=== PATIENT | female | born 1940 ===

== ENCOUNTER 2019-02-07 14:37 | Inpatient (IN) | payer MEDICARE, OTHER ==
[~2019-02-07] VITALS: Ht 165 cm; Wt 101.1 kg
[2019-02-07] MEDS ORDERED: DOCUSATE SODIUM 100 MG (COLACE) CAP PO PRN (15:00)
[2019-02-07] MEDS ORDERED: diphenhydrAMINE 25 MG TAB (BENADRYL) PO PRN (15:00)
[2019-02-07] MEDS ORDERED: guaiFENesin/CODEINE (ROBITUSSIN AC) 10ML UDC PO PRN (15:00)
[2019-02-07] MEDS ORDERED: FLEET ENEMA ADULT 1 EA BTL PR PRN (15:00)
[2019-02-07] MEDS ORDERED: ACETAMINOPHEN 500 MG TAB (TYLENOL) PO PRN (15:00)
[2019-02-07] MEDS ORDERED: LOPERAMIDE 2 MG (IMODIUM) TABLET PO PRN (15:00)
[2019-02-07] MEDS ORDERED: ONDANSETRON 4 MG (ZOFRAN) ORAL DISSOLVE TAB PO PRN ×2 (15:00→17:45)
[2019-02-07] MEDS ORDERED: LACTULOSE SYRUP 10GM/15ML (ENULOSE) 30ML UDC PO PRN (15:00)
[2019-02-07] MEDS ORDERED: HYDR120O2 TP (15:46)
[2019-02-07] MEDS ORDERED: CHOL10007 PO (15:46)
[2019-02-07] MEDS ORDERED: RT-ALBUINH IH (15:46)
[2019-02-07] MEDS ORDERED: LEVO112T55 PO (15:46)
[2019-02-07] MEDS ORDERED: DOCU-143 PO (15:46)
[2019-02-07] MEDS ORDERED: AMLO10TA7 PO (15:46)
[2019-02-07] MEDS ORDERED: ONDA4TAB11 PO (15:46)
[2019-02-07] MEDS ORDERED: METO-333 PO (15:46)
[2019-02-07] MEDS ORDERED: ATOR10TA66 PO (15:46)
[2019-02-07] MEDS ORDERED: RIVA15TA PO (15:46)
[2019-02-07] MEDS ORDERED: GLIM4TAB PO (15:46)
[2019-02-07] MEDS ORDERED: ACET325T38 PO (15:46)
[2019-02-07] MEDS ORDERED: BENZ100C18 PO (15:46)
[2019-02-07] MEDS ORDERED: NITR0.4T39 SL (15:46)
[2019-02-07] MEDS ORDERED: OXYC15TA79 PO (15:46)
[2019-02-07] MEDS ORDERED: POLY17PO6 PO (15:46)
[2019-02-07] MEDS ORDERED: VITA1CAP16 PO (15:46)
[2019-02-07] MEDS ORDERED: DONE5TAB30 PO (15:46)
[2019-02-07] MEDS ORDERED: BISA10SU8 RC (15:46)
[2019-02-07] MEDS ORDERED: FURO40TA4 PO (15:46)
--- NOTE | 2019-02-07 15:48 | NUR ---
UPDATED MED REC WITH DISCHARGE ORDERS FROM [facility]. NOTE THE FOLLOWING CHANGES WERE MADE AT THAT DISCHARGE: START TAKING: ALBUTEROL INHALER 2 PUFFS Q6H PRN SOB BENZONATATE 100MG TID PRN COUGH BISACODYL 10MG SUPP DAILY PRN VITAMIN D3 1000 UNITS HS COLACE 100MG BID HYDROPHILIC WOUND DRESSING BID METOPROLOL TARTRATE 37.5MG BID ZOFRAN ODT 4MG Q8H PRN OXYCODONE 15MG Q6H PRN MIRALAX 17MG DAILY PRN VITAMIN B COMPLEX, VITAMIN C FOLIC ACID 1MG DAILY CHANGE HOW YOU TAKE: TYLENOL 325MG 2 Q6H PRN PAIN/TEMP AMLODIPINE 10MG DAILY ATORVASTATIN 10MG HS DONEPEZIL 5MG HS LASIX 40MG 1/2 TAB DAILY PRN 3LB WEIGHT GAIN/EDEMA GLIMEPIRIDE 4MG 1/2 TAB BID WITH MEALS NITROSTAT 0.4MG UD PRN XARELTO 15MG DAILY CONTINUE: LEVOTHYROXINE 112MCG DAILY STOP: AMITRIPTYLINE 100MG CARVEDILOL 25MG VITAMIN D3 1000 UNITS PROBIOTIC ZOLPIDEM 10MG I WILL UPDATE THE MED REC BACK TO THE LIST OF MEDICATIONS THE PATIENT WAS TAKING PRIOR TO THIS DISCHARGE AT A LATER DATE FOR PROPER DISCHARGE TO HOME ORDERS AND COMPARE WHAT WAS REPORTED AT THIS DISCHARGE AND FILLED RECENTLY ACCORDING TO THE EXT MED HX. Addendum: 02/12/19 at 1006 by ISMAEL COVARRUBIAS training officer I REMOVED 9 OF THE NEW MEDICATIONS ORDERED AT THIS TIME, THE VITAMIN D WAS NEW HOWEVER THE SAME DOSE WAS DISCONTINUED SO I LEFT IT ON THE MED REC. THE METOPROLOL TARTRATE 37.5MG BID WAS NEW HOWEVER ACCORDING TO THE EXT MED HX SHE HAD FILLED IT 25MG BID. I LEFT 25MG BID ON THE MED REC, ALSO DISCONTINUED WAS COREG HOWEVER THAT HAS NOT BEEN FILLED SINCE 10-10-18 #180 FOR 90 DAYS, THE METOPROLOL WAS FIRST FILLED 10-24-18 SO I ASSUME IT WAS CHANGED. ADDED BACK THE AMBIEN, PROBIOTIC, AND AMITRIPTYLINE THAT WAS DISCONTINUED ON DISCHARGE. THE LEVOTHYROXINE 112MCG WAS ORDERED TO CONTINUE HOWEVER ACCORDING TO THE EXT MED HX PATIENT WAS FILLED THE 100MCG DAILY. I UPDATED THE MED REC TO 100MCG. I UPDATED THE FUROSEMIDE TO 40MG DAILY, IT WAS CHANGED TO 20MG DAILY PRN AT DISCHARGE FROM [facility]. I UPDATED THE DONEPEZIL BACK TO 10MG HS THE EXT MED HX SHOWS, IT WAS CHANGED TO 5MG HS AT DISCHARGE FROM [facility]. I UPDATED THE AMLODIPINE BACK TO 5MG DAILY THE EXT MED HX SHOWS, IT WAS CHANGED TO 10MG DAILY AT DISCHARGE FROM [facility]. IN ADDITION TO WHAT IS SHOWN ON THE EXT MED HX [facility] FILLED: 12-22-18 XARELTO 15MG #90 11-20-18 AMITRIPTYLINE 100MG #90 11-14-18 ATORVASTATIN 10MG #90 11-14-18 GLIMEPIRIDE 2MG #180
[2019-02-07 17:30] VITALS: BP 144/70
[2019-02-07] MEDS ORDERED: RT-ALBUTEROL SULF 2.5 MG/3 ML PRE-MIX VIAL IH PRN (17:45)
[2019-02-07] MEDS ORDERED: BENZONATATE 100 MG (TESSALON) CAPSULE PO PRN (17:45)
[2019-02-07] MEDS ORDERED: FUROSEMIDE 40 MG (LASIX) TAB PO PRN (17:45)
[2019-02-07] MEDS ORDERED: BISACODYL 10 MG SUPP (DULCOLAX) RC PRN (17:45)
[2019-02-07] MEDS ORDERED: NON-FORMULARY MEDICATION 1 EA EA (Polyethylene Glycol 3350 (Miralax) 17 GM) PO PRN (17:45)
[2019-02-07] MEDS: inSUlin ASPART (NovoLOG) 1 UNIT/0.01 ML (CHARGE PER UNIT) SC SCH ×2 (18:30→21:40)
[2019-02-07] MEDS: RIVAROXABAN 15 MG TABLET (XARELTO) PO SCH (18:34)
[2019-02-07] MEDS ORDERED: SENNA W/DOCUSATE (SENOKOT S) TABLET PO SCH (21:00)
[2019-02-07] MEDS ORDERED: NON-FORMULARY MEDICATION 1 EA EA (Cholecalciferol (Vitamin D3) (Vitamin D3) 1,000 UNIT) PO SCH (21:00)
[2019-02-07] MEDS: VITAMIN D3 1,000 UNITS (CHOLECALCIFEROL) TABLET PO SCH (21:04)
[2019-02-07] MEDS: DONEPEZIL 5 MG (ARICEPT) TAB PO SCH (21:04)
[2019-02-07] MEDS: meTOprolol TARTRATE 25 MG (LOPRESSOR) TABLET PO SCH (21:05)
[2019-02-07] MEDS: POLYETHYLENE GLYCOL 17 GM (MIRALAX) PACK PO SCH (21:17)
[2019-02-07] MEDS: DOCUSATE SODIUM 100 MG (COLACE) CAP PO SCH (21:17)
--- NOTE | 2019-02-07 21:59 | Consultation-Cardiology ---
HPI-Cardiology Cardiology Consultation: Date of Consultation 02/07/19 Time Seen by a Provider: 21:20 Date of Admission Attending Physician Pia Mayen DO Admitting Physician Consulting Physician LEIGH SANTOS MD, MA, FACP, FACC, FSCAI, CCDS HPI: Chief Complaint: Reason for consultation: PAF HPI 78 yo woman transferred to Dr Mayen today from [facility] where she has undergone spinal surgery. Dr Mayen has informed us that pt has been diagnosed with PAF at [facility] Pt seems to suffer from poor memory / mild dementia. She answers no to all questions: denies cp or palp or syncope or back pain or leg swelling or shortness of breath or N/V. Gives only short answers, mostly in the negative Review of Systems-Cardiology Review of Systems Constitutional: other (A reliable ROS is not possible due to reasons noted above) KFN-Uiwunx-Swglxj Hx Patient Social History Alcohol Use: Denies Use Recent Foreign Travel: No Recent Infectious Disease Expo: No Past Medical History PMH As described under Assessment. Family Medical History Family Medical History: She does not report any family history Allergies and Home Medications Allergies Coded Allergies: Penicillins (Verified Allergy, Unknown, 02/07/19) adhesive (Verified Allergy, Unknown, 02/07/19) codeine (Verified Allergy, Unknown, 02/07/19) morphine (Verified Allergy, Unknown, 02/07/19) oxybutynin (Verified Allergy, Unknown, 02/07/19) pentazocine (Verified Allergy, Unknown, 02/07/19) Home Medications Acetaminophen 325 Mg Tablet, 650 MG PO Q6H PRN for PAIN-MILD (1-4) OR TEMPATURE, (Reported) TAKES 2 (325MG) TABLETS Albuterol Sulfate 1 Puff Puff, 2 PUFF IH Q6H PRN for SHORTNESS OF BREATH, (Reported) 1 PUFF = 90 MCG Amlodipine Besylate 10 Mg Tablet, 10 MG PO DAILY, (Reported) Atorvastatin Calcium 10 Mg Tablet, 10 MG PO HS, (Reported) Benzonatate 100 Mg Capsule, 100 MG PO TID PRN for COUGH, (Reported) Bisacodyl 10 Mg Supp.rect, 10 MG RC DAILY PRN for CONSTIPATION-4TH LINE, (Reported) Cholecalciferol (Vitamin D3) 1,000 Unit Capsule, 1,000 UNIT PO HS, (Reported) Docusate Sodium 100 Mg Capsule, 100 MG PO BID, (Reported) Donepezil HCl 5 Mg Tablet, 5 MG PO HS, (Reported) Furosemide 40 Mg Tablet, 20 MG PO DAILY PRN for EDEMA W/ >3LB WEIGHT GAIN/DAY, (Reported) TAKES 1/2 (40MG) TABLET Glimepiride 4 Mg Tablet, 2 MG PO BID WITH MEALS, (Reported) TAKES 1/2 (4MG) TABLET Hydrophilic Ointment 113 Gm Oint...g., TP BID, (Reported) Levothyroxine Sodium 112 Mcg Tablet, 112 MCG PO DAILY, (Reported) Metoprolol Tartrate 25 Mg Tablet, 37.5 MG PO BID, (Reported) Nitroglycerin 0.4 Mg Tab.subl, 0.4 MG SL UD PRN for CHEST PAIN, (Reported) TAKE 1 TABLET EVERY 5 MINUTES NEEDED FOR CHEST PAIN Ondansetron 4 Mg Tab.rapdis, 4 MG PO Q8H PRN for NAUSEA/VOMITING-1ST LINE, (Reported) Oxycodone HCl 15 Mg Tablet, 15 MG PO Q6H PRN for PAIN-SEVERE (8-10), (Reported) Polyethylene Glycol 3350 17 Gm Powd.pack, 17 GM PO DAILY PRN for CONSTIPATION- 2ND LINE, (Reported) Rivaroxaban 15 Mg Tablet, 15 MG PO DAILY, (Reported) Vitamin B Complex & Vit C No.3 1 Each Capsule, 1 CAP PO DAILY, (Reported) NEPHROCAP (VITAMIN B COMPLEX-VITAMIN C- FOLIC ACID) Patient Home Medication List Home Medication List Reviewed: Yes Physical Exam-Cardiology Physical Exam Vital Signs/I&O 02/07/19 02/07/19 02/07/19 17:30 17:30 17:56 Temp 36.4 Pulse 90 Resp 18 B/P (MAP) 144/70 Pulse Ox 99 98 O2 Delivery Nasal Cannula Nasal Cannula Nasal Cannula O2 Flow Rate 2.00 2.00 2.00 Capillary Refill : Constitutional: well-developed, well-nourished, other (appears disoriented, verba response is minimal) HEENT: PERRL, EOMI Neck: carotid pulses are 2 + bilaterally, with good upstrokes Respiratory: No accessory muscle use; other (fair to good bilat air entry) Cardiovascular: regular rate-rhythm, S1 and S2, systolic murmur (1-2/6 KRISTAN at card base) Gastrointestinal: No tender; soft; No guarding, No rebound; audible bowel sounds Extremities: No clubbing, No cyanosis, No significant edema Neurologic/Psychiatric: other (seems to move all limbs; disoriented) Skin: No rash on exposed areas, No ulcerations on exposed areas Data Review Labs Laboratory Tests 02/07/19 18:29: Glucometer 86 02/07/19 21:33: Glucometer 85 A/P-Cardiology Assessment/Admission Diagnosis PAF Recent ROSE (while at [facility] prior to this transfer) DM II Htn HL Dementia Discussion and Recomendations * Continue metoprolol * Continue rivaroxaban * Monitor labs Clinical Quality Measures DVT/VTE Risk/Contraindication: Risk Factor Score Per Nursin RFS Level Per Nursing on Admit: 4+=Very High LEIGH SANTOS MD FACP FAC CCDS Feb 07, 2019 21:59 POS
[2019-02-07] MEDS: HYDROcodone/APAP 5 MG/325 MG (LORTAB) TAB PO PRN (23:03)
[2019-02-07] MEDS: MELATONIN 3 MG TABLET PO PRN (23:03)
[2019-02-08] MEDS: LEVOTHYROXINE 112 MCG (LEVOTHROID) TAB PO SCH (05:40)
[2019-02-08] MEDS: MULTIVIT W/MINERALS TAB (THERAGRAN M) PO SCH (05:41)
[2019-02-08] MEDS: inSUlin ASPART (NovoLOG) 1 UNIT/0.01 ML (CHARGE PER UNIT) SC SCH ×4 (05:43→20:25)
[2019-02-08 05:52] LABS: BASOPHILS % (AUTO) 0 % (0-10); EOSINOPHILS # (AUTO) 0.2 10^3/uL (0.0-0.3); EOSINOPHILS % (AUTO) 2 % (0-10); HEMATOCRIT 31 % (35-52); LYMPHOCYTES # (AUTO) 0.7 X 10^3 (1.0-4.0); LYMPHOCYTES % (AUTO) 6 % (12-44); MEAN CORPUSCULAR HEMOGLOBIN 29 PG (25-34); MEAN CORPUSCULAR HGB CONC 32 G/DL (32-36); MEAN CORPUSCULAR VOLUME 91 FL (80-99); MONOCYTES # (AUTO) 1.1 X 10^3 (0.0-1.0); MONOCYTES % (AUTO) 9 % (0-12); NEUTROPHILS # (AUTO) 10.2 X 10^3 (1.8-7.8); NEUTROPHILS % (AUTO) 84 % (42-75); PLATELET COUNT 334 10^3/uL (130-400); RED CELL DISTRIBUTION WIDTH 15.8 % (10.0-14.5); WHITE BLOOD COUNT 12.2 10^3/uL (4.3-11.0)
[2019-02-08 05:58] VITALS: BP 169/89
[2019-02-08 06:20] LABS: ALBUMIN 3.1 GM/DL (3.2-4.5); BILIRUBIN,TOTAL 0.4 MG/DL (0.1-1.0); CALCIUM 12.2 MG/DL (8.5-10.1); CREATININE SERUM 1.73 MG/DL (0.60-1.30); MAGNESIUM 2.4 MG/DL (1.6-2.4); PHOSPHORUS 2.7 MG/DL (2.3-4.7); TOTAL PROTEIN 5.7 GM/DL (6.4-8.2)
[2019-02-08] MEDS: GLIMEPIRIDE 2 MG (AMARYL) TAB PO SCH ×2 (06:41→17:39)
[2019-02-08] MEDS ORDERED: GLIMEPIRIDE 2 MG PO SCH (07:00)
[2019-02-08 07:34] VITALS: BP 179/93
[2019-02-08] MEDS: amLODIPine 10 MG (NORVASC) TAB PO SCH (07:36)
[2019-02-08] MEDS: HYDROcodone/APAP 5 MG/325 MG (LORTAB) TAB PO PRN ×3 (07:36→20:24)
[2019-02-08] MEDS: meTOprolol TARTRATE 25 MG (LOPRESSOR) TABLET PO SCH ×2 (07:36→20:24)
--- NOTE | 2019-02-08 07:47 | Diagnostic Imaging Report ---
EXAM: CHEST 1 VIEW, AP/PA ONLY INDICATION: Shortness of breath. COMPARISON: None. FINDINGS: Consolidation throughout most of the right mid and lower lung. Probable right pleural effusion. Left lung is clear. Heart size is obscured. Postoperative changes in the cervical spine and lower thoracic spine. IMPRESSION: Right pleural effusion and consolidation throughout most of the right mid and lower lung. Dictated by: Dictated on workstation # [id number]
[2019-02-08] MEDS: DOCUSATE SODIUM 100 MG (COLACE) CAP PO SCH ×2 (09:00→20:25)
[2019-02-08] MEDS ORDERED: NON-FORMULARY MEDICATION 1 EA EA (Vitamin B Complex & Vit C No.3 (B Complex with Vitamin C PO SCH (09:00)
[2019-02-08] MEDS: POLYETHYLENE GLYCOL 17 GM (MIRALAX) PACK PO SCH ×2 (09:00→20:25)
[2019-02-08] MEDS ORDERED: NON-FORMULARY MEDICATION 1 EA EA (Amlodipine Besylate 10 MG) PO SCH (09:00)
--- NOTE | 2019-02-08 10:17 | Occupational Therapy Eval ---
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 Pt underwent thoracic laminectomy and decompression T8-11 Reviewed History: Yes Social History Home: Single Level Current Living Status: Spouse Steps Into Home: 1 Steps Inside Home: 1 (one step to living room) ADL-Prior Level of Function SCALE: Activities may be completed with or without assistive devices. 8-Ebyqqqdttp-oqxtvds completes the activity by him/herself with no assistance from a helper. 5-Set-up or Clean-up Assistance-helper sets up or cleans up; patient completes activity. [place] assists only prior to or following the activity. 4-Supervision or Touching Assistance-helper provides verbal cues and/or touching/steadying and/or contact guard assistance as patient completes activity. Assistance may be provided throughout the activity or intermittently. 3-Partial/Moderate Assistance-helper does LESS THAN HALF the effort. [place] lifts, holds or supports trunk or limbs, but provides less than half the effort. 2-Substantial/Maximal Assistance-helper does MORE THAN HALF the effort. [place] lifts or holds trunk or limbs and provides more than half the effort. 0-Hlvuihxoa-zyuuox does ALL the effort. Patient does none of the effort to complete the activity. Or, the assistance of 2 or more helpers is required for the patient to complete the activity. If activity was not attempted, code reason: 7-Patient Refused. 9-Not Applicable-not attempted and the patient did not perform the activity before the current illness, exacerbation or injury. 10-Not Attempted due to Environmental Limitations-(lack of equipment, weather restraints, etc.). 88-Not Attempted due to Medical Conditions or Safety Concerns. ADL PLOF Comments Pt reports minimal activity prior to fall. Pt used walker for mobility inside, but used w/c when outside home. Pt states she was able to dress herself, but had a bath aide 1x/wk. Self Care: Needed Some Help DME/Equipment: Bath Chair, Grab Bars, Tub/Shower Drive Self: No OT Current Status Subjective Pt in bed, agrees to therapy with encouragement. Pt reports back pain 11/21 Mental Status/Objective Patient Orientation: Person Attachments: Oxygen, Other-See Comments (wound vac) Current Glasses/Contacts: Yes Hearing Aids: No Dentures/Partials: Yes Hand Dominance: Right Upper Extremity ROM Grossly WFL Upper Extremity Coordination Fair Upper Extremity Strength decreased bilaterally ADL-Treatment Eating (QC): 5 (per nursing report pt is able to feed self after set up) Oral Hygiene (QC): 3 (Pt completed oral care while seated in chair. Pt brushed teeh and upper dentures with set up. Pt removed dentures and rinsed then with min assist. Placed dentures back in mouth without assist.) Shower/Bathe Self (QC): 1 (Pt washed upper body with SBA. Total assist to wash lower body. Assist x2 when when standing to wash buttocks and back of legs. One assisted to stand while another assisted with hygiene. ) Upper Body Dressing (QC): 2 (Pt donned pullover gown with min assist to pull down in back. Pt required total assist to don TLSO and manage straps.) Lower Body Dressing (QC): 1 (Pt will require instruction in use of adaptive equipment for LE dressing secondary to back precautions.) On/Off Footwear (QC): 1 (Pt will require instruction in use of AE for socks secondary to back precautions.) Toileting Hygiene (QC): 1 (Pt required total assist for toileting hygiene and management of brief) Toilet Transfer (QC): 1 (Assist x2 for safe transfer on/off commode.) Pt dependent for bed mobility and transfers. Pt completed ADL tasks while seated in chair. Pt combed hair with set up. After initial evaluation, Co-treat with PT secondary to need for two skilled clinicians to complete functional tasks. OT focusing on ADL tasks (bathing, dressing, grooming, toileting) and safety while PT focused on sitting/standing balance, transfers, sequencing for mobility, and safety. Education was provided to pt regarding back precautions and safety during functional tasks. Pt positioned in bed with needs met after session. Education OT Patient Education: Rehab process Teaching Recipient: Patient Teaching Methods: Discussion Response to Teaching: Verbalize Understanding, Reinforcement Needed OT Short Term Goals Short Term Goals Time Frame: Feb 22, 2019 Toileting hygiene: 3 Shower/bathe self: 3 Upper body dressin Lower body dressin OT Software Developer Manager Goals Software Developer Manager Goals Time Frame: Mar 08, 2019 Eating (QC): 6 Oral Hygiene (QC): 6 Toileting Hygiene (QC): 6 Shower/Bathe Self (QC): 5 Upper Body Dressing (QC): 5 Lower Body Dressing (QC): 5 On/Off Footwear (QC): 5 Additional Goals: 1-Demonstrate ADL Tasks, 2-Verbalize Understanding, 3- ImproveStrength/Fidel 1=Demonstrate adherence to instructed precautions during ADL tasks. 2=Patient will verbalize/demonstrate understanding of assistive devices/modifications for ADL. 3=Patient will improve strength/tolerance for activity to enable patient to perform ADL's. Goals established to promote increased functional independence and allow safe discharge home. OT Education/Plan Problem List/Assessment Assessment: Decreased Activ Tolerance, Decreased UE Strength, Dependent Transfers, Impaired Funct Balance, Impaired I ADL's, Impaired Self-Care Skills Pt demonstrates impaired ADL functioning, mobility, strength, and activity tolerance. Pt to benefit from skilled OT intervention for ADL training, transfers, strengthening, and home safety education to increase level of independence and allow safe discharge plan. Discharge Recommendations Plan/Recommendations: Continue POC Treatment Plan/Plan of Care Treatment,Training & Education: Yes Patient would benefit from OT for education, treatment and training to promote independence in ADL's, mobility, safety and/or upper extremity function for ADL's. Plan of Care: ADL Retraining, Functional Mobility, Group Exercise/Act as Ind, UE Funct Exercise/Act Treatment Duration: Mar 08, 2019 Frequency: At least 5 of 7 days/Wk (IRF) Estimated Hrs Per Day: 1.5 hours per day Rehab Potential: Fair Time/GCodes Start Time: 08:20 Stop Time: 10:00 Total Time Billed (hr/min): 90 Billed Treatment Time 1 visit, EVM(10minutes), ADLx5(80minutes) Co-treat with PT 80 minutes ORACIO MUHAMMAD OT Feb 08, 2019 10:17 POS
--- NOTE | 2019-02-08 10:18 | Physical Therapy Evaluation ---
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 Pt to wear TLSO when out of bed. Reviewed History: Yes Social History Home: Single Level Current Living Status: Spouse (he has respiratory issues) Entry Into Home: Stairs Without Railing PT Steps Into Home: 1 PT Steps Inside Home: 0 Prior Prior Level of Function SCALE: Activities may be completed with or without assistive devices. 2-Uqteioaach-qzdauaq completes the activity by him/herself with no assistance from a helper. 5-Set-up or Clean-up Assistance-helper sets up or cleans up; patient completes activity. [place] assists only prior to or following the activity. 4-Supervision or Touching Assistance-helper provides verbal cues and/or touching/steadying and/or contact guard assistance as patient completes activity. Assistance may be provided throughout the activity or intermittently. 3-Partial/Moderate Assistance-helper does LESS THAN HALF the effort. [place] lifts, holds or supports trunk or limbs, but provides less than half the effort. 2-Substantial/Maximal Assistance-helper does MORE THAN HALF the effort. [place] lifts or holds trunk or limbs and provides more than half the effort. 4-Rheyrhpgf-tupurf does ALL the effort. Patient does none of the effort to complete the activity. Or, the assistance of 2 or more helpers is required for the patient to complete the activity. If activity was not attempted, code reason: 7-Patient Refused. 9-Not Applicable-not attempted and the patient did not perform the activity before the current illness, exacerbation or injury. 10-Not Attempted due to Environmental Limitations-(lack of equipment, weather restraints, etc.). 88-Not Attempted due to Medical Conditions or Safety Concerns. Bed Mobility: 6 Transfers (B,C,W/C): 6 Gait: 6 Stairs: 5 Wheelchair Mobility: 1 (pt used wc for community mobility, family pushes her) Indoor Mobility (Ambulation): Independent Stairs: Needed Some Help Prior Devices Use: Manual wheelchair, Walker pt reports she uses a FWW in her home and is mod indep with all mobiltiy; reports she is able to to light cooking; reports she uses a wc for community mobilty and her family pushes her. PT Evaluation-Current Subjective Initially, pt very groggy and needs encouragement to participate. As treatment progressed, pt brightened, smiled and actively participated with treatment. Voiced understanding of ARU expectations. Pain Numeric Pain Scale: 9 Location: Posterior Location Body Site: Back Pain Description: Ache Comment: Pt has taken pain meds; verbal report of pain rating. Pt/Family Goals When asked her goal, she replied, "To go home yesterday" and then smiled. Objective Patient Orientation: Person, Confused (slightly intermittent), Place, Time, Situation Attachments: Oxygen (in situ throughout treatment and post) ROM/Strength ROM Lower Extremities AAROM WFL Strength Lower Extremities Right LE weaker than the left with muscle testing: DF right 3/5; quads 2-/5; hip flex 2/5; hamstrings 2/5; Left side DF 3/5, quads 2+/5; hip flexion 3-/5; hamstrings 3-/5. Integumentary/Posture Integumentary wound vac in place Bowel Incontinence: No Bladder Incontinence: Yes Posture symmetrical; slight rounded shoulders and forward head Neuromuscular (Tone, Coordination, Reflexes) intact and functional Sensory Vision: Wears Glasses Hearing: Functional Hand Dominance: Right Sensation Right Lower Extremit: Intact Sensation Left Lower Extremity: Intact Transfers Roll Left to Right (QC): 1 Sit to Lying (QC): 1 Lying to Sitting/Side of Bed(Q: 1 Sit to Stand (QC): 1 Chair/Nsd-lb-Asvco Xfer(QC): 1 Car Transfer (QC): 88 Pt is able to attempt to participate with transfers but is ultimately dependent for all mobility. Dep to transfer sit to stand, pt able to bear weight but with heavy assist; pt able to take small steps to perform SPT but with difficulty and this clinician shifting the weight and assisting with the transfer; in addition, required an extra person to guide her hips to turn. SPT performed x 4 reps; sit to stand performed x multiple reps throughout the treatment. Gait Does the Patient Walk?: No and Walking Goal IS indicated Mode of Locomotion: Walk Anticipated Mode of Locomotion: Walk Walk 10 feet (QC): 88 Walk 50 ft with 2 Turns(QC): 88 Walk 150 ft (QC): 88 Walking 10ft/uneven surface-QC: 88 Gait Assistive Device: FWW Comments/Gait Description Pt unable to effectively take steps or attempt to ambulate at this time. Wheelchair Training Does the Pt Use a Wheelchair?: Yes Wheel 50 ft with 2 turns (QC): 1 Wheel 150 ft (QC): 1 Type of Wheelchair: Manual Stairs 1 Step (curb) (QC): 88 4 Steps (QC): 88 12 Steps (QC): 88 pt unable to walk Balance Sitting Static: Fair Sitting Dynamic: Fair Standing Static: Poor Standing Dynamic: Poor Picking up an Object (QC): 88 Treatment after evaluation, co treatment with OT due to the need of 2 skilled clinicians to effectively complete tasks; pt is dependent for mobility and requires heavy verbal and tactile cues to complete tasks. As OT addressed dressing, bathing, pericare, toileting; PT addressed seated trunk balance with static and dynamic activities; PT performed functional transfers with cues for sequencing, task segmentation and assist to complete. Multiple opportunities to perform dynamic sitting balance with bathing as multiple transfers to clean periarea and apply undergarments. Pt follows cues, participates and cooperative. TLSO in place throughout treatment when upright. Pt in bed post treatment with needs met. Pt able to stand approx 30 seconds at a time with dep assist before her knees start to give. Assessment/Needs Pt presents with a lengthy history of back surgeries and complications. She has admitted to this facility from [facility] to focus on functional strength and mobility. She presents with functional weakness, balance deficits, impaired functional activity toelrance and inability to return home at this time. She will benefit from skilled PT services to address these deficits to allow her to become mod indep with bed mobility, transfers and gait at a household level to return home with her spouse. Rehab Potential: Good PT Short Term Goals Short Term Goals Time Frame: Feb 22, 2019 Roll Left & Right: 3 Sit to lyin Lying to sitting on side of be: 3 Sit to stand: 3 Chair/smm-ol-fsooh transfer: 3 Toilet transfer: 3 Car transfer: 3 Walk 10 feet: 3 Walk 50 feet with two turns: 3 PT Doughnut Batter Mixer Goals Doughnut Batter Mixer Goals PT Care Home Goals Time Frame: Mar 08, 2019 Roll Left & Right (QC): 6 Sit to Lying (QC): 6 Lying-Sitting on Side/Bed(QC): 6 Sit to Stand (QC): 6 Chair/Idl-bs-Nmmie Xfer(QC): 6 Toilet Transfer (QC): 6 Car Transfer (QC): 5 Does the Patient Walk: No and Walking Goal IS indicated Walk 10 feet (QC): 6 Walk 50ft with 2 Turns (QC): 6 Walk 150 ft (QC): 6 Walking 10ft on Uneven Surface: 4 1 Step (curb) (QC): 4 4 Steps (QC): 4 12 Steps (QC): 9 Picking up an Object (QC): 9 Does the Pt use WC or Scooter?: Yes Wheel 50 feet with 2 turns (QC: 5 Type: Manual Wheel 150 feet: 5 Type: Manual PT Plan Problem List Problem List: Activity Tolerance, Functional Strength, Safety, Balance, Gait, Transfer, Bed Mobility Treatment/Plan Treatment Plan: Continue Plan of Care Treatment Plan: Bed Mobility, Education, Functional Activity Fidel, Functional Strength, Group Therapy, Gait, Safety, Therapeutic Exercise, Transfers Treatment Duration: Mar 08, 2019 Frequency: At least 5 of 7 days/Wk (IRF) Estimated Hrs Per Day: 1.5 hours per day Patient and/or Family Agrees t: Yes Safety Risks/Education Patient Education: Transfer Techniques, Safety Issues Teaching Recipient: Patient Teaching Methods: Demonstration, Discussion Response to Teaching: Reinforcement Needed Discharge Recommendations Therapy Discharge Recommendati: Post Acute PT Time/GCodes Time In: 830 Time Out: 1000 Total Billed Treatment Time: 90 Total Billed Treatment visit EVM 10 FA 80 (co treat with OT) NIKKY SCOTT PT Feb 08, 2019 10:18 POS
--- NOTE | 2019-02-08 10:46 | PM&R Post Admission Assessment ---
PM&R HP Date of Visit: Feb 08, 2019 Time of Visit: 09:30 History of Present Illness Chief complaint: Debility following thoracic vertebral fracture status post surgical repair History of present illness: This is a 78-year-old white female clinic patient of Dr Wallis with a multitude of medical problems including oxygen dependent COPD, diabetes mellitus, chronic renal failure Baseline creatinine 1.8 and atrial fibrillation who presents to inpatient rehabilitation following a 2 week stay at [facility] that started after a fall at home on her back in [place], [place] requiring transfer to [facility] where she was found to have a compression fracture of T11-12 and ultimately required neurosurgical repair due to spinal cord compression after oral anticoagulation of Xarelto was held. She underwent that repair on 01/27/19 an uncomplicated manner but she did ultimately suffer respiratory failure requiring ventilator support and had completed antibiotics of Levaquin during her hospital course. She did require an enema yesterday and her bowels did move and currently she is requiring a great deal of pain medication. I did consult Dr. Ulloa for atrial fibrillation and Dr. Garcia for COPD and oxygen dependence and recent ventilator supported status. At this current time patient is reporting a lot of pain she did have a lot of pain severe this morning nebulizer treatments were started patient started using incentive spirometer which helped out a great deal. Her systolic blood pressure is 170s from the pain. I reviewed her labs and her white count is down from 14- 12 today her hemoglobin remained stable and her creatinine is at baseline. Her prior level of functioning was ambulating with assist device of walker and use of wheelchair out in the community but was independent with ADLs. She has been for 58 years. 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 She lives at home with her and son who she says is "crippled." She remains on a wound VAC until Tuesday. Past Lvueuvx-Hgwlsm-Ikxhbw Hx Past Med/Social Hx: Reviewed Nursing Past Med/Soc Hx, Reviewed and Corrections made Patient Social History Marrital Status: (58 yrs) Employed/Student: retired Alcohol Use: Denies Use Smoking Status: Never a Smoker Recent Foreign Travel: No Contact w/other who traveled: No Recent Hopitalizations: Yes Recent Infectious Disease Expo: No Seasonal Allergies Seasonal Allergies: No Past Medical History Surgeries: Abdominal, Gallbladder, Orthopedic, Tonsillectomy Respiratory: COPD Currently Using CPAP: No Currently Using BIPAP: No Cardiac: Atrial Fibrillation, Chronic Edema/Swelling, High Cholesterol, Hypertension Neurological: Neuropathy Genitourinary: Bladder Infection, Renal Failure Gastrointestinal: Gastroesophageal Reflux, Chronic Constipation Musculoskeletal: Degenerate Disk Disease, Arthritis, Chronic Back Pain, Fractures Endocrine: Hypothyroidsim, Diabetes, Non-Insulin dep Psychosocial: Sleep Difficulties, Depression History of Blood Disorders: No Adverse Reaction to Blood Belle: No Prior Level of Function Bed Mobility: 6 Transfers: 6 Gait: 6 Stairs: 5 Wheelchair Mobility: 1 (pt used wc for community mobility, family pushes her) Indoor Mobility (Ambulation): Independent Stairs: Needed Some Help Prior Devices Use: Manual wheelchair, Walker Self Care: Needed Some Help Drive Self: No Current Level of Fuctioning Roll Left to Right: 1 Sit to Lyin Lying to Sitting/Side of Bed: 1 Sit to Stand: 1 Chair/Fdz-pf-Wrixu Xfer: 1 Car Transfer: 88 Does the Patient Walk: No and Walking Goal IS indicated Mode of Locomotion: Walk Anticipated Mode of Locomotion: Walk Walk 10 feet: 88 Walk 50 ft with 2 Turns: 88 Walk 150 ft: 88 Walking 10ft on uneven surface: 88 Gait Assistive Device: FWW Does the Pt Use a Wheelchair: Yes Wheel 50 ft with 2 turns: 1 Wheel 150 ft: 1 Type of Wheelchair: Manual 1 Step (curb): 88 4 Steps: 88 12 Steps: 88 Picking up an Object: 88 Eatin (per nursing report) PM&R Allergy/Meds/Data Review Allergies Coded Allergies: Penicillins (Verified Allergy, Unknown, 02/07/19) adhesive (Verified Allergy, Unknown, 02/07/19) codeine (Verified Allergy, Unknown, 02/07/19) morphine (Verified Allergy, Unknown, 02/07/19) oxybutynin (Verified Allergy, Unknown, 02/07/19) pentazocine (Verified Allergy, Unknown, 02/07/19) Home Medications Scheduled Amlodipine Besylate (Amlodipine Besylate), 10 MG PO DAILY, (Reported) Atorvastatin Calcium (Atorvastatin Calcium), 10 MG PO HS, (Reported) Cholecalciferol (Vitamin D3) (Vitamin D3), 1,000 UNIT PO HS, (Reported) Docusate Sodium (Colace), 100 MG PO BID, (Reported) Donepezil HCl (Donepezil HCl), 5 MG PO HS, (Reported) Glimepiride (Glimepiride), 2 MG PO BID WITH MEALS, (Reported) Hydrophilic Ointment (Hydrophilic), TP BID, (Reported) Levothyroxine Sodium (Levothyroxine Sodium), 112 MCG PO DAILY, (Reported) Metoprolol Tartrate (Metoprolol Tartrate), 37.5 MG PO BID, (Reported) Rivaroxaban (Xarelto), 15 MG PO DAILY, (Reported) Vitamin B Complex & Vit C No.3 (B Complex with Vitamin C), 1 CAP PO DAILY, (Reported) Scheduled PRN Acetaminophen (Tylenol), 650 MG PO Q6H PRN for PAIN-MILD (1-4) OR TEMPATURE, (Reported) Albuterol Sulfate (Proair Hfa), 2 PUFF IH Q6H PRN for SHORTNESS OF BREATH, (Reported) Benzonatate (Tessalon Perles), 100 MG PO TID PRN for COUGH, (Reported) Bisacodyl (Bisacodyl), 10 MG RC DAILY PRN for CONSTIPATION-4TH LINE, (Reported) Furosemide (Furosemide), 20 MG PO DAILY PRN for EDEMA W/ >3LB WEIGHT GAIN/DAY, (Reported) Nitroglycerin (Nitroglycerin), 0.4 MG SL UD PRN for CHEST PAIN, (Reported) Ondansetron (Ondansetron Odt), 4 MG PO Q8H PRN for NAUSEA/VOMITING-1ST LINE, (Reported) Oxycodone HCl (Oxycodone HCl), 15 MG PO Q6H PRN for PAIN-SEVERE (8-10), (Reported) Polyethylene Glycol 3350 (Miralax), 17 GM PO DAILY PRN for CONSTIPATION-2ND LINE, (Reported) Current Medications Current Medications Reviewed Laboratory Data Laboratory Tests 02/07/19 18:29: Glucometer 86 02/07/19 21:33: Glucometer 85 02/08/19 05:43: Glucometer 101 02/08/19 05:45: White Blood Count 12.2H, Red Blood Count 3.43L, Hemoglobin 10.0L, Hematocrit 31L , Mean Corpuscular Volume 91, Mean Corpuscular Hemoglobin 29, Mean Corpuscular Hemoglobin Concent 32, Red Cell Distribution Width 15.8H, Platelet Count 334, Mean Platelet Volume 8.0, Neutrophils (%) (Auto) 84H, Lymphocytes (%) (Auto) 6L, Monocytes (%) (Auto) 9, Eosinophils (%) (Auto) 2, Basophils (%) (Auto) 0, Neutrophils # (Auto) 10.2H, Lymphocytes # (Auto) 0.7L, Monocytes # (Auto) 1.1H, Eosinophils # (Auto) 0.2, Basophils # (Auto) 0.0, Sodium Level 141, Potassium Level 4.0, Chloride Level 105, Carbon Dioxide Level 27, Anion Gap 9, Blood Urea Nitrogen 31H, Creatinine 1.73H, Estimat Glomerular Filtration Rate 28, BUN/Creatinine Ratio 18, Glucose Level 105, Calcium Level 12.2H, Corrected Calcium 12.9H, Phosphorus Level 2.7, Magnesium Level 2.4, Total Bilirubin 0.4, Aspartate Amino Transf (AST/SGOT) 23, Alanine Aminotransferase (ALT/SGPT) 26, Alkaline Phosphatase 101, B-Type Natriuretic Peptide 325.8H, Total Protein 5.7L, Albumin 3.1L Review of Systems Constitutional: see HPI, dizziness, malaise, weakness EENTM: no symptoms reported Respiratory: dyspnea on exertion, short of breath, wheezing Cardiovascular: no symptoms reported Gastrointestinal: constipation Genitourinary: no symptoms reported Musculoskeletal: back pain, joint pain Skin: no symptoms reported Psychiatric/Neurological: Depressed All Other Systems Reviewed Negative Unless Noted: Yes Physical Exam Physical Exam Vital Signs Vital Signs - First Documented 02/07/19 17:30 Temp 36.4 Pulse 90 Resp 18 B/P (MAP) 144/70 Pulse Ox 99 O2 Delivery Nasal Cannula O2 Flow Rate 2.00 Capillary Refill : Less Than 3 Seconds Height, Weight, BMI Height: '" Weight: lbs. oz. kg; 34.15 BMI Method: General Appearance: No Apparent Distress, WD/WN, Chronically ill, Obese Eyes: Bilateral Eye Normal Inspection, Bilateral Eye PERRL HEENT: PERRL/EOMI, Normal ENT Inspection, Pharynx Normal Neck: Full Range of Motion, Normal Inspection, Non Tender, Supple, Carotid Bruit Respiratory: Chest Non Tender, No Accessory Muscle Use, No Respiratory Distress, Decreased Breath Sounds, Wheezing Cardiovascular: No Edema, No Gallop, No JVD, No Murmur, Normal Peripheral Pulses, Irregularly Irregular Gastrointestinal: Normal Bowel Sounds, No Organomegaly, No Pulsatile Mass, Non Tender, Soft Back: Decreased Range of Motion, Muscle Spasm, Vertebral Tenderness, Other (wound VAC in place) Extremity: Normal Capillary Refill, Normal Inspection, Normal Range of Motion, Non Tender, No Calf Tenderness, No Pedal Edema Neurologic/Psychiatric: Alert, Oriented x3, No Motor/Sensory Deficits, corn grower II- XII Norm as Tested, Depressed Affect Skin: Normal Color, Warm/Dry Lymphatic: No Adenopathy PM&R Medical Assessment & Plan REHAB/MEDICAL ASSESSMENT AND PLAN: REHAB IMPAIRMENT GROUP: Thoracic vertebral fracture ETIOLOGIC DIAGNOSIS: Thoracic vertebral fracture The comorbidities that impact the patients function and/or functional outcome by: Chronic renal insufficiency, oxygen dependent COPD, wheezing, diabetes mellitus, hypothyroidism, angina, atrial fibrillation REHAB PLAN: The patient is being admitted to our comprehensive inpatient rehabilitation facility and can tolerate the intensity of service consisting of at least: 180 minutes of therapy a day, 5 out of 7 days a week Rehab treatment will consist of: PT will focus on ambulation to decrease back pain, OT we will facilitate regaining independence with ADLs The patient/family has a good understanding of our discharge process and will benefit from an interdisciplinary inpatient rehabilitation program. The patient has potential to make improvement and is in need of at least two of the following multidisciplinary therapies including but not limited to physical, occupational, speech, and prosthetics and orthotics. Additionally the patient will need services from respiratory, nutritional services, wound care, psychology, etc. (Customize this to each patient). Given the patients complex condition and risk of further medical complications, rehabilitation services cannot be safely or effectively provided at a lower level of care such as a detention facility. BARRIERS TO DISCHARGE: Ability to ambulate with severe back pain ESTIMATED LOS: 10 days DISPOSITION: Home with home care RELEVANT CHANGES SINCE PREADMISSION SCREENING: I have compared the patients medical and functional status at the time of the preadmission screening and there are: no changes PROGNOSIS: Good REHABILITATION GOALS: 1. Return home with and son with the use of a walker 2. regain ADL independence in order to take care of herself home All the above goals were reviewed with the patient and he/she is in agreement. By signing this document, I acknowledge that I have personally performed a full physical examination on this patient within 24 hours of admission to this inpatient rehabilitation facility and have determined the patient to be able to tolerate the above course of treatment at an intensive level for a reasonable period of time. I will be completing a detailed individualized Plan of Care for this patient by day #4 of the patients stay based upon the Preadmission Screen, the Post-Admission Evaluation, and the therapy evaluations. Admission Dx/Comorbidities: (1) Fracture of lamina of thoracic vertebra ICD Codes: S22.009A - Unspecified fracture of unspecified thoracic vertebra, initial encounter for closed fracture (2) Hypothyroidism ICD Codes: E03.9 - Hypothyroidism, unspecified (3) Diabetes mellitus ICD Codes: E11.9 - Type 2 diabetes mellitus without complications (4) Chronic renal insufficiency, stage III (moderate) ICD Codes: N18.3 - Chronic kidney disease, stage 3 (moderate) (5) Anemia of renal disease ICD Codes: N18.9 - Chronic kidney disease, unspecified; D63.1 - Anemia in chronic kidney disease (6) Chronic constipation ICD Codes: K59.09 - Other constipation (7) Back pain ICD Codes: M54.9 - Dorsalgia, unspecified (8) Dependence on supplemental oxygen ICD Codes: Z99.81 - Dependence on supplemental oxygen (9) COPD (chronic obstructive pulmonary disease) ICD Codes: J44.9 - Chronic obstructive pulmonary disease, unspecified (10) Hypertension ICD Codes: I10 - Essential (primary) hypertension (11) Hyperlipidemia ICD Codes: E78.5 - Hyperlipidemia, unspecified (12) Wheezing ICD Codes: R06.2 - Wheezing (13) Depression ICD Codes: F32.9 - Major depressive disorder, single episode, unspecified (14) Angina at rest ICD Codes: I20.8 - Other forms of angina pectoris (15) Atrial fibrillation ICD Codes: I48.91 - Unspecified atrial fibrillation (16) On continuous oral anticoagulation ICD Codes: Z79.01 - food safety specialist (current) use of anticoagulants (17) History of respiratory failure ICD Codes: Z87.09 - Personal history of other diseases of the respiratory system (18) Cough ICD Codes: R05 - Cough MAUDE HINOJOSA DO Feb 08, 2019 10:46 POS
[2019-02-08] MEDS ORDERED: VANCOMYCIN INJECTION 0.1 MG in NS (IVPB) 250 ML IV SCH (12:00)
[2019-02-08] MEDS ORDERED: PIPERACILLIN/TAZOBACTAM (BULK) 4.5 GM in NS (IVPB) 100 ML IV SCH (12:00)
--- NOTE | 2019-02-08 12:16 | NUR ---
CR 1.73; CR CL ~30; WT 93 KG; VANCO 1500 MG IV BOLUS THEN 1000 MG IV Q24H; TROUGH AFTER 2ND DOSE
[2019-02-08] MEDS ORDERED: VANCOMYCIN 1500 MG/NS 500 ML IVPB IV NR ×2 (12:30)
[2019-02-08] MEDS ORDERED: CATHETER FLUSH 10 ML SYR IV PRN (15:00)
--- NOTE | 2019-02-08 15:13 | Progress Note - Cardiology ---
Cardiology SOAP Progress Note Subjective: No cp or palp or syncope Has gen malaise and weakness Objective: I&O/Vital Signs 02/08/19 02/08/19 02/08/19 05:58 07:34 07:39 Temp 37.0 Pulse 88 86 Resp 18 B/P (MAP) 169/89 (115) 179/93 (121) Pulse Ox 96 94 O2 Delivery Nasal Cannula Nasal Cannula O2 Flow Rate 2.00 2.00 2.00 Constitutional: well-developed, well-nourished, other (appears oriented to person and place today) Respiratory: No accessory muscle use; other (fair to good bilat air entry; diminished at the bases) Cardiovascular: regular rate-rhythm, S1 and S2, systolic murmur (1-2/6 KRISTAN at card base) Gastrointestional: No tender; soft; No guarding, No rebound; audible bowel sounds Extremities: No clubbing, No cyanosis, No significant edema Neurologic/Psychiatric: other (seems to move all limbs equally) Skin: No rash on exposed areas, No ulcerations on exposed areas Results/Procedures: Labs Laboratory Tests 02/07/19 18:29: Glucometer 86 02/07/19 21:33: Glucometer 85 02/08/19 05:43: Glucometer 101 02/08/19 05:45: White Blood Count 12.2H, Red Blood Count 3.43L, Hemoglobin 10.0L, Hematocrit 31L , Mean Corpuscular Volume 91, Mean Corpuscular Hemoglobin 29, Mean Corpuscular Hemoglobin Concent 32, Red Cell Distribution Width 15.8H, Platelet Count 334, Mean Platelet Volume 8.0, Neutrophils (%) (Auto) 84H, Lymphocytes (%) (Auto) 6L, Monocytes (%) (Auto) 9, Eosinophils (%) (Auto) 2, Basophils (%) (Auto) 0, Neutrophils # (Auto) 10.2H, Lymphocytes # (Auto) 0.7L, Monocytes # (Auto) 1.1H, Eosinophils # (Auto) 0.2, Basophils # (Auto) 0.0, Sodium Level 141, Potassium Level 4.0, Chloride Level 105, Carbon Dioxide Level 27, Anion Gap 9, Blood Urea Nitrogen 31H, Creatinine 1.73H, Estimat Glomerular Filtration Rate 28, BUN/Creatinine Ratio 18, Glucose Level 105, Calcium Level 12.2H, Corrected Calcium 12.9H, Phosphorus Level 2.7, Magnesium Level 2.4, Total Bilirubin 0.4, Aspartate Amino Transf (AST/SGOT) 23, Alanine Aminotransferase (ALT/SGPT) 26, Alkaline Phosphatase 101, B-Type Natriuretic Peptide 325.8H, Total Protein 5.7L, Albumin 3.1L 02/08/19 11:31: Glucometer 119H Laboratory Tests 02/08/19 05:45 A/P: Assessment: PAF Recent ROSE (while at [facility] prior to this transfer) DM II Htn HL Dementia Plan: * BP has been running high * Increase BB * Continue rivaroxaban * Monitor labs LEIGH SANTOS MD FACP [facility] Feb 08, 2019 15:13 POS
[2019-02-08] MEDS: RT-ALBUTEROL SULF 2.5 MG/3 ML PRE-MIX VIAL IH SCH ×2 (15:14→19:31)
[2019-02-08 16:59] LABS: BILIRUBIN,URINE NEGATIVE (NEGATIVE); CLARITY,URINE CLEAR; COLOR,URINE YELLOW; GLUCOSE, URINE (UA) NEGATIVE (NEGATIVE); KETONES,URINE NEGATIVE (NEGATIVE); LEUKOCYTE ESTERASE ,URINE NEGATIVE (NEGATIVE); NITRITE,URINE NEGATIVE (NEGATIVE); PROTEIN,URINE 2+ (NEGATIVE)
[2019-02-08 17:12] LABS: BACTERIA,URINE TRACE /HPF; RBC,URINE 0-2 /HPF; WBC,URINE 0-2 /HPF
[2019-02-08] MEDS: RIVAROXABAN 15 MG TABLET (XARELTO) PO SCH (17:39)
[2019-02-08 17:40] VITALS: BP 152/78
[2019-02-08] MEDS: CEFEPIME INJECTION 1,000 MG in WATER (STERILE) FOR INJECTION 10 ML IV SCH (18:18)
[2019-02-08] MEDS: MELATONIN 3 MG TABLET PO PRN (20:24)
[2019-02-08] MEDS: DONEPEZIL 5 MG (ARICEPT) TAB PO SCH (20:24)
[2019-02-08] MEDS: VITAMIN D3 1,000 UNITS (CHOLECALCIFEROL) TABLET PO SCH (20:24)
[2019-02-08] MEDS: CATHETER FLUSH 10 ML SYR IV SCH (20:26)
--- NOTE | 2019-02-08 20:37 | Individualized Plan of Care ---
Individualized Plan of Care Rehab Nursing IPOC Order Admission Date Feb 07, 2019 at 17:30 Current Orders Orders Admission Order(Inpt,Obs,Sdc) (02/07/19 14:53) Vital Signs: Per Unit Policy ( 08,16,00 (02/07/19 14:53) Sage Boone 09, (02/07/19 14:53) Spa Consultant-Inpt Rehab Con (02/07/19 14:53) Rehab Nursing Orders-Ipoc (02/07/19 14:53) Physical Therapy Rehab Orders (02/07/19 14:53) Occupational Therapy Rehab Ord (02/07/19 14:53) Speech Therapy Rehab Orders (02/07/19 14:53) Cbc With Automated Diff (02/08/19 06:00) Comprehensive Metabolic Panel (02/08/19 06:00) Accucheck Achs ACHS (02/07/19 14:53) Precautions (Aru) (02/07/19 14:53) Rehab-Intensity Of Therapy (02/07/19 14:53) Cho 60g/M 3snack (16-2000 Justo) (02/07/19 Dinner) Initiate Admission Nursing Pro .admission (02/07/19 14:53) Acetaminophen Tablet (Tylenol Tablet) (02/07/19 15:00) Alprazolam Tablet (Xanax Tablet) (02/07/19 15:00) Calcium Carbonate Chew Tablet (Antacid C (02/07/19 15:00) Diphenhydramine Tablet (Benadryl Tablet) (02/07/19 15:00) Docusate Sodium Capsule (Colace Capsule) (02/07/19 15:00) Bisacodyl Suppository (Dulcolax Supposit (02/07/19 15:00) Lactulose Oral Solution (Enulose Oral So (02/07/19 15:00) Na Phos/Na Biphos Enema (Fleet Enema Karthik (02/07/19 15:00) Guaifenesin/Codeine Syrup (Robitussin Ac (02/07/19 15:00) Hydrocodone/Apap 5/325 Tablet (Lortab 5 (02/07/19 15:00) Loperamide Tablet (Imodium Tablet) (02/07/19 15:00) Melatonin Tablet (Melatonin Tablet) (02/07/19 15:00) Polyethylene Glycol Powder Pkt (Miralax (02/07/19 21:00) Ondansetron Injection (Zofran Injectio (02/07/19 15:00) Ondansetron Oral Dissolve Tab (Zofran (02/07/19 15:00) Senna S Tablet (Senokot S Tablet) (02/07/19 21:00) Tramadol Tablet (Ultram Tablet) (02/07/19 15:00) Initiate Admission Nursing Pro .admission (02/07/19 14:53) Insulin Aspart (Novolog) (Novolog (Charg (02/07/19 16:00) Consult Cardiology (02/07/19 14:53) Consult General Surgery (02/07/19 14:53) Consult Pulmonology (02/07/19 14:53) Oxycodone Immediate Rel Tablet (Oxyir Ta (02/07/19 15:00) Rivaroxaban Tablet (Xarelto Tablet) (02/07/19 17:00) Albuterol Pre-Mix Nebs (Rt) (Proventil (02/07/19 17:45) Atorvastatin Tablet (Lipitor Tablet) (02/07/19 21:00) Benzonatate Capsule (Tessalon Perles) (02/07/19 17:45) Bisacodyl Suppository (Dulcolax Supposit (02/07/19 17:45) Docusate Sodium Capsule (Colace Capsule) (02/07/19 21:00) Donepezil Tablet (Aricept Tablet) (02/07/19 21:00) Furosemide Tablet (Lasix Tablet) (02/07/19 17:45) Levothyroxine Tablet (Synthroid Tablet) (02/08/19 06:30) Metoprolol Tartrate (Ir) Tab (Lopressor (02/07/19 21:00) Ondansetron Oral Dissolve Tab (Zofran (02/07/19 17:45) (Nf) Amlodipine Besylate (02/08/19 09:00) (Nf) Cholecalciferol (Vitamin D3) (Vitam (02/07/19 21:00) (Nf) Glimepiride (02/08/19 07:00) (Nf) Polyethylene Glycol 3350 (Miralax) (02/07/19 17:45) (Nf) Vitamin B Complex & Vit C No.3 (B C (02/08/19 09:00) Amlodipine Tablet (Norvasc Tablet) (02/08/19 09:00) Cholecalciferol Capsule/Tablet (Vitamin (02/07/19 21:00) Glimepiride Tablet (Amaryl Tablet) (02/08/19 07:00) Therapeutic Multivitamin Tab (Vitamins, (02/08/19 07:00) Ensure Enlive (02/08/19 Breakfast) Request Ot Evaluate & Treat (02/07/19 20:04) Ambulate 08,12,20 (02/07/19 20:05) Sequential Compression Device Q4H (02/07/19 20:05) Dvt/Vte Risk - Notifiy Physici Q4H (02/07/19 20:05) Iron Test (Fe) (02/08/19 06:00) Chest 1 View, Ap/Pa Only (02/08/19 04:29) BNP (02/08/19 04:29) Magnesium (02/08/19 04:29) Phosphorus (02/08/19 04:29) Code/Resuscitation (02/08/19 06:28) Incentive Spirometry Initial (02/08/19 07:53) Incentive Spirometry (Nursing) Q2H (02/08/19 07:53) Patient Visit (02/08/19 ) Pt Eval Moderate Complexity (02/08/19 ) Functional Activities, Ea 15 (02/08/19 ) Albuterol Pre-Mix Nebs (Rt) (Proventil (02/08/19 14:00) Ua Culture If Indicated (02/08/19 12:15) Sputum Culture (02/08/19 11:54) Mrsa Screen Physician Request (02/08/19 11:54) Mrsa Nursing Screening/Treatme .admit (02/08/19 11:54) Blood Culture (02/08/19 11:54) Piperacillin/Tazobactam (Bulk) (Zosyn In (02/08/19 12:00) Vancomycin Injection (Vancomycin Injecti (02/08/19 12:00) Vancomycin Injection (Vancomycin Injecti (02/08/19 12:30) Vancomycin Injection (Vancomycin Injecti (02/09/19 12:30) Trough Order (Trough Order-Pharmacy Orde (02/10/19 11:30) Vancomycin,Trough (02/10/19 11:30) Sodium Chloride Flush (Catheter Flush Sy (02/08/19 15:00) Sodium Chloride Flush (Catheter Flush Sy (02/08/19 22:00) Metoprolol Tartrate (Ir) Tab (Lopressor (02/08/19 21:00) Cefepime Injection (Maxipime Injection) (02/08/19 18:00) Venous Access Request Order (02/09/19 07:00) Urine Culture (02/08/19 17:14) Rehab Nursing Orders: Ongoing Assess. of Cognitive Status, Ongoing Assess. of Function Status, Bladder Management, Bladder Scan, Bladder Training, Bowel Management, Bowel Training, Disease Management & Educaiton, DVT Prophylaxis, Fall Prevention, Fluid/Electrolyte/Nutrition Mgmt, Infection Prevention, Medication Management & Education, Management of Risks & Complications, Management of Skin Intergrity, Nutrition Management, Pain Management, Patient/Family Support, Safety Management Intensity of Therapy to be met Patient to be seen: Min.3h per day/5 of 7d PT IPOC Problem List: Activity Tolerance, Functional Strength, Safety, Balance, Gait, Transfer, Bed Mobility Treatment Plan: Continue Plan of Care Bed Mobility, Education, Functional Activity Fidel, Functional Strength, Group Therapy, Gait, Safety, Therapeutic Exercise, Transfers Treatment Duration: Mar 08, 2019 Frequency: At least 5 of 7 days/Wk (IRF) Estimated Hrs Per Day: 1.5 hours per day OT IPOC Problems: Decreased Activ Tolerance, Decreased UE Strength, Dependent Transfers, Impaired Funct Balance, Impaired I ADL's, Impaired Self-Care Skills OT Treatment, Training and Edu: Yes OT Problems Pt demonstrates impaired ADL functioning, mobility, strength, and activity tolerance. Pt to benefit from skilled OT intervention for ADL training, transfers, strengthening, and home safety education to increase level of independence and allow safe discharge plan. Plan of Care: ADL Retraining, Functional Mobility, Group Exercise/Act as Ind, UE Funct Exercise/Act Treatment Duration: Mar 08, 2019 Frequency: At least 5 of 7 days/Wk (IRF) Estimated Hrs Per Day: 1.[address] IPOC Speech Therapy Treatment Plan: Discontinue ST Treatment Duration: Feb 08, 2019 Frequency: Modified Program (IRF) Estimated Hrs Per Day: Other Spa Consultant/Case Mgmt Spa Consultant/Case Managemen: Discharge Planning Dietitian/Liquid Center Assembler Dietitian/Liquid Center Assembler to monitor nutritional status and make changes and/or recommendations as needed and work with speech pathology on dietary upgrades as the occur. Physician IPOC Medical Issues being managed closely and that require the 24 hour availability of a physician: Severe O2 dependent COPD with recent vent dependence for resp failure and now with wheezing and cough requires close monitoring for resp compromise Medical Issues: Bowel/Bladder Function, DVT Prophylaxis, Falls Precautions, Fluid/Electrolyte/Nutrition Balance, Infection Protection, Pain Management, Wound Care Brief Synthesis of Preadmission Screen, Post-Admission Evaluation, and Therapy Evaluations: PT will focus on ambulation with pain control and energy conservation OT will help regain lost independence for ADL's Medical Prognosis: Good Anticipated Length of Stay: 10 days MAUDE HINOJOSA DO Feb 08, 2019 20:37 POS
[2019-02-09] MEDS: inSUlin ASPART (NovoLOG) 1 UNIT/0.01 ML (CHARGE PER UNIT) SC SCH ×4 (05:39→20:52)
[2019-02-09 05:42] VITALS: BP 149/83
[2019-02-09] MEDS: MULTIVIT W/MINERALS TAB (THERAGRAN M) PO SCH (06:04)
[2019-02-09] MEDS: HYDROcodone/APAP 5 MG/325 MG (LORTAB) TAB PO PRN ×4 (06:05→20:56)
[2019-02-09] MEDS: LEVOTHYROXINE 112 MCG (LEVOTHROID) TAB PO SCH (06:05)
[2019-02-09] MEDS: CATHETER FLUSH 10 ML SYR IV SCH ×3 (06:06→20:58)
--- NOTE | 2019-02-09 06:51 | Pulmonary Consultation ---
History of Present Illness History of Present Illness Date of Admission Allergies and Home Medications Allergies Coded Allergies: Penicillins (Verified Allergy, Unknown, 02/07/19) adhesive (Verified Allergy, Unknown, 02/07/19) codeine (Verified Allergy, Unknown, 02/07/19) morphine (Verified Allergy, Unknown, 02/07/19) oxybutynin (Verified Allergy, Unknown, 02/07/19) pentazocine (Verified Allergy, Unknown, 02/07/19) Home Medications Acetaminophen 325 Mg Tablet, 650 MG PO Q6H PRN for PAIN-MILD (1-4) OR TEMPATURE, (Reported) TAKES 2 (325MG) TABLETS Albuterol Sulfate 1 Puff Puff, 2 PUFF IH Q6H PRN for SHORTNESS OF BREATH, (Reported) 1 PUFF = 90 MCG Amlodipine Besylate 10 Mg Tablet, 10 MG PO DAILY, (Reported) Atorvastatin Calcium 10 Mg Tablet, 10 MG PO HS, (Reported) Benzonatate 100 Mg Capsule, 100 MG PO TID PRN for COUGH, (Reported) Bisacodyl 10 Mg Supp.rect, 10 MG RC DAILY PRN for CONSTIPATION-4TH LINE, (Reported) Cholecalciferol (Vitamin D3) 1,000 Unit Capsule, 1,000 UNIT PO HS, (Reported) Docusate Sodium 100 Mg Capsule, 100 MG PO BID, (Reported) Donepezil HCl 5 Mg Tablet, 5 MG PO HS, (Reported) Furosemide 40 Mg Tablet, 20 MG PO DAILY PRN for EDEMA W/ >3LB WEIGHT GAIN/DAY, (Reported) TAKES 1/2 (40MG) TABLET Glimepiride 4 Mg Tablet, 2 MG PO BID WITH MEALS, (Reported) TAKES 1/2 (4MG) TABLET Hydrophilic Ointment 113 Gm Oint...g., TP BID, (Reported) Levothyroxine Sodium 112 Mcg Tablet, 112 MCG PO DAILY, (Reported) Metoprolol Tartrate 25 Mg Tablet, 37.5 MG PO BID, (Reported) Nitroglycerin 0.4 Mg Tab.subl, 0.4 MG SL UD PRN for CHEST PAIN, (Reported) TAKE 1 TABLET EVERY 5 MINUTES NEEDED FOR CHEST PAIN Ondansetron 4 Mg Tab.rapdis, 4 MG PO Q8H PRN for NAUSEA/VOMITING-1ST LINE, (Reported) Oxycodone HCl 15 Mg Tablet, 15 MG PO Q6H PRN for PAIN-SEVERE (8-10), (Reported) Polyethylene Glycol 3350 17 Gm Powd.pack, 17 GM PO DAILY PRN for CONSTIPATION- 2ND LINE, (Reported) Rivaroxaban 15 Mg Tablet, 15 MG PO DAILY, (Reported) Vitamin B Complex & Vit C No.3 1 Each Capsule, 1 CAP PO DAILY, (Reported) NEPHROCAP (VITAMIN B COMPLEX-VITAMIN C- FOLIC ACID) Past Yhnpdcx-Jxlyav-Mffthq Hx Past Med/Social Hx: Reviewed Nursing Past Med/Soc Hx, Reviewed and Corrections made Patient Social History Alcohol Use: Denies Use Smoking Status: Never a Smoker Recent Foreign Travel: No Contact w/Someone Who Travel: No Recent Infectious Disease Expo: No Recent Hopitalizations: Yes Seasonal Allergies Seasonal Allergies: No Past Medical History Surgeries: Yes (T8-T-11 LAMINECTOMY ON 02/03) Abdominal, Gallbladder, Orthopedic, Tonsillectomy Respiratory: Yes (LARGE LEFT PLEURAL EFFUSION DRAINED ON 01/30 AT [facility]) Currently Using CPAP: No Currently Using BIPAP: No Cardiac: Yes Atrial Fibrillation, Chronic Edema/Swelling, High Cholesterol, Hypertension Neurological: Yes Neuropathy Bladder Infection, Renal Failure Gastroesophageal Reflux, Chronic Constipation Musculoskeletal: Yes (FX TO t-11 SPINE WITH T8-T-11 LAMINECTOMY) Degenerate Disk Disease, Arthritis, Chronic Back Pain, Fractures Endocrine: Yes Hypothyroidsim, Diabetes, Non-Insulin dep HEENT: No Cancer: No Psychosocial: No Sleep Difficulties, Depression Integumentary: No Blood Disorders: No Adverse Reaction/Blood Tranf: No Sepsis Event Evaluation Height, Weight, BMI Height: '" Weight: lbs. oz. kg; 34.15 BMI Method: Exam Exam Vital Signs Date Time Temp Pulse Resp B/P (MAP) Pulse Ox O2 Delivery O2 Flow Rate FiO2 02/09/19 05:42 36.4 80 20 149/83 (105) 96 Nasal Cannula 2.00 02/08/19 21:00 Nasal Cannula 2.00 02/08/19 17:40 36.4 88 20 152/78 (102) 94 Nasal Cannula 2.00 02/08/19 15:14 98 Nasal Cannula 2.00 02/08/19 09:00 Nasal Cannula 2.00 02/08/19 07:39 94 Nasal Cannula 2.00 02/08/19 07:34 86 179/93 (121) I & O 02/09/19 07:00 Intake Total 1315 ml Balance 1315 ml Height & Weight Height: '" Weight: lbs. oz. kg; 34.15 BMI Method: General Appearance: No Apparent Distress, WD/WN, Chronically ill, Obese HEENT: PERRL/EOMI, Normal ENT Inspection, Pharynx Normal Neck: Full Range of Motion, Normal Inspection, Non Tender, Supple, Carotid Bruit Respiratory: Chest Non Tender, No Accessory Muscle Use, No Respiratory Distress, Decreased Breath Sounds, Wheezing Cardiovascular: No Edema, No Gallop, No JVD, No Murmur, Normal Peripheral Pulses, Irregularly Irregular Extremity: Normal Capillary Refill, Normal Inspection, Normal Range of Motion, Non Tender, No Calf Tenderness, No Pedal Edema Neurologic/Psychiatric: Alert, Oriented x3, No Motor/Sensory Deficits, mobile sales consultant II- XII Norm as Tested, Depressed Affect Skin: Normal Color, Warm/Dry Lymphatic: No Adenopathy Results Lab Laboratory Tests 02/08/19 05:45 Assessment/Plan Assessment/Plan Pneumonia -Curry culture - Started Vanco Cefepine 02/08 -Check Daily labs pleural effusion -Monitor Renal failure -Monitor COPD -02 -Duonebs Afib anemia HTN ELISEO KAISER DO Feb 09, 2019 06:51 POS
[2019-02-09 07:14] LABS: BASOPHILS % (AUTO) 0 % (0-10); EOSINOPHILS # (AUTO) 0.3 10^3/uL (0.0-0.3); EOSINOPHILS % (AUTO) 2 % (0-10); HEMATOCRIT 31 % (35-52); HEMOGLOBIN 9.7 G/DL (11.5-16.0); LYMPHOCYTES # (AUTO) 1.1 X 10^3 (1.0-4.0); LYMPHOCYTES % (AUTO) 10 % (12-44); MEAN CORPUSCULAR HEMOGLOBIN 29 PG (25-34); MEAN CORPUSCULAR HGB CONC 31 G/DL (32-36); MEAN CORPUSCULAR VOLUME 92 FL (80-99); MEAN PLATELET VOLUME 7.9 FL (7.4-10.4); MONOCYTES # (AUTO) 1.1 X 10^3 (0.0-1.0); MONOCYTES % (AUTO) 10 % (0-12); NEUTROPHILS # (AUTO) 9.1 X 10^3 (1.8-7.8); NEUTROPHILS % (AUTO) 78 % (42-75); PLATELET COUNT 356 10^3/uL (130-400); RED CELL DISTRIBUTION WIDTH 15.5 % (10.0-14.5); WHITE BLOOD COUNT 11.6 10^3/uL (4.3-11.0)
[2019-02-09 07:35] LABS: BILIRUBIN,TOTAL 0.3 MG/DL (0.1-1.0); CALCIUM 11.5 MG/DL (8.5-10.1); CREATININE SERUM 1.78 MG/DL (0.60-1.30); MAGNESIUM 2.2 MG/DL (1.6-2.4); PHOSPHORUS 2.6 MG/DL (2.3-4.7); POTASSIUM 3.8 MMOL/L (3.6-5.0); TOTAL PROTEIN 5.7 GM/DL (6.4-8.2)
[2019-02-09] MEDS: POLYETHYLENE GLYCOL 17 GM (MIRALAX) PACK PO SCH ×2 (07:54→21:57)
[2019-02-09] MEDS: DOCUSATE SODIUM 100 MG (COLACE) CAP PO SCH ×2 (07:54→20:58)
[2019-02-09] MEDS: meTOprolol TARTRATE 25 MG (LOPRESSOR) TABLET PO SCH ×2 (08:50→20:56)
[2019-02-09] MEDS: GLIMEPIRIDE 2 MG (AMARYL) TAB PO SCH (08:50)
[2019-02-09] MEDS: amLODIPine 10 MG (NORVASC) TAB PO SCH (08:50)
--- NOTE | 2019-02-09 09:29 | Physical Therapy Daily Note ---
PT Daily Note-Current Subjective pt in bed pre-tx agrees to therapy and reports 8/10 pain in her low back. This tx will be a co-tx with OT this session secondary to pts requiring the skill of 2 therapists to: coordinate UE & LE positioning for functional activities, maintain balance, and for functional mobility. Appearance pt in bed post-tx with OT present to complete OT therapy. All needs met at this time. Mental Status Patient Orientation: Person, Place, Time, Situation Attachments: Oxygen (2L), Drains TLSO Transfers SCALE: Activities may be completed with or without assistive devices. 4-Wdfkicnecn-qjbaxkv completes the activity by him/herself with no assistance from a helper. 5-Set-up or Clean-up Assistance-helper sets up or cleans up; patient completes activity. [place] assists only prior to or following the activity. 4-Supervision or Touching Assistance-helper provides verbal cues and/or touching/steadying and/or contact guard assistance as patient completes activity. Assistance may be provided throughout the activity or intermittently. 3-Partial/Moderate Assistance-helper does LESS THAN HALF the effort. [place] lifts, holds or supports trunk or limbs, but provides less than half the effort. 2-Substantial/Maximal Assistance-helper does MORE THAN HALF the effort. [place] lifts or holds trunk or limbs and provides more than half the effort. 1-Mivvouwgn-fvrqyb does ALL the effort. Patient does none of the effort to complete the activity. Or, the assistance of 2 or more helpers is required for the patient to complete the activity. If activity was not attempted, code reason: 7-Patient Refused. 9-Not Applicable-not attempted and the patient did not perform the activity before the current illness, exacerbation or injury. 10-Not Attempted due to Environmental Limitations-(lack of equipment, weather restraints, etc.). 88-Not Attempted due to Medical Conditions or Safety Concerns. Roll Left & Right (QC): 2 (MaxA) Sit to Lying (QC): 1 (max X2) Lying to Sitting/Side of Bed(Q: 1 (max X2) Sit to Stand (QC): 1 (Max X2) Chair/Sxz-xy-Vmdhi Xfer(QC): 1 (max X2) Toilet Transfer (QC): 1 (Max X2) pt was able to sit to stand maxAx2 and take a few short shuffle steps over to WC from bed, from WC to commode, from commode to bed. Pt required modA with max VC's to slideboard transfer WC to/from mat. Weight Bearing TLSO when out of bed. Gait Training Does the Patient Walk?: No and Walking Goal IS indicated Wheelchair Training Does the Pt Use a Wheelchair?: Yes Wheel 50 ft with 2 turns (QC): 3 (Igor) Type of Wheelchair: Manual Exercises Standing: Sit to Stand Standing Reps: 4 (standing for tolerance. about 30 seconds each) Treatments PT assisted with LE placement for transfers and sit to stands while OT assisted with UE placement. PT assisted with positioning and balance while OT performed upper and lower body dressing. Assessment Current Status: Poor Progress pt was able to take multiple shuffle steps for standing transfers. Pt requires assist for 2 for stands as she tries to keep hips flexed and is not able to stand up straight with 1 therapist assist. Pt is unable to use walker to stand up as she is lays her UE's down on the walker handles instead of grabbing colorman. pt lacks confidence to come to an upright position and will just start to sit when her LE's fatigue instead of stating she needs to sit. Pt has noted B/L LE fatigue L>R this session. PT Short Term Goals Short Term Goals Time Frame: Feb 22, 2019 Roll Left & Right: 3 Sit to lyin Lying to sitting on side of be: 3 Sit to stand: 3 Chair/dky-gf-rfqsk transfer: 3 Toilet transfer: 3 Car transfer: 3 Walk 10 feet: 3 Walk 50 feet with two turns: 3 PT Senior Care Goals Senior Care Goals PT Molder Hand Goals Time Frame: Mar 08, 2019 Roll Left & Right (QC): 6 Sit to Lying (QC): 6 Lying-Sitting on Side/Bed(QC): 6 Sit to Stand (QC): 6 Chair/Kli-yz-Tcnjb Xfer(QC): 6 Toilet Transfer (QC): 6 Car Transfer (QC): 5 Does the Patient Walk: No and Walking Goal IS indicated Walk 10 feet (QC): 6 Walk 50ft with 2 Turns (QC): 6 Walk 150 ft (QC): 6 Walking 10ft on Uneven Surface: 4 1 Step (curb) (QC): 4 4 Steps (QC): 4 12 Steps (QC): 9 Picking up an Object (QC): 9 Does the Pt use WC or Scooter?: Yes Wheel 50 feet with 2 turns (QC: 5 Type: Manual Wheel 150 feet: 5 Type: Manual PT Plan Problem List Problem List: Activity Tolerance, Functional Strength, Safety, Balance, Gait, Transfer, Bed Mobility, ROM Treatment/Plan Treatment Plan: Continue Plan of Care Treatment Plan: Bed Mobility, Education, Functional Activity Fidel, Functional Strength, Group Therapy, Gait, Safety, Therapeutic Exercise, Transfers Treatment Duration: Mar 08, 2019 Frequency: At least 5 of 7 days/Wk (IRF) Estimated Hrs Per Day: 1.5 hours per day Patient and/or Family Agrees t: Yes Safety Risks/Education Patient Education: Transfer Techniques, Reviewed Precautions, Correct Positioning, Reviewed Don/Doff Brace, Safety Issues Teaching Recipient: Patient Teaching Methods: Demonstration, Discussion Response to Teaching: Reinforcement Needed Time/GCodes Time In: 0800 Time Out: 0900 Total Billed Treatment Time: 60 Total Billed Treatment Co-TX 60' with OT 1 visit 15' [facility] 45' NOY LEWIS PT Feb 09, 2019 09:29 POS
--- NOTE | 2019-02-09 10:05 | Occupational Ther Daily Note ---
OT Current Status-Daily Note Subjective Pt resting in bed, agrees to therapy. Pt reports 8/10 back pain, RN aware. Mental Status/Objective Attachments: Oxygen, Other-See Comments (wound vac and TLSO) ADL-Treatment Therapy Code Descriptions/Definitions Functional [place] Measure: 0=Not Assessed/NA 4=Minimal Assistance 1=Total Assistance 5=Supervision or Setup 2=Maximal Assistance 6=Modified [place] 3=Moderate Assistance 7=Complete IndependenceSCALE: Activities may be completed with or without assistive devices. 0-Veeboldzoi-ajdrbic completes the activity by him/herself with no assistance from a helper. 5-Set-up or Clean-up Assistance-helper sets up or cleans up; patient completes activity. [place] assists only prior to or following the activity. 4-Supervision or Touching Assistance-helper provides verbal cues and/or heaven romi/steadying and/or contact guard assistance as patient completes activity. Assistance may be provided throughout the activity or intermittently. 3-Partial/Moderate Assistance-helper does LESS THAN HALF the effort. [place] lifts, holds or supports trunk or limbs, but provides less than half the effort. 2-Substantial/Maximal Assistance-helper does MORE THAN HALF the effort. [place] lifts or holds trunk or limbs and provides more than half the effort. 0-Zfcubqckq-uqmjve does ALL the effort. Patient does none of the effort to complete the activity. Or, the assistance of 2 or more helpers is required for the patient to complete the activity. If activity was not attempted, code reason: 7-Patient Refused. 9-Not Applicable-not attempted and the patient did not perform the activity before the current illness, exacerbation or injury. 10-Not Attempted due to Environmental Limitations-(lack of equipment, weather restraints, etc.). 88-Not Attempted due to Medical Conditions or Safety Concerns. Oral Hygiene (QC): 4 (Pt able to complete oral/denture care with SBA. Pt also washed face and combed hair with SBA and increased time for completion.) Upper Body Dressing (QC): 2 (Pt required mod assist to doff/don shirt. Total assist to doff/don TLSO) Lower Body Dressing (QC): 1 (Pt required assist to thread bilateral LE into De pends and pants. Assist x2 to complete standing and pant hike. Footwear QC:1 Total assist to don/doff socks and shoes.) Toileting Hygiene (QC): 1 (Assist x2 for toileting. Pt unable to complete hygiene or clothing management.) Toilet Transfer (QC): 1 (Max assist x2 for transfer to [facility] over toilet) Partial Co-treat with PT (60 minutes) secondary to pt's poor mobility, strength, and activity tolerance and need for two skilled clinicians. Pt supine to sit with max assist x2. Pt sit to stand with max assist x2. Pt has difficulty coming to full standing position as she keeps hips flexed. Requires assist x2 for positioning and skilled cues for posture. Pt performed w/c mobility with bilateral UE. Pt moves slowly and requires min assist for steering. Pt was instructed in slideboard transfer. Was able to transfer w/c <-> mat with mod assist and multiple verbal cues. Sit to stand from raised mat with assist x2 for safety and positioning. Pt fatigues quickly with activity and requires seated rest breaks. Pt returned to room and transferred to bed. Sit to supine with assist x2, instruction for log rolling technique. OT focusing on ADL task completion, UE management, and safety. PT focusing on mobility, transfers, and LE management. Education OT Patient Education: Safety issues Teaching Recipient: Patient Teaching Methods: Discussion Response to Teaching: Reinforcement Needed OT Short Term Goals Short Term Goals Time Frame: Feb 22, 2019 Toileting hygiene: 3 Shower/bathe self: 3 Upper body dressin Lower body dressin OT Usp Goals Outreach Representative Goals Time Frame: Mar 08, 2019 Eating (QC): 6 Oral Hygiene (QC): 6 Toileting Hygiene (QC): 6 Shower/Bathe Self (QC): 5 Upper Body Dressing (QC): 5 Lower Body Dressing (QC): 5 On/Off Footwear (QC): 5 Additional Goals: 1-Demonstrate ADL Tasks, 2-Verbalize Understanding, 3- ImproveStrength/Fidel 1=Demonstrate adherence to instructed precautions during ADL tasks. 2=Patient will verbalize/demonstrate understanding of assistive devices/modifications for ADL. 3=Patient will improve strength/tolerance for activity to enable patient to perform ADL's. OT Education/Plan Discharge Recommendations Plan/Recommendations: Continue POC Treatment Plan/Plan of Care Patient would benefit from OT for education, treatment and training to promote independence in ADL's, mobility, safety and/or upper extremity function for ADL's. Plan of Care: ADL Retraining, Functional Mobility, Group Exercise/Act as Ind, UE Funct Exercise/Act Treatment Duration: Mar 08, 2019 Frequency: At least 5 of 7 days/Wk (IRF) Estimated Hrs Per Day: 1.5 hours per day Rehab Potential: Fair Time/GCodes Start Time: 08:00 Stop Time: 09:30 Total Time Billed (hr/min): 90 Billed Treatment Time 1 visit, ADLx4(60minutes), FAx2(30minutes) 60minute co-treat with PT ORACIO MUHAMMAD OT Feb 09, 2019 10:05 POS
[2019-02-09] MEDS: RT-ALBUTEROL/IPRATROPIUM 3 ML (DUONEB) VIAL INH SCH ×4 (10:07→19:49)
[2019-02-09] MEDS: RT-ALBUTEROL SULF 2.5 MG/3 ML PRE-MIX VIAL IH SCH ×2 (10:07→10:08)
--- NOTE | 2019-02-09 11:13 | NUR ---
Patient was admitted to ARU 02/07/19 from [facility] post op for fracture of thoracic vertebra and laminectomy 02/03/19 T 8/9, T 9/10, T 10. Meet and greet with patient to initiate discharge planning activities, followup discussion with daughter Gosia Chin by phone. HHC: Currently established with [facility] in [facility]. PH: [phone] FX: [phone] DME: Patient is on continuous O2 at home, established with [email or web address] in [facility]. PH: [phone] Also has FWW, w/c for community outings, shower chair. A long range plan is to remove the tub/shower in the home bath and replace it with a shower stall. Currently has wound vac, following for post hospital indications. PCP: Indicated as Dr. Shane Wallis, [facility]. PH: [phone] SUMMARY: Patient and her spouse Dianl reside at home, their son Kristel Umanzor is living there with them at this time. He is having a neck surgery Tuesday02/12/19, his capacity will not be known as far as assisting with patient. Both patient and Dianl are on continuous O2 for pulmonary disease, but Gosia reports that outside of that Reynaldo does well. Patient appeared to have slowed mentation today for conversation, Gosia reports this has been the case since surgery. Gosia also reported that patient had extended hospital stay at [facility], admitted there 01/26 after a fall with injury and that surgery was scheduled/cancelled over several days leading up to 02/03 surgical procedure. Patient and Dianl have goats, children/grandchildren are assisting with feeding and care at this time. Will continue to partner with patient and her family for post hospital care.
--- NOTE | 2019-02-09 12:09 | PM&R Progress Note ---
Subjective HPI/CC On Admission Date Seen by Provider: Feb 09, 2019 Time Seen by Provider: 10:30 Subjective/Events-last exam Patient doing well overall Very debilitated from her acute and major illness and 2 week stay at [facility] especially given the fact she is in wheelchair a lot at home with walker periodically evidence of chronic debility CXR revealed multi-lobar infiltrates so Dr Garcia pancultured and started on Cefepime and Vancomycin and changed Nebs from Albuterol to Duoneb to dry up secretions BM none since 2 days ago before she was admitted here so will give some prn meds due to narcotic bowel Wound vac will DC tomorrow Conferred with RN Reviewed therapy notes Checked meds and labs Review of Systems General: Fatigue Pulmonary: Dyspnea, Cough Musculoskeletal: back pain Focused Exam Lactate Level 02/09/19 07:05: Lactic Acid Level 0.63 Objective Exam Vital Signs Vital Signs Date Time Temp Pulse Resp B/P (MAP) Pulse Ox O2 Delivery O2 Flow Rate FiO2 02/09/19 10:08 92 Nasal Cannula 2.00 02/09/19 05:42 36.4 80 20 149/83 (105) Capillary Refill : Less Than 3 Seconds General Appearance: No Apparent Distress, WD/WN, Chronically ill, Obese HEENT: PERRL/EOMI, Normal ENT Inspection, Pharynx Normal Neck: Full Range of Motion, Normal Inspection, Non Tender, Supple, Carotid Bruit Respiratory: Chest Non Tender, Lungs Clear, No Accessory Muscle Use, No Respiratory Distress, Decreased Breath Sounds, Wheezing Cardiovascular: No Edema, No Gallop, No JVD, No Murmur, Normal Peripheral Pulses, Irregularly Irregular Gastrointestinal: Normal Bowel Sounds, No Organomegaly, No Pulsatile Mass, Non Tender, Soft Back: Decreased Range of Motion, Muscle Spasm, Vertebral Tenderness, Other (wound VAC in place) Extremity: Normal Capillary Refill, Normal Inspection, Normal Range of Motion, Non Tender, No Calf Tenderness, No Pedal Edema Neurologic/Psychiatric: Alert, Oriented x3, No Motor/Sensory Deficits, clinical courier II- XII Norm as Tested, Depressed Affect Skin: Normal Color, Warm/Dry Lymphatic: No Adenopathy Results/Procedures Lab Laboratory Tests 02/09/19 07:05 Patient resulted labs reviewed. FIM Transfers Therapy Code Descriptions/Definitions Functional [place] Measure: 0=Not Assessed/NA 4=Minimal Assistance 1=Total Assistance 5=Supervision or Setup 2=Maximal Assistance 6=Modified [place] 3=Moderate Assistance 7=Complete IndependenceSCALE: Activities may be completed with or without assistive devices. 2-Nyuzjlivio-qsvdgyi completes the activity by him/herself with no assistance from a helper. 5-Set-up or Clean-up Assistance-helper sets up or cleans up; patient completes activity. [place] assists only prior to or following the activity. 4-Supervision or Touching Assistance-helper provides verbal cues and/or touching/steadying and/or contact guard assistance as patient completes activity. Assistance may be provided throughout the activity or intermittently. 3-Partial/Moderate Assistance-helper does LESS THAN HALF the effort. [place] lifts, holds or supports trunk or limbs, but provides less than half the effort. 2-Substantial/Maximal Assistance-helper does MORE THAN HALF the effort. [place] lifts or holds trunk or limbs and provides more than half the effort. 5-Pzltrcfmz-yismxs does ALL the effort. Patient does none of the effort to complete the activity. Or, the assistance of 2 or more helpers is required for the patient to complete the activity. If activity was not attempted, code reason: 7-Patient Refused. 9-Not Applicable-not attempted and the patient did not perform the activity before the current illness, exacerbation or injury. 10-Not Attempted due to Environmental Limitations-(lack of equipment, weather restraints, etc.). 88-Not Attempted due to Medical Conditions or Safety Concerns. Roll Left to Right (QC): 2 (MaxA) Sit to Lying (QC): 1 (max X2) Sit to Stand (QC): 1 (Max X2) Chair/Bkk-jw-Hmsbm Xfer(QC): 1 (max X2) Car Transfer (QC): 88 Gait Training Does the Patient Walk?: No and Walking Goal IS indicated Walk 10 feet (QC): 88 Walk 50 ft with 2 Turns(QC): 88 Walk 150 ft (QC): 88 Walking 10ft/uneven surface-QC: 88 Gait Assistive Device: FWW Wheelchair Training Does the Pt Use a Wheelchair?: Yes Wheel 50 ft with 2 turns (QC): 3 (Igor) Wheel 150 ft (QC): 1 Type of Wheelchair: Manual Stair Training 1 Step (curb) (QC): 88 4 Steps (QC): 88 12 Steps (QC): 88 Balance Picking up an Object (QC): 88 ADL-Treatment Eating (QC): 5 (per nursing report pt is able to feed self after set up) Oral Hygiene (QC): 4 (Pt able to complete oral/denture care with SBA. Pt also washed face and combed hair with SBA and increased time for completion.) Shower/Bathe Self (QC): 1 (Pt washed upper body with SBA. Total assist to wash lower body. Assist x2 when when standing to wash buttocks and back of legs. One assisted to stand while another assisted with hygiene. ) Upper Body Dressing (QC): 2 (Pt required mod assist to doff/don shirt. Total assist to doff/don TLSO) Lower Body Dressing (QC): 1 (Pt required assist to thread bilateral LE into Depends and pants. Assist x2 to complete standing and pant hike. Footwear QC:1 Total assist to don/doff socks and shoes.) On/Off Footwear (QC): 1 (Pt will require instruction in use of AE for socks secondary to back precautions.) Toileting Hygiene (QC): 1 (Assist x2 for toileting. Pt unable to complete hygiene or clothing management.) Toilet Transfer (QC): 1 (Max assist x2 for transfer to [facility] over toilet) Assessment/Plan Assessment and Plan Assess & Plan/Chief Complaint Assessment: Thoracic vertebral fracture s/p repair Multilobar pneumonia placed on Vanc and Cefepime per Dr Garcia Severe COPD O2 dependence Recent intubation after thoracic vertebral fracture surgery CRI Chronic on acute debility HTN Chronic AF OAC Plan: Abx Monitor closely due to resp status O2 Nebs IRF protocol (1) Fracture of lamina of thoracic vertebra (2) Multifocal pneumonia (3) Hypothyroidism (4) Diabetes mellitus (5) Chronic renal insufficiency, stage III (moderate) (6) Anemia of renal disease (7) Chronic constipation (8) Back pain (9) Dependence on supplemental oxygen (10) COPD (chronic obstructive pulmonary disease) (11) Hypertension (12) Hyperlipidemia (13) Wheezing (14) Depression (15) Angina at rest (16) Atrial fibrillation (17) On continuous oral anticoagulation (18) History of respiratory failure (19) Cough MAUDE HINOJOSA DO Feb 09, 2019 12:09 POS
--- NOTE | 2019-02-09 12:41 | Physical Therapy Daily Note ---
PT Daily Note-Current Subjective pt in bed pre-tx agrees to therapy reports 8/10 pain. RN in room at this time reports pt just got pain meds and has become very tired at this time. Appearance pt in bed post-tx with call light, room phone, tray table in reach and all needs met at this time. Mental Status Patient Orientation: Person, Place, Time, Situation Attachments: IV Transfers SCALE: Activities may be completed with or without assistive devices. 4-Risnhgmjqf-lndrlwb completes the activity by him/herself with no assistance from a helper. 5-Set-up or Clean-up Assistance-helper sets up or cleans up; patient completes activity. [place] assists only prior to or following the activity. 4-Supervision or Touching Assistance-helper provides verbal cues and/or touching/steadying and/or contact guard assistance as patient completes activity. Assistance may be provided throughout the activity or intermittently. 3-Partial/Moderate Assistance-helper does LESS THAN HALF the effort. [place] lif ts, holds or supports trunk or limbs, but provides less than half the effort. 2-Substantial/Maximal Assistance-helper does MORE THAN HALF the effort. [place] lifts or holds trunk or limbs and provides more than half the effort. 4-Rjgeqxlai-ploqht does ALL the effort. Patient does none of the effort to complete the activity. Or, the assistance of 2 or more helpers is required for the patient to complete the activity. If activity was not attempted, code reason: 7-Patient Refused. 9-Not Applicable-not attempted and the patient did not perform the activity before the current illness, exacerbation or injury. 10-Not Attempted due to Environmental Limitations-(lack of equipment, weather restraints, etc.). 88-Not Attempted due to Medical Conditions or Safety Concerns. Weight Bearing TLSO when out of bed. Exercises Supine Ex: Ankle pumps, Quad Set, Glut sets, Heel Slides, Short Arc Quads, Straight leg raise, Hip abd/add Supine Reps: 20 (10reps 2 sets) Treatments pt performed functional LE strengthening bed exercises and education. Assessment Current Status: Fair Progress pt maegan all exercises this session and reports no increase in pain with therapy today. PT Short Term Goals Short Term Goals Time Frame: Feb 22, 2019 Roll Left & Right: 3 Sit to lyin Lying to sitting on side of be: 3 Sit to stand: 3 Chair/qis-qh-hrymy transfer: 3 Toilet transfer: 3 Car transfer: 3 Walk 10 feet: 3 Walk 50 feet with two turns: 3 PT Correction Goals Fabric Cutter Goals PT Fabric Cutter Goals Time Frame: Mar 08, 2019 Roll Left & Right (QC): 6 Sit to Lying (QC): 6 Lying-Sitting on Side/Bed(QC): 6 Sit to Stand (QC): 6 Chair/Qpf-fo-Fcasc Xfer(QC): 6 Toilet Transfer (QC): 6 Car Transfer (QC): 5 Does the Patient Walk: No and Walking Goal IS indicated Walk 10 feet (QC): 6 Walk 50ft with 2 Turns (QC): 6 Walk 150 ft (QC): 6 Walking 10ft on Uneven Surface: 4 1 Step (curb) (QC): 4 4 Steps (QC): 4 12 Steps (QC): 9 Picking up an Object (QC): 9 Does the Pt use WC or Scooter?: Yes Wheel 50 feet with 2 turns (QC: 5 Type: Manual Wheel 150 feet: 5 Type: Manual PT Plan Problem List Problem List: Activity Tolerance, Functional Strength, Safety, Balance, Gait, Transfer, Bed Mobility, ROM Treatment/Plan Treatment Plan: Continue Plan of Care Treatment Plan: Bed Mobility, Education, Functional Activity Fidel, Functional Strength, Group Therapy, Gait, Safety, Therapeutic Exercise, Transfers Treatment Duration: Mar 08, 2019 Frequency: At least 5 of 7 days/Wk (IRF) Estimated Hrs Per Day: 1.5 hours per day Patient and/or Family Agrees t: Yes Safety Risks/Education Patient Education: Correct Positioning, Safety Issues Teaching Recipient: Patient Teaching Methods: Demonstration, Discussion Response to Teaching: Return Demonstration, Reinforcement Needed Time/GCodes Time In: 1130 Time Out: 1200 Total Billed Treatment Time: 30 Total Billed Treatment 1 visit EX 30' NOY ANTONIO PT Feb 09, 2019 12:41 POS
--- NOTE | 2019-02-09 12:59 | ST Cognitive Linguistic Eval ---
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 Mayen Medical History Pertinent Medical History: Atrial Fib, DM, HTN Reviewed History: Yes Social History Current Living Status: Spouse (he has respiratory issues) Speech PLF-Current Status Prior Level of Function Patient lived at home with her . She was independent for much of her daily needs. Subjective Patient was pleasant with cognitive assessment. Language Eval: Auditory Comprehends Simple Yes/No Ques: Functional Indent/Objects Multiple Cha: Functional Ident/Pics in Multiple Cha: Functional Follows 1-Step Commands: Functional Follows Complex Directions: Functional Follows General Conversations: Functional Language Eval: Verbal Language Completes Spontaneous Greeting: Functional Produces Auto, Serial Info: Functional Imitates Simple Words/Phrases: Functional Word Finding: Functional Requests Basic Needs: Functional States Basic Personal Info: Functional Expresses Complex Ideas: Functional Objective Cognitive Domain Attention: WNL Memory: Mild Problem Solving: Functional Executive Functions: WNL Visuospatial Skills: WNL Composite Severity Rating: WNL Clock Drawing Severity Rating: WNL Objective Formal/Standardized Tests [facility] Mental Status ([facility]) Results 27/30 Oral Motor/Speech Production Within Normal Limits Impression Patient is a 78 year old female who was admitted to the ARU s/p spine fusion. The patient was given the SLUMS at bedside with a score of 27/30 obtained. This score falls in the normal range of function. The patient does not require further skilled ST at this time. Speech Patient Assess Expression of Ideas/Wants: Expression (4) Understanding Verbal Content: Understands (4) Brief Interview-Mental Status: Yes Repetition of Three Words: Three (3) Temporal Orientation: Year: Correct (3) Temporal Orientation: Month: Accurate within 5 days(2) Temporal Orientation: Day: Correct (1) Recall : Wear to say "Sock": Yes, no cue required (2) Recall : Color: Yes, no cue required (2) Recall : Bed: Yes,after cueing (1) Memory/Recall Ability: Current season, Location of own room, That he or she is in a hsp/hsp unit Speech-Plan Patient/Family Goals Patient/Family Goals: The patient plans on returning home with her and son when she is discharged from rehab. Treatment Plan Speech Therapy Treatment Plan: Discontinue ST Patient does not warrant skilled ST at this time. Treatment Duration: Feb 08, 2019 Frequency: 1 time per week Estimated Hrs Per Day: .25 hour per day Rehab Potential: Fair Barriers to Learning: None identified Pt/Family Agrees to Plan: Yes Safety Risks/Education Teaching Recipient: Patient Teaching Methods: Discussion Response to Teaching: Verbalize Understanding Time Speech Therapy Time In: 10:30 Speech Therapy Time Out: 10:45 Total Billed Time: 15 Billed Treatment Time 1, BEKA Slater Feb 09, 2019 12:59 POS
--- NOTE | 2019-02-09 14:17 | Diagnostic Imaging Report ---
INDICATION: Post left PICC line placement. FINDINGS: Portable view of the chest demonstrates a left arm PICC line placement with its tip approximately 1 to 2 cm into the right atrium. Since yesterday, the right pleural effusion has increased. Left lung is clear with normal vascularity. IMPRESSION: 1. PICC line placement with its tip 1 to 2 cm into the right atrium. 2. Increasing right pleural effusion. Dictated by: Dictated on workstation # [id number]
[2019-02-09] MEDS: VANCOMYCIN 1 GM/NS 250 ML IVPB IV SCH ×2 (14:46)
[2019-02-09 17:33] VITALS: BP 162/75
[2019-02-09] MEDS: CEFEPIME INJECTION 1,000 MG in WATER (STERILE) FOR INJECTION 10 ML IV SCH (18:45)
[2019-02-09] MEDS: RIVAROXABAN 15 MG TABLET (XARELTO) PO SCH (18:45)
--- NOTE | 2019-02-09 20:06 | Progress Note - Cardiology ---
Cardiology SOAP Progress Note Subjective: She does not report cp or palp or syncope or shortness of breath at rest Objective: I&O/Vital Signs 02/09/19 02/09/19 02/09/19 02/09/19 08:15 10:08 17:33 19:49 Temp 36.6 Pulse 95 Resp 20 B/P (MAP) 162/75 (104) Pulse Ox 92 94 92 O2 Delivery Nasal Cannula Nasal Cannula Nasal Cannula Nasal Cannula O2 Flow Rate 2.00 2.00 2.00 2.00 02/09/19 00:00 Intake Total 1015 ml Balance 1015 ml Constitutional: well-developed, well-nourished, other (appears oriented to person and place today) Respiratory: No accessory muscle use; other (fair to good bilat air entry; diminished at the bases) Cardiovascular: regular rate-rhythm, S1 and S2, systolic murmur (1-2/6 KRISTAN at card base) Gastrointestional: No tender; soft; No guarding, No rebound; audible bowel sounds Extremities: No clubbing, No cyanosis, No significant edema Neurologic/Psychiatric: other (seems to move all limbs equally) Skin: No rash on exposed areas, No ulcerations on exposed areas Results/Procedures: Labs Laboratory Tests 02/08/19 20:10: Glucometer 206H 02/09/19 05:34: Glucometer 66L 02/09/19 06:04: Glucometer 90 02/09/19 07:05: White Blood Count 11.6H, Red Blood Count 3.36L, Hemoglobin 9.7L, Hematocrit 31L, Mean Corpuscular Volume 92, Mean Corpuscular Hemoglobin 29, Mean Corpuscular Hemoglobin Concent 31L, Red Cell Distribution Width 15.5H, Platelet Count 356, Mean Platelet Volume 7.9, Neutrophils (%) (Auto) 78H, Lymphocytes (%) (Auto) 10L , Monocytes (%) (Auto) 10, Eosinophils (%) (Auto) 2, Basophils (%) (Auto) 0, Neutrophils # (Auto) 9.1H, Lymphocytes # (Auto) 1.1, Monocytes # (Auto) 1.1H, Eosinophils # (Auto) 0.3, Basophils # (Auto) 0.0, Sodium Level 140, Potassium Level 3.8, Chloride Level 103, Carbon Dioxide Level 28, Anion Gap 9, Blood Urea Nitrogen 32H, Creatinine 1.78H, Estimat Glomerular Filtration Rate 28, BUN/Creatinine Ratio 18, Glucose Level 92, Lactic Acid Level 0.63, Calcium Level 11.5H, Corrected Calcium 12.3H, Phosphorus Level 2.6, Magnesium Level 2.2, Total Bilirubin 0.3, Aspartate Amino Transf (AST/SGOT) 22, Alanine Aminotransferase (ALT/SGPT) 23, Alkaline Phosphatase 103, Total Protein 5.7L, Albumin 3.0L 02/09/19 11:35: Glucometer 78 02/09/19 15:24: Glucometer 54*L 02/09/19 15:53: Glucometer 83 Microbiology 02/08/19 Blood Culture - Preliminary, Resulted No growth 02/08/19 Gram Stain - Final, Resulted 02/08/19 Sputum Culture, Resulted Pending Laboratory Tests 02/08/19 05:45 02/09/19 07:05 A/P: Assessment: PAF Recent ROSE (while at [facility] prior to this transfer) DM II Htn HL Dementia Plan: * BB increased yesterday. Continue to monitor bp * Continue rivaroxaban * Monitor labs from time to time LEIGH SANTOS MD FACP FAC CCDS Feb 09, 2019 20:06 POS
[2019-02-09] MEDS: VITAMIN D3 1,000 UNITS (CHOLECALCIFEROL) TABLET PO SCH (20:55)
[2019-02-09] MEDS: DONEPEZIL 5 MG (ARICEPT) TAB PO SCH (20:56)
[2019-02-10] MEDS: HYDROcodone/APAP 5 MG/325 MG (LORTAB) TAB PO PRN ×3 (02:05→20:31)
[2019-02-10] MEDS: MULTIVIT W/MINERALS TAB (THERAGRAN M) PO SCH (05:17)
[2019-02-10] MEDS: CATHETER FLUSH 10 ML SYR IV SCH ×3 (05:18→22:09)
[2019-02-10] MEDS: LEVOTHYROXINE 112 MCG (LEVOTHROID) TAB PO SCH (05:18)
[2019-02-10 05:24] LABS: BASOPHILS % (AUTO) 0 % (0-10); EOSINOPHILS # (AUTO) 0.2 10^3/uL (0.0-0.3); EOSINOPHILS % (AUTO) 1 % (0-10); HEMATOCRIT 27 % (35-52); HEMOGLOBIN 8.7 G/DL (11.5-16.0); LYMPHOCYTES # (AUTO) 0.9 X 10^3 (1.0-4.0); LYMPHOCYTES % (AUTO) 7 % (12-44); MEAN CORPUSCULAR HEMOGLOBIN 29 PG (25-34); MEAN CORPUSCULAR HGB CONC 32 G/DL (32-36); MEAN CORPUSCULAR VOLUME 91 FL (80-99); MEAN PLATELET VOLUME 7.9 FL (7.4-10.4); MONOCYTES # (AUTO) 1.3 X 10^3 (0.0-1.0); MONOCYTES % (AUTO) 10 % (0-12); NEUTROPHILS # (AUTO) 10.5 X 10^3 (1.8-7.8); NEUTROPHILS % (AUTO) 82 % (42-75); PLATELET COUNT 358 10^3/uL (130-400); RED CELL DISTRIBUTION WIDTH 15.5 % (10.0-14.5); WHITE BLOOD COUNT 12.8 10^3/uL (4.3-11.0)
[2019-02-10 05:27] VITALS: BP 160/78
[2019-02-10 05:47] LABS: CALCIUM 11.3 MG/DL (8.5-10.1); CREATININE SERUM 1.63 MG/DL (0.60-1.30); MAGNESIUM 2.1 MG/DL (1.6-2.4); PHOSPHORUS 2.5 MG/DL (2.3-4.7)
[2019-02-10] MEDS: inSUlin ASPART (NovoLOG) 1 UNIT/0.01 ML (CHARGE PER UNIT) SC SCH ×4 (06:28→20:47)
[2019-02-10] MEDS: RT-ALBUTEROL/IPRATROPIUM 3 ML (DUONEB) VIAL INH SCH ×3 (06:47→14:25)
--- NOTE | 2019-02-10 07:54 | Pulmonary Progress Note ---
Subjective Time Seen by a Provider: 07:17 Subjective/Events-last exam Pt appears to be doing better. Sepsis Event Evaluation Height, Weight, BMI Height: '" Weight: lbs. oz. kg; 34.15 BMI Method: Focused Exam Lactate Level 02/09/19 07:05: Lactic Acid Level 0.63 Exam Exam Vital Signs Date Time Temp Pulse Resp B/P (MAP) Pulse Ox O2 Delivery O2 Flow Rate FiO2 02/10/19 06:47 91 Nasal Cannula 2.00 02/10/19 05:27 36.6 88 18 160/78 (105) 93 Nasal Cannula 2.00 02/09/19 21:00 Nasal Cannula 2.00 02/09/19 19:49 92 Nasal Cannula 2.00 02/09/19 17:33 36.6 95 20 162/75 (104) 94 Nasal Cannula 2.00 02/09/19 10:08 92 Nasal Cannula 2.00 02/09/19 08:15 Nasal Cannula 2.00 I & O 02/10/19 07:00 Intake Total 1420 ml Balance 1420 ml Height & Weight Height: '" Weight: lbs. oz. kg; 34.15 BMI Method: General Appearance: No Apparent Distress, WD/WN, Chronically ill, Obese HEENT: PERRL/EOMI, Normal ENT Inspection, Pharynx Normal Neck: Full Range of Motion, Normal Inspection, Non Tender, Supple, Carotid Bruit Respiratory: Chest Non Tender, Lungs Clear, No Accessory Muscle Use, No Respiratory Distress, Decreased Breath Sounds, Wheezing Cardiovascular: No Edema, No Gallop, No JVD, No Murmur, Normal Peripheral Pulses, Irregularly Irregular Extremity: Normal Capillary Refill, Normal Inspection, Normal Range of Motion, Non Tender, No Calf Tenderness, No Pedal Edema Neurologic/Psychiatric: Alert, Oriented x3, No Motor/Sensory Deficits, geomagnetist II- XII Norm as Tested, Depressed Affect Skin: Normal Color, Warm/Dry Lymphatic: No Adenopathy Results Lab Laboratory Tests 02/09/19 07:05 02/10/19 05:10 Assessment/Plan Assessment/Plan Pneumonia -Curry culture - Started Vanco Cefepine 02/08 -Check Daily labs pleural effusion -Monitor Renal failure -Monitor COPD -02 -Duonebs Afib anemia HTN ELISEO KAISER DO Feb 10, 2019 07:54 POS
[2019-02-10] MEDS: POLYETHYLENE GLYCOL 17 GM (MIRALAX) PACK PO SCH ×2 (09:00→20:46)
[2019-02-10] MEDS: amLODIPine 10 MG (NORVASC) TAB PO SCH (10:00)
[2019-02-10] MEDS: DOCUSATE SODIUM 100 MG (COLACE) CAP PO SCH ×2 (10:00→20:30)
[2019-02-10] MEDS: meTOprolol TARTRATE 25 MG (LOPRESSOR) TABLET PO SCH ×2 (10:01→20:31)
[2019-02-10] MEDS: GLIMEPIRIDE 2 MG (AMARYL) TAB PO SCH (10:01)
--- NOTE | 2019-02-10 11:05 | Physical Therapy Daily Note ---
PT Daily Note-Current Subjective Pt agreeable to PT session but stating she is in so much pain. Pain Numeric Pain Scale: 9 Location: Posterior Location Body Site: Back Comment: across lower Appearance Pt supine in bed awake upon arrival. Requesting and assisted to scoot up in bed. At end of session, pt on bedpan with x2 person assist, call light, phone and bedside table within reach Mental Status Patient Orientation: Person, Place, Time, Eyes Open, Situation Attachments: Saline Lock, Oxygen (3 L O2/NC) Transfers SCALE: Activities may be completed with or without assistive devices. 3-[place]-sqdjpoq completes the activity by him/herself with no assistance from a helper. 5-Set-up or Clean-up Assistance-helper sets up or cleans up; patient completes activity. [place] assists only prior to or following the activity. 4-Supervision or Touching Assistance-helper provides verbal cues and/or touching/steadying and/or contact guard assistance as patient completes activity. Assistance may be provided throughout the activity or intermittently. 3-Partial/Moderate Assistance-helper does LESS THAN HALF the effort. [place] l ifts, holds or supports trunk or limbs, but provides less than half the effort. 2-Substantial/Maximal Assistance-helper does MORE THAN HALF the effort. [place] lifts or holds trunk or limbs and provides more than half the effort. 4-Cmacafgdn-efqvjr does ALL the effort. Patient does none of the effort to complete the activity. Or, the assistance of 2 or more helpers is required for t he patient to complete the activity. If activity was not attempted, code reason: 7-Patient Refused. 9-Not Applicable-not attempted and the patient did not perform the activity before the current illness, exacerbation or injury. 10-Not Attempted due to Environmental Limitations-(lack of equipment, weather restraints, etc.). 88-Not Attempted due to Medical Conditions or Safety Concerns. Roll Left & Right (QC): 4 great effort and c/o pain with bed mobility. Skilled verbal instruction and physical assist required teaching log roll, scooting up in bed, general bed mobility for back precautions, decrease effort required, decrease pain with movements Weight Bearing TLSO when out of bed. Exercises Supine Ex: Ankle pumps (50), Rolling (x4 each L and R log roll using bedrails), Heel Slides (20), Straight leg raise (20, requiring AAROM), Hip abd/add (20) Treatments education, safety, bed mobility, activity tolerance, strength, ROM, functional mobility Assessment Current Status: Fair Progress pt very slow at performing any task requested and requiring max verbal encouragement to continue with ex's and mobility PT Short Term Goals Short Term Goals Time Frame: Feb 22, 2019 Roll Left & Right: 3 Sit to lyin Lying to sitting on side of be: 3 Sit to stand: 3 Chair/xna-ym-lopyv transfer: 3 Toilet transfer: 3 Car transfer: 3 Walk 10 feet: 3 Walk 50 feet with two turns: 3 PT Cnc Machine Setter Goals Custodial Goals PT Cnc Machine Setter Goals Time Frame: Mar 08, 2019 Roll Left & Right (QC): 6 Sit to Lying (QC): 6 Lying-Sitting on Side/Bed(QC): 6 Sit to Stand (QC): 6 Chair/Oab-qo-Bljho Xfer(QC): 6 Toilet Transfer (QC): 6 Car Transfer (QC): 5 Does the Patient Walk: No and Walking Goal IS indicated Walk 10 feet (QC): 6 Walk 50ft with 2 Turns (QC): 6 Walk 150 ft (QC): 6 Walking 10ft on Uneven Surface: 4 1 Step (curb) (QC): 4 4 Steps (QC): 4 12 Steps (QC): 9 Picking up an Object (QC): 9 Does the Pt use WC or Scooter?: Yes Wheel 50 feet with 2 turns (QC: 5 Type: Manual Wheel 150 feet: 5 Type: Manual PT Plan Treatment/Plan Treatment Plan: Continue Plan of Care Treatment Plan: Bed Mobility, Education, Functional Activity Fidel, Functional Strength, Group Therapy, Gait, Safety, Therapeutic Exercise, Transfers Treatment Duration: Mar 08, 2019 Frequency: At least 5 of 7 days/Wk (IRF) Estimated Hrs Per Day: 1.5 hours per day Patient and/or Family Agrees t: Yes Safety Risks/Education Patient Education: Safety Issues Teaching Recipient: Patient Teaching Methods: Discussion Response to Teaching: Verbalize Understanding Time/GCodes Time In: 1055 Time Out: 1120 Total Billed Treatment Time: 25 Total Billed Treatment 1 visit, FA x1 unit, EX x1 unit LISBET BARCENAS PLATING INSPECTOR Feb 10, 2019 11:05 POS
[2019-02-10] MEDS ORDERED: TROUGH ORDER-PHARMACY XX NR (11:30)
--- NOTE | 2019-02-10 12:30 | NUR ---
Wound Vac removed from surgical incision on patients mid back per physician orders. Surgical incision is well approximated, kristen intact, pink, blanchable, with no noted drainage. Area cleansed with sterile water. Island dressing placed to prevent kristen from rubbing on clothing and to collect any possible drainage.
--- NOTE | 2019-02-10 12:30 | NUR ---
Vancomycin - Trough 19.0, no changes.
[2019-02-10] MEDS: VANCOMYCIN 1 GM/NS 250 ML IVPB IV SCH ×2 (12:33)
--- NOTE | 2019-02-10 12:33 | PM&R Progress Note ---
Subjective HPI/CC On Admission Date Seen by Provider: Feb 10, 2019 Time Seen by Provider: 11:15 Subjective/Events-last exam Patient doing well overall Very debilitated from her acute and major illness and 2 week stay at [facility] especially given the fact she is in wheelchair a lot at home with walker periodically evidence of chronic debility Day after admit CXR revealed multi-lobar infiltrates so Dr Garcia pancultured and started on Cefepime and Vancomycin and changed Nebs from Albuterol to Duoneb to dry up secretions BM + Wound vac will DC today PICC line in place Hgb 8.7, wbc 12.8 Right pleural effusion Conferred with RN Reviewed therapy notes Checked meds and labs Review of Systems General: Fatigue Pulmonary: Dyspnea, Cough Musculoskeletal: back pain Focused Exam Lactate Level 02/09/19 07:05: Lactic Acid Level 0.63 Objective Exam Vital Signs Vital Signs Date Time Temp Pulse Resp B/P (MAP) Pulse Ox O2 Delivery O2 Flow Rate FiO2 02/10/19 14:25 95 Nasal Cannula 2.00 02/10/19 05:27 36.6 88 18 160/78 (105) Capillary Refill : Less Than 3 Seconds General Appearance: No Apparent Distress, WD/WN, Chronically ill, Obese HEENT: PERRL/EOMI, Normal ENT Inspection, Pharynx Normal Neck: Full Range of Motion, Normal Inspection, Non Tender, Supple, Carotid Bruit Respiratory: Chest Non Tender, Lungs Clear, No Accessory Muscle Use, No Respiratory Distress, Decreased Breath Sounds, Wheezing Cardiovascular: No Edema, No Gallop, No JVD, No Murmur, Normal Peripheral Pulses, Irregularly Irregular Gastrointestinal: Normal Bowel Sounds, No Organomegaly, No Pulsatile Mass, Non Tender, Soft Back: Decreased Range of Motion, Muscle Spasm, Vertebral Tenderness, Other (wo und VAC in place) Extremity: Normal Capillary Refill, Normal Inspection, Normal Range of Motion, Non Tender, No Calf Tenderness, No Pedal Edema Neurologic/Psychiatric: Alert, Oriented x3, No Motor/Sensory Deficits, gold reclaimer II- XII Norm as Tested, Depressed Affect Skin: Normal Color, Warm/Dry Lymphatic: No Adenopathy Results/Procedures Lab Laboratory Tests 02/10/19 05:10 Patient resulted labs reviewed. FIM Transfers Therapy Code Descriptions/Definitions Functional [place] Measure: 0=Not Assessed/NA 4=Minimal Assistance 1=Total Assistance 5=Supervision or Setup 2=Maximal Assistance 6=Modified [place] 3=Moderate Assistance 7=Complete IndependenceSCALE: Activities may be completed with or without assistive devices. 0-Aghfedqakm-itizeii completes the activity by him/herself with no assistance from a helper. 5-Set-up or Clean-up Assistance-helper sets up or cleans up; patient completes activity. [place] assists only prior to or following the activity. 4-Supervision or Touching Assistance-helper provides verbal cues and/or touching/steadying and/or contact guard assistance as patient completes activity. Assistance may be provided throughout the activity or intermittently. 3-Partial/Moderate Assistance-helper does LESS THAN HALF the effort. [place] lifts, holds or supports trunk or limbs, but provides less than half the effort. 2-Substantial/Maximal Assistance-helper does MORE THAN HALF the effort. [place] lifts or holds trunk or limbs and provides more than half the effort. 7-Aoylozkfn-bymepi does ALL the effort. Patient does none of the effort to complete the activity. Or, the assistance of 2 or more helpers is required for the patient to complete the activity. If activity was not attempted, code reason: 7-Patient Refused. 9-Not Applicable-not attempted and the patient did not perform the activity before the current illness, exacerbation or injury. 10-Not Attempted due to Environmental Limitations-(lack of equipment, weather restraints, etc.). 88-Not Attempted due to Medical Conditions or Safety Concerns. Roll Left to Right (QC): 2 (MaxA) Sit to Lying (QC): 1 (max X2) Sit to Stand (QC): 1 (Max X2) Chair/Iyd-ry-Klatj Xfer(QC): 1 (max X2) Car Transfer (QC): 88 Gait Training Does the Patient Walk?: No and Walking Goal IS indicated Walk 10 feet (QC): 88 Walk 50 ft with 2 Turns(QC): 88 Walk 150 ft (QC): 88 Walking 10ft/uneven surface-QC: 88 Gait Assistive Device: FWW Wheelchair Training Does the Pt Use a Wheelchair?: Yes Wheel 50 ft with 2 turns (QC): 3 (Igor) Wheel 150 ft (QC): 1 Type of Wheelchair: Manual Stair Training 1 Step (curb) (QC): 88 4 Steps (QC): 88 12 Steps (QC): 88 Balance Picking up an Object (QC): 88 ADL-Treatment Eating (QC): 5 (per nursing report pt is able to feed self after set up) Oral Hygiene (QC): 4 (Pt able to complete oral/denture care with SBA. Pt also washed face and combed hair with SBA and increased time for completion.) Shower/Bathe Self (QC): 1 (Pt washed upper body with SBA. Total assist to wash lower body. Assist x2 when when standing to wash buttocks and back of legs. One assisted to stand while another assisted with hygiene. ) Upper Body Dressing (QC): 2 (Pt required mod assist to doff/don shirt. Total assist to doff/don TLSO) Lower Body Dressing (QC): 1 (Pt required assist to thread bilateral LE into Depends and pants. Assist x2 to complete standing and pant hike. Footwear QC:1 Total assist to don/doff socks and shoes.) On/Off Footwear (QC): 1 (Pt will require instruction in use of AE for socks secondary to back precautions.) Toileting Hygiene (QC): 1 (Assist x2 for toileting. Pt unable to complete hygiene or clothing management.) Toilet Transfer (QC): 1 (Max assist x2 for transfer to [facility] [place] toilet) Assessment/Plan Assessment and Plan Assess & Plan/Chief Complaint Assessment: Thoracic vertebral fracture s/p repair Multilobar pneumonia placed on Vanc and Cefepime per Dr Garcia Severe COPD O2 dependence Recent intubation after thoracic vertebral fracture surgery Right pleural effusion CRI Chronic on acute debility HTN Chronic AF OAC Plan: Abx Monitor closely due to resp status O2 Nebs IRF protocol DC wound vac (1) Fracture of lamina of thoracic vertebra (2) Multifocal pneumonia (3) Hypothyroidism (4) Diabetes mellitus (5) Chronic renal insufficiency, stage III (moderate) (6) Anemia of renal disease (7) Chronic constipation (8) Back pain (9) Dependence on supplemental oxygen (10) COPD (chronic obstructive pulmonary disease) (11) Hypertension (12) Hyperlipidemia (13) Wheezing (14) Depression (15) Angina at rest (16) Atrial fibrillation (17) On continuous oral anticoagulation (18) History of respiratory failure (19) Cough MAUDE HINOJOSA DO Feb 10, 2019 12:33 POS
--- NOTE | 2019-02-10 14:53 | Progress Note - Cardiology ---
Cardiology SOAP Progress Note Subjective: She says her main problem is bilateral leg weakness that remains unchanged after recent back surgery. Her daughter is by her bedside and she concurs She does not report cp or palp or syncope Has chronic, intermittent leg swelling Notes gen weakness and chronic backache Objective: I&O/Vital Signs 02/10/19 02/10/19 02/10/19 02/10/19 05:27 06:47 09:00 10:27 Temp 36.6 Pulse 88 Resp 18 B/P (MAP) 160/78 (105) Pulse Ox 93 91 93 O2 Delivery Nasal Cannula Nasal Cannula Nasal Cannula Nasal Cannula O2 Flow Rate 2.00 2.00 2.00 2.00 02/10/19 14:25 Pulse Ox 95 O2 Delivery Nasal Cannula O2 Flow Rate 2.00 02/10/19 00:00 Intake Total 920 ml Balance 920 ml Constitutional: AAO x 3, well-developed, well-nourished, other Respiratory: No accessory muscle use; other (fair to good bilat air entry; diminished at the bases) Cardiovascular: regular rate-rhythm, S1 and S2, systolic murmur (1-2/6 KRISTAN at card base) Gastrointestional: No tender; soft; No guarding, No rebound; audible bowel sounds Extremities: No clubbing, No cyanosis, No significant edema Neurologic/Psychiatric: oriented x 3, other (seems to move all limbs equally) Skin: No rash on exposed areas, No ulcerations on exposed areas Results/Procedures: Labs Laboratory Tests 02/09/19 15:24: Glucometer 54*L 02/09/19 15:53: Glucometer 83 02/09/19 20:46: Glucometer 163H 02/10/19 05:10: White Blood Count 12.8H, Red Blood Count 3.01L, Hemoglobin 8.7L, Hematocrit 27L, Mean Corpuscular Volume 91, Mean Corpuscular Hemoglobin 29, Mean Corpuscular Hemoglobin Concent 32, Red Cell Distribution Width 15.5H, Platelet Count 358, Mean Platelet Volume 7.9, Neutrophils (%) (Auto) 82H, Lymphocytes (%) (Auto) 7L, Monocytes (%) (Auto) 10, Eosinophils (%) (Auto) 1, Basophils (%) (Auto) 0, Neutrophils # (Auto) 10.5H, Lymphocytes # (Auto) 0.9L, Monocytes # (Auto) 1.3H, Eosinophils # (Auto) 0.2, Basophils # (Auto) 0.0, Sodium Level 140, Potassium Level 4.0, Chloride Level 105, Carbon Dioxide Level 27, Anion Gap 8, Blood Urea Nitrogen 30H, Creatinine 1.63H, Estimat Glomerular Filtration Rate 31, BUN/Creatinine Ratio 18, Glucose Level 74, Calcium Level 11.3H, Phosphorus Level 2.5, Magnesium Level 2.1 02/10/19 10:45: Glucometer 192H 02/10/19 11:45: Vancomycin Level Trough 19.0 Microbiology 02/08/19 Blood Culture - Preliminary, Resulted No growth 02/08/19 Gram Stain - Final, Resulted 02/08/19 Sputum Culture - Preliminary, Resulted Usual oral alvino Escherichia coli 02/08/19 Urine Culture - Final, Complete NO GROWTH Laboratory Tests 02/09/19 07:05 02/10/19 05:10 A/P: Assessment: PAF Echo of 02/10/19: LVEF 50-55%, mild to mod MAC, grade 2 diastolic dysfunction, mod to sev TR, RVSP 55 mmHg Recent ROSE (while at [facility] prior to this transfer) Severe anemia of undetermined etiology, managed by Dr Mayen DM II Htn HL Dementia Plan: * Further increase bb * Continue rivaroxaban * Continue to monitor H&H because of some fall noted today * I discussed her CV issues in detail with her and her daughter and answered their CV-related questions LEIGH SANTOS MD FACP [facility] CCDS Feb 10, 2019 14:53 POS
[2019-02-10] MEDS: RIVAROXABAN 15 MG TABLET (XARELTO) PO SCH (17:13)
[2019-02-10 17:27] VITALS: BP 166/83
[2019-02-10] MEDS: CEFEPIME INJECTION 1,000 MG in WATER (STERILE) FOR INJECTION 10 ML IV SCH (18:19)
[2019-02-10] MEDS: MELATONIN 3 MG TABLET PO PRN (20:30)
[2019-02-10] MEDS: DONEPEZIL 5 MG (ARICEPT) TAB PO SCH (20:30)
[2019-02-10] MEDS: VITAMIN D3 1,000 UNITS (CHOLECALCIFEROL) TABLET PO SCH (20:30)
--- NOTE | 2019-02-10 21:20 | NUR ---
Assumed care of patient due to staffing changes.
[2019-02-11] MEDS: RT-ALBUTEROL/IPRATROPIUM 3 ML (DUONEB) VIAL INH SCH ×4 (01:33→16:00)
[2019-02-11 05:37] LABS: BASOPHILS % (AUTO) 0 % (0-10); EOSINOPHILS # (AUTO) 0.2 10^3/uL (0.0-0.3); EOSINOPHILS % (AUTO) 2 % (0-10); HEMATOCRIT 27 % (35-52); HEMOGLOBIN 8.7 G/DL (11.5-16.0); LYMPHOCYTES # (AUTO) 1.1 X 10^3 (1.0-4.0); LYMPHOCYTES % (AUTO) 8 % (12-44); MEAN CORPUSCULAR HEMOGLOBIN 30 PG (25-34); MEAN CORPUSCULAR HGB CONC 32 G/DL (32-36); MEAN CORPUSCULAR VOLUME 92 FL (80-99); MEAN PLATELET VOLUME 8.1 FL (7.4-10.4); MONOCYTES # (AUTO) 1.3 X 10^3 (0.0-1.0); MONOCYTES % (AUTO) 9 % (0-12); NEUTROPHILS # (AUTO) 11.6 X 10^3 (1.8-7.8); NEUTROPHILS % (AUTO) 81 % (42-75); PLATELET COUNT 364 10^3/uL (130-400); RED CELL DISTRIBUTION WIDTH 15.3 % (10.0-14.5); WHITE BLOOD COUNT 14.3 10^3/uL (4.3-11.0)
[2019-02-11 05:54] LABS: CALCIUM 10.9 MG/DL (8.5-10.1); CREATININE SERUM 1.58 MG/DL (0.60-1.30); MAGNESIUM 2.2 MG/DL (1.6-2.4); POTASSIUM 4.3 MMOL/L (3.6-5.0)
[2019-02-11 06:00] VITALS: BP 158/89
[2019-02-11] MEDS: inSUlin ASPART (NovoLOG) 1 UNIT/0.01 ML (CHARGE PER UNIT) SC SCH ×4 (06:18→20:36)
[2019-02-11] MEDS: MULTIVIT W/MINERALS TAB (THERAGRAN M) PO SCH (06:20)
[2019-02-11] MEDS: LEVOTHYROXINE 112 MCG (LEVOTHROID) TAB PO SCH (06:20)
[2019-02-11] MEDS: CATHETER FLUSH 10 ML SYR IV SCH ×3 (06:20→20:14)
[2019-02-11] MEDS: GLIMEPIRIDE 2 MG (AMARYL) TAB PO SCH (08:38)
[2019-02-11] MEDS: amLODIPine 10 MG (NORVASC) TAB PO SCH (08:38)
[2019-02-11] MEDS: DOCUSATE SODIUM 100 MG (COLACE) CAP PO SCH ×2 (08:38→20:14)
[2019-02-11] MEDS: meTOprolol TARTRATE 25 MG (LOPRESSOR) TABLET PO SCH ×2 (08:39→20:15)
[2019-02-11] MEDS: POLYETHYLENE GLYCOL 17 GM (MIRALAX) PACK PO SCH ×2 (08:41→21:21)
--- NOTE | 2019-02-11 09:20 | NUR ---
Dr Garcia here to see pt/ No new orders given Addendum: 02/11/19 at 1011 by YUSRA FRANCO RN New orders were given
--- NOTE | 2019-02-11 09:34 | Pulmonary Progress Note ---
Subjective Time Seen by a Provider: 07:17 Subjective/Events-last exam No complications noted. Sepsis Event Evaluation Height, Weight, BMI Height: '" Weight: lbs. oz. kg; 34.15 BMI Method: Focused Exam Lactate Level 02/09/19 07:05: Lactic Acid Level 0.63 Exam Exam Vital Signs Date Time Temp Pulse Resp B/P (MAP) Pulse Ox O2 Delivery O2 Flow Rate FiO2 02/11/19 08:31 95 Nasal Cannula 3.00 02/11/19 06:00 36.9 81 18 158/89 (112) 94 Nasal Cannula 3.00 02/10/19 21:00 Nasal Cannula 2.00 02/10/19 17:27 36.6 82 18 166/83 (110) 96 Nasal Cannula 3.00 02/10/19 14:25 95 Nasal Cannula 2.00 02/10/19 10:27 93 Nasal Cannula 2.00 I & O 02/11/19 07:00 Intake Total 1080 ml Balance 1080 ml Height & Weight Height: '" Weight: lbs. oz. kg; 34.15 BMI Method: General Appearance: No Apparent Distress, WD/WN, Chronically ill, Obese HEENT: PERRL/EOMI, Normal ENT Inspection, Pharynx Normal Neck: Full Range of Motion, Normal Inspection, Non Tender, Supple, Carotid Bruit Respiratory: Chest Non Tender, Lungs Clear, No Accessory Muscle Use, No Respiratory Distress, Decreased Breath Sounds, Wheezing Cardiovascular: No Edema, No Gallop, No JVD, No Murmur, Normal Peripheral Pulses, Irregularly Irregular Extremity: Normal Capillary Refill, Normal Inspection, Normal Range of Motion, Non Tender, No Calf Tenderness, No Pedal Edema Neurologic/Psychiatric: Alert, Oriented x3, No Motor/Sensory Deficits, brush cutter II- XII Norm as Tested, Depressed Affect Skin: Normal Color, Warm/Dry Lymphatic: No Adenopathy Results Lab Laboratory Tests 02/10/19 05:10 02/11/19 05:25 Assessment/Plan Assessment/Plan Pneumonia -Curry culture - Started Vanco Cefepine 02/08 -Check Daily labs pleural effusion -Monitor Renal failure -Monitor COPD -02 -Duonebs Afib anemia HTN ELISEO KAISER DO Feb 11, 2019 09:34 POS
[2019-02-11] MEDS: HYDROcodone/APAP 5 MG/325 MG (LORTAB) TAB PO PRN (09:40)
[2019-02-11] MEDS ORDERED: guaiFENesin SYRUP 100 MG/5 ML 10 ML (ROBITUSSIN SF) PO PRN (10:45)
[2019-02-11] MEDS: BISACODYL 10 MG SUPP (DULCOLAX) PR PRN (11:50)
[2019-02-11] MEDS: predniSONE 20 MG TAB PO SCH (11:50)
--- NOTE | 2019-02-11 12:27 | PM&R Progress Note ---
Subjective HPI/CC On Admission Date Seen by Provider: Feb 11, 2019 Time Seen by Provider: 11:00 Subjective/Events-last exam Patient doing so so overall Very debilitated from her acute and major illness and 2 week stay at [facility] especially given the fact she is in wheelchair a lot at home with walker periodically evidence of chronic debility Day after admit CXR revealed multi-lobar infiltrates so Dr Garcia pancultured and started on Cefepime and Vancomycin and changed Nebs from Albuterol to Duoneb to dry up secretions BM none since admit after enema so will initiate suppository and enema if needed Wound vac DC and the incision looks good without suspicious drainage PICC line in place Hgb 8.7, wbc 12.8 Right pleural effusion Confused and tearful this morning Prednisone started per Dr Garcia Conferred with RN Reviewed therapy notes Checked meds and labs Review of Systems General: Fatigue Pulmonary: Dyspnea, Cough Neurological: Confusion Focused Exam Lactate Level 02/09/19 07:05: Lactic Acid Level 0.63 Objective Exam Vital Signs Vital Signs Date Time Temp Pulse Resp B/P (MAP) Pulse Ox O2 Delivery O2 Flow Rate FiO2 02/11/19 16:00 90 Nasal Cannula 3.00 02/11/19 06:00 36.9 81 18 158/89 (112) Capillary Refill : Less Than 3 Seconds General Appearance: No Apparent Distress, WD/WN, Chronically ill, Obese HEENT: PERRL/EOMI, Normal ENT Inspection, Pharynx Normal Neck: Full Range of Motion, Normal Inspection, Non Tender, Supple, Carotid Bruit Respiratory: Chest Non Tender, Lungs Clear, No Accessory Muscle Use, No Respiratory Distress, Decreased Breath Sounds, Wheezing Cardiovascular: No Edema, No Gallop, No JVD, No Murmur, Normal Peripheral Pulses, Irregularly Irregular Gastrointestinal: Normal Bowel Sounds, No Organomegaly, No Pulsatile Mass, Non Tender, Soft Back: Decreased Range of Motion, Muscle Spasm, Vertebral Tenderness, Other (wound VAC in place) Extremity: Normal Capillary Refill, Normal Inspection, Normal Range of Motion, Non Tender, No Calf Tenderness, No Pedal Edema Neurologic/Psychiatric: Alert, Oriented x3, No Motor/Sensory Deficits, non profit job titles II- XII Norm as Tested, Depressed Affect Skin: Normal Color, Warm/Dry Lymphatic: No Adenopathy Results/Procedures Lab Laboratory Tests 02/11/19 05:25 Patient resulted labs reviewed. FIM Transfers Therapy Code Descriptions/Definitions Functional Dent Measure: 0=Not Assessed/NA 4=Minimal Assistance 1=Total Assistance 5=Supervision or Setup 2=Maximal Assistance 6=Modified Dent 3=Moderate Assistance 7=Complete IndependenceSCALE: Activities may be completed with or without assistive devices. 7-Dixmqtmvdr-ggsmgsq completes the activity by him/herself with no assistance from a helper. 5-Set-up or Clean-up Assistance-helper sets up or cleans up; patient completes activity. Ayer assists only prior to or following the activity. 4-Supervision or Touching Assistance-helper provides verbal cues and/or touching/steadying and/or contact guard assistance as patient completes activity. Assistance may be provided throughout the activity or intermittently. 3-Partial/Moderate Assistance-helper does LESS THAN HALF the effort. Ayer lifts, holds or supports trunk or limbs, but provides less than half the effort. 2-Substantial/Maximal Assistance-helper does MORE THAN HALF the effort. Ayer lifts or holds trunk or limbs and provides more than half the effort. 3-Deelgjijc-cmcfny does ALL the effort. Patient does none of the effort to complete the activity. Or, the assistance of 2 or more helpers is required for the patient to complete the activity. If activity was not attempted, code reason: 7-Patient Refused. 9-Not Applicable-not attempted and the patient did not perform the activity before the current illness, exacerbation or injury. 10-Not Attempted due to Environmental Limitations-(lack of equipment, weather restraints, etc.). 88-Not Attempted due to Medical Conditions or Safety Concerns. Roll Left to Right (QC): 4 Sit to Lying (QC): 1 (max X2) Sit to Stand (QC): 1 (Max X2) Chair/Ewz-zp-Termu Xfer(QC): 1 (max X2) Car Transfer (QC): 88 Gait Training Does the Patient Walk?: No and Walking Goal IS indicated Walk 10 feet (QC): 88 Walk 50 ft with 2 Turns(QC): 88 Walk 150 ft (QC): 88 Walking 10ft/uneven surface-QC: 88 Gait Assistive Device: FWW Wheelchair Training Does the Pt Use a Wheelchair?: Yes Wheel 50 ft with 2 turns (QC): 3 (Igor) Wheel 150 ft (QC): 1 Type of Wheelchair: Manual Stair Training 1 Step (curb) (QC): 88 4 Steps (QC): 88 12 Steps (QC): 88 Balance Picking up an Object (QC): 88 ADL-Treatment Eating (QC): 5 (per nursing report pt is able to feed self after set up) Oral Hygiene (QC): 4 (Pt able to complete oral/denture care with SBA. Pt also washed face and combed hair with SBA and increased time for completion.) Shower/Bathe Self (QC): 1 (Pt washed upper body with SBA. Total assist to wash lower body. Assist x2 when when standing to wash buttocks and back of legs. One assisted to stand while another assisted with hygiene. ) Upper Body Dressing (QC): 2 (Pt required mod assist to doff/don shirt. Total assist to doff/don TLSO) Lower Body Dressing (QC): 1 (Pt required assist to thread bilateral LE into Depends and pants. Assist x2 to complete standing and pant hike. Footwear QC:1 Total assist to don/doff socks and shoes.) On/Off Footwear (QC): 1 (Pt will require instruction in use of AE for socks secondary to back precautions.) Toileting Hygiene (QC): 1 (Assist x2 for toileting. Pt unable to complete hygiene or clothing management.) Toilet Transfer (QC): 1 (Max assist x2 for transfer to [facility] [place]) Assessment/Plan Assessment and Plan Assess & Plan/Chief Complaint Assessment: Thoracic vertebral fracture s/p repair Multilobar pneumonia placed on Vanc and Cefepime per Dr Garcia Severe COPD O2 dependence Recent intubation after thoracic vertebral fracture surgery Right pleural effusion CRI Chronic on acute debility HTN Chronic AF OAC Plan: Abx Monitor closely due to resp status O2 Nebs IRF protocol DC wound vac and incision looks good Confusion? Needs NH at DC? (1) Fracture of lamina of thoracic vertebra (2) Multifocal pneumonia (3) Hypothyroidism (4) Diabetes mellitus (5) Chronic renal insufficiency, stage III (moderate) (6) Anemia of renal disease (7) Chronic constipation (8) Back pain (9) Dependence on supplemental oxygen (10) COPD (chronic obstructive pulmonary disease) (11) Hypertension (12) Hyperlipidemia (13) Wheezing (14) Depression (15) Angina at rest (16) Atrial fibrillation (17) On continuous oral anticoagulation (18) History of respiratory failure (19) Cough MAUDE HINOJOSA DO Feb 11, 2019 12:27 POS
[2019-02-11] MEDS: VANCOMYCIN 1 GM/NS 250 ML IVPB IV SCH ×2 (12:34)
--- NOTE | 2019-02-11 15:58 | Progress Note - Cardiology ---
Cardiology SOAP Progress Note Subjective: No cp or palp or syncope No shortness of breath at rest Gen weakness persistent, jesus of the legs No N/V Objective: I&O/Vital Signs 02/11/19 02/11/19 02/11/19 02/11/19 06:00 08:31 09:00 11:56 Temp 36.9 Pulse 81 Resp 18 B/P (MAP) 158/89 (112) Pulse Ox 94 95 92 O2 Delivery Nasal Cannula Nasal Cannula Nasal Cannula Nasal Cannula O2 Flow Rate 3.00 3.00 2.00 3.00 02/11/19 00:00 Intake Total 580 ml Balance 580 ml Constitutional: AAO x 3, well-developed, well-nourished, other Respiratory: No accessory muscle use; other (fair to good bilat air entry; diminished at the bases) Cardiovascular: regular rate-rhythm, S1 and S2, systolic murmur (1-2/6 KRISTAN at card base) Gastrointestional: No tender; soft; No guarding, No rebound; audible bowel sounds Extremities: No clubbing, No cyanosis, No significant edema Neurologic/Psychiatric: oriented x 3, other (seems to move all limbs equally) Skin: No rash on exposed areas, No ulcerations on exposed areas Results/Procedures: Labs Laboratory Tests 02/10/19 20:37: Glucometer 109 02/11/19 05:22: Glucometer 57*L 02/11/19 05:25: White Blood Count 14.3H, Red Blood Count 2.95L, Hemoglobin 8.7L, Hematocrit 27L, Mean Corpuscular Volume 92, Mean Corpuscular Hemoglobin 30, Mean Corpuscular Hemoglobin Concent 32, Red Cell Distribution Width 15.3H, Platelet Count 364, Mean Platelet Volume 8.1, Neutrophils (%) (Auto) 81H, Lymphocytes (%) (Auto) 8L, Monocytes (%) (Auto) 9, Eosinophils (%) (Auto) 2, Basophils (%) (Auto) 0, Neutrophils # (Auto) 11.6H, Lymphocytes # (Auto) 1.1, Monocytes # (Auto) 1.3H, Eosinophils # (Auto) 0.2, Basophils # (Auto) 0.0, Sodium Level 139, Potassium Level 4.3, Chloride Level 103, Carbon Dioxide Level 27, Anion Gap 9, Blood Urea Nitrogen 27H, Creatinine 1.58H, Estimat Glomerular Filtration Rate 32, BUN/Creatinine Ratio 17, Glucose Level 54*L, Calcium Level 10.9H, Phosphorus Level 3.0, Magnesium Level 2.2, Thyroid Stimulating Hormone (TSH) 6.59H 02/11/19 06:09: Glucometer 83 02/11/19 10:38: Glucometer 150H Microbiology 02/08/19 Blood Culture - Preliminary, Resulted No growth 02/08/19 Gram Stain - Final, Complete 02/08/19 Sputum Culture - Final, Complete Usual oral alvino Escherichia coli 02/08/19 Urine Culture - Final, Complete NO GROWTH Laboratory Tests 02/10/19 05:10 02/11/19 05:25 A/P: Assessment: PAF Echo of 02/10/19: LVEF 50-55%, mild to mod MAC, grade 2 diastolic dysfunction, mod to sev TR, RVSP 55 mmHg Recent ROSE (while at [facility] prior to this transfer) Severe anemia of undetermined etiology, managed by Dr Mayen DM II Htn HL Dementia Plan: * BP improved. Continue current cardiac regimen * Labs reviewed: H&H stable compared to yesterday. Monitor from time to time. Dr Mayen managing her anemia LEIGH SANTOS MD FACP [facility] CCDS Feb 11, 2019 15:58 POS
[2019-02-11] MEDS: RIVAROXABAN 15 MG TABLET (XARELTO) PO SCH (16:31)
[2019-02-11 18:17] VITALS: BP 160/84
[2019-02-11] MEDS: CEFEPIME INJECTION 1,000 MG in WATER (STERILE) FOR INJECTION 10 ML IV SCH (18:31)
[2019-02-11] MEDS: VITAMIN D3 1,000 UNITS (CHOLECALCIFEROL) TABLET PO SCH (20:14)
[2019-02-11] MEDS: DONEPEZIL 5 MG (ARICEPT) TAB PO SCH (20:14)
[2019-02-12] MEDS: RT-ALBUTEROL/IPRATROPIUM 3 ML (DUONEB) VIAL INH SCH ×5 (01:11→20:51)
[2019-02-12 04:50] LABS: BASOPHILS % (AUTO) 0 % (0-10); EOSINOPHILS % (AUTO) 0 % (0-10); HEMATOCRIT 27 % (35-52); HEMOGLOBIN 8.7 G/DL (11.5-16.0); LYMPHOCYTES # (AUTO) 0.6 X 10^3 (1.0-4.0); LYMPHOCYTES % (AUTO) 3 % (12-44); MEAN CORPUSCULAR HEMOGLOBIN 29 PG (25-34); MEAN CORPUSCULAR HGB CONC 32 G/DL (32-36); MEAN CORPUSCULAR VOLUME 90 FL (80-99); MEAN PLATELET VOLUME 7.9 FL (7.4-10.4); MONOCYTES % (AUTO) 5 % (0-12); NEUTROPHILS # (AUTO) 19.5 X 10^3 (1.8-7.8); NEUTROPHILS % (AUTO) 92 % (42-75); PLATELET COUNT 424 10^3/uL (130-400); RED CELL DISTRIBUTION WIDTH 15.4 % (10.0-14.5); WHITE BLOOD COUNT 21.2 10^3/uL (4.3-11.0)
[2019-02-12 05:13] LABS: CALCIUM 11.1 MG/DL (8.5-10.1); CREATININE SERUM 1.78 MG/DL (0.60-1.30); MAGNESIUM 2.3 MG/DL (1.6-2.4); PHOSPHORUS 2.7 MG/DL (2.3-4.7); POTASSIUM 4.8 MMOL/L (3.6-5.0)
[2019-02-12 05:17] VITALS: BP 169/81
[2019-02-12 05:18] LABS: BAND NEUTROPHILS 5 %; LYMPHOCYTES % (MANUAL) 3 %; MONOCYTES % (MANUAL) 3 %; NEUTROPHILS % (MANUAL) 89 %; RBC MORPH NORMAL
[2019-02-12] MEDS: LEVOTHYROXINE 112 MCG (LEVOTHROID) TAB PO SCH (06:09)
[2019-02-12] MEDS: CATHETER FLUSH 10 ML SYR IV SCH ×3 (06:09→20:39)
[2019-02-12] MEDS: MULTIVIT W/MINERALS TAB (THERAGRAN M) PO SCH (06:09)
[2019-02-12] MEDS: predniSONE 20 MG TAB PO SCH (06:09)
[2019-02-12] MEDS: inSUlin ASPART (NovoLOG) 1 UNIT/0.01 ML (CHARGE PER UNIT) SC SCH ×4 (06:09→20:46)
[2019-02-12] MEDS ORDERED: ZOLP10TA5 PO (08:24)
[2019-02-12] MEDS ORDERED: LACT1CAP62 PO (08:24)
[2019-02-12] MEDS ORDERED: DONE10TA41 PO (08:24)
[2019-02-12] MEDS ORDERED: LEVO100T7 PO (08:24)
[2019-02-12] MEDS ORDERED: FURO40TA4 PO (08:24)
[2019-02-12] MEDS ORDERED: AMLO5TAB9 PO (08:24)
[2019-02-12] MEDS ORDERED: METO-333 PO (08:24)
[2019-02-12] MEDS ORDERED: AMIT100T2 PO (08:34)
--- NOTE | 2019-02-12 09:19 | Physical Therapy Daily Note ---
PT Daily Note-Current Subjective Pt shares that she has a hospital bed at home and w/c and elidia lift. States her family has hoyered her and helped her many times. Pt. states that she is very weak this morning even in her arms and not sure she can even roll. Pt. requests bed sanches. Pain Numeric Pain Scale: 4 Location: Medial Location Body Site: Back Pain Description: Ache Mental Status Patient Orientation: Normal For Age Attachments: Oxygen (3L) Transfers SCALE: Activities may be completed with or without assistive devices. 1-Tiofawudrw-oizbzzq completes the activity by him/herself with no assistance from a helper. 5-Set-up or Clean-up Assistance-helper sets up or cleans up; patient completes activity. [place] assists only prior to or following the activity. 4-Supervision or Touching Assistance-helper provides verbal cues and/or touching/steadying and/or contact guard assistance as patient completes activity. Assistance may be provided throughout the activity or intermittently. 3-Partial/Moderate Assistance-helper does LESS THAN HALF the effort. [place] lifts, holds or supports trunk or limbs, but provides less than half the effort. 2-Substantial/Maximal Assistance-helper does MORE THAN HALF the effort. [place] lifts or holds trunk or limbs and provides more than half the effort. 4-Waksurvdg-xkbwds does ALL the effort. Patient does none of the effort to complete the activity. Or, the assistance of 2 or more helpers is required for the patient to complete the activity. If activity was not attempted, code reason: 7-Patient Refused. 9-Not Applicable-not attempted and the patient did not perform the activity before the current illness, exacerbation or injury. 10-Not Attempted due to Environmental Limitations-(lack of equipment, weather restraints, etc.). 88-Not Attempted due to Medical Conditions or Safety Concerns. Roll Left & Right (QC): 4 Sit to Lying (QC): 1 Sit to Stand (QC): 3 elidia to w/c from bed , sit to stand at parallel bars mod assist of 2 with pt. pulling up on bars Weight Bearing TLSO when out of bed. Wheelchair Training Does the Pt Use a Wheelchair?: Yes Wheel 50 ft with 2 turns (QC): 4 Type of Wheelchair: Manual maneged well but fatigues, assist of O2 Exercises Supine Ex: Rolling, Heel Slides, Scooting (assist), Hip abd/add Supine Reps: 12 Treatments rolling left to right many times for bed sanches . elidia to w/c secondary to pts c/o of weakness, back brace donned in sitting, w/c mob 75 ft x 3 slow , sit to stand at parallel bars with change of w/c to wider model. in stance pt. 1-3 mins x 3 with wt shift left to right and heel lift with shift . pt. fatigues easily and unable to keep head up Assessment Current Status: Good Progress PT Short Term Goals Short Term Goals Time Frame: Feb 22, 2019 Roll Left & Right: 3 Sit to lyin Lying to sitting on side of be: 3 Sit to stand: 3 Chair/xvp-nq-nlqkm transfer: 3 Toilet transfer: 3 Car transfer: 3 Walk 10 feet: 3 Walk 50 feet with two turns: 3 PT Retirement Goals Electrotype Molder Goals PT Retirement Goals Time Frame: Mar 08, 2019 Roll Left & Right (QC): 6 Sit to Lying (QC): 6 Lying-Sitting on Side/Bed(QC): 6 Sit to Stand (QC): 6 Chair/Lfm-je-Rxbpl Xfer(QC): 6 Toilet Transfer (QC): 6 Car Transfer (QC): 5 Does the Patient Walk: No and Walking Goal IS indicated Walk 10 feet (QC): 6 Walk 50ft with 2 Turns (QC): 6 Walk 150 ft (QC): 6 Walking 10ft on Uneven Surface: 4 1 Step (curb) (QC): 4 4 Steps (QC): 4 12 Steps (QC): 9 Picking up an Object (QC): 9 Does the Pt use WC or Scooter?: Yes Wheel 50 feet with 2 turns (QC: 5 Type: Manual Wheel 150 feet: 5 Type: Manual PT Plan Treatment/Plan Treatment Plan: Continue Plan of Care Treatment Plan: Bed Mobility, Education, Functional Activity Fidel, Functional Strength, Group Therapy, Gait, Safety, Therapeutic Exercise, Transfers Treatment Duration: Mar 08, 2019 Frequency: At least 5 of 7 days/Wk (IRF) Estimated Hrs Per Day: 1.5 hours per day Patient and/or Family Agrees t: Yes Safety Risks/Education Patient Education: Transfer Techniques, Correct Positioning, W/C Management, Disease Process, Safety Issues Teaching Recipient: Patient Teaching Methods: Demonstration, Discussion Response to Teaching: Verbalize Understanding, Return Demonstration, Reinforce ment Needed Time/GCodes Time In: 800 Time Out: 915 Total Billed Treatment Time: 75 Total Billed Treatment 1,FA75m JENNIFER BALDERAS ASSEMBLER [employer] Feb 12, 2019 09:19 POS
--- NOTE | 2019-02-12 09:51 | PM&R Progress Note ---
Subjective HPI/CC On Admission Date Seen by Provider: Feb 12, 2019 Time Seen by Provider: 08:30 Subjective/Events-last exam White count is 21,000 but she is on steroids Hgb 8.7 Creatinine 1.78 Chronically debilitated Bowels are really moving Pt up in a wheelchair today Prednisone started per Dr Garcia Very debilitated Monitoring pleural effusion Conferred with RN Reviewed therapy notes Checked meds and labs Review of Systems General: Fatigue Pulmonary: Dyspnea Musculoskeletal: back pain Objective Exam Vital Signs Vital Signs Date Time Temp Pulse Resp B/P (MAP) Pulse Ox O2 Delivery O2 Flow Rate FiO2 02/12/19 21:00 Nasal Cannula 2.00 02/12/19 20:52 93 02/12/19 16:11 36.9 79 14 153/71 (98) Capillary Refill : Less Than 3 Seconds General Appearance: No Apparent Distress, WD/WN, Chronically ill, Obese HEENT: PERRL/EOMI, Normal ENT Inspection, Pharynx Normal Neck: Full Range of Motion, Normal Inspection, Non Tender, Supple, Carotid Bruit Respiratory: Chest Non Tender, Lungs Clear, No Accessory Muscle Use, No Respiratory Distress, Decreased Breath Sounds, Wheezing Cardiovascular: No Edema, No Gallop, No JVD, No Murmur, Normal Peripheral Pulses, Irregularly Irregular Gastrointestinal: Normal Bowel Sounds, No Organomegaly, No Pulsatile Mass, Non Tender, Soft Back: Decreased Range of Motion, Muscle Spasm, Vertebral Tenderness, Other (wound VAC in place) Extremity: Normal Capillary Refill, Normal Inspection, Normal Range of Motion, Non Tender, No Calf Tenderness, No Pedal Edema Neurologic/Psychiatric: Alert, Oriented x3, No Motor/Sensory Deficits, auditor appraiser II- XII Norm as Tested, Depressed Affect Skin: Normal Color, Warm/Dry Lymphatic: No Adenopathy Results/Procedures Lab Patient resulted labs reviewed. FIM Transfers Therapy Code Descriptions/Definitions Functional [place] Measure: 0=Not Assessed/NA 4=Minimal Assistance 1=Total Assistance 5=Supervision or Setup 2=Maximal Assistance 6=Modified [place] 3=Moderate Assistance 7=Complete IndependenceSCALE: Activities may be completed with or without assistive devices. 0-Otnpybyhfw-bjkzlhq completes the activity by him/herself with no assistance from a helper. 5-Set-up or Clean-up Assistance-helper sets up or cleans up; patient completes activity. [place] assists only prior to or following the activity. 4-Supervision or Touching Assistance-helper provides verbal cues and/or touching/steadying and/or contact guard assistance as patient completes activity. Assistance may be provided throughout the activity or intermittently. 3-Partial/Moderate Assistance-helper does LESS THAN HALF the effort. [place] lifts, holds or supports trunk or limbs, but provides less than half the effort. 2-Substantial/Maximal Assistance-helper does MORE THAN HALF the effort. [place] lifts or holds trunk or limbs and provides more than half the effort. 7-Krxsutwmk-dsrrfi does ALL the effort. Patient does none of the effort to complete the activity. Or, the assistance of 2 or more helpers is required for the patient to complete the activity. If activity was not attempted, code reason: 7-Patient Refused. 9-Not Applicable-not attempted and the patient did not perform the activity before the current illness, exacerbation or injury. 10-Not Attempted due to Environmental Limitations-(lack of equipment, weather restraints, etc.). 88-Not Attempted due to Medical Conditions or Safety Concerns. Roll Left to Right (QC): 4 Sit to Lying (QC): 1 Sit to Stand (QC): 3 Chair/[place] Xfer(QC): 1 (max X2) Car Transfer (QC): 88 Gait Training Does the Patient Walk?: No and Walking Goal IS indicated Walk 10 feet (QC): 88 Walk 50 ft with 2 Turns(QC): 88 Walk 150 ft (QC): 88 Walking 10ft/uneven surface-QC: 88 Gait Assistive Device: FWW Wheelchair Training Does the Pt Use a Wheelchair?: Yes Wheel 50 ft with 2 turns (QC): 4 Wheel 150 ft (QC): 1 Type of Wheelchair: Manual Stair Training 1 Step (curb) (QC): 88 4 Steps (QC): 88 12 Steps (QC): 88 Balance Picking up an Object (QC): 88 ADL-Treatment Eating (QC): 5 (per nursing report pt is able to feed self after set up) Oral Hygiene (QC): 4 (Pt able to complete oral/denture care with SBA. Pt also washed face and combed hair with SBA and increased time for completion.) Shower/Bathe Self (QC): 1 (Pt washed upper body with SBA. Total assist to wash lower body. Assist x2 when when standing to wash buttocks and back of legs. One assisted to stand while another assisted with hygiene. ) Upper Body Dressing (QC): 2 (Pt required mod assist to doff/don shirt. Total assist to doff/don TLSO) Lower Body Dressing (QC): 1 (Pt required assist to thread bilateral LE into Depends and pants. Assist x2 to complete standing and pant hike. Footwear QC:1 Total assist to don/doff socks and shoes.) On/Off Footwear (QC): 1 (Pt will require instruction in use of AE for socks secondary to back precautions.) Toileting Hygiene (QC): 1 (Assist x2 for toileting. Pt unable to complete hygiene or clothing management.) Toilet Transfer (QC): 1 (Max assist x2 for transfer to [facility] over toilet) Assessment/Plan Assessment and Plan Assess & Plan/Chief Complaint Assessment: Thoracic vertebral fracture s/p repair Multilobar pneumonia placed on Vanc and Cefepime per Dr Garcia Severe COPD O2 dependence Recent intubation after thoracic vertebral fracture surgery Right pleural effusion CRI Chronic on acute debility HTN Chronic AF OAC Plan: Abx Monitor closely due to resp status O2 Nebs IRF protocol DC wound vac and incision looks good Confusion? Needs NH at DC? (1) Fracture of lamina of thoracic vertebra (2) Multifocal pneumonia (3) Hypothyroidism (4) Diabetes mellitus (5) Chronic renal insufficiency, stage III (moderate) (6) Anemia of renal disease (7) Chronic constipation (8) Back pain (9) Dependence on supplemental oxygen (10) COPD (chronic obstructive pulmonary disease) (11) Hypertension (12) Hyperlipidemia (13) Wheezing (14) Depression (15) Angina at rest (16) Atrial fibrillation (17) On continuous oral anticoagulation (18) History of respiratory failure (19) Cough MAUDE HINOJOSA DO Feb 12, 2019 09:50 POS
[2019-02-12] MEDS ORDERED: GLIM2TAB PO (09:57)
--- NOTE | 2019-02-12 10:30 | NUR ---
Pastoral care visit.
[2019-02-12] MEDS: amLODIPine 10 MG (NORVASC) TAB PO SCH (10:54)
[2019-02-12] MEDS: DOCUSATE SODIUM 100 MG (COLACE) CAP PO SCH ×2 (10:54→20:37)
[2019-02-12] MEDS: meTOprolol TARTRATE 25 MG (LOPRESSOR) TABLET PO SCH (10:54)
[2019-02-12] MEDS: GLIMEPIRIDE 2 MG (AMARYL) TAB PO SCH (10:55)
[2019-02-12] MEDS: POLYETHYLENE GLYCOL 17 GM (MIRALAX) PACK PO SCH ×2 (10:57→20:39)
--- NOTE | 2019-02-12 11:40 | Occupational Ther Daily Note ---
OT Current Status-Daily Note Subjective Pt seen in therapy gym with PT. PT/ OT co-treat for 15 minutes to complete high- demand standing exercise with the use of two skilled therapists, OT focused on ADLs and UE strength while PT focused on LB strength and balance. Pt agreeable to OT tx session in room. Pt states maximal pain in back during movements. Mental Status/Objective Patient Orientation: Normal For Age Attachments: Oxygen (3L) ADL-Treatment Therapy Code Descriptions/Definitions Functional [place] Measure: 0=Not Assessed/NA 4=Minimal Assistance 1=Total Assistance 5=Supervision or Setup 2=Maximal Assistance 6=Modified [place] 3=Moderate Assistance 7=Complete IndependenceSCALE: Activities may be completed with or without assistive devices. 8-Pszrzrvzja-vwjnfme completes the activity by him/herself with no assistance from a helper. 5-Set-up or Clean-up Assistance-helper sets up or cleans up; patient completes activity. [place] assists only prior to or following the activity. 4-Supervision or Touching Assistance-helper provides verbal cues and/or touching/steadying and/or contact guard assistance as patient completes activity. Assistance may be provided throughout the activity or intermittently. 3-Partial/Moderate Assistance-helper does LESS THAN HALF the effort. [place] lifts, holds or supports trunk or limbs, but provides less than half the effort. 2-Substantial/Maximal Assistance-helper does MORE THAN HALF the effort. [place] lifts or holds trunk or limbs and provides more than half the effort. 1-Omkofgekx-kgnduh does ALL the effort. Patient does none of the effort to complete the activity. Or, the assistance of 2 or more helpers is required for the patient to complete the activity. If activity was not attempted, code reason: 7-Patient Refused. 9-Not Applicable-not attempted and the patient did not perform the activity before the current illness, exacerbation or injury. 10-Not Attempted due to Environmental Limitations-(lack of equipment, weather restraints, etc.). 88-Not Attempted due to Medical Conditions or Safety Concerns. Eating (QC): 6 Oral Hygiene (QC): 5 (completes with s/u) Shower/Bathe Self (QC): 3 (Pt able to complete areas with s/u; requires assist with bottom/ marie hygiene and back. Pt reaches LB with LHS.) Upper Body Dressing (QC): 2 (Pt educated on doffing/ donning process of back brace. Pt completes doffing with mod A, donning with max A. Pt uncomfortable in sit with back brace riding up, requires adjustment with cues for positioning b reasts over brace which enabled brace to maintain centered position. Pt able to don overhead gown with s/u.) Lower Body Dressing (QC): 7 Toileting Hygiene (QC): 1 (TD with elidia lift x2.) on/off footwear: 3: mod A for cues and positioning for use of dressing stick, sock aide, and shoe horn. Other Treatment Pt able to sit to stand from w/c at parallel bars with Max A x2 for stance. Pt returns to room from gym, denies need to push w/c back to room to conserve energy. Pt completes ADLs in room (above). Pt use of elidia lift to return to bed, utilizes log roll to complete LB hygiene and changing after urination in bed. Pt completes doffing back brace in bed with Max A with log rolls. Pts HOB raised, completes oral hygiene in bed with s/u (requires hot water, cold water, denture adhesive), able to manipulate items with min A. Pt left in bed, call light in reach, all needs met. Education OT Patient Education: Correct positioning, Modified ADL techniques, Purpose of tx/functional activities, Transfer techniques, Use of adapted equipment Teaching Recipient: Patient Teaching Methods: Demonstration, Discussion Response to Teaching: Verbalize Understanding, Return Demonstration OT Short Term Goals Short Term Goals Time Frame: Feb 22, 2019 Toileting hygiene: 3 Shower/bathe self: 3 Upper body dressin Lower body dressin OT Group Home Goals Group Home Goals Time Frame: Mar 08, 2019 Eating (QC): 6 Oral Hygiene (QC): 6 Toileting Hygiene (QC): 6 Shower/Bathe Self (QC): 5 Upper Body Dressing (QC): 5 Lower Body Dressing (QC): 5 On/Off Footwear (QC): 5 Additional Goals: 1-Demonstrate ADL Tasks, 2-Verbalize Understanding, 3-ImproveStrength/Fidel 1=Demonstrate adherence to instructed precautions during ADL tasks. 2=Patient will verbalize/demonstrate understanding of assistive devices/modifications for ADL. 3=Patient will improve strength/tolerance for activity to enable patient to perform ADL's. OT Education/Plan Problem List/Assessment Assessment: Decreased Activ Tolerance, Decreased UE Strength, Dependent Transfers, Impaired Bed Mobility, Impaired Funct Balance, Impaired I ADL's, Impaired Self-Care Skills Discharge Recommendations Plan/Recommendations: Continue POC Equpiment Recommendations-D/C: Hip Kit Treatment Plan/Plan of Care Treatment,Training & Education: Yes Patient would benefit from OT for education, treatment and training to promote independence in ADL's, mobility, safety and/or upper extremity function for ADL's. Plan of Care: ADL Retraining, Functional Mobility, Group Exercise/Act as Ind, UE Funct Exercise/Act Treatment Duration: Mar 08, 2019 Frequency: At least 5 of 7 days/Wk (IRF) Estimated Hrs Per Day: 1.5 hours per day Rehab Potential: Fair Time/GCodes Start Time: 09:00 Stop Time: 10:30 Total Time Billed (hr/min): 90 Billed Treatment Time 1, FA (15), ADL 5 (75)= 90 OT/ PT co-treat: [id number]= PT/ OT co-treat for 15 minutes to complete high- demand standing exercise with the use of two skilled therapists, OT focused on ADLs and UE strength while PT focused on LB strength and balance OT individual tx: [id number] CELIA EPPS OTR Feb 12, 2019 11:40 POS
[2019-02-12] MEDS: cefTRIAXone FOR IV USE 1,000 MG in WATER (STERILE) FOR INJECTION 10 ML IV SCH (11:53)
--- NOTE | 2019-02-12 12:49 | Progress Note - Cardiology ---
Cardiology SOAP Progress Note Subjective: Lying in bed. Denies any c/o CP or SOB. Objective: I&O/Vital Signs 02/12/19 02/12/19 02/13/19 20:52 21:00 06:00 Temp 36.4 Pulse 83 Resp 24 B/P (MAP) 151/79 (103) Pulse Ox 93 94 O2 Delivery Nasal Cannula Nasal Cannula Room Air O2 Flow Rate 3.00 2.00 02/13/19 00:00 Intake Total 500 ml Balance 500 ml Constitutional: AAO x 3, well-developed, well-nourished, other Respiratory: No accessory muscle use; other (fair to good bilat air entry; diminished at the bases) Cardiovascular: regular rate-rhythm, S1 and S2, systolic murmur (1-2/6 KRISTAN at card base) Gastrointestional: No tender; soft; No guarding, No rebound; audible bowel sounds Extremities: No clubbing, No cyanosis, No significant edema Neurologic/Psychiatric: oriented x 3, other (seems to move all limbs equally) Skin: No rash on exposed areas, No ulcerations on exposed areas Results/Procedures: Labs Laboratory Tests 02/12/19 11:28: Glucometer 251H 02/12/19 15:47: Glucometer 334H 02/12/19 20:43: Glucometer 226H 02/13/19 05:27: Glucometer 85 02/13/19 06:00: White Blood Count 20.5H, Red Blood Count 3.04L, Hemoglobin 8.9L, Hematocrit 28L, Mean Corpuscular Volume 92, Mean Corpuscular Hemoglobin 29, Mean Corpuscular Hemoglobin Concent 32, Red Cell Distribution Width 15.5H, Platelet Count 452H, Mean Platelet Volume 8.2, Neutrophils (%) (Auto) 87H, Lymphocytes (%) (Auto) 5L, Monocytes (%) (Auto) 8, Eosinophils (%) (Auto) 0, Basophils (%) (Auto) 0, Neutrophils # (Auto) 17.9H, Lymphocytes # (Auto) 1.0, Monocytes # (Auto) 1.6H, Eosinophils # (Auto) 0.0, Basophils # (Auto) 0.0, Sodium Level 139, Potassium Level 4.3, Chloride Level 100, Carbon Dioxide Level 29, Anion Gap 10, Blood Urea Nitrogen 33H, Creatinine 1.65H, Estimat Glomerular Filtration Rate 30, B UN/Creatinine Ratio 20, Glucose Level 76, Calcium Level 11.6H, Phosphorus Level 2.8, Magnesium Level 2.4 Microbiology 02/08/19 Blood Culture - Preliminary, Resulted No growth 02/08/19 Gram Stain - Final, Complete 02/08/19 Sputum Culture - Final, Complete Usual oral alvino Escherichia coli 02/08/19 Urine Culture - Final, Complete NO GROWTH A/P: Assessment: PAF Echo of 02/10/19: LVEF 50-55%, mild to mod MAC, grade 2 diastolic dysfunction, mod to sev TR, RVSP 55 mmHg Recent ROSE (while at [facility] prior to this transfer) Severe anemia of undetermined etiology, managed by Dr Mayen DM II Htn HL Dementia Plan: * BP not well controlled * Increase BB * Monitor lab * Management of anemia is with medical services KIM CEDILLO Feb 12, 2019 12:49 POS
--- NOTE | 2019-02-12 13:48 | Physical Therapy Daily Note ---
PT Daily Note-Current Subjective Pt. reluctantly agrees to exercises in bed. Pt. expresses that she wants to be pulled up in bed but cannot tolerate head down position secondary to back pain Pain Numeric Pain Scale: 4 Location: Medial Location Body Site: Back Pain Description: Ache Mental Status Patient Orientation: Normal For Age Transfers SCALE: Activities may be completed with or without assistive devices. 8-Iejcftdzhl-uygrjos completes the activity by him/herself with no assistance from a helper. 5-Set-up or Clean-up Assistance-helper sets up or cleans up; patient completes activity. [place] assists only prior to or following the activity. 4-Supervision or Touching Assistance-helper provides verbal cues and/or touching/steadying and/or contact guard assistance as patient completes activity. Assistance may be provided throughout the activity or intermittently. 3-Partial/Moderate Assistance-helper does LESS THAN HALF the effort. [place] lifts, holds or supports trunk or limbs, but provides less than half the effort. 2-Substantial/Maximal Assistance-helper does MORE THAN HALF the effort. [place] lifts or holds trunk or limbs and provides more than half the effort. 7-Zoslcutmr-dgfuvd does ALL the effort. Patient does none of the effort to complete the activity. Or, the assistance of 2 or more helpers is required for the patient to complete the activity. If activity was not attempted, code reason: 7-Patient Refused. 9-Not Applicable-not attempted and the patient did not perform the activity before the current illness, exacerbation or injury. 10-Not Attempted due to Environmental Limitations-(lack of equipment, weather restraints, etc.). 88-Not Attempted due to Medical Conditions or Safety Concerns. Roll Left & Right (QC): 4 max assist to pull up in bed. pt. unable to grasp upper bedrails and hooklying for attempts at pushing self up in bed Weight Bearing TLSO when out of bed. Exercises Supine Ex: Ankle pumps, Quad Set, Glut sets, Heel Slides, Short Arc Quads, Scooting (max assist), Straight leg raise (assist), Hip abd/add Supine Reps: 20 Assessment Current Status: Good Progress dependent for all mobility PT Short Term Goals Short Term Goals Time Frame: Feb 22, 2019 Roll Left & Right: 3 Sit to lyin Lying to sitting on side of be: 3 Sit to stand: 3 Chair/bth-ln-adrti transfer: 3 Toilet transfer: 3 Car transfer: 3 Walk 10 feet: 3 Walk 50 feet with two turns: 3 PT [facility] Goals [facility] Goals PT [facility] Goals Time Frame: Mar 08, 2019 Roll Left & Right (QC): 6 Sit to Lying (QC): 6 Lying-Sitting on Side/Bed(QC): 6 Sit to Stand (QC): 6 Chair/Rru-vh-Dczai Xfer(QC): 6 Toilet Transfer (QC): 6 Car Transfer (QC): 5 Does the Patient Walk: No and Walking Goal IS indicated Walk 10 feet (QC): 6 Walk 50ft with 2 Turns (QC): 6 Walk 150 ft (QC): 6 Walking 10ft on Uneven Surface: 4 1 Step (curb) (QC): 4 4 Steps (QC): 4 12 Steps (QC): 9 Picking up an Object (QC): 9 Does the Pt use WC or Scooter?: Yes Wheel 50 feet with 2 turns (QC: 5 Type: Manual Wheel 150 feet: 5 Type: Manual PT Plan Treatment/Plan Treatment Plan: Continue Plan of Care Treatment Plan: Bed Mobility, Education, Functional Activity Fidel, Functional Strength, Group Therapy, Gait, Safety, Therapeutic Exercise, Transfers Treatment Duration: Mar 08, 2019 Frequency: At least 5 of 7 days/Wk (IRF) Estimated Hrs Per Day: 1.5 hours per day Patient and/or Family Agrees t: Yes Safety Risks/Education Patient Education: Correct Positioning, Disease Process, Safety Issues Teaching Recipient: Patient Teaching Methods: Demonstration, Discussion Response to Teaching: Verbalize Understanding, Return Demonstration, Reinforcement Needed Time/GCodes Time In: 1330 Time Out: 1345 Total Billed Treatment Time: 15 Total Billed Treatment 1,EX15m JENNIFER BALDERAS CAKE PUNCHER Feb 12, 2019 13:48 POS
--- NOTE | 2019-02-12 16:06 | NUR ---
"RD ASSESSMENT PMHx: T2DM; HTN; HLD; dementia PT INTERACTION: Pt was awake and pleasant during nutrition assessment. Pt states current appetite is poor and has been since admit. Note pt avg PO intake of 40% x4d, per chart review. Pt states tolerating her supplement pretty well. Pt states following regular diet at home. Pt states some recent issues with nausea, but not vomiting. Pt states some recent issues with constipation. Note last BM was 02/12, and pt currently on bowel regimen of miralax BID; colace BID; and bisacodyl PRN, per chart review. Pt states recent wt loss, but was unsure of amount and timeframe. Note unable to determine recent wt hx, per chart review. Pt states current DM management is pretty good. Note unable to determine most recent HbA1c, per chart review. Note recent glu level of 202, per chart review. ABNORMAL NUTRITION-RELATED LAB VALUES LOW: HIGH: BUN 29; cr 1.78; glu 202; Ca 11.1 Est. kcal needs: 2166-4076 kcal | 15-20 kcal/kg Est. Pro needs: 74-93 g Pro | 0.8-1.0 g Pro/kg PES STATEMENT: Inadequate oral intake (NI-2.1) related to loss of appetite | nausea | constipation as evidenced by pt interview | avg PO intake of 40% x4d INTERVENTION: Continue with current diet order of CHO 60g/m 3snack diet. Switch supplementation order from Ensure Enlive with meals TID, to Glucerna (vary) with meals TID, for better glucose control. Glucerna provides 220 kcal and 10 g Pro per serving. Will continue to follow and reassess as pt needs and status change. MONITOR/EVALUATE: PO Intake; Plan of Care; Hydration Status; Weight Status; Lab Values Ros Stephen, MS, RD, LD"
[2019-02-12 16:11] VITALS: BP 153/71
[2019-02-12] MEDS: RIVAROXABAN 15 MG TABLET (XARELTO) PO SCH (17:02)
--- NOTE | 2019-02-12 18:37 | Progress Note - Cardiology ---
Cardiology SOAP Progress Note Subjective: No cp or palp or syncope No shortness of breath at rest Chronic leg weakness persists Objective: I&O/Vital Signs 02/12/19 02/12/19 02/12/19 02/12/19 08:25 08:28 12: 16:11 Temp 36.9 Pulse 79 Resp 14 B/P (MAP) 153/71 (98) Pulse Ox 90 93 93 O2 Delivery Nasal Cannula Nasal Cannula Nasal Cannula Room Air O2 Flow Rate 2.00 3.00 3.00 02/12/19 16:34 Pulse Ox 92 O2 Delivery Nasal Cannula O2 Flow Rate 3.00 02/12/19 00:00 Intake Total 1285 ml Balance 1285 ml Constitutional: AAO x 3, well-developed, well-nourished, other Respiratory: No accessory muscle use; other (fair to good bilat air entry; diminished at the bases) Cardiovascular: regular rate-rhythm, S1 and S2, systolic murmur (1-2/6 KRISTAN at card base) Gastrointestional: No tender; soft; No guarding, No rebound; audible bowel sounds Extremities: No clubbing, No cyanosis, No significant edema Neurologic/Psychiatric: oriented x 3, other (seems to move all limbs equally) Skin: No rash on exposed areas, No ulcerations on exposed areas Results/Procedures: Labs Laboratory Tests 02/11/19 20:16: Glucometer 289H 02/12/19 04:40: White Blood Count 21.2H, Red Blood Count 3.01L, Hemoglobin 8.7L, Hematocrit 27L, Mean Corpuscular Volume 90, Mean Corpuscular Hemoglobin 29, Mean Corpuscular Hemoglobin Concent 32, Red Cell Distribution Width 15.4H, Platelet Count 424H, Mean Platelet Volume 7.9, Neutrophils (%) (Auto) 92H, Lymphocytes (%) (Auto) 3L, Monocytes (%) (Auto) 5, Eosinophils (%) (Auto) 0, Basophils (%) (Auto) 0, Neutrophils # (Auto) 19.5H, Lymphocytes # (Auto) 0.6L, Monocytes # (Auto) 1.0, Eosinophils # (Auto) 0.0, Basophils # (Auto) 0.0, Neutrophils % (Manual) 89, Lymphocytes % (Manual) 3, Monocytes % (Manual) 3, Band Neutrophils 5, Blood Morphology Comment NORMAL, Sodium Level 136, Potassium Level 4.8, Chloride Level 100, Carbon Dioxide Level 27, Anion Gap 9, Blood Urea Nitrogen 29H, Creatinine 1.78H, Estimat Glomerular Filtration Rate 28, BUN/Creatinine Ratio 16, Glucose Level 202H, Calcium Level 11.1H, Phosphorus Level 2.7, Magnesium Level 2.3 02/12/19 11:28: Glucometer 251H 02/12/19 15:47: Glucometer 334H Microbiology 02/08/19 Blood Culture - Preliminary, Resulted No growth 02/08/19 Gram Stain - Final, Complete 02/08/19 Sputum Culture - Final, Complete Usual oral alvino Escherichia coli 02/08/19 Urine Culture - Final, Complete NO GROWTH A/P: Assessment: PAF Echo of 02/10/19: LVEF 50-55%, mild to mod MAC, grade 2 diastolic dysfunction, mod to sev TR, RVSP 55 mmHg Recent ROSE (while at [facility] prior to this transfer) Chronic, bilateral leg weakness, managed by Dr Mayen Severe anemia of undetermined etiology, managed by Dr Mayen DM II Htn HL Dementia Plan: * BP still not well controlled * Increase BB further * Monitor lab LEIGH SANTOS MD FACP FAC CCDS Feb 12, 2019 18:37 POS
[2019-02-12] MEDS: VITAMIN D3 1,000 UNITS (CHOLECALCIFEROL) TABLET PO SCH (20:36)
[2019-02-12] MEDS: MELATONIN 3 MG TABLET PO PRN (20:37)
[2019-02-12] MEDS: DONEPEZIL 5 MG (ARICEPT) TAB PO SCH (20:37)
[2019-02-12] MEDS: HYDROcodone/APAP 5 MG/325 MG (LORTAB) TAB PO PRN (20:37)
[2019-02-12] MEDS: meTOprolol TARTRATE 50 MG (LOPRESSOR) TAB PO SCH (20:38)
[2019-02-13] MEDS: MULTIVIT W/MINERALS TAB (THERAGRAN M) PO SCH (05:57)
[2019-02-13] MEDS: LEVOTHYROXINE 112 MCG (LEVOTHROID) TAB PO SCH (05:57)
[2019-02-13] MEDS: CATHETER FLUSH 10 ML SYR IV SCH ×3 (05:57→21:21)
[2019-02-13 06:00] VITALS: BP 151/79
[2019-02-13] MEDS: inSUlin ASPART (NovoLOG) 1 UNIT/0.01 ML (CHARGE PER UNIT) SC SCH ×4 (06:04→21:01)
[2019-02-13 06:10] LABS: BASOPHILS % (AUTO) 0 % (0-10); EOSINOPHILS % (AUTO) 0 % (0-10); HEMATOCRIT 28 % (35-52); HEMOGLOBIN 8.9 G/DL (11.5-16.0); LYMPHOCYTES % (AUTO) 5 % (12-44); MEAN CORPUSCULAR HEMOGLOBIN 29 PG (25-34); MEAN CORPUSCULAR HGB CONC 32 G/DL (32-36); MEAN CORPUSCULAR VOLUME 92 FL (80-99); MEAN PLATELET VOLUME 8.2 FL (7.4-10.4); MONOCYTES # (AUTO) 1.6 X 10^3 (0.0-1.0); MONOCYTES % (AUTO) 8 % (0-12); NEUTROPHILS # (AUTO) 17.9 X 10^3 (1.8-7.8); NEUTROPHILS % (AUTO) 87 % (42-75); PLATELET COUNT 452 10^3/uL (130-400); RED CELL DISTRIBUTION WIDTH 15.5 % (10.0-14.5); WHITE BLOOD COUNT 20.5 10^3/uL (4.3-11.0)
[2019-02-13 06:34] LABS: CALCIUM 11.6 MG/DL (8.5-10.1); CREATININE SERUM 1.65 MG/DL (0.60-1.30); MAGNESIUM 2.4 MG/DL (1.6-2.4); PHOSPHORUS 2.8 MG/DL (2.3-4.7); POTASSIUM 4.3 MMOL/L (3.6-5.0)
[2019-02-13 07:45] VITALS: BP 176/108
--- NOTE | 2019-02-13 07:45 | NUR ---
This nurse called to patient room by CANDI. Patient is asking for a "muscle relaxer". Patient is experiencing accessory muscle breathing using abdominal muscles. Patient expresses that she is having difficulty breathing. BP is 176/108, HR 101, O2 Sat. 93%, Respirations are 26. Patient is guided through deep, slow breathing. Patient continues to be anxious. Patient offered Xanax, which was accepted. Fan was provided and breathing exercises continued. Patient began to calm down. Physical Therapy able to begin working with patient, which was a great diversional activity for patient and breathing returned to base line.
[2019-02-13] MEDS: ALPRAZolam 0.25 MG (XANAX) TAB PO PRN (07:46)
--- NOTE | 2019-02-13 08:12 | Physical Therapy Daily Note ---
PT Daily Note-Current Subjective Pt reluctantly agrees to PT session. States she is in a lot of pain, bracing self in bed and received pain/nerve pill a little bit ago. During session, pt report of top of feet feeling funny, numb, nsg present and is aware. Pain Numeric Pain Scale: 9 Comment: low back, kidney on R side hurts also Appearance upon arrival, pt in bed bracing self with hand on bedrail. At end of session, pt in gym with OT by her side. Mental Status Patient Orientation: Person, Time, Eyes Open, Situation Attachments: Saline Lock, Oxygen (3 L) Transfers SCALE: Activities may be completed with or without assistive devices. 5-Ejktxhaovt-jxebbuq completes the activity by him/herself with no assistance from a helper. 5-Set-up or Clean-up Assistance-helper sets up or cleans up; patient completes activity. [place] assists only prior to or following the activity. 4-Supervision or Touching Assistance-helper provides verbal cues and/or touching/steadying and/or contact guard assistance as patient completes activity. Assistance may be provided throughout the activity or intermittently. 3-Partial/Moderate Assistance-helper does LESS THAN HALF the effort. [place] lifts, holds or supports trunk or limbs, but provides less than half the effort. 2-Substantial/Maximal Assistance-helper does MORE THAN HALF the effort. [place] lifts or holds trunk or limbs and provides more than half the effort. 9-Dgzadymqn-symjay does ALL the effort. Patient does none of the effort to complete the activity. Or, the assistance of 2 or more helpers is required for the patient to complete the activity. If activity was not attempted, code reason: 7-Patient Refused. 9-Not Applicable-not attempted and the patient did not perform the activity before the current illness, exacerbation or injury. 10-Not Attempted due to Environmental Limitations-(lack of equipment, weather restraints, etc.). 88-Not Attempted due to Medical Conditions or Safety Concerns. Roll Left & Right (QC): 3 Sit to Lying (QC): 3 Lying to Sitting/Side of Bed(Q: 3 Sit to Stand (QC): 1 (2-person A required in // bars and pt unable to fully stand) Chair/Dah-aj-Zqfkl Xfer(QC): 3 Toilet Transfer (QC): 3 Weight Bearing TLSO when out of bed. Wheelchair Training Does the Pt Use a Wheelchair?: Yes Wheel 50 ft with 2 turns (QC): 4 Type of Wheelchair: Manual easily fatigues requiring several rest breaks to complete the distance Exercises Standing: Sit to Stand Standing Reps: 5 (with 10 sec holds and rest breaks required) Treatments Pt performed bed mobility and supine to sit transfers with min A, HOB elevated, use of bedrail. Pt dependent with donning and doffing back support brace. Pt sitting EOB x25 min performing sitting balance and LE ex's with hands on bed for support occasionally. Sliding/scooting transfer without sliding board performed slowly with max encouragement and CGA EOB to w/c. Pt propels w/c for a few feet at a time before recovery break. Propelled w/c to therapy room. Performed partial sit to stand transfers x5 reps with mod to max A of 2. PT/ OT co-treat for 30 minutes to complete high-demand standing exercise with the use of two skilled therapists, OT focused on ADLs and UE strength while PT focused on LB and LE strength and balance. Assessment Current Status: Good Progress Pt using BSC today with therapy and performing sliding transfers instead of use of elidia lift. PT Short Term Goals Short Term Goals Time Frame: Feb 22, 2019 Roll Left & Right: 3 Sit to lyin Lying to sitting on side of be: 3 Sit to stand: 3 Chair/qbt-vq-rveux transfer: 3 Toilet transfer: 3 Car transfer: 3 Walk 10 feet: 3 Walk 50 feet with two turns: 3 PT Prison Goals Prison Goals PT Food Technician Goals Time Frame: Mar 08, 2019 Roll Left & Right (QC): 6 Sit to Lying (QC): 6 Lying-Sitting on Side/Bed(QC): 6 Sit to Stand (QC): 6 Chair/Pdz-me-Pqjsm Xfer(QC): 6 Toilet Transfer (QC): 6 Car Transfer (QC): 5 Does the Patient Walk: No and Walking Goal IS indicated Walk 10 feet (QC): 6 Walk 50ft with 2 Turns (QC): 6 Walk 150 ft (QC): 6 Walking 10ft on Uneven Surface: 4 1 Step (curb) (QC): 4 4 Steps (QC): 4 12 Steps (QC): 9 Picking up an Object (QC): 9 Does the Pt use WC or Scooter?: Yes Wheel 50 feet with 2 turns (QC: 5 Type: Manual Wheel 150 feet: 5 Type: Manual PT Plan Treatment/Plan Treatment Plan: Continue Plan of Care Treatment Plan: Bed Mobility, Education, Functional Activity Fidel, Functional Strength, Group Therapy, Gait, Safety, Therapeutic Exercise, Transfers Treatment Duration: Mar 08, 2019 Frequency: At least 5 of 7 days/Wk (IRF) Estimated Hrs Per Day: 1.5 hours per day Patient and/or Family Agrees t: Yes Safety Risks/Education Patient Education: Transfer Techniques, Reviewed Precautions, W/C Management, Reviewed Don/Doff Brace, Safety Issues Teaching Recipient: Patient Teaching Methods: Demonstration, Discussion Response to Teaching: Verbalize Understanding, Unable to Return Demonstration (with donning and doffing back brace), Return Demonstration, Reinforcement Needed Time/GCodes Time In: 800 Time Out: 900 Total Billed Treatment Time: 60 Total Billed Treatment 1 visit, FA x30 min, W/C x15 min, EX x15 min LISBET BARCENAS PTA Feb 13, 2019 08:12 POS
[2019-02-13] MEDS: amLODIPine 10 MG (NORVASC) TAB PO SCH (08:26)
[2019-02-13] MEDS: RT-ALBUTEROL/IPRATROPIUM 3 ML (DUONEB) VIAL INH SCH ×4 (08:26→20:42)
[2019-02-13] MEDS: DOCUSATE SODIUM 100 MG (COLACE) CAP PO SCH ×2 (08:26→21:20)
[2019-02-13] MEDS: GLIMEPIRIDE 2 MG (AMARYL) TAB PO SCH (08:26)
[2019-02-13] MEDS: meTOprolol TARTRATE 50 MG (LOPRESSOR) TAB PO SCH ×2 (08:26→21:21)
--- NOTE | 2019-02-13 08:26 | NUR ---
0700 svn bt tna due to patient is working with Therapy (PT/OT)
--- NOTE | 2019-02-13 08:40 | PM&R Progress Note ---
Subjective HPI/CC On Admission Date Seen by Provider: Feb 13, 2019 Time Seen by Provider: 08:45 Subjective/Events-last exam Abdominal breathing first thing this morning, Xanax was given. BP at 176/108, HR was 101, and 93% O2 sat. Oxycodone given and she settled down. Travis lift is sometimes required. Pt thinks she is not doing well. Unsure how much progress we will make wit this Pt since she is so chronically debilitated and acute debility on top of that. Conferred with RN Reviewed therapy notes Checked meds and labs Review of Systems General: Fatigue Pulmonary: Dyspnea, Cough Musculoskeletal: back pain Objective Exam Vital Signs Vital Signs Date Time Temp Pulse Resp B/P (MAP) Pulse Ox O2 Delivery O2 Flow Rate FiO2 02/13/19 21:00 Nasal Cannula 2.00 02/13/19 20:42 92 02/13/19 17:50 36.2 66 18 151/70 (97) Capillary Refill : Less Than 3 Seconds General Appearance: No Apparent Distress, WD/WN, Chronically ill, Obese HEENT: PERRL/EOMI, Normal ENT Inspection, Pharynx Normal Neck: Full Range of Motion, Normal Inspection, Non Tender, Supple, Carotid Bruit Respiratory: Chest Non Tender, Lungs Clear, No Accessory Muscle Use, No Respiratory Distress, Decreased Breath Sounds, Wheezing Cardiovascular: No Edema, No Gallop, No JVD, No Murmur, Normal Peripheral Pulses, Irregularly Irregular Gastrointestinal: Normal Bowel Sounds, No Organomegaly, No Pulsatile Mass, Non Tender, Soft Back: Decreased Range of Motion, Muscle Spasm, Vertebral Tenderness, Other (wound VAC in place) Extremity: Normal Capillary Refill, Normal Inspection, Normal Range of Motion, Non Tender, No Calf Tenderness, No Pedal Edema Neurologic/Psychiatric: Alert, Oriented x3, No Motor/Sensory Deficits, sewage plant supervisor II- XII Norm as Tested, Depressed Affect Skin: Normal Color, Warm/Dry Lymphatic: No Adenopathy Results/Procedures Lab Laboratory Tests 02/13/19 06:00 Patient resulted labs reviewed. FIM Transfers Therapy Code Descriptions/Definitions Functional [place] Measure: 0=Not Assessed/NA 4=Minimal Assistance 1=Total Assistance 5=Supervision or Setup 2=Maximal Assistance 6=Modified [place] 3=Moderate Assistance 7=Complete IndependenceSCALE: Activities may be completed with or without assistive devices. 4-Swtuhnsmrc-qrxfwij completes the activity by him/herself with no assistance from a helper. 5-Set-up or Clean-up Assistance-helper sets up or cleans up; patient completes activity. [place] assists only prior to or following the activity. 4-Supervision or Touching Assistance-helper provides verbal cues and/or touching/steadying and/or contact guard assistance as patient completes activity. Assistance may be provided throughout the activity or intermittently. 3-Partial/Moderate Assistance-helper does LESS THAN HALF the effort. [place] lifts, holds or supports trunk or limbs, but provides less than half the effort. 2-Substantial/Maximal Assistance-helper does MORE THAN HALF the effort. [place] lifts or holds trunk or limbs and provides more than half the effort. 4-Kvdelseyc-nzvksd does ALL the effort. Patient does none of the effort to complete the activity. Or, the assistance of 2 or more helpers is required for the patient to complete the activity. If activity was not attempted, code reason: 7-Patient Refused. 9-Not Applicable-not attempted and the patient did not perform the activity before the current illness, exacerbation or injury. 10-Not Attempted due to Environmental Limitations-(lack of equipment, weather restraints, etc.). 88-Not Attempted due to Medical Conditions or Safety Concerns. Roll Left to Right (QC): 4 Sit to Lying (QC): 1 Sit to Stand (QC): 3 Chair/Ixi-kv-Klrhh Xfer(QC): 1 (max X2) Car Transfer (QC): 88 Gait Training Does the Patient Walk?: No and Walking Goal IS indicated Walk 10 feet (QC): 88 Walk 50 ft with 2 Turns(QC): 88 Walk 150 ft (QC): 88 Walking 10ft/uneven surface-QC: 88 Gait Assistive Device: FWW Wheelchair Training Does the Pt Use a Wheelchair?: Yes Wheel 50 ft with 2 turns (QC): 4 Wheel 150 ft (QC): 1 Type of Wheelchair: Manual Stair Training 1 Step (curb) (QC): 88 4 Steps (QC): 88 12 Steps (QC): 88 Balance Picking up an Object (QC): 88 ADL-Treatment Eating (QC): 6 Oral Hygiene (QC): 5 (completes with s/u) Shower/Bathe Self (QC): 3 (Pt able to complete areas with s/u; requires assist with bottom/ marie hygiene and back. Pt reaches LB with LHS.) Upper Body Dressing (QC): 2 (Pt educated on doffing/ donning process of back brace. Pt completes doffing with mod A, donning with max A. Pt uncomfortable in sit with back brace riding up, requires adjustment with cues for positioning breasts over brace which enabled brace to maintain centered position. Pt able to don overhead gown with s/u.) Lower Body Dressing (QC): 7 On/Off Footwear (QC): 1 (Pt will require instruction in use of AE for socks secondary to back precautions.) Toileting Hygiene (QC): 1 (TD with travis lift x2.) Toilet Transfer (QC): 1 (Max assist x2 for transfer to [facility] over toilet) Assessment/Plan Assessment and Plan Assess & Plan/Chief Complaint Assessment: Thoracic vertebral fracture s/p repair Multilobar pneumonia placed on Vanc and Cefepime per Dr Garcia Severe COPD O2 dependence Recent intubation after thoracic vertebral fracture surgery Right pleural effusion CRI Chronic on acute debility HTN Chronic AF OAC Plan: Abx Monitor closely due to resp status O2 Nebs IRF protocol DC wound vac and incision looks good Confusion? Needs NH at DC? (1) Fracture of lamina of thoracic vertebra (2) Multifocal pneumonia (3) Hypothyroidism (4) Diabetes mellitus (5) Chronic renal insufficiency, stage III (moderate) (6) Anemia of renal disease (7) Chronic constipation (8) Back pain (9) Dependence on supplemental oxygen (10) COPD (chronic obstructive pulmonary disease) (11) Hypertension (12) Hyperlipidemia (13) Wheezing (14) Depression (15) Angina at rest (16) Atrial fibrillation (17) On continuous oral anticoagulation (18) History of respiratory failure (19) Cough MAUDE HINOJOSA DO Feb 13, 2019 08:40 POS
[2019-02-13] MEDS: POLYETHYLENE GLYCOL 17 GM (MIRALAX) PACK PO SCH ×2 (09:00→21:21)
--- NOTE | 2019-02-13 11:35 | Occupational Ther Daily Note ---
OT Current Status-Daily Note Subjective Pt alert, sitting in w/c. Pt agrees to therapy. No c/o pain at this time, c/o pain while attempting to stand. Mental Status/Objective Patient Orientation: Person, Place, Time, Situation ADL-Treatment Pt will propel w/c for a few feet at a time before recovery break. Propelled w/c to therapy room and back to room. Pt sat at sink to complete own oral care and sponge bath. Pt able to reach upper body, max A for lower body for sponge bath. Pt requested to use BSC. Using sliding board for transfer to BSC then bed, assist to position board then min A to CGA for transfer. Min A for EOB to supine, pt lying on R side. Pt required assist to cleanse after toileting. Refused to don lower body clothing. Unable to don/doff socks/shoes. After therapy, pt lyinging in bed with call light/phone in reach. All needs met in room. Therapy Code Descriptions/Definitions Functional [place] Measure: 0=Not Assessed/NA 4=Minimal Assistance 1=Total Assistance 5=Supervision or Setup 2=Maximal Assistance 6=Modified [place] 3=Moderate Assistance 7=Complete IndependenceSCALE: Activities may be completed with or without assistive devices. 6-Rzfkffwcld-lzxzecq completes the activity by him/herself with no assistance from a helper. 5-Set-up or Clean-up Assistance-helper sets up or cleans up; patient completes activity. [place] assists only prior to or following the activity. 4-Supervision or Touching Assistance-helper provides verbal cues and/or touching/steadying and/or contact guard assistance as patient completes activity. Assistance may be provided throughout the activity or intermittently. 3-Partial/Moderate Assistance-helper does LESS THAN HALF the effort. [place] lifts, holds or supports trunk or limbs, but provides less than half the effort. 2-Substantial/Maximal Assistance-helper does MORE THAN HALF the effort. [place] lifts or holds trunk or limbs and provides more than half the effort. 0-Gklgegpbi-dwpbbv does ALL the effort. Patient does none of the effort to complete the activity. Or, the assistance of 2 or more helpers is required for the patient to complete the activity. If activity was not attempted, code reason: 7-Patient Refused. 9-Not Applicable-not attempted and the patient did not perform the activity before the current illness, exacerbation or injury. 10-Not Attempted due to Environmental Limitations-(lack of equipment, weather restraints, etc.). 88-Not Attempted due to Medical Conditions or Safety Concerns. Oral Hygiene (QC): 6 Shower/Bathe Self (QC): 2 Other Treatment PT/ OT co-treat for 30 minutes to complete high-demand standing exercise with the use of two skilled therapists, OT focused on ADLs and UE strength while PT focused on LB strength and balance. Pt also completed UE exercises with 2# hand wts, 2 sets 10 reps. OT Short Term Goals Short Term Goals Time Frame: Feb 22, 2019 Toileting hygiene: 3 Shower/bathe self: 3 Upper body dressin Lower body dressin OT Soda Drier Feeder Goals Soda Drier Feeder Goals Time Frame: Mar 08, 2019 Eating (QC): 6 Oral Hygiene (QC): 6 Toileting Hygiene (QC): 6 Shower/Bathe Self (QC): 5 Upper Body Dressing (QC): 5 Lower Body Dressing (QC): 5 On/Off Footwear (QC): 5 Additional Goals: 1-Demonstrate ADL Tasks, 2-Verbalize Understanding, 3- ImproveStrength/Fidel 1=Demonstrate adherence to instructed precautions during ADL tasks. 2=Patient will verbalize/demonstrate understanding of assistive devices/modifications for ADL. 3=Patient will improve strength/tolerance for activity to enable patient to perform ADL's. OT Education/Plan Problem List/Assessment Assessment: Decreased Activ Tolerance, Decreased UE Strength, Impaired Bed Mobility, Impaired Coordination, Impaired Funct Balance, Impaired Self-Care Skills, Restricted Funct UE ROM Discharge Recommendations Plan/Recommendations: Continue POC Treatment Plan/Plan of Care Patient would benefit from OT for education, treatment and training to promote independence in ADL's, mobility, safety and/or upper extremity function for ADL's. Plan of Care: ADL Retraining, Functional Mobility, Group Exercise/Act as Ind, UE Funct Exercise/Act Treatment Duration: Mar 08, 2019 Frequency: At least 5 of 7 days/Wk (IRF) Estimated Hrs Per Day: 1.5 hours per day Rehab Potential: Fair Time/GCodes Start Time: 08:30 Stop Time: 10:00 Total Time Billed (hr/min): 90 Billed Treatment Time 1 visit-ADL 4 (60 min) EX 2 (30 min) co-treat with PT [id number] individual [id number] NIKKY WEN Feb 13, 2019 11:35 POS
--- NOTE | 2019-02-13 11:45 | Progress Note - Cardiology ---
Cardiology SOAP Progress Note Subjective: Lying in bed. C/O back pain. No c/o dyspnea or palpitations. No c/o CP. Objective: I&O/Vital Signs 02/15/19 02/15/19 05:57 09:00 Temp 36.8 Pulse 58 Resp 16 B/P (MAP) 130/69 (89) Pulse Ox 91 O2 Delivery Nasal Cannula Nasal Cannula O2 Flow Rate 3.00 3.00 02/14/19 23:59 Intake Total 1200 ml Balance 1200 ml Constitutional: AAO x 3, well-developed, well-nourished, other Respiratory: No accessory muscle use; other (fair to good bilat air entry; diminished at the bases) Cardiovascular: regular rate-rhythm, S1 and S2, systolic murmur (1-2/6 KRISTAN at card base) Gastrointestional: No tender; soft; No guarding, No rebound; audible bowel sounds Extremities: No clubbing, No cyanosis, No significant edema Neurologic/Psychiatric: oriented x 3, other (seems to move all limbs equally) Skin: No rash on exposed areas, No ulcerations on exposed areas Results/Procedures: Labs Laboratory Tests 02/14/19 15:33: Glucometer 151H 02/14/19 20:34: Glucometer 130H 02/15/19 05:37: Glucometer 105 02/15/19 05:40: White Blood Count 12.0H, Red Blood Count 2.79L, Hemoglobin 8.2L, Hematocrit 26L, Mean Corpuscular Volume 92, Mean Corpuscular Hemoglobin 29, Mean Corpuscular Hemoglobin Concent 32, Red Cell Distribution Width 15.0H, Platelet Count 344, Mean Platelet Volume 8.1, Neutrophils (%) (Auto) 85H, Lymphocytes (%) (Auto) 7L, Monocytes (%) (Auto) 7, Eosinophils (%) (Auto) 1, Basophils (%) (Auto) 0, Neutrophils # (Auto) 10.2H, Lymphocytes # (Auto) 0.9L, Monocytes # (Auto) 0.9, Eosinophils # (Auto) 0.1, Basophils # (Auto) 0.0, Sodium Level 135, Potassium Level 4.6, Chloride Level 100, Carbon Dioxide Level 27, Anion Gap 8, Blood Urea Nitrogen 31H, Creatinine 1.66H, Estimat Glomerular Filtration Rate 30, BUN/Creatinine Ratio 19, Glucose Level 97, Calcium Level 10.2H, Phosphorus Level 3.0, Magnesium Level 2.3 02/15/19 10:55: Glucometer 136H Microbiology 02/08/19 Blood Culture - Final, Complete No growth 02/08/19 Gram Stain - Final, Complete 02/08/19 Sputum Culture - Final, Complete Usual oral alvino Escherichia coli 02/08/19 Urine Culture - Final, Complete NO GROWTH A/P: Assessment: PAF Echo of 02/10/19: LVEF 50-55%, mild to mod MAC, grade 2 diastolic dysfunction, mod to sev TR, RVSP 55 mmHg Recent ROSE (while at [facility] prior to this transfer) Chronic, bilateral leg weakness, managed by Dr Mayen Severe anemia of undetermined etiology, managed by Dr Mayen DM II Htn HL Dementia Plan: * Monitor lab * Adjust antihypertensives as indicated/tolerated KIM CEDILLO Feb 13, 2019 11:45 POS
[2019-02-13] MEDS: cefTRIAXone FOR IV USE 1,000 MG in WATER (STERILE) FOR INJECTION 10 ML IV SCH (11:54)
[2019-02-13] MEDS: HYDROcodone/APAP 5 MG/325 MG (LORTAB) TAB PO PRN (12:20)
--- NOTE | 2019-02-13 14:30 | Therapy Group Daily Note ---
Therapy Daily Group Note Patient Education Topic Home Safety Exercises LE Seated Exercise, UE Exercise Session Ratio (pt:therapist): 4:1 Goal of Session: Home Safety Strategies, UE/LE Strengthing Goal Met for this Session: Yes Pt Benefit of Group: Contributions to Others, F/U Use of Strategies @Home, Increased Functional Safety, Increased Functional Strength, Improved Cognition, Recognition of Peers, Socialization Other/Notes Pt ambulated to therapy gym for OT group. Group consisted of introductions (name, place, Shana song tribrennana), socialization, UE/LE seated exercises and home safety education. Pt introduced self appropriately and actively listened to peers. Pt was able to complete UE/LE seated exercises with education of exercise benefits. Pt acknowledged understanding of educational topic by giving own strategies and modifications at their home. After therapy, pt lying in bed with call light/phone in reach. All needs met in room. Start Time: 13:00 Stop Time: 14:10 Total Billed Treatment Time: 70 Total Billed Treatment 1-NIKKY BERUMEN Feb 13, 2019 14:30 POS
--- NOTE | 2019-02-13 17:34 | Progress Note - Cardiology ---
Cardiology SOAP Progress Note Subjective: No cp or palp or syncope No swelling Leg weakness unchanged Poor stamina Moderate exertional shortness of breath Objective: I&O/Vital Signs 02/13/19 02/13/19 02/13/19 02/13/19 06:00 07:45 09:00 11:12 Temp 36.4 Pulse 83 101 Resp 24 28 B/P (MAP) 151/79 (103) 176/108 (130) Pulse Ox 94 93 93 O2 Delivery Room Air Nasal Cannula Nasal Cannula Nasal Cannula O2 Flow Rate 3.00 2.00 3.00 02/13/19 00:00 Intake Total 500 ml Balance 500 ml Constitutional: AAO x 3, well-developed, well-nourished, other Respiratory: No accessory muscle use; other (fair to good bilat air entry; diminished at the bases) Cardiovascular: regular rate-rhythm, S1 and S2, systolic murmur (1-2/6 KRISTAN at card base) Gastrointestional: No tender; soft; No guarding, No rebound; audible bowel sounds Extremities: No clubbing, No cyanosis, No significant edema Neurologic/Psychiatric: oriented x 3, other (seems to move all limbs equally) Skin: No rash on exposed areas, No ulcerations on exposed areas Results/Procedures: Labs Laboratory Tests 02/12/19 20:43: Glucometer 226H 02/13/19 05:27: Glucometer 85 02/13/19 06:00: White Blood Count 20.5H, Red Blood Count 3.04L, Hemoglobin 8.9L, Hematocrit 28L, Mean Corpuscular Volume 92, Mean Corpuscular Hemoglobin 29, Mean Corpuscular Hemoglobin Concent 32, Red Cell Distribution Width 15.5H, Platelet Count 452H, Mean Platelet Volume 8.2, Neutrophils (%) (Auto) 87H, Lymphocytes (%) (Auto) 5L, Monocytes (%) (Auto) 8, Eosinophils (%) (Auto) 0, Basophils (%) (Auto) 0, Neutrophils # (Auto) 17.9H, Lymphocytes # (Auto) 1.0, Monocytes # (Auto) 1.6H, E osinophils # (Auto) 0.0, Basophils # (Auto) 0.0, Sodium Level 139, Potassium Level 4.3, Chloride Level 100, Carbon Dioxide Level 29, Anion Gap 10, Blood Urea Nitrogen 33H, Creatinine 1.65H, Estimat Glomerular Filtration Rate 30, BUN/Creatinine Ratio 20, Glucose Level 76, Calcium Level 11.6H, Phosphorus Level 2.8, Magnesium Level 2.4 02/13/19 10:55: Glucometer 119H 02/13/19 15:49: Glucometer 137H Microbiology 02/08/19 Blood Culture - Preliminary, Resulted No growth 02/08/19 Gram Stain - Final, Complete 02/08/19 Sputum Culture - Final, Complete Usual oral alvino Escherichia coli 02/08/19 Urine Culture - Final, Complete NO GROWTH Laboratory Tests 02/12/19 04:40 02/13/19 06:00 A/P: Assessment: PAF Echo of 02/10/19: LVEF 50-55%, mild to mod MAC, grade 2 diastolic dysfunction, mod to sev TR, RVSP 55 mmHg Recent ROSE (while at [facility] prior to this transfer) Chronic, bilateral leg weakness, managed by Dr Mayen Severe anemia of undetermined etiology, managed by Dr Mayen DM II Htn HL Dementia Plan: * Hypertension remains difficult to control, but has improved (on average) after adjustments of meds * Monitor labs from time to time LEIGH SANTOS MD FACP FAC CCDS Feb 13, 2019 17:34 POS
[2019-02-13 17:50] VITALS: BP 151/70
[2019-02-13] MEDS: RIVAROXABAN 15 MG TABLET (XARELTO) PO SCH (18:04)
[2019-02-13] MEDS: doxAzosin 2 MG (CARDURA) TAB PO SCH (21:19)
[2019-02-13] MEDS: DONEPEZIL 5 MG (ARICEPT) TAB PO SCH (21:20)
[2019-02-13] MEDS: VITAMIN D3 1,000 UNITS (CHOLECALCIFEROL) TABLET PO SCH (21:20)
[2019-02-13] MEDS: MELATONIN 3 MG TABLET PO PRN (21:20)
[2019-02-14] MEDS: HYDROcodone/APAP 5 MG/325 MG (LORTAB) TAB PO PRN ×2 (00:27→09:40)
[2019-02-14] MEDS: ALPRAZolam 0.25 MG (XANAX) TAB PO PRN (01:25)
[2019-02-14 05:46] VITALS: BP 129/68
[2019-02-14] MEDS: MULTIVIT W/MINERALS TAB (THERAGRAN M) PO SCH (06:23)
[2019-02-14] MEDS: LEVOTHYROXINE 112 MCG (LEVOTHROID) TAB PO SCH (06:23)
[2019-02-14] MEDS: CATHETER FLUSH 10 ML SYR IV SCH ×3 (06:23→21:05)
[2019-02-14] MEDS: inSUlin ASPART (NovoLOG) 1 UNIT/0.01 ML (CHARGE PER UNIT) SC SCH ×4 (06:28→21:05)
[2019-02-14 06:40] LABS: BASOPHILS % (AUTO) 0 % (0-10); EOSINOPHILS # (AUTO) 0.1 10^3/uL (0.0-0.3); EOSINOPHILS % (AUTO) 1 % (0-10); HEMATOCRIT 25 % (35-52); HEMOGLOBIN 8.1 G/DL (11.5-16.0); LYMPHOCYTES # (AUTO) 1.1 X 10^3 (1.0-4.0); LYMPHOCYTES % (AUTO) 9 % (12-44); MEAN CORPUSCULAR HEMOGLOBIN 30 PG (25-34); MEAN CORPUSCULAR HGB CONC 32 G/DL (32-36); MEAN CORPUSCULAR VOLUME 93 FL (80-99); MEAN PLATELET VOLUME 8.1 FL (7.4-10.4); MONOCYTES % (AUTO) 8 % (0-12); NEUTROPHILS # (AUTO) 9.7 X 10^3 (1.8-7.8); NEUTROPHILS % (AUTO) 82 % (42-75); PLATELET COUNT 357 10^3/uL (130-400); RED CELL DISTRIBUTION WIDTH 15.4 % (10.0-14.5); WHITE BLOOD COUNT 11.9 10^3/uL (4.3-11.0)
[2019-02-14 07:05] LABS: CALCIUM 10.7 MG/DL (8.5-10.1); CREATININE SERUM 1.65 MG/DL (0.60-1.30); MAGNESIUM 2.4 MG/DL (1.6-2.4); PHOSPHORUS 3.1 MG/DL (2.3-4.7); POTASSIUM 4.3 MMOL/L (3.6-5.0)
[2019-02-14] MEDS: RT-ALBUTEROL/IPRATROPIUM 3 ML (DUONEB) VIAL INH SCH ×4 (07:52→19:24)
--- NOTE | 2019-02-14 08:39 | Physical Therapy Daily Note ---
PT Daily Note-Current Subjective Pt agreeable to PT session. States she had a bad night, but not much different than most of her nights have been. Report of anxiety during tx session, requesting Xacristóbal, nsg explained to pt that it was still too early. Pain Numeric Pain Scale: 8 Comment: LB and R kidney, nsg aware and pt to rcv pain med soon Appearance Pt in bed awake and alert upon arrival, finishing breakfast. Co TX with OT. At end of session, pt R sidelying in bed with call light, phone and bedside table w ithin reach. Nsg present to administer meds. Mental Status Patient Orientation: Person, Place, Time, Eyes Open, Situation Attachments: Saline Lock, Oxygen (3L) back support brace Transfers SCALE: Activities may be completed with or without assistive devices. 3-Xuyfdxwkal-yuvhwiy completes the activity by him/herself with no assistance from a helper. 5-Set-up or Clean-up Assistance-helper sets up or cleans up; patient completes activity. [place] assists only prior to or following the activity. 4-Supervision or Touching Assistance-helper provides verbal cues and/or touching/steadying and/or contact guard assistance as patient completes activity. Assistance may be provided throughout the activity or intermittently. 3-Partial/Moderate Assistance-helper does LESS THAN HALF the effort. [place] lifts, holds or supports trunk or limbs, but provides less than half the effort. 2-Substantial/Maximal Assistance-helper does MORE THAN HALF the effort. [place] lifts or holds trunk or limbs and provides more than half the effort. 1-Sxtumlxzx-zsmejq does ALL the effort. Patient does none of the effort to complete the activity. Or, the assistance of 2 or more helpers is required for the patient to complete the activity. If activity was not attempted, code reason: 7-Patient Refused. 9-Not Applicable-not attempted and the patient did not perform the activity before the current illness, exacerbation or injury. 10-Not Attempted due to Environmental Limitations-(lack of equipment, weather restraints, etc.). 88-Not Attempted due to Medical Conditions or Safety Concerns. Roll Left & Right (QC): 3 Sit to Lying (QC): 2 Lying to Sitting/Side of Bed(Q: 4 (HOB elevated, use of bedrail, skilled verb inst for technique) Sit to Stand (QC): 2 (assist of 2, unable to fully stand, pt with fwd flexed posture and head down, minimal change with instruction with pt stating it's not going to happen, back of pt legs braced against bed, pt holding therapists arms with one on each side) Chair/Ugr-ep-Uqfgs Xfer(QC): 3 (sliding board tx bed to shower chair CGA and skilled verb inst, sliding board tx shower chair to bed min A) Weight Bearing TLSO when out of bed. Exercises Supine Ex: Ankle pumps, Rolling, Glut sets, Heel Slides, Scooting, Straight leg raise, Hip abd/add, Bicep Curls Supine Reps: 10 (skilled verb inst for technique and positioning, occasional AAROM to eliminate frictions) Treatments Requiring Co tx with OT for high demand standing and activities with 2 skilled therapists. Bed mobility, sitting balance EOB, donning back brace, sliding board transfer to shower chair, positioning, shower, dressing, sliding board transfer shower chair to bed, sit to stand tx's x5 with 5-20 sec standing with x1 mini shuffle of LLE only able to move heel of RLE, sitting EOB, doffing back brace, sit to supine, bed mobility and positioning, LE and UE strengthening and ROM, strength, activity tolerance, functional mobility, education, safety, encouragement to perform activities with decreased physical assist from rehab staff Assessment Current Status: Good Progress noted improved mobility with sliding board transfer bed to shower chair bearing increased wt through LE's. Mod encouragement to perform activities with decreased physical assist as pt tends to request physical assist before attempting it herself. Increased time required for all activities performed due to fatigue, slight SOA and report of anxiety. PT/ OT co-treat to complete high- demand standing exercise and activities with the use of two skilled therapists PT Short Term Goals Short Term Goals Time Frame: Feb 22, 2019 Roll Left & Right: 3 Sit to lyin Lying to sitting on side of be: 3 Sit to stand: 3 Chair/kpa-bm-gcqjg transfer: 3 Toilet transfer: 3 Car transfer: 3 Walk 10 feet: 3 Walk 50 feet with two turns: 3 PT Chcf Goals Chcf Goals PT Slag Dumper Goals Time Frame: Mar 08, 2019 Roll Left & Right (QC): 6 Sit to Lying (QC): 6 Lying-Sitting on Side/Bed(QC): 6 Sit to Stand (QC): 6 Chair/Hlr-sm-Jtbzy Xfer(QC): 6 Toilet Transfer (QC): 6 Car Transfer (QC): 5 Does the Patient Walk: No and Walking Goal IS indicated Walk 10 feet (QC): 6 Walk 50ft with 2 Turns (QC): 6 Walk 150 ft (QC): 6 Walking 10ft on Uneven Surface: 4 1 Step (curb) (QC): 4 4 Steps (QC): 4 12 Steps (QC): 9 Picking up an Object (QC): 9 Does the Pt use WC or Scooter?: Yes Wheel 50 feet with 2 turns (QC: 5 Type: Manual Wheel 150 feet: 5 Type: Manual PT Plan Treatment/Plan Treatment Plan: Continue Plan of Care Treatment Plan: Bed Mobility, Education, Functional Activity Fidel, Functional Strength, Group Therapy, Gait, Safety, Therapeutic Exercise, Transfers Treatment Duration: Mar 08, 2019 Frequency: At least 5 of 7 days/Wk (IRF) Estimated Hrs Per Day: 1.5 hours per day Patient and/or Family Agrees t: Yes Safety Risks/Education Patient Education: Transfer Techniques, Reviewed Precautions, Correct Positioning, Reviewed Don/Doff Brace, Safety Issues Time/GCodes Time In: 800 Time Out: 930 Total Billed Treatment Time: 90 Total Billed Treatment 1 visit, EX x15 min, FA x75 min LISBET BARCENAS PTA Feb 14, 2019 08:39 POS
--- NOTE | 2019-02-14 09:15 | NUR ---
Patient's post operative followup with Dr. Kailash Matamoros, Neurosurgery [facility] was scheduled for TODAY. [employer] contacted office and they rescheduled for February 23 at 0900. Review as it relates to patient's continued stay on unit as well as level of functioning for safe attendance.
--- NOTE | 2019-02-14 09:29 | PM&R Progress Note ---
Subjective HPI/CC On Admission Date Seen by Provider: Feb 14, 2019 Time Seen by Provider: 09:00 Subjective/Events-last exam Pt really fully dependent Uneventful night but increased anxiety started today Increasing pain medication utilization too Essentially lack of improvement is unfortunate White count is down from 20 too 11.9 Hgb remains stable at 8.1 Creatinine 1.65 Bowel movement treatment will be initiated May need to look at longterm closer to home Conferred with RN Reviewed therapy notes Checked meds and labs Review of Systems General: Fatigue Pulmonary: Dyspnea Musculoskeletal: back pain Objective Exam Vital Signs Vital Signs Date Time Temp Pulse Resp B/P (MAP) Pulse Ox O2 Delivery O2 Flow Rate FiO2 02/14/19 19:24 94 Nasal Cannula 3.00 02/14/19 17:49 36.6 52 20 130/69 (89) Capillary Refill : Less Than 3 Seconds General Appearance: No Apparent Distress, WD/WN, Chronically ill, Obese HEENT: PERRL/EOMI, Normal ENT Inspection, Pharynx Normal Neck: Full Range of Motion, Normal Inspection, Non Tender, Supple, Carotid Bruit Respiratory: Chest Non Tender, Lungs Clear, No Accessory Muscle Use, No Respiratory Distress, Decreased Breath Sounds, Wheezing Cardiovascular: No Edema, No Gallop, No JVD, No Murmur, Normal Peripheral Pulses, Irregularly Irregular Gastrointestinal: Normal Bowel Sounds, No Organomegaly, No Pulsatile Mass, Non Tender, Soft Back: Decreased Range of Motion, Muscle Spasm, Vertebral Tenderness, Other (wound VAC in place) Extremity: Normal Capillary Refill, Normal Inspection, Normal Range of Motion, Non Tender, No Calf Tenderness, No Pedal Edema Neurologic/Psychiatric: Alert, Oriented x3, No Motor/Sensory Deficits, worldwide chief creative officer II- XII Norm as Tested, Depressed Affect Skin: Normal Color, Warm/Dry Lymphatic: No Adenopathy Results/Procedures Lab Laboratory Tests 02/14/19 06:30 Patient resulted labs reviewed. FIM Transfers Therapy Code Descriptions/Definitions Functional [place] Measure: 0=Not Assessed/NA 4=Minimal Assistance 1=Total Assistance 5=Supervision or Setup 2=Maximal Assistance 6=Modified [place] 3=Moderate Assistance 7=Complete IndependenceSCALE: Activities may be completed with or without assistive devices. 6-Otbicwocfe-ciweeqo completes the activity by him/herself with no assistance from a helper. 5-Set-up or Clean-up Assistance-helper sets up or cleans up; patient completes activity. [place] assists only prior to or following the activity. 4-Supervision or Touching Assistance-helper provides verbal cues and/or touching/steadying and/or contact guard assistance as patient completes activity. Assistance may be provided throughout the activity or intermittently. 3-Partial/Moderate Assistance-helper does LESS THAN HALF the effort. [place] lifts, holds or supports trunk or limbs, but provides less than half the effort. 2-Substantial/Maximal Assistance-helper does MORE THAN HALF the effort. [place] lifts or holds trunk or limbs and provides more than half the effort. 7-Ryubrjlgl-wuykah does ALL the effort. Patient does none of the effort to complete the activity. Or, the assistance of 2 or more helpers is required for the patient to complete the activity. If activity was not attempted, code reason: 7-Patient Refused. 9-Not Applicable-not attempted and the patient did not perform the activity before the current illness, exacerbation or injury. 10-Not Attempted due to Environmental Limitations-(lack of equipment, weather restraints, etc.). 88-Not Attempted due to Medical Conditions or Safety Concerns. Roll Left to Right (QC): 3 Sit to Lying (QC): 3 Sit to Stand (QC): 1 (2-person A required in // bars and pt unable to fully stand) Chair/Xcr-wl-Olpho Xfer(QC): 4 (sliding board transfer, CGA bed to shower chair) Car Transfer (QC): 88 Gait Training Does the Patient Walk?: No and Walking Goal IS indicated Walk 10 feet (QC): 88 Walk 50 ft with 2 Turns(QC): 88 Walk 150 ft (QC): 88 Walking 10ft/uneven surface-QC: 88 Gait Assistive Device: FWW Wheelchair Training Does the Pt Use a Wheelchair?: Yes Wheel 50 ft with 2 turns (QC): 4 Wheel 150 ft (QC): 1 Type of Wheelchair: Manual Stair Training 1 Step (curb) (QC): 88 4 Steps (QC): 88 12 Steps (QC): 88 Balance Picking up an Object (QC): 88 ADL-Treatment Eating (QC): 6 Oral Hygiene (QC): 6 Shower/Bathe Self (QC): 2 Upper Body Dressing (QC): 2 (Pt educated on doffing/ donning process of back brace. Pt completes doffing with mod A, donning with max A. Pt uncomfortable in sit with back brace riding up, requires adjustment with cues for positioning breasts over brace which enabled brace to maintain centered position. Pt able to don overhead gown with s/u.) Lower Body Dressing (QC): 7 On/Off Footwear (QC): 1 (Pt will require instruction in use of AE for socks secondary to back precautions.) Toileting Hygiene (QC): 1 (TD with elidia lift x2.) Toilet Transfer (QC): 1 (Max assist x2 for transfer to [facility] over toilet) Assessment/Plan Assessment and Plan Assess & Plan/Chief Complaint Assessment: Thoracic vertebral fracture s/p repair Multilobar pneumonia placed on Vanc and Cefepime per Dr Garcia Severe COPD O2 dependence Recent intubation after thoracic vertebral fracture surgery Right pleural effusion CRI Chronic on acute debility HTN Chronic AF OAC Plan: Abx Monitor closely due to resp status O2 Nebs IRF protocol DC wound vac and incision looks good Confusion? Needs NH at DC? (1) Fracture of lamina of thoracic vertebra (2) Multifocal pneumonia (3) Hypothyroidism (4) Diabetes mellitus (5) Chronic renal insufficiency, stage III (moderate) (6) Anemia of renal disease (7) Chronic constipation (8) Back pain (9) Dependence on supplemental oxygen (10) COPD (chronic obstructive pulmonary disease) (11) Hypertension (12) Hyperlipidemia (13) Wheezing (14) Depression (15) Angina at rest (16) Atrial fibrillation (17) On continuous oral anticoagulation (18) History of respiratory failure (19) Cough MAUDE HINOJOSA DO Feb 14, 2019 09:29 POS
[2019-02-14] MEDS: meTOprolol TARTRATE 50 MG (LOPRESSOR) TAB PO SCH ×2 (09:40→21:04)
[2019-02-14] MEDS: amLODIPine 10 MG (NORVASC) TAB PO SCH (09:40)
[2019-02-14] MEDS: GLIMEPIRIDE 2 MG (AMARYL) TAB PO SCH (09:40)
[2019-02-14] MEDS: DOCUSATE SODIUM 100 MG (COLACE) CAP PO SCH ×2 (09:41→21:04)
[2019-02-14] MEDS: POLYETHYLENE GLYCOL 17 GM (MIRALAX) PACK PO SCH ×2 (09:43→21:23)
--- NOTE | 2019-02-14 11:12 | Occupational Ther Daily Note ---
OT Current Status-Daily Note Subjective Pt alert, lying in bed. Pt agrees to therapy. Pt c/o feeling anxious and pain, did not rate. Pt requested Xanax, reported to nrsg, to early for medication. Mental Status/Objective Patient Orientation: Person, Place, Time, Situation Attachments: IV, Other-See Comments (back brace) ADL-Treatment PT/ OT co-treat for 90 minutes to complete high-demand standing exercise, sliding board transfers (shower chair), decreased mobility with the use of two skilled therapists, OT focused on ADLs and UE strength while PT focused on LB strength and balance. Pt is progressing with static standing and is tolerating increased time (from 8 sec to 15 sec). See PT note for transfers and standing. Pt was transported to shower using transport shower chair. Using shower chair with cut out, hand held shower and long handle sponge pt was able to reach all areas. Assist was given for drying lower legs and buttocks. Pt takes increased time to complete tasks due to decreased activity tolerance and high anxiety requiring frequent recovery breaks. Pt able to don/doff night gown over head and assist to pull down back, min A. Assist x2 to stand at edge of bed and to complete bed mobility. Pt completed 3 UE exercises in all planes 1 set 10 reps each. After therapy, pt lying in bed on R side. Call light/phone in reach. All needs met in room. Therapy Code Descriptions/Definitions Functional [place] Measure: 0=Not Assessed/NA 4=Minimal Assistance 1=Total Assistance 5=Supervision or Setup 2=Maximal Assistance 6=Modified [place] 3=Moderate Assistance 7=Complete IndependenceSCALE: Activities may be completed with or without assistive devices. 1-Zykrponqzm-tpdoeiq completes the activity by him/herself with no assistance from a helper. 5-Set-up or Clean-up Assistance-helper sets up or cleans up; patient completes activity. [place] assists only prior to or following the activity. 4-Supervision or Touching Assistance-helper provides verbal cues and/or touching/steadying and/or contact guard assistance as patient completes activity. Assistance may be provided throughout the activity or intermittently. 3-Partial/Moderate Assistance-helper does LESS THAN HALF the effort. [place] lifts, holds or supports trunk or limbs, but provides less than half the effort. 2-Substantial/Maximal Assistance-helper does MORE THAN HALF the effort. [place] lifts or holds trunk or limbs and provides more than half the effort. 0-Jgxuajwsi-iyoawf does ALL the effort. Patient does none of the effort to complete the activity. Or, the assistance of 2 or more helpers is required for the patient to complete the activity. If activity was not attempted, code reason: 7-Patient Refused. 9-Not Applicable-not attempted and the patient did not perform the activity before the current illness, exacerbation or injury. 10-Not Attempted due to Environmental Limitations-(lack of equipment, weather restraints, etc.). 88-Not Attempted due to Medical Conditions or Safety Concerns. Shower/Bathe Self (QC): 2 Upper Body Dressing (QC): 3 OT Short Term Goals Short Term Goals Time Frame: Feb 22, 2019 Toileting hygiene: 3 Shower/bathe self: 3 Upper body dressin Lower body dressin OT Mcc Goals Tobacco Stripper Hand Goals Time Frame: Mar 08, 2019 Eating (QC): 6 Oral Hygiene (QC): 6 Toileting Hygiene (QC): 6 Shower/Bathe Self (QC): 5 Upper Body Dressing (QC): 5 Lower Body Dressing (QC): 5 On/Off Footwear (QC): 5 Additional Goals: 1-Demonstrate ADL Tasks, 2-Verbalize Understanding, 3- ImproveStrength/Fidel 1=Demonstrate adherence to instructed precautions during ADL tasks. 2=Patient will verbalize/demonstrate understanding of assistive devices/modifications for ADL. 3=Patient will improve strength/tolerance for activity to enable patient to perform ADL's. OT Education/Plan Problem List/Assessment Assessment: Decreased Activ Tolerance, Decreased UE Strength, Impaired Bed Mobility, Impaired Coordination, Impaired Funct Balance, Impaired Self-Care Skills, Restricted Funct UE ROM Discharge Recommendations Plan/Recommendations: Continue POC Treatment Plan/Plan of Care Patient would benefit from OT for education, treatment and training to promote independence in ADL's, mobility, safety and/or upper extremity function for ADL's. Plan of Care: ADL Retraining, Functional Mobility, Group Exercise/Act as Ind, UE Funct Exercise/Act Treatment Duration: Mar 08, 2019 Frequency: At least 5 of 7 days/Wk (IRF) Estimated Hrs Per Day: 1.5 hours per day Rehab Potential: Fair Time/GCodes Start Time: 08:00 Stop Time: 09:30 Total Time Billed (hr/min): 90 Billed Treatment Time 1 visit-ADL 5 (70 min) EX 1 (20 min) co-treat with PT 90 min NIKKY WEN Feb 14, 2019 11:12 POS
[2019-02-14] MEDS: cefTRIAXone FOR IV USE 1,000 MG in WATER (STERILE) FOR INJECTION 10 ML IV SCH (11:55)
[2019-02-14] MEDS: BISACODYL 10 MG SUPP (DULCOLAX) PR PRN (16:23)
[2019-02-14] MEDS: RIVAROXABAN 15 MG TABLET (XARELTO) PO SCH (17:38)
--- NOTE | 2019-02-14 17:42 | NUR ---
Reviewed weekly rehab team conference summary with patient's daughter, Gosia Chin. Updated of continued stay with review on 02/21/19. Gosia resides about 2 hours away and she was absent from work a week during patient onset of hospitalization. She had to return to work and has not been able to make trips with the exception of and then weekends. Patient's spouse is in a deconditioned state of his own and is not easily able to endure a round trip. Gosia reports that she talks to patient daily by phone and that patient reports she is better and wants to come home. Patient also updates that her legs "give out" and Gosia would like some satisfaction as to a diagnosis/cause for this. Patient has a wheelchair at home and is able to use that to ambulate, Gosia said the home will accommodate this with use of a FWW in bathroom. Consider this as the safest mode of ambulation with short distances with FWW if patient potential to regain overall walking is not feasible. Patient does have a portable O2 so wheelchair option would not be cumbersome re O2 tubing. DME: Patient does have a elidia lift in the garage from prior use and does have a hospital bed and wheelchair. ST to repeat SLUMS exam due to team observation of patient decline functionally and cognitively since admission. Pastoral Care consulted to visit patient for her spiritual well-being. Patient may require a SNF environment if unable to rise to a safe level for immediate return home.
[2019-02-14 17:49] VITALS: BP 130/69
[2019-02-14] MEDS: DONEPEZIL 5 MG (ARICEPT) TAB PO SCH (21:04)
[2019-02-14] MEDS: doxAzosin 2 MG (CARDURA) TAB PO SCH (21:04)
[2019-02-14] MEDS: VITAMIN D3 1,000 UNITS (CHOLECALCIFEROL) TABLET PO SCH (21:04)
[2019-02-15] MEDS: CATHETER FLUSH 10 ML SYR IV SCH ×3 (02:45→21:13)
[2019-02-15 05:51] LABS: BASOPHILS % (AUTO) 0 % (0-10); EOSINOPHILS # (AUTO) 0.1 10^3/uL (0.0-0.3); EOSINOPHILS % (AUTO) 1 % (0-10); HEMATOCRIT 26 % (35-52); HEMOGLOBIN 8.2 G/DL (11.5-16.0); LYMPHOCYTES # (AUTO) 0.9 X 10^3 (1.0-4.0); LYMPHOCYTES % (AUTO) 7 % (12-44); MEAN CORPUSCULAR HEMOGLOBIN 29 PG (25-34); MEAN CORPUSCULAR HGB CONC 32 G/DL (32-36); MEAN CORPUSCULAR VOLUME 92 FL (80-99); MEAN PLATELET VOLUME 8.1 FL (7.4-10.4); MONOCYTES # (AUTO) 0.9 X 10^3 (0.0-1.0); MONOCYTES % (AUTO) 7 % (0-12); NEUTROPHILS # (AUTO) 10.2 X 10^3 (1.8-7.8); NEUTROPHILS % (AUTO) 85 % (42-75); PLATELET COUNT 344 10^3/uL (130-400)
[2019-02-15 05:57] VITALS: BP 130/69
[2019-02-15 06:25] LABS: CALCIUM 10.2 MG/DL (8.5-10.1); CREATININE SERUM 1.66 MG/DL (0.60-1.30); MAGNESIUM 2.3 MG/DL (1.6-2.4); POTASSIUM 4.6 MMOL/L (3.6-5.0)
[2019-02-15] MEDS: inSUlin ASPART (NovoLOG) 1 UNIT/0.01 ML (CHARGE PER UNIT) SC SCH ×4 (06:45→21:36)
[2019-02-15] MEDS: MULTIVIT W/MINERALS TAB (THERAGRAN M) PO SCH (06:45)
[2019-02-15] MEDS: LEVOTHYROXINE 112 MCG (LEVOTHROID) TAB PO SCH (06:45)
--- NOTE | 2019-02-15 07:19 | Pulmonary Progress Note ---
Subjective Time Seen by a Provider: 07:18 Subjective/Events-last exam No complications noted. Sepsis Event Evaluation Height, Weight, BMI Height: '" Weight: lbs. oz. kg; 34.15 BMI Method: Exam Exam Vital Signs Date Time Temp Pulse Resp B/P (MAP) Pulse Ox O2 Delivery O2 Flow Rate FiO2 02/15/19 05:57 36.8 58 16 130/69 (89) 91 Nasal Cannula 3.00 02/14/19 20:20 Nasal Cannula 2.00 02/14/19 19:24 94 Nasal Cannula 3.00 02/14/19 17:49 36.6 52 20 130/69 (89) 96 Nasal Cannula 3.00 02/14/19 14:09 94 Nasal Cannula 3.00 02/14/19 10:36 95 Nasal Cannula 3.00 02/14/19 09:00 Nasal Cannula 2.00 I & O 02/15/19 07:00 Intake Total 1400 ml Balance 1400 ml Height & Weight Height: '" Weight: lbs. oz. kg; 34.15 BMI Method: General Appearance: No Apparent Distress, WD/WN, Chronically ill, Obese HEENT: PERRL/EOMI, Normal ENT Inspection, Pharynx Normal Neck: Full Range of Motion, Normal Inspection, Non Tender, Supple, Carotid Bruit Respiratory: Chest Non Tender, Lungs Clear, No Accessory Muscle Use, No Respiratory Distress, Decreased Breath Sounds, Wheezing Cardiovascular: No Edema, No Gallop, No JVD, No Murmur, Normal Peripheral Pulses, Irregularly Irregular Extremity: Normal Capillary Refill, Normal Inspection, Normal Range of Motion, Non Tender, No Calf Tenderness, No Pedal Edema Neurologic/Psychiatric: Alert, Oriented x3, No Motor/Sensory Deficits, supervisor plastering II- XII Norm as Tested, Depressed Affect Skin: Normal Color, Warm/Dry Lymphatic: No Adenopathy Results Lab Laboratory Tests 02/14/19 06:30 02/15/19 05:40 Assessment/Plan Assessment/Plan Pneumonia -Curry culture - Started Vanco Cefepine 02/08 -Check Daily labs -Will need f/u imaging pleural effusion -Monitor Renal failure -Monitor COPD -02 -Duonebs Afib anemia HTN ELISEO KAISER DO Feb 15, 2019 07:18 POS
--- NOTE | 2019-02-15 09:03 | Physical Therapy Daily Note ---
PT Daily Note-Current Subjective Pt. in bed states initially she feels like she is better. comments several times that she has so much health related anxiety and does not feel that she will ever be able to rely on her legs and arms for strength and has fallen so many times. Pt. states she really doesnt plan on trying to stand or walk until she sees a nuerologist and has an explanation or "fix" for her problem. This DIGITAL TECH expressing many times that trialing stance with professionals in a safe environment is the time to give it all her effort. Pt does have c/o low back pain at 6/10 during sitting and while adjusting brace for her comfort and support Pain Numeric Pain Scale: 6 Location: Medial Location Body Site: Back Pain Description: Ache Mental Status Patient Orientation: Normal For Age Attachments: Oxygen (3L), Other-See Comments (TLSO) Transfers SCALE: Activities may be completed with or without assistive devices. 5-Lpwtcxnzou-ihekjze completes the activity by him/herself with no assistance from a helper. 5-Set-up or Clean-up Assistance-helper sets up or cleans up; patient completes activity. [place] assists only prior to or following the activity. 4-Supervision or Touching Assistance-helper provides verbal cues and/or touching/steadying and/or contact guard assistance as patient completes activity. Assistance may be provided throughout the activity or intermittently. 3-Partial/Moderate Assistance-helper does LESS THAN HALF the effort. [place] lifts, holds or supports trunk or limbs, but provides less than half the effort. 2-Substantial/Maximal Assistance-helper does MORE THAN HALF the effort. [place] lifts or holds trunk or limbs and provides more than half the effort. 9-Zlzwdhyoi-jwteky does ALL the effort. Patient does none of the effort to complete the activity. Or, the assistance of 2 or more helpers is required for the patient to complete the activity. If activity was not attempted, code reason: 7-Patient Refused. 9-Not Applicable-not attempted and the patient did not perform the activity before the current illness, exacerbation or injury. 10-Not Attempted due to Environmental Limitations-(lack of equipment, weather restraints, etc.). 88-Not Attempted due to Medical Conditions or Safety Concerns. Roll Left & Right (QC): 4 Lying to Sitting/Side of Bed(Q: 5 (with head of bed up) Sit to Stand (QC): 3 slide brd TRF min to mod with assist to place brd as well as to lean pt. and position w/c. Pt. with 3 L o2 insitu, c/o she cant breathe, sats briefly 89% then quickly back up to 95% Weight Bearing TLSO when out of bed. Wheelchair Training Does the Pt Use a Wheelchair?: Yes Type of Wheelchair: Manual pt. managed w/c approx [facility] ft [facility] with [facility] etc but SOB and fatigue Exercises Seated Therapy Exercises: Ankle pumps, Sit to stand, Long arc quads, Hip flexion, Hip abd/add Seated Reps: 12 Treatments co Rx for last 30 mins of Rx for donning clothing as well as sit to stand with attempts at wt shift and mini pregait steps. complexity and level of pts function requiring skilled assist and instruction of 2. Pt. did for and back s tep 2-3 small steps then side to side as well very little with pt. becoming more anxious and SOA, ultimately slide brding with assist as stated above. Assessment Current Status: Fair Progress considering pts anxiety and SOB sld brd and w/c mob seems to be the safest most practical modes for her mobility at this stage PT Short Term Goals Short Term Goals Time Frame: Feb 22, 2019 Roll Left & Right: 3 Sit to lyin Lying to sitting on side of be: 3 Sit to stand: 3 Chair/plv-sn-pghzp transfer: 3 Toilet transfer: 3 Car transfer: 3 Walk 10 feet: 3 Walk 50 feet with two turns: 3 PT Hand I Blocker Goals Care Home Goals PT Hand I Blocker Goals Time Frame: Mar 08, 2019 Roll Left & Right (QC): 6 Sit to Lying (QC): 6 Lying-Sitting on Side/Bed(QC): 6 Sit to Stand (QC): 6 Chair/Jmc-hu-Uwsjf Xfer(QC): 6 Toilet Transfer (QC): 6 Car Transfer (QC): 5 Does the Patient Walk: No and Walking Goal IS indicated Walk 10 feet (QC): 6 Walk 50ft with 2 Turns (QC): 6 Walk 150 ft (QC): 6 Walking 10ft on Uneven Surface: 4 1 Step (curb) (QC): 4 4 Steps (QC): 4 12 Steps (QC): 9 Picking up an Object (QC): 9 Does the Pt use WC or Scooter?: Yes Wheel 50 feet with 2 turns (QC: 5 Type: Manual Wheel 150 feet: 5 Type: Manual PT Plan Treatment/Plan Treatment Plan: Continue Plan of Care Treatment Plan: Bed Mobility, Education, Functional Activity Fidel, Functional Strength, Group Therapy, Gait, Safety, Therapeutic Exercise, Transfers Treatment Duration: Mar 08, 2019 Frequency: At least 5 of 7 days/Wk (IRF) Estimated Hrs Per Day: 1.5 hours per day Patient and/or Family Agrees t: Yes Safety Risks/Education Patient Education: Transfer Techniques, Correct Positioning, W/C Management, Disease Process, Safety Issues Teaching Recipient: Patient Teaching Methods: Demonstration, Discussion Response to Teaching: Verbalize Understanding, Return Demonstration, Reinforcement Needed instructed utilizing CBT for anxiety with breathing techniques and grounding "truth telling" techniques Time/GCodes Time In: 800 Time Out: 900 Total Billed Treatment Time: 60 Total Billed Treatment 1,FA45m,EX15m JENNIFER BALDERAS DIGITAL TECH Feb 15, 2019 09:03 POS
--- NOTE | 2019-02-15 09:38 | PM&R Progress Note ---
Subjective HPI/CC On Admission Date Seen by Provider: Feb 15, 2019 Time Seen by Provider: 08:15 Subjective/Events-last exam Had a large BM. Colace BID and MiraLax will be ordered. WBC count 12. A little more energetic today. Was able to get out of bed with the bed inclined. Maximum assistance is required. Conferred with RN Reviewed therapy notes Checked meds and labs Review of Systems General: Fatigue Pulmonary: Dyspnea Musculoskeletal: back pain Neurological: Weakness, Numbness, Incoordination Objective Exam Vital Signs Vital Signs Date Time Temp Pulse Resp B/P (MAP) Pulse Ox O2 Delivery O2 Flow Rate FiO2 02/15/19 20:20 Nasal Cannula 2.00 02/15/19 18:41 100 02/15/19 16:12 36.5 57 14 137/76 (96) Capillary Refill : Less Than 3 Seconds General Appearance: No Apparent Distress, WD/WN, Chronically ill, Obese HEENT: PERRL/EOMI, Normal ENT Inspection, Pharynx Normal Neck: Full Range of Motion, Normal Inspection, Non Tender, Supple, Carotid Brui t Respiratory: Chest Non Tender, Lungs Clear, No Accessory Muscle Use, No Resp iratory Distress, Decreased Breath Sounds, Wheezing Cardiovascular: No Edema, No Gallop, No JVD, No Murmur, Normal Peripheral Pulses, Irregularly Irregular Gastrointestinal: Normal Bowel Sounds, No Organomegaly, No Pulsatile Mass, Non Tender, Soft Back: Decreased Range of Motion, Muscle Spasm, Vertebral Tenderness, Other (wound VAC in place) Extremity: Normal Capillary Refill, Normal Inspection, Normal Range of Motion, Non Tender, No Calf Tenderness, No Pedal Edema Neurologic/Psychiatric: Alert, Oriented x3, No Motor/Sensory Deficits, dairy farmer II- XII Norm as Tested, Depressed Affect Skin: Normal Color, Warm/Dry Lymphatic: No Adenopathy Results/Procedures Lab Laboratory Tests 02/15/19 05:40 Patient resulted labs reviewed. FIM Transfers Therapy Code Descriptions/Definitions Functional [place] Measure: 0=Not Assessed/NA 4=Minimal Assistance 1=Total Assistance 5=Supervision or Setup 2=Maximal Assistance 6=Modified [place] 3=Moderate Assistance 7=Complete IndependenceSCALE: Activities may be completed with or without assistive devices. 6-Sniklxqxtg-ftirtne completes the activity by him/herself with no assistance from a helper. 5-Set-up or Clean-up Assistance-helper sets up or cleans up; patient completes activity. [place] assists only prior to or following the activity. 4-Supervision or Touching Assistance-helper provides verbal cues and/or touching/steadying and/or contact guard assistance as patient completes activity. Assistance may be provided throughout the activity or intermittently. 3-Partial/Moderate Assistance-helper does LESS THAN HALF the effort. [place] lifts, holds or supports trunk or limbs, but provides less than half the effort. 2-Substantial/Maximal Assistance-helper does MORE THAN HALF the effort. [place] lifts or holds trunk or limbs and provides more than half the effort. 9-Qatvekwwh-cvanlb does ALL the effort. Patient does none of the effort to complete the activity. Or, the assistance of 2 or more helpers is required for the patient to complete the activity. If activity was not attempted, code reason: 7-Patient Refused. 9-Not Applicable-not attempted and the patient did not perform the activity before the current illness, exacerbation or injury. 10-Not Attempted due to Environmental Limitations-(lack of equipment, weather restraints, etc.). 88-Not Attempted due to Medical Conditions or Safety Concerns. Roll Left to Right (QC): 4 Sit to Lying (QC): 2 Sit to Stand (QC): 3 Chair/Hzi-bp-Hdbzj Xfer(QC): 3 (sliding board tx bed to shower chair CGA and skilled verb inst, sliding board tx shower chair to bed min A) Car Transfer (QC): 88 Gait Training Does the Patient Walk?: No and Walking Goal IS indicated Walk 10 feet (QC): 88 Walk 50 ft with 2 Turns(QC): 88 Walk 150 ft (QC): 88 Walking 10ft/uneven surface-QC: 88 Gait Assistive Device: FWW Wheelchair Training Does the Pt Use a Wheelchair?: Yes Wheel 50 ft with 2 turns (QC): 4 Wheel 150 ft (QC): 1 Type of Wheelchair: Manual Stair Training 1 Step (curb) (QC): 88 4 Steps (QC): 88 12 Steps (QC): 88 Balance Picking up an Object (QC): 88 ADL-Treatment Eating (QC): 6 Oral Hygiene (QC): 6 Shower/Bathe Self (QC): 2 Upper Body Dressing (QC): 3 Lower Body Dressing (QC): 7 On/Off Footwear (QC): 1 (Pt will require instruction in use of AE for socks secondary to back precautions.) Toileting Hygiene (QC): 1 (TD with elidia lift x2.) Toilet Transfer (QC): 1 (Max assist x2 for transfer to [facility] over toilet) Assessment/Plan Assessment and Plan Assess & Plan/Chief Complaint Assessment: Thoracic vertebral fracture s/p repair Multilobar pneumonia placed on Vanc and Cefepime per Dr Garcia Severe COPD O2 dependence Recent intubation after thoracic vertebral fracture surgery Right pleural effusion CRI Chronic on acute debility HTN Chronic AF OAC Plan: Abx Monitor closely due to resp status O2 Nebs IRF protocol DC wound vac and incision looks good Confusion? Needs NH at DC? Patient requires aggressive medical treatment due to severity of her lung disease (1) Fracture of lamina of thoracic vertebra (2) Multifocal pneumonia (3) Hypothyroidism (4) Diabetes mellitus (5) Chronic renal insufficiency, stage III (moderate) (6) Anemia of renal disease (7) Chronic constipation (8) Back pain (9) Dependence on supplemental oxygen (10) COPD (chronic obstructive pulmonary disease) (11) Hypertension (12) Hyperlipidemia (13) Wheezing (14) Depression (15) Angina at rest (16) Atrial fibrillation (17) On continuous oral anticoagulation (18) History of respiratory failure (19) Cough MAUDE HINOJOSA DO Feb 15, 2019 09:38 POS
[2019-02-15] MEDS: DOCUSATE SODIUM 100 MG (COLACE) CAP PO SCH ×2 (09:59→21:12)
[2019-02-15] MEDS: GLIMEPIRIDE 2 MG (AMARYL) TAB PO SCH (10:00)
[2019-02-15] MEDS: POLYETHYLENE GLYCOL 17 GM (MIRALAX) PACK PO SCH ×3 (10:00→21:36)
[2019-02-15] MEDS: meTOprolol TARTRATE 50 MG (LOPRESSOR) TAB PO SCH ×2 (10:00→21:12)
[2019-02-15] MEDS: amLODIPine 10 MG (NORVASC) TAB PO SCH (10:00)
--- NOTE | 2019-02-15 10:59 | Physical Therapy Daily Note ---
PT Daily Note-Current Subjective Pt. agrees to Rx. States she is again feeling panicked and wishes she could conquer this. Pt shares that the panic attacks were present years before she started having such health issues. Pain Numeric Pain Scale: 5-Moderate Pain Location: Medial Location Body Site: Back Pain Description: Ache Mental Status Patient Orientation: Normal For Age Attachments: Oxygen Transfers SCALE: Activities may be completed with or without assistive devices. 8-Vllfjpsytv-ihrrcau completes the activity by him/herself with no assistance from a helper. 5-Set-up or Clean-up Assistance-helper sets up or cleans up; patient completes activity. [place] assists only prior to or following the activity. 4-Supervision or Touching Assistance-helper provides verbal cues and/or touching/steadying and/or contact guard assistance as patient completes activity. Assistance may be provided throughout the activity or intermittently. 3-Partial/Moderate Assistance-helper does LESS THAN HALF the effort. [place] lift s, holds or supports trunk or limbs, but provides less than half the effort. 2-Substantial/Maximal Assistance-helper does MORE THAN HALF the effort. [place] lifts or holds trunk or limbs and provides more than half the effort. 2-Ktxyigrsb-qsfwyr does ALL the effort. Patient does none of the effort to complete the activity. Or, the assistance of 2 or more helpers is required for the patient to complete the activity. If activity was not attempted, code reason: 7-Patient Refused. 9-Not Applicable-not attempted and the patient did not perform the activity before the current illness, exacerbation or injury. 10-Not Attempted due to Environmental Limitations-(lack of equipment, weather restraints, etc.). 88-Not Attempted due to Medical Conditions or Safety Concerns. rolling left and right mod to min assist instructing in log roll etc. Weight Bearing TLSO when out of bed. Exercises Supine Ex: Ankle pumps, Quad Set, Rolling, Glut sets, Heel Slides Supine Reps: 15 Treatments 5 steps grounding technique as well as breathing was done. Pt. requested massage and lotion applied to low back area, this was done with pt. stating she she found some relief with this as well as pleasant music channel found on TV that pt. enjoyed Assessment Current Status: Good Progress noted functional and strength progress today PT Short Term Goals Short Term Goals Time Frame: Feb 22, 2019 Roll Left & Right: 3 Sit to lyin Lying to sitting on side of be: 3 Sit to stand: 3 Chair/ink-rj-pwdbx transfer: 3 Toilet transfer: 3 Car transfer: 3 Walk 10 feet: 3 Walk 50 feet with two turns: 3 PT Ocular Care Technician Goals Ocular Care Technician Goals PT Longterm Goals Time Frame: Mar 08, 2019 Roll Left & Right (QC): 6 Sit to Lying (QC): 6 Lying-Sitting on Side/Bed(QC): 6 Sit to Stand (QC): 6 Chair/Igj-gn-Jpuie Xfer(QC): 6 Toilet Transfer (QC): 6 Car Transfer (QC): 5 Does the Patient Walk: No and Walking Goal IS indicated Walk 10 feet (QC): 6 Walk 50ft with 2 Turns (QC): 6 Walk 150 ft (QC): 6 Walking 10ft on Uneven Surface: 4 1 Step (curb) (QC): 4 4 Steps (QC): 4 12 Steps (QC): 9 Picking up an Object (QC): 9 Does the Pt use WC or Scooter?: Yes Wheel 50 feet with 2 turns (QC: 5 Type: Manual Wheel 150 feet: 5 Type: Manual PT Plan Treatment/Plan Treatment Plan: Continue Plan of Care Treatment Plan: Bed Mobility, Education, Functional Activity Fidel, Functional Strength, Group Therapy, Gait, Safety, Therapeutic Exercise, Transfers Treatment Duration: Mar 08, 2019 Frequency: At least 5 of 7 days/Wk (IRF) Estimated Hrs Per Day: 1.5 hours per day Patient and/or Family Agrees t: Yes Safety Risks/Education Patient Education: Correct Positioning, Disease Process, Safety Issues Teaching Recipient: Patient Teaching Methods: Demonstration, Discussion Response to Teaching: Verbalize Understanding, Return Demonstration, Reinforcement Needed anxiety management techniques instruction Time/GCodes Time In: 1040 Time Out: 1055 Total Billed Treatment Time: 15 Total Billed Treatment 1,FA15m JENNIFER BALDERAS OPERATIONS RESEARCH MANAGER Feb 15, 2019 10:59 POS
[2019-02-15] MEDS: cefTRIAXone FOR IV USE 1,000 MG in WATER (STERILE) FOR INJECTION 10 ML IV SCH (11:15)
[2019-02-15] MEDS: HYDROcodone/APAP 5 MG/325 MG (LORTAB) TAB PO PRN (11:32)
--- NOTE | 2019-02-15 13:16 | ST Cognitive Linguistic Eval ---
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 Mayen Medical History Pertinent Medical History: Atrial Fib, DM, HTN Reviewed History: Yes Social History Current Living Status: Spouse (he has respiratory issues) Speech PLF-Current Status Prior Level of Function Patient lived at home with her . She was independent for much of her daily needs. Subjective Patient was pleasant and cooperative with the cognitive assessment. Language Eval: Auditory Comprehends Simple Yes/No Ques: Functional Indent/Objects Multiple Cha: Functional Ident/Pics in Multiple Cha: Functional Follows 1-Step Commands: Functional Follows Complex Directions: Functional Follows General Conversations: Functional Language Eval: Verbal Language Completes Spontaneous Greeting: Functional Produces Auto, Serial Info: Functional Imitates Simple Words/Phrases: Functional Word Finding: Functional Requests Basic Needs: Functional States Basic Personal Info: Functional Expresses Complex Ideas: Functional Objective Cognitive Domain Attention: WNL Memory: Mild Problem Solving: Functional Executive Functions: WNL Visuospatial Skills: WNL Composite Severity Rating: WNL Clock Drawing Severity Rating: WNL Objective Formal/Standardized Tests [facility] Mental Status ([facility]UST) Results /, within normal functional level Oral Motor/Speech Production Within Normal Limits Impression Patient is a 78 year old female who was admitted to the ARU for rehab prior to her return home. Patient was initially evaluated with the SLUMS on 02/09/19 with a score of 27/30 obtained. The SLUMS was repeated today per physician order due to a decline in function noted with OT and PT. The patient was re-evaluated today with the UMS with a score of 28/30 obtained. She continues to fall in the normal range of function. Patient does not warrant further skilled ST services at this time. Speech Patient Assess Expression of Ideas/Wants: Expression (4) Understanding Verbal Content: Understands (4) Brief Interview-Mental Status: Yes Repetition of Three Words: Three (3) Temporal Orientation: Year: Correct (3) Temporal Orientation: Month: Accurate within 5 days(2) Temporal Orientation: Day: Correct (1) Recall : Wear to say "Sock": Yes, no cue required (2) Recall : Color: Yes, no cue required (2) Recall : Bed: Yes,after cueing (1) Memory/Recall Ability: Current season, Location of own room, That he or she is in a hsp/hsp unit Speech-Plan Patient/Family Goals Patient/Family Goals: Patient plans on returning home with her post rehab. Treatment Plan Speech Therapy Treatment Plan: Discontinue ST Patient does not warrant further ST services based on SLUMS scores. Treatment Duration: Feb 08, 2019 Frequency: 1 time per week Estimated Hrs Per Day: .25 hour per day Rehab Potential: Fair Barriers to Learning: None identified from a cognitive stance Pt/Family Agrees to Plan: Yes Safety Risks/Education Teaching Recipient: Patient Teaching Methods: Discussion Response to Teaching: Verbalize Understanding Education Topics Provided: Continued safety within her room and communication of wants/needs Time Speech Therapy Time In: 10:00 Speech Therapy Time Out: 10:15 Total Billed Time: 15 Billed Treatment Time 1, BEKA Slater Feb 15, 2019 13:16 POS
--- NOTE | 2019-02-15 14:03 | NUR ---
Dressing change to back incision. Incision line cleansed with alcohol pads. AllKare applied to surrounding tissue. Covered with [place] dressing. Incision is well approximated with kristen intact. No drainage noted.
[2019-02-15] MEDS: ALPRAZolam 0.25 MG (XANAX) TAB PO PRN (14:15)
--- NOTE | 2019-02-15 14:16 | Occupational Ther Daily Note ---
OT Current Status-Daily Note Subjective Pt alert, working with PT. Pt agrees to therapy. Pt is highly anxious and worries about having a panic attack. Pt c/o not getting enough air though when O2 stats monitored stays in 90's. Mental Status/Objective Patient Orientation: Person, Place, Time, Situation Attachments: IV, Oxygen ADL-Treatment PT/OT co-treat for 30 minutes to complete high-demand standing exercise, decreased mobility with the use of two skilled therapists, OT focused on ADLs and UE strength while PT focused on LB strength and balance. Pt is progressing with static standing. See PT note for transfers and standing. Pt propelled w/c to bathroom and sat at sink to complete oral care and light sponge bath. Pt transferred with sliding board to <--> [facility], assist x2. Pt is able to stand with assist x2 for safety while assist given to hike pants over hips. Pt able to don own shoes. Max A to don pants. Therapy Code Descriptions/Definitions Functional [place] Measure: 0=Not Assessed/NA 4=Minimal Assistance 1=Total Assistance 5=Supervision or Setup 2=Maximal Assistance 6=Modified [place] 3=Moderate Assistance 7=Complete IndependenceSCALE: Activities may be completed with or without assistive devices. 2-Gzxdhfrygv-rtgvehy completes the activity by him/herself with no assistance from a helper. 5-Set-up or Clean-up Assistance-helper sets up or cleans up; patient completes activity. [place] assists only prior to or following the activity. 4-Supervision or Touching Assistance-helper provides verbal cues and/or touching/steadying and/or contact guard assistance as patient completes activity. Assistance may be provided throughout the activity or intermittently. 3-Partial/Moderate Assistance-helper does LESS THAN HALF the effort. [place] lifts, holds or supports trunk or limbs, but provides less than half the effort. 2-Substantial/Maximal Assistance-helper does MORE THAN HALF the effort. [place] lifts or holds trunk or limbs and provides more than half the effort. 4-Ylukxijcm-tjthix does ALL the effort. Patient does none of the effort to complete the activity. Or, the assistance of 2 or more helpers is required for the patient to complete the activity. If activity was not attempted, code reason: 7-Patient Refused. 9-Not Applicable-not attempted and the patient did not perform the activity before the current illness, exacerbation or injury. 10-Not Attempted due to Environmental Limitations-(lack of equipment, weather restraints, etc.). 88-Not Attempted due to Medical Conditions or Safety Concerns. Oral Hygiene (QC): 6 Upper Body Dressing (QC): 5 Lower Body Dressing (QC): 1 (Footwear (QC) 5 donning shoes using long handle shoehorn) Toileting Hygiene (QC): 1 Toilet Transfer (QC): 1 Other Treatment Pt then propelled w/c to therapy gym with multiple recovery breaks. Pt completed fine motor tasks to increase staple cutter/pinch strength for daily functional tasks. Pt completed SPT with assist x2, one for 'dancing transfer' and one to spot for safety. CGA for EOB to supine then lying on R side after session. Call light/phone in reach. All needs met in room. OT Short Term Goals Short Term Goals Time Frame: Feb 22, 2019 Toileting hygiene: 3 Shower/bathe self: 3 Upper body dressin Lower body dressin OT Rate Supervisor Goals Rate Supervisor Goals Time Frame: Mar 08, 2019 Eating (QC): 6 Oral Hygiene (QC): 6 Toileting Hygiene (QC): 6 Shower/Bathe Self (QC): 5 Upper Body Dressing (QC): 5 Lower Body Dressing (QC): 5 On/Off Footwear (QC): 5 Additional Goals: 1-Demonstrate ADL Tasks, 2-Verbalize Understanding, 3- ImproveStrength/Fidel 1=Demonstrate adherence to instructed precautions during ADL tasks. 2=Patient will verbalize/demonstrate understanding of assistive devices/modifications for ADL. 3=Patient will improve strength/tolerance for activity to enable patient to perform ADL's. OT Education/Plan Problem List/Assessment Assessment: Decreased Activ Tolerance, Decreased UE Strength, Dependent Transfers, Impaired Bed Mobility, Impaired Coordination, Impaired Funct Balance, Impaired Self-Care Skills, Restricted Funct UE ROM Discharge Recommendations Plan/Recommendations: Continue POC Treatment Plan/Plan of Care Patient would benefit from OT for education, treatment and training to promote independence in ADL's, mobility, safety and/or upper extremity function for ADL's. Plan of Care: ADL Retraining, Functional Mobility, Group Exercise/Act as Ind, UE Funct Exercise/Act Treatment Duration: Mar 08, 2019 Frequency: At least 5 of 7 days/Wk (IRF) Estimated Hrs Per Day: 1.5 hours per day Rehab Potential: Fair Time/GCodes Start Time: 08:30 Stop Time: 10:00 Total Time Billed (hr/min): 90 Billed Treatment Time 1 visit-ADL 2 (30 min) FA 3 (45 min) EX 1 (15 min) NIKKY WEN Feb 15, 2019 14:16 POS
[2019-02-15] MEDS: RT-ALBUTEROL/IPRATROPIUM 3 ML (DUONEB) VIAL INH SCH ×3 (14:54→18:42)
[2019-02-15 16:12] VITALS: BP 137/76
[2019-02-15] MEDS: RIVAROXABAN 15 MG TABLET (XARELTO) PO SCH (17:07)
--- NOTE | 2019-02-15 17:44 | Progress Note - Cardiology ---
Cardiology SOAP Progress Note Subjective: Leg weakness unchanged No cp or palp or syncope or shortness of breath Objective: I&O/Vital Signs 02/15/19 02/15/19 02/15/19 02/15/19 05:57 09:00 14:54 16:12 Temp 36.8 36.5 Pulse 58 57 Resp 16 14 B/P (MAP) 130/69 (89) 137/76 (96) Pulse Ox 91 94 98 O2 Delivery Nasal Cannula Nasal Cannula Nasal Cannula Nasal Cannula O2 Flow Rate 3.00 3.00 3.00 3.00 02/15/19 00:00 Intake Total 1200 ml Balance 1200 ml Constitutional: AAO x 3, well-developed, well-nourished, other Respiratory: No accessory muscle use; other (fair to good bilat air entry; diminished at the bases) Cardiovascular: regular rate-rhythm, S1 and S2, systolic murmur (1-2/6 KRISTAN at card base) Gastrointestional: No tender; soft; No guarding, No rebound; audible bowel sounds Extremities: No clubbing, No cyanosis, No significant edema Neurologic/Psychiatric: oriented x 3, other (seems to move all limbs equally) Skin: No rash on exposed areas, No ulcerations on exposed areas Results/Procedures: Labs Laboratory Tests 02/14/19 20:34: Glucometer 130H 02/15/19 05:37: Glucometer 105 02/15/19 05:40: White Blood Count 12.0H, Red Blood Count 2.79L, Hemoglobin 8.2L, Hematocrit 26L, Mean Corpuscular Volume 92, Mean Corpuscular Hemoglobin 29, Mean Corpuscular Hemoglobin Concent 32, Red Cell Distribution Width 15.0H, Platelet Count 344, Mean Platelet Volume 8.1, Neutrophils (%) (Auto) 85H, Lymphocytes (%) (Auto) 7L, Monocytes (%) (Auto) 7, Eosinophils (%) (Auto) 1, Basophils (%) (Auto) 0, Neutrophils # (Auto) 10.2H, Lymphocytes # (Auto) 0.9L, Monocytes # (Auto) 0.9, Eosinophils # (Auto) 0.1, Basophils # (Auto) 0.0, Sodium Level 135, Potassium Level 4.6, Chloride Level 100, Carbon Dioxide Level 27, Anion Gap 8, Blood Urea Nitrogen 31H, Creatinine 1.66H, Estimat Glomerular Filtration Rate 30, BUN/Creatinine Ratio 19, Glucose Level 97, Calcium Level 10.2H, Phosphorus Level 3.0, Magnesium Level 2.3 02/15/19 10:55: Glucometer 136H 02/15/19 15:53: Glucometer 159H Microbiology 02/08/19 Blood Culture - Final, Complete No growth 02/08/19 Gram Stain - Final, Complete 02/08/19 Sputum Culture - Final, Complete Usual oral alvino Escherichia coli 02/08/19 Urine Culture - Final, Complete NO GROWTH Laboratory Tests 02/14/19 06:30 02/15/19 05:40 A/P: Assessment: PAF Echo of 02/10/19: LVEF 50-55%, mild to mod MAC, grade 2 diastolic dysfunction, mod to sev TR, RVSP 55 mmHg Recent ROSE (while at [facility] prior to this transfer) Chronic, bilateral leg weakness, managed by Dr Mayen Severe anemia of undetermined etiology, managed by Dr Mayen DM II Htn HL Dementia Plan: * Continue current antihypertensive regimen * Monitor labs from time to time LEIGH SANTOS MD FACP FAC CCDS Feb 15, 2019 17:44 POS
[2019-02-15] MEDS: RT-ADVAIR HFA 115/21 MCG PER PUFF IH SCH ×2 (18:07→18:43)
[2019-02-15] MEDS: VITAMIN D3 1,000 UNITS (CHOLECALCIFEROL) TABLET PO SCH (21:12)
[2019-02-15] MEDS: DONEPEZIL 5 MG (ARICEPT) TAB PO SCH (21:12)
[2019-02-15] MEDS: doxAzosin 2 MG (CARDURA) TAB PO SCH (21:12)
[2019-02-16 06:10] VITALS: BP 146/71
[2019-02-16] MEDS: LEVOTHYROXINE 112 MCG (LEVOTHROID) TAB PO SCH (06:29)
[2019-02-16] MEDS: MULTIVIT W/MINERALS TAB (THERAGRAN M) PO SCH (06:29)
[2019-02-16] MEDS: inSUlin ASPART (NovoLOG) 1 UNIT/0.01 ML (CHARGE PER UNIT) SC SCH ×4 (06:29→21:00)
[2019-02-16] MEDS: CATHETER FLUSH 10 ML SYR IV SCH ×3 (06:29→21:46)
[2019-02-16 06:43] LABS: BASOPHILS % (AUTO) 0 % (0-10); EOSINOPHILS # (AUTO) 0.1 10^3/uL (0.0-0.3); EOSINOPHILS % (AUTO) 1 % (0-10); HEMATOCRIT 25 % (35-52); HEMOGLOBIN 8.3 G/DL (11.5-16.0); LYMPHOCYTES # (AUTO) 0.9 X 10^3 (1.0-4.0); LYMPHOCYTES % (AUTO) 8 % (12-44); MEAN CORPUSCULAR HEMOGLOBIN 30 PG (25-34); MEAN CORPUSCULAR HGB CONC 33 G/DL (32-36); MEAN CORPUSCULAR VOLUME 92 FL (80-99); MEAN PLATELET VOLUME 8.3 FL (7.4-10.4); MONOCYTES # (AUTO) 0.9 X 10^3 (0.0-1.0); MONOCYTES % (AUTO) 7 % (0-12); NEUTROPHILS # (AUTO) 10.2 X 10^3 (1.8-7.8); NEUTROPHILS % (AUTO) 84 % (42-75); PLATELET COUNT 344 10^3/uL (130-400); WHITE BLOOD COUNT 12.1 10^3/uL (4.3-11.0)
[2019-02-16 07:08] LABS: CALCIUM 9.9 MG/DL (8.5-10.1); CREATININE SERUM 1.65 MG/DL (0.60-1.30); MAGNESIUM 2.4 MG/DL (1.6-2.4); PHOSPHORUS 3.1 MG/DL (2.3-4.7); POTASSIUM 4.3 MMOL/L (3.6-5.0)
--- NOTE | 2019-02-16 07:31 | Pulmonary Progress Note ---
Subjective Time Seen by a Provider: 07:31 Subjective/Events-last exam Pt appears to be doing well. Sepsis Event Evaluation Height, Weight, BMI Height: '" Weight: lbs. oz. kg; 34.15 BMI Method: Exam Exam Vital Signs Date Time Temp Pulse Resp B/P (MAP) Pulse Ox O2 Delivery O2 Flow Rate FiO2 02/16/19 06:10 36.6 58 16 146/71 (96) 96 Nasal Cannula 3.00 02/15/19 20:20 Nasal Cannula 2.00 02/15/19 18:45 Nasal Cannula 02/15/19 18:41 100 Nasal Cannula 3.00 02/15/19 16:12 36.5 57 14 137/76 (96) 98 Nasal Cannula 3.00 02/15/19 14:54 94 Nasal Cannula 3.00 02/15/19 09:00 Nasal Cannula 3.00 I & O 02/16/19 07:00 Intake Total 660 ml Balance 660 ml Height & Weight Height: '" Weight: lbs. oz. kg; 34.15 BMI Method: General Appearance: No Apparent Distress, WD/WN, Chronically ill, Obese HEENT: PERRL/EOMI, Normal ENT Inspection, Pharynx Normal Neck: Full Range of Motion, Normal Inspection, Non Tender, Supple, Carotid Bruit Respiratory: Chest Non Tender, Lungs Clear, No Accessory Muscle Use, No Respiratory Distress, Decreased Breath Sounds, Wheezing Cardiovascular: No Edema, No Gallop, No JVD, No Murmur, Normal Peripheral Pulses, Irregularly Irregular Extremity: Normal Capillary Refill, Normal Inspection, Normal Range of Motion, Non Tender, No Calf Tenderness, No Pedal Edema Neurologic/Psychiatric: Alert, Oriented x3, No Motor/Sensory Deficits, drawing in machine tender II- XII Norm as Tested, Depressed Affect Skin: Normal Color, Warm/Dry Lymphatic: No Adenopathy Results Lab Laboratory Tests 02/15/19 05:40 02/16/19 06:30 Assessment/Plan Assessment/Plan Pneumonia - ecoli - Rocephin -Will need f/u imaging pleural effusion -Monitor Renal failure -Monitor COPD -02 -Duonebs Afib anemia HTN ELISEO KAISER DO Feb 16, 2019 07:31 POS
[2019-02-16] MEDS: RT-ALBUTEROL/IPRATROPIUM 3 ML (DUONEB) VIAL INH SCH ×4 (07:33→19:58)
[2019-02-16] MEDS: RT-ADVAIR HFA 115/21 MCG PER PUFF IH SCH ×2 (07:33→19:59)
--- NOTE | 2019-02-16 10:06 | Physical Therapy Daily Note ---
PT Daily Note-Current Subjective Pt agreeable to PT session, states "I'm getting a little better every day" Pain Numeric Pain Scale: 9 Location: Posterior, Lower Location Body Site: Back Comment: "in the small of my back, it's on fire" "brace makes it worse" Appearance Pt sitting up in w/c upon arrival, eyes closed but awake. At end of session, pt supine in bed with HOB elevated, call light, phone, bedside table within reach Mental Status Patient Orientation: Person, Place, Time, Eyes Open, Situation Attachments: Saline Lock, Oxygen (3 L) Transfers SCALE: Activities may be completed with or without assistive devices. 6-Qtrwbwdwdm-fexsdcb completes the activity by him/herself with no assistance from a helper. 5-Set-up or Clean-up Assistance-helper sets up or cleans up; patient completes activity. [place] assists only prior to or following the activity. 4-Supervision or Touching Assistance-helper provides verbal cues and/or touching/steadying and/or contact guard assistance as patient completes activity. Assistance may be provided throughout the activity or intermittently. 3-Partial/Moderate Assistance-helper does LESS THAN HALF the effort. [place] lifts, holds or supports trunk or limbs, but provides less than half the effort. 2-Substantial/Maximal Assistance-helper does MORE THAN HALF the effort. [place] lifts or holds trunk or limbs and provides more than half the effort. 1-Cjviuirfj-osekuh does ALL the effort. Patient does none of the effort to complete the activity. Or, the assistance of 2 or more helpers is required for the patient to complete the activity. If activity was not attempted, code reason: 7-Patient Refused. 9-Not Applicable-not attempted and the patient did not perform the activity before the current illness, exacerbation or injury. 10-Not Attempted due to Environmental Limitations-(lack of equipment, weather restraints, etc.). 88-Not Attempted due to Medical Conditions or Safety Concerns. Roll Left & Right (QC): 3 Sit to Lying (QC): 3 Sit to Stand (QC): 2 Chair/Ilt-rn-Lxzmo Xfer(QC): 2 pivot transfer pt with difficulty pushing up to stand and controlling descent Weight Bearing TLSO when out of bed. Wheelchair Training Does the Pt Use a Wheelchair?: Yes (110 x2) Wheel 50 ft with 2 turns (QC): 4 110 ft x2, x3 brief rest breaks during 1st distance, no stopping rest breaks during 2nd distance Exercises Supine Ex: Ankle pumps (50), Quad Set (20), Glut sets (20), Heel Slides (20), Short Arc Quads (15), Straight leg raise (15 minimal lift), Hip abd/add (10) Standing: Sit to Stand (in // bars x3, 30" static stance x2, 40" x1, 1 A in front of pt x2 with pivot transfers) Treatments education, safety, transfers, bed mobility, activity tolerance, balance, functional mobility Assessment Current Status: Good Progress PT Short Term Goals Short Term Goals Time Frame: Feb 22, 2019 Roll Left & Right: 3 Sit to lyin Lying to sitting on side of be: 3 Sit to stand: 3 Chair/pxq-jn-vdkwb transfer: 3 Toilet transfer: 3 Car transfer: 3 Walk 10 feet: 3 Walk 50 feet with two turns: 3 PT C S S Representative Goals C S S Representative Goals PT Half-Way Goals Time Frame: Mar 08, 2019 Roll Left & Right (QC): 6 Sit to Lying (QC): 6 Lying-Sitting on Side/Bed(QC): 6 Sit to Stand (QC): 6 Chair/Vgj-ex-Pgovh Xfer(QC): 6 Toilet Transfer (QC): 6 Car Transfer (QC): 5 Does the Patient Walk: No and Walking Goal IS indicated Walk 10 feet (QC): 6 Walk 50ft with 2 Turns (QC): 6 Walk 150 ft (QC): 6 Walking 10ft on Uneven Surface: 4 1 Step (curb) (QC): 4 4 Steps (QC): 4 12 Steps (QC): 9 Picking up an Object (QC): 9 Does the Pt use WC or Scooter?: Yes Wheel 50 feet with 2 turns (QC: 5 Type: Manual Wheel 150 feet: 5 Type: Manual PT Plan Treatment/Plan Treatment Plan: Continue Plan of Care Treatment Plan: Bed Mobility, Education, Functional Activity Fidel, Functional Strength, Group Therapy, Gait, Safety, Therapeutic Exercise, Transfers Treatment Duration: Mar 08, 2019 Frequency: At least 5 of 7 days/Wk (IRF) Estimated Hrs Per Day: 1.5 hours per day Patient and/or Family Agrees t: Yes Safety Risks/Education Patient Education: Transfer Techniques, Reviewed Precautions, Correct Positioning, W/C Management, Reviewed Don/Doff Brace, Safety Issues Teaching Recipient: Patient Teaching Methods: Demonstration, Discussion Response to Teaching: Verbalize Understanding, Return Demonstration, Reinf orcement Needed Time/GCodes Time In: 1000 Time Out: 1100 Total Billed Treatment Time: 60 Total Billed Treatment 1 visit, EX x10, FA x35, WCH x15 LISBET BARCENAS PTA Feb 16, 2019 10:05 POS
--- NOTE | 2019-02-16 10:33 | Occupational Ther Daily Note ---
OT Current Status-Daily Note Subjective Pt in bed, agrees to therapy. Pt reports back pain, but does not rate. Mental Status/Objective Attachments: Oxygen ADL-Treatment Pt supine to sit with assist for upper body. Pt requests to use BSC. Assist to don TLSO. Pt sit to stand with max assist. SPT, Able to take small steps to BSC. Pt requires assist for toileting hygiene and clothing management. Transfer to w/c with assist x2 for safety. Sponge bath completed while seated in w/c. Pt bathed upper body with SBA. Pt able to wash bilateral upper legs; uses long handled sponge to wash lower legs. Assist required for buttocks. Pt donned pullover dress with min assist to pull down in back. Total assist to doff/don TLSO. Educated pt on use of AE for LE dressing. Pt doffed socks with min assist using dressing stick. Donned socks with min assist using sock aid. Pt used software specialist to thread bilateral LE into Depends. Assist x2 to stand and pull Depends up over hips. Pt completed grooming tasks while seated at sink. Pt completed oral care and combed hair with set up. Pt requests to remain seated after session. Sitting in w/c with needs met. Therapy Code Descriptions/Definitions Functional [place] Measure: 0=Not Assessed/NA 4=Minimal Assistance 1=Total Assistance 5=Supervision or Setup 2=Maximal Assistance 6=Modified [place] 3=Moderate Assistance 7=Complete IndependenceSCALE: Activities may be completed with or without assistive devices. 7-Riqrvmkevh-clacfgg completes the activity by him/herself with no assistance from a helper. 5-Set-up or Clean-up Assistance-helper sets up or cleans up; patient completes activity. [place] assists only prior to or following the activity. 4-Supervision or Touching Assistance-helper provides verbal cues and/or touching/steadying and/or contact guard assistance as patient completes activity. Assistance may be provided throughout the activity or intermittently. 3-Partial/Moderate Assistance-helper does LESS THAN HALF the effort. [place] lifts, holds or supports trunk or limbs, but provides less than half the effort. 2-Substantial/Maximal Assistance-helper does MORE THAN HALF the effort. [place] lifts or holds trunk or limbs and provides more than half the effort. 0-Ysitzrycj-lmgzhp does ALL the effort. Patient does none of the effort to complete the activity. Or, the assistance of 2 or more helpers is required for the patient to complete the activity. If activity was not attempted, code reason: 7-Patient Refused. 9-Not Applicable-not attempted and the patient did not perform the activity before the current illness, exacerbation or injury. 10-Not Attempted due to Environmental Limitations-(lack of equipment, weather restraints, etc.). 88-Not Attempted due to Medical Conditions or Safety Concerns. Oral Hygiene (QC): 5 Shower/Bathe Self (QC): 3 Upper Body Dressing (QC): 3 Lower Body Dressing (QC): 1 Toileting Hygiene (QC): 1 Toilet Transfer (QC): 2 Education OT Patient Education: Modified ADL techniques Teaching Recipient: Patient Teaching Methods: Demonstration, Discussion Response to Teaching: Return Demonstration, Reinforcement Needed OT Short Term Goals Short Term Goals Time Frame: Feb 22, 2019 Toileting hygiene: 3 Shower/bathe self: 3 Upper body dressin Lower body dressin OT Lead Javascript Engineer Goals Lead Javascript Engineer Goals Time Frame: Mar 08, 2019 Eating (QC): 6 Oral Hygiene (QC): 6 Toileting Hygiene (QC): 6 Shower/Bathe Self (QC): 5 Upper Body Dressing (QC): 5 Lower Body Dressing (QC): 5 On/Off Footwear (QC): 5 Additional Goals: 1-Demonstrate ADL Tasks, 2-Verbalize Understanding, 3- ImproveStrength/Fidel 1=Demonstrate adherence to instructed precautions during ADL tasks. 2=Patient will verbalize/demonstrate understanding of assistive devices/modifications for ADL. 3=Patient will improve strength/tolerance for activity to enable patient to perform ADL's. OT Education/Plan Discharge Recommendations Plan/Recommendations: Continue POC Treatment Plan/Plan of Care Patient would benefit from OT for education, treatment and training to promote independence in ADL's, mobility, safety and/or upper extremity function for ADL's. Plan of Care: ADL Retraining, Functional Mobility, Group Exercise/Act as Ind, UE Funct Exercise/Act Treatment Duration: Mar 08, 2019 Frequency: At least 5 of 7 days/Wk (IRF) Estimated Hrs Per Day: 1.5 hours per day Rehab Potential: Fair Time/GCodes Start Time: 09:00 Stop Time: 10:00 Total Time Billed (hr/min): 60 Billed Treatment Time 1 visit, ADLx4(60minutes) ORACIO MUHAMMAD OT Feb 16, 2019 10:33 POS
[2019-02-16] MEDS: POLYETHYLENE GLYCOL 17 GM (MIRALAX) PACK PO SCH ×4 (10:57→21:33)
[2019-02-16] MEDS: meTOprolol TARTRATE 50 MG (LOPRESSOR) TAB PO SCH ×2 (11:27→21:27)
[2019-02-16] MEDS: amLODIPine 10 MG (NORVASC) TAB PO SCH (11:27)
[2019-02-16] MEDS: DOCUSATE SODIUM 100 MG (COLACE) CAP PO SCH ×2 (11:27→21:28)
[2019-02-16] MEDS: GLIMEPIRIDE 2 MG (AMARYL) TAB PO SCH (11:27)
--- NOTE | 2019-02-16 11:49 | Progress Note - Cardiology ---
Cardiology SOAP Progress Note Subjective: No cp or palp or syncope Still has gen weakness, jesus bilat leg weakness Objective: I&O/Vital Signs 02/16/19 02/16/19 02/16/19 02/16/19 06:10 07:34 07:39 11:14 Temp 36.6 Pulse 58 Resp 16 B/P (MAP) 146/71 (96) Pulse Ox 96 90 93 O2 Delivery Nasal Cannula Nasal Cannula Nasal Cannula Nasal Cannula O2 Flow Rate 3.00 3.00 3.00 02/16/19 00:00 Intake Total 510 ml Balance 510 ml Constitutional: AAO x 3, well-developed, well-nourished, other Respiratory: No accessory muscle use; other (fair to good bilat air entry; diminished at the bases) Cardiovascular: regular rate-rhythm, S1 and S2, systolic murmur (1-2/6 KRISTAN at card base) Gastrointestional: No tender; soft; No guarding, No rebound; audible bowel sounds Extremities: No clubbing, No cyanosis, No significant edema Neurologic/Psychiatric: oriented x 3, other (seems to move all limbs equally) Skin: No rash on exposed areas, No ulcerations on exposed areas Results/Procedures: Labs Laboratory Tests 02/15/19 15:53: Glucometer 159H 02/15/19 20:59: Glucometer 181H 02/16/19 05:39: Glucometer 88 02/16/19 06:30: White Blood Count 12.1H, Red Blood Count 2.76L, Hemoglobin 8.3L, Hematocrit 25L, Mean Corpuscular Volume 92, Mean Corpuscular Hemoglobin 30, Mean Corpuscular Hemoglobin Concent 33, Red Cell Distribution Width 15.0H, Platelet Count 344, Mean Platelet Volume 8.3, Neutrophils (%) (Auto) 84H, Lymphocytes (%) (Auto) 8L, Monocytes (%) (Auto) 7, Eosinophils (%) (Auto) 1, Basophils (%) (Auto) 0, Neutrophils # (Auto) 10.2H, Lymphocytes # (Auto) 0.9L, Monocytes # (Auto) 0.9, Eosinophils # (Auto) 0.1, Basophils # (Auto) 0.0, Sodium Level 135, Potassium Level 4.3, Chloride Level 101, Carbon Dioxide Level 27, Anion Gap 7, Blood Urea Nitrogen 29H, Creatinine 1.65H, Estimat Glomerular Filtration Rate 30, BUN/Creatinine Ratio 18, Glucose Level 77, Calcium Level 9.9, Phosphorus Level 3.1, Magnesium Level 2.4 02/16/19 11:03: Glucometer 132H Microbiology 02/08/19 Blood Culture - Final, Complete No growth 02/08/19 Gram Stain - Final, Complete 02/08/19 Sputum Culture - Final, Complete Usual oral alvino Escherichia coli 02/08/19 Urine Culture - Final, Complete NO GROWTH Laboratory Tests 02/15/19 05:40 02/16/19 06:30 A/P: Assessment: PAF Echo of 02/10/19: LVEF 50-55%, mild to mod MAC, grade 2 diastolic dysfunction, mod to sev TR, RVSP 55 mmHg Recent ROSE (while at [facility] prior to this transfer) Chronic, bilateral leg weakness, managed by Dr Mayen Severe anemia of undetermined etiology, managed by Dr Mayen DM II Htn HL Dementia Plan: * Continue current antihypertensive regimen * Monitor labs from time to time * Dr Redmond covering Card svce over the weekend LEIGH SANTOS MD FACP FAC CCDS Feb 16, 2019 11:49 POS
--- NOTE | 2019-02-16 13:04 | PM&R Progress Note ---
Subjective HPI/CC On Admission Date Seen by Provider: Feb 16, 2019 Time Seen by Provider: 10:00 Subjective/Events-last exam Bowel movement two days ago Incision looks look Will reach out ot neurosurgery because her right leg is numb and becoming more numb ever since the surgery Conferred with RN Reviewed therapy notes Checked meds and labs Review of Systems Gastrointestinal: Constipation Neurological: Weakness, Numbness, Incoordination Objective Exam Vital Signs Vital Signs Date Time Temp Pulse Resp B/P (MAP) Pulse Ox O2 Delivery O2 Flow Rate FiO2 02/17/19 09:37 98 Nasal Cannula 3.00 02/17/19 05:54 36.6 71 20 151/73 (99) Capillary Refill : Less Than 3 Seconds General Appearance: No Apparent Distress, WD/WN, Chronically ill, Obese HEENT: PERRL/EOMI, Normal ENT Inspection, Pharynx Normal Neck: Full Range of Motion, Normal Inspection, Non Tender, Supple, Carotid Bruit Respiratory: Chest Non Tender, Lungs Clear, No Accessory Muscle Use, No Respiratory Distress, Decreased Breath Sounds, Wheezing Cardiovascular: No Edema, No Gallop, No JVD, No Murmur, Normal Peripheral Pulses, Irregularly Irregular Gastrointestinal: Normal Bowel Sounds, No Organomegaly, No Pulsatile Mass, Non Tender, Soft Back: Decreased Range of Motion, Muscle Spasm, Vertebral Tenderness, Other (wound VAC in place) Extremity: Normal Capillary Refill, Normal Inspection, Normal Range of Motion, Non Tender, No Calf Tenderness, No Pedal Edema Neurologic/Psychiatric: Alert, Oriented x3, No Motor/Sensory Deficits, pea viner mechanic II- XII Norm as Tested, Depressed Affect Skin: Normal Color, Warm/Dry Lymphatic: No Adenopathy Results/Procedures Lab Laboratory Tests 02/17/19 05:50 Patient resulted labs reviewed. FIM Transfers Therapy Code Descriptions/Definitions Functional [place] Measure: 0=Not Assessed/NA 4=Minimal Assistance 1=Total Assistance 5=Supervision or Setup 2=Maximal Assistance 6=Modified [place] 3=Moderate Assistance 7=Complete IndependenceSCALE: Activities may be completed with or without assistive devices. 3-Ywiaxfancp-lzfcnmn completes the activity by him/herself with no assistance from a helper. 5-Set-up or Clean-up Assistance-helper sets up or cleans up; patient completes activity. [place] assists only prior to or following the activity. 4-Supervision or Touching Assistance-helper provides verbal cues and/or touching/steadying and/or contact guard assistance as patient completes activity. Assistance may be provided throughout the activity or intermittently. 3-Partial/Moderate Assistance-helper does LESS THAN HALF the effort. [place] lifts, holds or supports trunk or limbs, but provides less than half the effort. 2-Substantial/Maximal Assistance-helper does MORE THAN HALF the effort. [place] lifts or holds trunk or limbs and provides more than half the effort. 9-Fkdwqlhls-pjcqce does ALL the effort. Patient does none of the effort to complete the activity. Or, the assistance of 2 or more helpers is required for the patient to complete the activity. If activity was not attempted, code reason: 7-Patient Refused. 9-Not Applicable-not attempted and the patient did not perform the activity before the current illness, exacerbation or injury. 10-Not Attempted due to Environmental Limitations-(lack of equipment, weather restraints, etc.). 88-Not Attempted due to Medical Conditions or Safety Concerns. Roll Left to Right (QC): 3 Sit to Lying (QC): 3 Sit to Stand (QC): 2 Chair/Lra-ze-Pcbrl Xfer(QC): 2 Car Transfer (QC): 88 Gait Training Does the Patient Walk?: No and Walking Goal IS indicated Walk 10 feet (QC): 88 Walk 50 ft with 2 Turns(QC): 88 Walk 150 ft (QC): 88 Walking 10ft/uneven surface-QC: 88 Gait Assistive Device: FWW Wheelchair Training Does the Pt Use a Wheelchair?: Yes (110 x2) Wheel 50 ft with 2 turns (QC): 4 Wheel 150 ft (QC): 1 Type of Wheelchair: Manual Stair Training 1 Step (curb) (QC): 88 4 Steps (QC): 88 12 Steps (QC): 88 Balance Picking up an Object (QC): 88 ADL-Treatment Eating (QC): 6 Oral Hygiene (QC): 5 Shower/Bathe Self (QC): 3 Upper Body Dressing (QC): 3 Lower Body Dressing (QC): 1 On/Off Footwear (QC): 1 (Pt will require instruction in use of AE for socks secondary to back precautions.) Toileting Hygiene (QC): 1 Toilet Transfer (QC): 2 Assessment/Plan Assessment and Plan Assess & Plan/Chief Complaint Assessment: Thoracic vertebral fracture s/p repair Multilobar pneumonia placed on Vanc and Cefepime per Dr Garcia Severe COPD O2 dependence Recent intubation after thoracic vertebral fracture surgery Right pleural effusion CRI Chronic on acute debility HTN Chronic AF OAC Plan: Abx Monitor closely due to resp status O2 Nebs IRF protocol DC wound vac and incision looks good Confusion? Needs NH at DC? Patient requires aggressive medical treatment due to severity of her lung disease Elaine to neurosurgery at [facility] regarding right leg numbness (1) Fracture of lamina of thoracic vertebra (2) Multifocal pneumonia (3) Hypothyroidism (4) Diabetes mellitus (5) Chronic renal insufficiency, stage III (moderate) (6) Anemia of renal disease (7) Chronic constipation (8) Back pain (9) Dependence on supplemental oxygen (10) COPD (chronic obstructive pulmonary disease) (11) Hypertension (12) Hyperlipidemia (13) Wheezing (14) Depression (15) Angina at rest (16) Atrial fibrillation (17) On continuous oral anticoagulation (18) History of respiratory failure (19) Cough MAUDE HINOJOSA DO Feb 16, 2019 13:04 POS
[2019-02-16] MEDS: HYDROcodone/APAP 5 MG/325 MG (LORTAB) TAB PO PRN (13:27)
[2019-02-16] MEDS: cefTRIAXone FOR IV USE 1,000 MG in WATER (STERILE) FOR INJECTION 10 ML IV SCH (14:28)
--- NOTE | 2019-02-16 15:00 | Therapy Group Daily Note ---
Therapy Daily Group Note Patient Education Topic Other List Below (handwashing,ARU description/expectations) Exercises LE Seated Exercise, UE Exercise Session Ratio (pt:therapist): 4:1 Goal of Session: Education on ARU Expectations, UE/LE Strengthing Goal Met for this Session: Yes Pt Benefit of Group: Contributions to Others, Increased Functional Strength, Improved Cognition, Recognition of Peers, Socialization Other/Notes Pt propelled w/c to OT/PT group. Group consisted of introductions (name, place living, favorite Shana candy), socialization, UE/LE seated exercise activity, memory activity, educational topics over handwashing and ARU description/expectations. Pt introduced self appropriately and actively listened to peers. Pt acknowledged understanding of educational topics by verbalizing own opinions and beginning discussions during group over topics. Pt then was able to grasp and hold onto agtes bag to throw to designated area with 40% or more accuracy. After therapy, pt lying in bed with call light/phone in reach. All needs met in room. Start Time: 13:00 Stop Time: 14:15 Total Billed Treatment Time: 75 Total Billed Treatment 1-GRP NIKKY WEN Feb 16, 2019 14:59 POS
[2019-02-16 16:18] VITALS: BP 134/78
[2019-02-16] MEDS: RIVAROXABAN 15 MG TABLET (XARELTO) PO SCH (18:46)
--- NOTE | 2019-02-16 19:10 | NUR ---
bedside report received from CHONG DEMPSEY, assume care of pt
[2019-02-16] MEDS: DONEPEZIL 5 MG (ARICEPT) TAB PO SCH ×2 (21:00→21:28)
[2019-02-16 21:22] VITALS: BP 145/77
--- NOTE | 2019-02-16 21:22 | NUR ---
fsbs 163, v/s [id number]%-145/77, refused position change states I turn myself from side to side but refused re positioning at this time
[2019-02-16] MEDS: doxAzosin 2 MG (CARDURA) TAB PO SCH (21:28)
[2019-02-16] MEDS: VITAMIN D3 1,000 UNITS (CHOLECALCIFEROL) TABLET PO SCH (21:29)
[2019-02-17] MEDS: HYDROcodone/APAP 5 MG/325 MG (LORTAB) TAB PO PRN ×2 (02:30→10:41)
--- NOTE | 2019-02-17 02:32 | NUR ---
c/o back pain level 10/10 on numeric scale Lortab 5 1 tab given
--- NOTE | 2019-02-17 03:15 | NUR ---
rates pain 4/10 on numeric scale
[2019-02-17] MEDS: CATHETER FLUSH 10 ML SYR IV SCH ×3 (05:50→21:03)
[2019-02-17 05:54] VITALS: BP 151/73
[2019-02-17 05:59] LABS: BASOPHILS % (AUTO) 0 % (0-10); EOSINOPHILS # (AUTO) 0.1 10^3/uL (0.0-0.3); EOSINOPHILS % (AUTO) 1 % (0-10); HEMATOCRIT 24 % (35-52); HEMOGLOBIN 7.5 G/DL (11.5-16.0); LYMPHOCYTES # (AUTO) 0.8 X 10^3 (1.0-4.0); LYMPHOCYTES % (AUTO) 6 % (12-44); MEAN CORPUSCULAR HEMOGLOBIN 29 PG (25-34); MEAN CORPUSCULAR HGB CONC 32 G/DL (32-36); MEAN CORPUSCULAR VOLUME 91 FL (80-99); MEAN PLATELET VOLUME 8.3 FL (7.4-10.4); MONOCYTES # (AUTO) 0.8 X 10^3 (0.0-1.0); MONOCYTES % (AUTO) 6 % (0-12); NEUTROPHILS # (AUTO) 10.7 X 10^3 (1.8-7.8); NEUTROPHILS % (AUTO) 87 % (42-75); PLATELET COUNT 333 10^3/uL (130-400); RED CELL DISTRIBUTION WIDTH 15.2 % (10.0-14.5); WHITE BLOOD COUNT 12.3 10^3/uL (4.3-11.0)
[2019-02-17] MEDS: inSUlin ASPART (NovoLOG) 1 UNIT/0.01 ML (CHARGE PER UNIT) SC SCH ×4 (06:00→21:00)
[2019-02-17 06:21] LABS: CALCIUM 9.6 MG/DL (8.5-10.1); CREATININE SERUM 1.69 MG/DL (0.60-1.30); MAGNESIUM 2.4 MG/DL (1.6-2.4); PHOSPHORUS 3.3 MG/DL (2.3-4.7); POTASSIUM 4.4 MMOL/L (3.6-5.0)
[2019-02-17] MEDS: MULTIVIT W/MINERALS TAB (THERAGRAN M) PO SCH (07:01)
[2019-02-17] MEDS: LEVOTHYROXINE 112 MCG (LEVOTHROID) TAB PO SCH (07:02)
--- NOTE | 2019-02-17 07:21 | NUR ---
bedside report given to LAVELLE DEMPSEY
[2019-02-17] MEDS: RT-ALBUTEROL/IPRATROPIUM 3 ML (DUONEB) VIAL INH SCH ×3 (09:31→20:01)
[2019-02-17] MEDS: RT-ADVAIR HFA 115/21 MCG PER PUFF IH SCH ×2 (09:32→20:01)
[2019-02-17] MEDS: amLODIPine 10 MG (NORVASC) TAB PO SCH (10:28)
[2019-02-17] MEDS: GLIMEPIRIDE 2 MG (AMARYL) TAB PO SCH (10:28)
[2019-02-17] MEDS: meTOprolol TARTRATE 50 MG (LOPRESSOR) TAB PO SCH ×2 (10:28→22:19)
[2019-02-17] MEDS: DOCUSATE SODIUM 100 MG (COLACE) CAP PO SCH ×2 (10:28→22:18)
[2019-02-17] MEDS: POLYETHYLENE GLYCOL 17 GM (MIRALAX) PACK PO SCH ×4 (10:44→22:26)
--- NOTE | 2019-02-17 10:56 | Physical Therapy Daily Note ---
PT Daily Note-Current Subjective Pt agreeable to PT session. States she sat up in chair all morning and just got to bed, nsg confirmed. Pain Numeric Pain Scale: 9 Comment: "small of my back", states just received pain med Appearance Pt R sidelying in bed upon arrival. Pt in bed at end of session, call light, phone and bedside table within reach Mental Status Patient Orientation: Person, Place, Time, Situation Attachments: Oxygen (3 L) Transfers SCALE: Activities may be completed with or without assistive devices. 1-Mkzuboybqv-aorguxv completes the activity by him/herself with no assistance from a helper. 5-Set-up or Clean-up Assistance-helper sets up or cleans up; patient completes activity. [place] assists only prior to or following the activity. 4-Supervision or Touching Assistance-helper provides verbal cues and/or touching/steadying and/or contact guard assistance as patient completes activity. Assistance may be provided throughout the activity or intermittently. 3-Partial/Moderate Assistance-helper does LESS THAN HALF the effort. [place] lifts, holds or supports trunk or limbs, but provides less than half the effort. 2-Substantial/Maximal Assistance-helper does MORE THAN HALF the effort. [place] lifts or holds trunk or limbs and provides more than half the effort. 9-Ctplnpdbe-ejgxpf does ALL the effort. Patient does none of the effort to complete the activity. Or, the assistance of 2 or more helpers is required for the patient to complete the activity. If activity was not attempted, code reason: 7-Patient Refused. 9-Not Applicable-not attempted and the patient did not perform the activity before the current illness, exacerbation or injury. 10-Not Attempted due to Environmental Limitations-(lack of equipment, weather restraints, etc.). 88-Not Attempted due to Medical Conditions or Safety Concerns. Roll Left & Right (QC): 3 (min A to scoot hips over, use of bedrail) Weight Bearing TLSO when out of bed. Exercises Supine Ex: Ankle pumps (20), Rolling, Heel Slides (20), Straight leg raise (20), Hip abd/add (20) Treatments education, safety, strength Assessment Current Status: Good Progress per nsg, pt is now standing and transferring with them PT Short Term Goals Short Term Goals Time Frame: Feb 22, 2019 Roll Left & Right: 3 Sit to lyin Lying to sitting on side of be: 3 Sit to stand: 3 Chair/ofj-bu-qcnob transfer: 3 Toilet transfer: 3 Car transfer: 3 Walk 10 feet: 3 Walk 50 feet with two turns: 3 PT Mva Still Operator Goals Half-Way Goals PT Half-Way Goals Time Frame: Mar 08, 2019 Roll Left & Right (QC): 6 Sit to Lying (QC): 6 Lying-Sitting on Side/Bed(QC): 6 Sit to Stand (QC): 6 Chair/Utu-nk-Nseko Xfer(QC): 6 Toilet Transfer (QC): 6 Car Transfer (QC): 5 Does the Patient Walk: No and Walking Goal IS indicated Walk 10 feet (QC): 6 Walk 50ft with 2 Turns (QC): 6 Walk 150 ft (QC): 6 Walking 10ft on Uneven Surface: 4 1 Step (curb) (QC): 4 4 Steps (QC): 4 12 Steps (QC): 9 Picking up an Object (QC): 9 Does the Pt use WC or Scooter?: Yes Wheel 50 feet with 2 turns (QC: 5 Type: Manual Wheel 150 feet: 5 Type: Manual PT Plan Treatment/Plan Treatment Plan: Continue Plan of Care Treatment Plan: Bed Mobility, Education, Functional Activity Fidel, Functional Strength, Group Therapy, Gait, Safety, Therapeutic Exercise, Transfers Treatment Duration: Mar 08, 2019 Frequency: At least 5 of 7 days/Wk (IRF) Estimated Hrs Per Day: 1.5 hours per day Patient and/or Family Agrees t: Yes Safety Risks/Education Patient Education: Correct Positioning, Safety Issues Teaching Methods: Discussion Response to Teaching: Verbalize Understanding, Return Demonstration Time/GCodes Time In: 1045 Time Out: 1104 Total Billed Treatment Time: 19 Total Billed Treatment 1 visit, EX x19 min LISBET BARCENAS SLIP FILLER Feb 17, 2019 10:56 POS
--- NOTE | 2019-02-17 12:16 | PM&R Progress Note ---
Subjective HPI/CC On Admission Date Seen by Provider: Feb 17, 2019 Time Seen by Provider: 10:00 Subjective/Events-last exam Neurosurgery will be contacted Tuesday regarding the right leg numbness Narcotic bowel at high risk so we will maintain aggressive regimen Labs reveal white count of 12,000 Hemoglobin is 7.5 so we will start iron infusions Conferred with RN Reviewed therapy notes Checked meds and labs Review of Systems General: Fatigue, Malaise Gastrointestinal: Constipation Musculoskeletal: back pain Objective Exam Vital Signs Vital Signs Date Time Temp Pulse Resp B/P (MAP) Pulse Ox O2 Delivery O2 Flow Rate FiO2 02/18/19 17:32 36.8 74 18 147/63 (91) 94 Nasal Cannula 3.00 Capillary Refill : Less Than 3 Seconds General Appearance: No Apparent Distress, WD/WN, Chronically ill, Obese HEENT: PERRL/EOMI, Normal ENT Inspection, Pharynx Normal Neck: Full Range of Motion, Normal Inspection, Non Tender, Supple, Carotid Bruit Respiratory: Chest Non Tender, Lungs Clear, Normal Breath Sounds, No Accessory Muscle Use, No Respiratory Distress Cardiovascular: No Edema, No Gallop, No JVD, No Murmur, Normal Peripheral Pulses, Irregularly Irregular Gastrointestinal: Normal Bowel Sounds, No Organomegaly, No Pulsatile Mass, Non Tender, Soft Back: Decreased Range of Motion, Muscle Spasm, Vertebral Tenderness, Other (wound VAC in place) Extremity: Normal Capillary Refill, Normal Inspection, Normal Range of Motion, Non Tender, No Calf Tenderness, No Pedal Edema Neurologic/Psychiatric: Alert, Oriented x3, No Motor/Sensory Deficits, 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 FIM Transfers Therapy Code Descriptions/Definitions Functional [place] Measure: 0=Not Assessed/NA 4=Minimal Assistance 1=Total Assistance 5=Supervision or Setup 2=Maximal Assistance 6=Modified [place] 3=Moderate Assistance 7=Complete IndependenceSCALE: Activities may be completed with or without assistive devices. 9-Wcbdyzdrvh-issvkax completes the activity by him/herself with no assistance from a helper. 5-Set-up or Clean-up Assistance-helper sets up or cleans up; patient completes activity. [place] assists only prior to or following the activity. 4-Supervision or Touching Assistance-helper provides verbal cues and/or touching/steadying and/or contact guard assistance as patient completes activity. Assistance may be provided throughout the activity or intermittently. 3-Partial/Moderate Assistance-helper does LESS THAN HALF the effort. [place] lifts, holds or supports trunk or limbs, but provides less than half the effort. 2-Substantial/Maximal Assistance-helper does MORE THAN HALF the effort. [place] l ifts or holds trunk or limbs and provides more than half the effort. 6-Xsmgtpbkx-ynjyun does ALL the effort. Patient does none of the effort to complete the activity. Or, the assistance of 2 or more helpers is required for the patient to complete the activity. If activity was not attempted, code reason: 7-Patient Refused. 9-Not Applicable-not attempted and the patient did not perform the activity before the current illness, exacerbation or injury. 10-Not Attempted due to Environmental Limitations-(lack of equipment, weather restraints, etc.). 88-Not Attempted due to Medical Conditions or Safety Concerns. Roll Left to Right (QC): 3 (min A to scoot hips over, use of bedrail) Sit to Lying (QC): 3 Sit to Stand (QC): 2 Chair/Hyw-ki-Yweps Xfer(QC): 2 Car Transfer (QC): 88 Gait Training Does the Patient Walk?: No and Walking Goal IS indicated Walk 10 feet (QC): 88 Walk 50 ft with 2 Turns(QC): 88 Walk 150 ft (QC): 88 Walking 10ft/uneven surface-QC: 88 Gait Assistive Device: FWW Wheelchair Training Does the Pt Use a Wheelchair?: Yes (110 x2) Wheel 50 ft with 2 turns (QC): 4 Wheel 150 ft (QC): 1 Type of Wheelchair: Manual Stair Training 1 Step (curb) (QC): 88 4 Steps (QC): 88 12 Steps (QC): 88 Balance Picking up an Object (QC): 88 ADL-Treatment Eating (QC): 6 Oral Hygiene (QC): 5 Shower/Bathe Self (QC): 3 Upper Body Dressing (QC): 3 Lower Body Dressing (QC): 1 On/Off Footwear (QC): 1 (Pt will require instruction in use of AE for socks secondary to back precautions.) Toileting Hygiene (QC): 1 Toilet Transfer (QC): 2 Assessment/Plan Assessment and Plan Assess & Plan/Chief Complaint Assessment: Thoracic vertebral fracture s/p repair s/p Multilobar pneumonia placed on Vanc and Cefepime per Dr Garcia and completed treatment Severe COPD O2 dependence Recent intubation after thoracic vertebral fracture surgery Right pleural effusion CRI Chronic on acute debility HTN Chronic AF OAC Right leg radiculopathy? Plan: Abx Monitor closely due to resp status O2 Nebs IRF protocol DC wound vac and incision looks good Confusion? Needs NH at DC? Patient requires aggressive medical treatment due to severity of her lung disease Elaine to neurosurgery at [facility] regarding right leg numbness (1) Fracture of lamina of thoracic vertebra (2) Multifocal pneumonia (3) Hypothyroidism (4) Diabetes mellitus (5) Chronic renal insufficiency, stage III (moderate) (6) Anemia of renal disease (7) Chronic constipation (8) Back pain (9) Dependence on supplemental oxygen (10) COPD (chronic obstructive pulmonary disease) (11) Hypertension (12) Hyperlipidemia (13) Wheezing (14) Depression (15) Angina at rest (16) Atrial fibrillation (17) On continuous oral anticoagulation (18) History of respiratory failure (19) Cough MAUDE HINOJOSA DO Feb 17, 2019 12:16 POS
[2019-02-17 16:30] VITALS: BP 162/79
[2019-02-17] MEDS: RIVAROXABAN 15 MG TABLET (XARELTO) PO SCH (16:50)
[2019-02-17] MEDS: IRON SUCROSE 200 MG/10 ML (VENOFER) VIAL IV SCH (16:51)
--- NOTE | 2019-02-17 19:14 | NUR ---
bedside report received from NALLELY DEMPSEY, assume care of pt
[2019-02-17] MEDS: ONDANSETRON 4 MG/2 ML (SDV) Z0FRAN IV PRN (21:02)
--- NOTE | 2019-02-17 21:03 | NUR ---
c/o nausea Zofran 4mg given, advised would hold evening meds until can tolerate them, pt agreed
--- NOTE | 2019-02-17 22:15 | NUR ---
states feel better, took evening meds, v/s 89-137/78, up to commode with 2 person assist
[2019-02-17] MEDS: doxAzosin 2 MG (CARDURA) TAB PO SCH (22:19)
[2019-02-17] MEDS: VITAMIN D3 1,000 UNITS (CHOLECALCIFEROL) TABLET PO SCH (22:19)
--- NOTE | 2019-02-18 02:40 | NUR ---
c/o back pain level 10/10 on numeric scale, oxyir 15mg given
--- NOTE | 2019-02-18 03:15 | NUR ---
resting quietly in bed, pain level 0/10 on flacc scale
[2019-02-18 05:22] LABS: BASOPHILS % (AUTO) 0 % (0-10); EOSINOPHILS # (AUTO) 0.1 10^3/uL (0.0-0.3); EOSINOPHILS % (AUTO) 1 % (0-10); HEMATOCRIT 25 % (35-52); HEMOGLOBIN 7.9 G/DL (11.5-16.0); LYMPHOCYTES # (AUTO) 0.6 X 10^3 (1.0-4.0); LYMPHOCYTES % (AUTO) 4 % (12-44); MEAN CORPUSCULAR HEMOGLOBIN 29 PG (25-34); MEAN CORPUSCULAR HGB CONC 32 G/DL (32-36); MEAN CORPUSCULAR VOLUME 91 FL (80-99); MEAN PLATELET VOLUME 8.2 FL (7.4-10.4); MONOCYTES % (AUTO) 7 % (0-12); NEUTROPHILS # (AUTO) 11.9 X 10^3 (1.8-7.8); NEUTROPHILS % (AUTO) 88 % (42-75); PLATELET COUNT 351 10^3/uL (130-400); RED CELL DISTRIBUTION WIDTH 15.4 % (10.0-14.5); WHITE BLOOD COUNT 13.6 10^3/uL (4.3-11.0)
[2019-02-18 05:50] LABS: CALCIUM 9.5 MG/DL (8.5-10.1); CREATININE SERUM 1.68 MG/DL (0.60-1.30); MAGNESIUM 2.5 MG/DL (1.6-2.4); PHOSPHORUS 3.2 MG/DL (2.3-4.7); POTASSIUM 4.4 MMOL/L (3.6-5.0)
[2019-02-18] MEDS: CATHETER FLUSH 10 ML SYR IV SCH ×3 (05:50→22:06)
[2019-02-18 05:52] VITALS: BP 119/57
[2019-02-18] MEDS: inSUlin ASPART (NovoLOG) 1 UNIT/0.01 ML (CHARGE PER UNIT) SC SCH ×2 (06:07→11:00)
[2019-02-18] MEDS: MULTIVIT W/MINERALS TAB (THERAGRAN M) PO SCH (06:45)
[2019-02-18] MEDS: LEVOTHYROXINE 112 MCG (LEVOTHROID) TAB PO SCH (06:45)
--- NOTE | 2019-02-18 07:17 | NUR ---
bedside report given to LANRE DEMPSEY
[2019-02-18] MEDS: meTOprolol TARTRATE 50 MG (LOPRESSOR) TAB PO SCH ×2 (08:22→21:31)
[2019-02-18] MEDS: POLYETHYLENE GLYCOL 17 GM (MIRALAX) PACK PO SCH ×4 (08:22→21:33)
[2019-02-18] MEDS: DOCUSATE SODIUM 100 MG (COLACE) CAP PO SCH ×2 (08:22→21:32)
[2019-02-18] MEDS: amLODIPine 10 MG (NORVASC) TAB PO SCH (08:22)
[2019-02-18] MEDS: GLIMEPIRIDE 2 MG (AMARYL) TAB PO SCH (08:22)
[2019-02-18] MEDS: RT-ADVAIR HFA 115/21 MCG PER PUFF IH SCH ×2 (08:30→22:44)
[2019-02-18] MEDS: RT-ALBUTEROL/IPRATROPIUM 3 ML (DUONEB) VIAL INH SCH ×5 (08:30→22:44)
[2019-02-18] MEDS: CALCIUM CARBONATE 500 MG (TUMS) TAB.CHEW PO PRN ×2 (10:42→16:10)
--- NOTE | 2019-02-18 12:20 | PM&R Progress Note ---
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 Needs a lot of motivation to keep moving We will discontinue Accu-Cheks since all of them were normal White count of 13 is chronic Iron infusions tolerated Conferred with RN Reviewed therapy notes Checked meds and labs Review of Systems General: Fatigue Musculoskeletal: back pain, leg pain Objective Exam Vital Signs Vital Signs Date Time Temp Pulse Resp B/P (MAP) Pulse Ox O2 Delivery O2 Flow Rate FiO2 02/18/19 17:32 36.8 74 18 147/63 (91) 94 Nasal Cannula 3.00 Capillary Refill : Less Than 3 Seconds General Appearance: No Apparent Distress, WD/WN, Chronically ill, Obese HEENT: PERRL/EOMI, Normal ENT Inspection, Pharynx Normal Neck: Full Range of Motion, Normal Inspection, Non Tender, Supple, Carotid Bruit Respiratory: Chest Non Tender, Lungs Clear, No Accessory Muscle Use, No Respiratory Distress, Decreased Breath Sounds, Wheezing Cardiovascular: No Edema, No Gallop, No JVD, No Murmur, Normal Peripheral Pulses, Irregularly Irregular Gastrointestinal: Normal Bowel Sounds, No Organomegaly, No Pulsatile Mass, Non Tender, Soft Back: Decreased Range of Motion, Muscle Spasm, Vertebral Tenderness, Other (wound VAC in place) Extremity: Normal Capillary Refill, Normal Inspection, Normal Range of Motion, Non Tender, No Calf Tenderness, No Pedal Edema Neurologic/Psychiatric: Alert, Oriented x3, No Motor/Sensory Deficits, 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 FIM Transfers Therapy Code Descriptions/Definitions Functional [place] Measure: 0=Not Assessed/NA 4=Minimal Assistance 1=Total Assistance 5=Supervision or Setup 2=Maximal Assistance 6=Modified [place] 3=Moderate Assistance 7=Complete IndependenceSCALE: Activities may be completed with or without assistive devices. 6-Nldjztomjd-mfonnki completes the activity by him/herself with no assistance from a helper. 5-Set-up or Clean-up Assistance-helper sets up or cleans up; patient completes activity. [place] assists only prior to or following the activity. 4-Supervision or Touching Assistance-helper provides verbal cues and/or touching/steadying and/or contact guard assistance as patient completes activity. Assistance may be provided throughout the activity or intermittently. 3-Partial/Moderate Assistance-helper does LESS THAN HALF the effort. [place] lifts, holds or supports trunk or limbs, but provides less than half the effort. 2-Substantial/Maximal Assistance-helper does MORE THAN HALF the effort. [place] lifts or holds trunk or limbs and provides more than half the effort. 2-Pjkzqvmjq-cuufvh does ALL the effort. Patient does none of the effort to complete the activity. Or, the assistance of 2 or more helpers is required for the patient to complete the activity. If activity was not attempted, code reason: 7-Patient Refused. 9-Not Applicable-not attempted and the patient did not perform the activity before the current illness, exacerbation or injury. 10-Not Attempted due to Environmental Limitations-(lack of equipment, weather restraints, etc.). 88-Not Attempted due to Medical Conditions or Safety Concerns. Roll Left to Right (QC): 3 (min A to scoot hips over, use of bedrail) Sit to Lying (QC): 3 Sit to Stand (QC): 2 Chair/Fmv-yp-Ymsjx Xfer(QC): 2 Car Transfer (QC): 88 Gait Training Does the Patient Walk?: No and Walking Goal IS indicated Walk 10 feet (QC): 88 Walk 50 ft with 2 Turns(QC): 88 Walk 150 ft (QC): 88 Walking 10ft/uneven surface-QC: 88 Gait Assistive Device: FWW Wheelchair Training Does the Pt Use a Wheelchair?: Yes (110 x2) Wheel 50 ft with 2 turns (QC): 4 Wheel 150 ft (QC): 1 Type of Wheelchair: Manual Stair Training 1 Step (curb) (QC): 88 4 Steps (QC): 88 12 Steps (QC): 88 Balance Picking up an Object (QC): 88 ADL-Treatment Eating (QC): 6 Oral Hygiene (QC): 5 Shower/Bathe Self (QC): 3 Upper Body Dressing (QC): 3 Lower Body Dressing (QC): 1 On/Off Footwear (QC): 1 (Pt will require instruction in use of AE for socks secondary to back precautions.) Toileting Hygiene (QC): 1 Toilet Transfer (QC): 2 Assessment/Plan Assessment and Plan Assess & Plan/Chief Complaint Assessment: Thoracic vertebral fracture s/p repair s/p Multilobar pneumonia placed on Vanc and Cefepime per Dr Garcia now completed treatment and lungs are clear Severe COPD O2 dependence Recent intubation after thoracic vertebral fracture surgery Right pleural effusion CRI Chronic on acute debility HTN Chronic AF OAC Plan: Abx Monitor closely due to resp status O2 Nebs IRF protocol DC wound vac and incision looks good Confusion? Needs NH at DC? Patient requires aggressive medical treatment due to severity of her lung disease Elaine to neurosurgery at [facility] regarding right leg numbness (1) Fracture of lamina of thoracic vertebra (2) Multifocal pneumonia (3) Hypothyroidism (4) Diabetes mellitus (5) Chronic renal insufficiency, stage III (moderate) (6) Anemia of renal disease (7) Chronic constipation (8) Back pain (9) Dependence on supplemental oxygen (10) COPD (chronic obstructive pulmonary disease) (11) Hypertension (12) Hyperlipidemia (13) Wheezing (14) Depression (15) Angina at rest (16) Atrial fibrillation (17) On continuous oral anticoagulation (18) History of respiratory failure (19) Cough MAUDE HINOJOSA DO Feb 18, 2019 12:20 POS
[2019-02-18] MEDS: ONDANSETRON 4 MG/2 ML (SDV) Z0FRAN IV PRN ×2 (12:26→16:08)
[2019-02-18] MEDS: HYDROcodone/APAP 5 MG/325 MG (LORTAB) TAB PO PRN (16:08)
[2019-02-18] MEDS: RIVAROXABAN 15 MG TABLET (XARELTO) PO SCH (16:10)
[2019-02-18 17:32] VITALS: BP 147/63
--- NOTE | 2019-02-18 19:04 | NUR ---
bedside report received from LANRE DEMPSEY, assume care of pt
[2019-02-18 21:30] VITALS: BP 158/72
[2019-02-18] MEDS: DONEPEZIL 5 MG (ARICEPT) TAB PO SCH (21:31)
[2019-02-18] MEDS: VITAMIN D3 1,000 UNITS (CHOLECALCIFEROL) TABLET PO SCH (21:31)
[2019-02-18] MEDS: doxAzosin 2 MG (CARDURA) TAB PO SCH (21:31)
--- NOTE | 2019-02-18 21:31 | NUR ---
pt refused miralax & colace, v/s 82-158/72, c/o nausea today & loose stools
[2019-02-19] MEDS: CATHETER FLUSH 10 ML SYR IV SCH ×3 (05:30→21:39)
[2019-02-19 06:09] VITALS: BP 133/55
[2019-02-19] MEDS: LEVOTHYROXINE 112 MCG (LEVOTHROID) TAB PO SCH (06:37)
[2019-02-19] MEDS: MULTIVIT W/MINERALS TAB (THERAGRAN M) PO SCH ×2 (06:37→09:20)
[2019-02-19 07:12] LABS: BASOPHILS % (AUTO) 0 % (0-10); EOSINOPHILS # (AUTO) 0.1 10^3/uL (0.0-0.3); EOSINOPHILS % (AUTO) 0 % (0-10); HEMATOCRIT 27 % (35-52); HEMOGLOBIN 8.5 G/DL (11.5-16.0); LYMPHOCYTES # (AUTO) 0.7 X 10^3 (1.0-4.0); LYMPHOCYTES % (AUTO) 5 % (12-44); MEAN CORPUSCULAR HEMOGLOBIN 30 PG (25-34); MEAN CORPUSCULAR HGB CONC 32 G/DL (32-36); MEAN CORPUSCULAR VOLUME 92 FL (80-99); MEAN PLATELET VOLUME 8.9 FL (7.4-10.4); MONOCYTES # (AUTO) 0.8 X 10^3 (0.0-1.0); MONOCYTES % (AUTO) 6 % (0-12); NEUTROPHILS # (AUTO) 12.7 X 10^3 (1.8-7.8); NEUTROPHILS % (AUTO) 89 % (42-75); PLATELET COUNT 387 10^3/uL (130-400); RED CELL DISTRIBUTION WIDTH 15.6 % (10.0-14.5); WHITE BLOOD COUNT 14.3 10^3/uL (4.3-11.0)
--- NOTE | 2019-02-19 07:20 | NUR ---
bedside report given to CHONG DEMPSEY
[2019-02-19 07:28] LABS: CALCIUM 9.8 MG/DL (8.5-10.1); CREATININE SERUM 1.84 MG/DL (0.60-1.30); MAGNESIUM 2.5 MG/DL (1.6-2.4); PHOSPHORUS 3.1 MG/DL (2.3-4.7); POTASSIUM 4.5 MMOL/L (3.6-5.0)
--- NOTE | 2019-02-19 07:30 | NUR ---
glucose 58, pt refusing breakfast given sprite & ensure clear
[2019-02-19] MEDS: ONDANSETRON 4 MG/2 ML (SDV) Z0FRAN IV PRN ×2 (07:42→21:38)
[2019-02-19] MEDS: RT-ALBUTEROL/IPRATROPIUM 3 ML (DUONEB) VIAL INH SCH ×4 (07:55→19:19)
[2019-02-19] MEDS: RT-ADVAIR HFA 115/21 MCG PER PUFF IH SCH ×2 (07:56→19:19)
[2019-02-19] MEDS: POLYETHYLENE GLYCOL 17 GM (MIRALAX) PACK PO SCH ×4 (08:02→21:43)
[2019-02-19 08:46] LABS: BASOPHILS % (MANUAL) 0 %; EOSINOPHILS % (MANUAL) 1 %; LYMPHOCYTES % (MANUAL) 6 %; MONOCYTES % (MANUAL) 4 %; NEUTROPHILS % (MANUAL) 89 %
[2019-02-19 08:47] LABS: ANISOCYTOSIS SLIGHT; ELLIPT/OVALOCYTES SLIGHT; POIKILOCYTOSIS SLIGHT; TOXIC GRANULATION/VACUOLAZATIO 1+
[2019-02-19] MEDS: DOCUSATE SODIUM 100 MG (COLACE) CAP PO SCH ×2 (09:02→21:42)
--- NOTE | 2019-02-19 09:15 | Progress Note - Cardiology ---
Cardiology SOAP Progress Note Objective: I&O/Vital Signs 02/19/19 02/19/19 02/19/19 02/19/19 06:09 07:55 08:20 12:13 Temp 36.6 Pulse 71 Resp 18 B/P (MAP) 133/55 (81) Pulse Ox 95 94 92 O2 Delivery Nasal Cannula Nasal Cannula Nasal Cannula Nasal Cannula O2 Flow Rate 3.00 3.00 2.00 3.00 02/19/19 00:00 Intake Total 500 ml Balance 500 ml Constitutional: AAO x 3, well-developed, well-nourished, other Respiratory: No accessory muscle use; other (fair to good bilat air entry; diminished at the bases) Cardiovascular: regular rate-rhythm, S1 and S2, systolic murmur (1-2/6 KRISTAN at card base) Gastrointestional: No tender; soft; No guarding, No rebound; audible bowel sounds Extremities: No clubbing, No cyanosis, No significant edema Neurologic/Psychiatric: oriented x 3, other (seems to move all limbs equally) Skin: No rash on exposed areas, No ulcerations on exposed areas Results/Procedures: Labs Laboratory Tests 02/19/19 05:30: White Blood Count 14.3H, Red Blood Count 2.88L, Hemoglobin 8.5L, Hematocrit 27L, Mean Corpuscular Volume 92, Mean Corpuscular Hemoglobin 30, Mean Corpuscular Hemoglobin Concent 32, Red Cell Distribution Width 15.6H, Platelet Count 387, Mean Platelet Volume 8.9, Neutrophils (%) (Auto) 89H, Lymphocytes (%) (Auto) 5L, Monocytes (%) (Auto) 6, Eosinophils (%) (Auto) 0, Basophils (%) (Auto) 0, Neutrophils # (Auto) 12.7H, Lymphocytes # (Auto) 0.7L, Monocytes # (Auto) 0.8, Eosinophils # (Auto) 0.1, Basophils # (Auto) 0.0, Neutrophils % (Manual) 89, Lymphocytes % (Manual) 6, Monocytes % (Manual) 4, Eosinophils % (Manual) 1, Basophils % (Manual) 0, Toxic Granulation 1+, Poikilocytosis SLIGHT, Anisocytosis SLIGHT, Elliptocytes SLIGHT, Sodium Level 137, Potassium Level 4.5, Chloride Level 101, Carbon Dioxide Level 26, Anion Gap 10, Blood Urea Nitrogen 23H, Creatinine 1.84H, Estimat Glomerular Filtration Rate 27, BUN/Creatinine Ratio 13, Glucose Level 58*L, Calcium Level 9.8, Phosphorus Level 3.1, Magnesium Level 2.5H 02/19/19 08:25: Glucometer 85 Microbiology 02/08/19 Blood Culture - Final, Complete No growth 02/08/19 Gram Stain - Final, Complete 02/08/19 Sputum Culture - Final, Complete Usual oral alvino Escherichia coli 02/08/19 Urine Culture - Final, Complete NO GROWTH A/P: Assessment: PAF Echo of 02/10/19: LVEF 50-55%, mild to mod MAC, grade 2 diastolic dysfunction, mod to sev TR, RVSP 55 mmHg Recent ROSE (while at [facility] prior to this transfer) Chronic, bilateral leg weakness, managed by Dr Mayen Severe anemia of undetermined etiology, managed by Dr Mayen DM II Htn HL Dementia Plan: * Continue current medication regimen * Monitor labs from time to time KIM CEDILLO Feb 19, 2019 09:15 POS
[2019-02-19] MEDS: GLIMEPIRIDE 2 MG (AMARYL) TAB PO SCH (09:19)
[2019-02-19] MEDS: meTOprolol TARTRATE 50 MG (LOPRESSOR) TAB PO SCH ×2 (09:20→21:42)
[2019-02-19] MEDS: amLODIPine 10 MG (NORVASC) TAB PO SCH (09:20)
--- NOTE | 2019-02-19 09:52 | PM&R Progress Note ---
Subjective HPI/CC On Admission Date Seen by Provider: Feb 19, 2019 Time Seen by Provider: 08:30 Subjective/Events-last exam Having some nausea and vomiting and blood sugar was 58 today Will DC the Amaryl that is given twice a day and will only give the first dose in the morning Narcotic bowel managed Hg b 8.5 Iron infusions maintained Bowels moved multiple times yesterday Continues to progress nicely but will ultimately need a nursing facility Iron infusions tolerated Conferred with RN Reviewed therapy notes Checked meds and labs Review of Systems Musculoskeletal: back pain Objective Exam Vital Signs Vital Signs Date Time Temp Pulse Resp B/P (MAP) Pulse Ox O2 Delivery O2 Flow Rate FiO2 02/19/19 19:20 90 Nasal Cannula 3.00 02/19/19 16:00 36.4 61 14 124/72 (89) Capillary Refill : Less Than 3 Seconds General Appearance: No Apparent Distress, WD/WN, Chronically ill, Obese HEENT: PERRL/EOMI, Normal ENT Inspection, Pharynx Normal Neck: Full Range of Motion, Normal Inspection, Non Tender, Supple, Carotid Bruit Respiratory: Chest Non Tender, Lungs Clear, Normal Breath Sounds, No Accessory Muscle Use, No Respiratory Distress Cardiovascular: No Edema, No Gallop, No JVD, No Murmur, Normal Peripheral Pulses, Irregularly Irregular Gastrointestinal: Normal Bowel Sounds, No Organomegaly, No Pulsatile Mass, Non Tender, Soft Back: Decreased Range of Motion, Muscle Spasm, Vertebral Tenderness, Other (wound VAC in place) Extremity: Normal Capillary Refill, Normal Inspection, Normal Range of Motion, Non Tender, No Calf Tenderness, No Pedal Edema Neurologic/Psychiatric: Alert, Oriented x3, No Motor/Sensory Deficits, lift manager II- XII Norm as Tested, Depressed Affect Skin: Normal Color, Warm/Dry Lymphatic: No Adenopathy Results/Procedures Lab Laboratory Tests 02/19/19 05:30 Patient resulted labs reviewed. FIM Transfers Therapy Code Descriptions/Definitions Functional [place] Measure: 0=Not Assessed/NA 4=Minimal Assistance 1=Total Assistance 5=Supervision or Setup 2=Maximal Assistance 6=Modified [place] 3=Moderate Assistance 7=Complete IndependenceSCALE: Activities may be completed with or without assistive devices. 6-Zpsdewpgdd-zvcticy completes the activity by him/herself with no assistance from a helper. 5-Set-up or Clean-up Assistance-helper sets up or cleans up; patient completes activity. [place] assists only prior to or following the activity. 4-Supervision or Touching Assistance-helper provides verbal cues and/or touching/steadying and/or contact guard assistance as patient completes activity. Assistance may be provided throughout the activity or intermittently. 3-Partial/Moderate Assistance-helper does LESS THAN HALF the effort. [place] lifts, holds or supports trunk or limbs, but provides less than half the effort. 2-Substantial/Maximal Assistance-helper does MORE THAN HALF the effort. [place] lifts or holds trunk or limbs and provides more than half the effort. 0-Sieudphqu-ziidcl does ALL the effort. Patient does none of the effort to complete the activity. Or, the assistance of 2 or more helpers is required for the patient to complete the activity. If activity was not attempted, code reason: 7-Patient Refused. 9-Not Applicable-not attempted and the patient did not perform the activity before the current illness, exacerbation or injury. 10-Not Attempted due to Environmental Limitations-(lack of equipment, weather restraints, etc.). 88-Not Attempted due to Medical Conditions or Safety Concerns. Roll Left to Right (QC): 3 (min A to scoot hips over, use of bedrail) Sit to Lying (QC): 3 Sit to Stand (QC): 2 Chair/Jzv-yz-Zzrvg Xfer(QC): 2 Car Transfer (QC): 88 Gait Training Does the Patient Walk?: No and Walking Goal IS indicated Walk 10 feet (QC): 88 Walk 50 ft with 2 Turns(QC): 88 Walk 150 ft (QC): 88 Walking 10ft/uneven surface-QC: 88 Gait Assistive Device: FWW Wheelchair Training Does the Pt Use a Wheelchair?: Yes (110 x2) Wheel 50 ft with 2 turns (QC): 4 Wheel 150 ft (QC): 1 Type of Wheelchair: Manual Stair Training 1 Step (curb) (QC): 88 4 Steps (QC): 88 12 Steps (QC): 88 Balance Picking up an Object (QC): 88 ADL-Treatment Eating (QC): 6 Oral Hygiene (QC): 5 Shower/Bathe Self (QC): 3 Upper Body Dressing (QC): 3 Lower Body Dressing (QC): 1 On/Off Footwear (QC): 1 (Pt will require instruction in use of AE for socks secondary to back precautions.) Toileting Hygiene (QC): 1 Toilet Transfer (QC): 2 Assessment/Plan Assessment and Plan Assess & Plan/Chief Complaint Assessment: Thoracic vertebral fracture s/p repair s/p Multilobar pneumonia placed on Vanc and Cefepime per Dr Garcia now completed treatment and lungs are clear Severe COPD O2 dependence Recent intubation after thoracic vertebral fracture surgery Right pleural effusion CRI Chronic on acute debility HTN Chronic AF OAC Plan: Abx Monitor closely due to resp status O2 Nebs IRF protocol DC wound vac and incision looks good Confusion? Needs NH at DC? Patient requires aggressive medical treatment due to severity of her lung disease Elaine to neurosurgery at [facility] regarding right leg numbness (1) Fracture of lamina of thoracic vertebra (2) Multifocal pneumonia (3) Hypothyroidism (4) Diabetes mellitus (5) Chronic renal insufficiency, stage III (moderate) (6) Anemia of renal disease (7) Chronic constipation (8) Back pain (9) Dependence on supplemental oxygen (10) COPD (chronic obstructive pulmonary disease) (11) Hypertension (12) Hyperlipidemia (13) Wheezing (14) Depression (15) Angina at rest (16) Atrial fibrillation (17) On continuous oral anticoagulation (18) History of respiratory failure (19) Cough MAUDE HINOJOSA DO Feb 19, 2019 09:52 POS
--- NOTE | 2019-02-19 11:42 | Progress Note ---
BANG KUO,MED STUDENT 02/19/19 1142: Progress Note Patient is feeling poorly today, she complains of nausea and several episodes of emesis this morning. Zofran was given with minimal relief. Blood glucose this morning was 58 so will d/c evening dose of insulin and initiate accu-check BID She still has some shortness of breath with exertion. She reports that OT and PT are otherwise going well. She is having regular bowel movements. Chronic leukocytosis is stable. Barriers to returning home at this time include O2 dependence and right leg numbness with patient report that legs "give out". Neurosurgery at [facility] is consulted for this. Patient has a wheelchair and FWW at home. [facility] PIA HINOJOSA DO 02/19/192047: Supervisory-Addendum Brief Verification & Attestation Participated in pt care: history, MDM, physical Personally performed: exam, history, MDM, supervision of care Care discussed with: Medical Student Procedures: n/a Results interpretation: Verified all documentation Verification and Attestation of Medical Student E/M Service A medical student performed and documented this service in my presence. I reviewed and verified all information documented by the medical student and made modifications to such information, when appropriate. I personally performed the physical exam and medical decision making. Pia Hinojosa, Feb 19, 2019,20:48 BANG KUO,MED STUDENT Feb 19, 2019 11:42 PIA CLARKE DO Feb 19, 2019 20:48 POS
--- NOTE | 2019-02-19 11:49 | Physical Therapy Daily Note ---
PT Daily Note-Current Subjective Patient in wheelchair at bedside pre tx, agrees reluctantly to PT, patient states she has acid reflux, nurse has already given her meds for it. Appearance Patient in bed post tx with nurse call, phone, tray, all needs met. Mental Status Patient Orientation: Person, Place, Situation TLSO Transfers SCALE: Activities may be completed with or without assistive devices. 9-Dpexcbrtls-btgoqyo completes the activity by him/herself with no assistance from a helper. 5-Set-up or Clean-up Assistance-helper sets up or cleans up; patient completes activity. [place] assists only prior to or following the activity. 4-Supervision or Touching Assistance-helper provides verbal cues and/or touching/steadying and/or contact guard assistance as patient completes activity. Assistance may be provided throughout the activity or intermittently. 3-Partial/Moderate Assistance-helper does LESS THAN HALF the effort. [place] lifts, holds or supports trunk or limbs, but provides less than half the effort. 2-Substantial/Maximal Assistance-helper does MORE THAN HALF the effort. [place] lifts or holds trunk or limbs and provides more than half the effort. 1-Twswaylnz-nrtlji does ALL the effort. Patient does none of the effort to complete the activity. Or, the assistance of 2 or more helpers is required for the patient to complete the activity. If activity was not attempted, code reason: 7-Patient Refused. 9-Not Applicable-not attempted and the patient did not perform the activity before the current illness, exacerbation or injury. 10-Not Attempted due to Environmental Limitations-(lack of equipment, weather restraints, etc.). 88-Not Attempted due to Medical Conditions or Safety Concerns. Roll Left & Right (QC): 2 Sit to Lying (QC): 3 Sit to Stand (QC): 3 Chair/Cgz-ev-Qwaom Xfer(QC): 3 Patient can stand with mod assist, performs a sliding transfer without a sliding board with min assist, sit to supine with mod assist. Patient needs cues for positioning and safety but she follows them poorly, instead she tries to instruct therapist on how it is better for her even if it is not safe. Weight Bearing TLSO when out of bed. Gait Training Distance: 2'x3 Gait Assistive Device: Parallel Bars Patient ambulated 2' forward and back in the parallel bars with min/mod assist. She can step with her left leg but had much difficulty advancing her right leg, she has very poor coordination, seems to have trouble initiating movement in it but not when she is sitting. Wheelchair Training Does the Pt Use a Wheelchair?: Yes Wheel 50 ft with 2 turns (QC): 4 Type of Wheelchair: Manual 120'x2 SBA, patient needs many rest breaks due to arm fatigue Exercises Seated Therapy Exercises: Ankle pumps, Hip abd/add (with RTB and pillow) Seated Reps: 20 LAQ alternating for 5 min Treatments WC mobility, LE strengthening, gait training Assessment Current Status: Poor Progress Patient limits herself in participating in therapy and is reluctant to follow cues from therapist. PT Short Term Goals Short Term Goals Time Frame: Feb 22, 2019 Roll Left & Right: 3 Sit to lyin Lying to sitting on side of be: 3 Sit to stand: 3 Chair/zlt-cj-ahmmu transfer: 3 Toilet transfer: 3 Car transfer: 3 Walk 10 feet: 3 Walk 50 feet with two turns: 3 PT Intermediate Goals Intermediate Goals PT Intermediate Goals Time Frame: Mar 08, 2019 Roll Left & Right (QC): 6 Sit to Lying (QC): 6 Lying-Sitting on Side/Bed(QC): 6 Sit to Stand (QC): 6 Chair/Zzt-cv-Xwsdz Xfer(QC): 6 Toilet Transfer (QC): 6 Car Transfer (QC): 5 Does the Patient Walk: No and Walking Goal IS indicated Walk 10 feet (QC): 6 Walk 50ft with 2 Turns (QC): 6 Walk 150 ft (QC): 6 Walking 10ft on Uneven Surface: 4 1 Step (curb) (QC): 4 4 Steps (QC): 4 12 Steps (QC): 9 Picking up an Object (QC): 9 Does the Pt use WC or Scooter?: Yes Wheel 50 feet with 2 turns (QC: 5 Type: Manual Wheel 150 feet: 5 Type: Manual PT Plan Problem List Problem List: Activity Tolerance, Functional Strength, Safety, Balance, Gait, Transfer, Bed Mobility, ROM Treatment/Plan Treatment Plan: Continue Plan of Care Treatment Plan: Bed Mobility, Education, Functional Activity Fidel, Functional Strength, Group Therapy, Gait, Safety, Therapeutic Exercise, Transfers Treatment Duration: Mar 08, 2019 Frequency: At least 5 of 7 days/Wk (IRF) Estimated Hrs Per Day: 1.5 hours per day Patient and/or Family Agrees t: Yes Safety Risks/Education Patient Education: Gait Training, Transfer Techniques, Reviewed Precautions, Correct Positioning, W/C Management, Reviewed Don/Doff Brace, Safety Issues Teaching Recipient: Patient Teaching Methods: Demonstration, Discussion Response to Teaching: Reinforcement Needed Time/GCodes Time In: 1100 Time Out: 1200 Total Billed Treatment Time: 60 Total Billed Treatment 1 visit [facility] 25' EX 15' FA 20' NOY ANTONIO PT Feb 19, 2019 11:49 POS
--- NOTE | 2019-02-19 13:34 | NUR ---
"RD ASSESSMENT PMHx: T2DM: HTN: HLD: dementia PT INTERACTION: Pt was awake and pleasant during nutrition follow-up. Pt states not eating well since last assessment. Note avg PO intake of 36% x5d, per chart review. Pt states episodes of vomiting since last assessment. Pt states no issues with constipation or diarrhea since last assessment. Note last BM was 02/19 (x4), and pt currently on bowel regimen of miralax BID; colace BID; and bisacodyl PRN, per chart review. Pt states not tolerating the nutrition supplementation Glucerna at this time. ABNORMAL NUTRITION-RELATED LAB VALUES LOW: HIGH: BUN 23; cr 1.84; Mg 2.5 Est. kcal needs: 3110-4393 kcal | 15-18 kcal/kg Est. Pro needs: 81-101 g Pro | 0.8-1.0 g Pro/kg PES STATEMENT: Inadequate oral intake (NI-2.1) related to loss of appetite | vomiting | supplement intolerance as evidenced by pt interview | avg PO intake 36% x5d INTERVENTION: Continue with current diet order of CHO 60g/m 3snack diet. Switch current supplementation order from Glucerna to Ensure Clear (vary) with meals TID. Provides 240 kcal and 8 g Pro per serving. Will continue to follow and reassess as pt needs and status change. MONITOR/EVALUATE: PO Intake; Plan of Care; Hydration Status; Weight Status; Lab Values Ros Stephen, MS, RD, LD"
--- NOTE | 2019-02-19 13:55 | Occupational Ther Daily Note ---
OT Current Status-Daily Note Subjective Pt alert, lying in bed. Pt states that she has acid reflux and can't eat anything without throwing up. Pt states that she doesn't feel like she could do much OOB and would like a sponge bath. Mental Status/Objective Patient Orientation: Person, Place, Time, Situation ADL-Treatment Supine to EOB using bedrails, mod I. Min A EOB to supine. Sitting EOB pt able to complete upper body bathing. Assist for lower body, buttocks and marie area. When directed to attempt to cleanse marie area, pt just laughed. Pt requested to use BSC. Mod A for sit to stand and SPT using FWW initially then required assist x2 due to decreased activity tolerance. Pt unable to manipulate clothing or cleanse self after toileting. Sitting at sink pt able to complete oral care, mod I. Pt able to maneuver w/c throughout room. Pt takes increased time to complete all tasks due to decreased activity tolerance. After therapy, pt sitting in w/c with call light/phone in reach. All needs met in room. Therapy Code Descriptions/Definitions Functional [place] Measure: 0=Not Assessed/NA 4=Minimal Assistance 1=Total Assistance 5=Supervision or Setup 2=Maximal Assistance 6=Modified [place] 3=Moderate Assistance 7=Complete IndependenceSCALE: Activities may be completed with or without assistive devices. 0-Xcsbuxdcyk-nrspsqg completes the activity by him/herself with no assistance from a helper. 5-Set-up or Clean-up Assistance-helper sets up or cleans up; patient completes activity. [place] assists only prior to or following the activity. 4-Supervision or Touching Assistance-helper provides verbal cues and/or touching/steadying and/or contact guard assistance as patient completes activ ity. Assistance may be provided throughout the activity or intermittently. 3-Partial/Moderate Assistance-helper does LESS THAN HALF the effort. [place] lifts, holds or supports trunk or limbs, but provides less than half the effort. 2-Substantial/Maximal Assistance-helper does MORE THAN HALF the effort. [place] lifts or holds trunk or limbs and provides more than half the effort. 2-Xweiqyreq-folqao does ALL the effort. Patient does none of the effort to complete the activity. Or, the assistance of 2 or more helpers is required for the patient to complete the activity. If activity was not attempted, code reason: 7-Patient Refused. 9-Not Applicable-not attempted and the patient did not perform the activity before the current illness, exacerbation or injury. 10-Not Attempted due to Environmental Limitations-(lack of equipment, weather restraints, etc.). 88-Not Attempted due to Medical Conditions or Safety Concerns. Oral Hygiene (QC): 6 Bathing Location: L Arm, R Arm, L Upper Leg, R Upper Leg, Chest Shower/Bathe Self (QC): 2 Upper Body Dressing (QC): 3 (Pt required assist to pull shirt up in back to doff. Donned by self. Assist to don/doff back brace.) Lower Body Dressing (QC): 1 Toileting Hygiene (QC): 1 Toilet Transfer (QC): 1 OT Short Term Goals Short Term Goals Time Frame: Feb 22, 2019 Toileting hygiene: 3 Shower/bathe self: 3 Upper body dressin Lower body dressin OT Care Home Goals Care Home Goals Time Frame: Mar 08, 2019 Eating (QC): 6 Oral Hygiene (QC): 6 Toileting Hygiene (QC): 6 Shower/Bathe Self (QC): 5 Upper Body Dressing (QC): 5 Lower Body Dressing (QC): 5 On/Off Footwear (QC): 5 Additional Goals: 1-Demonstrate ADL Tasks, 2-Verbalize Understanding, 3- ImproveStrength/Fidel 1=Demonstrate adherence to instructed precautions during ADL tasks. 2=Patient will verbalize/demonstrate understanding of assistive devices/modifications for ADL. 3=Patient will improve strength/tolerance for activity to enable patient to perform ADL's. OT Education/Plan Problem List/Assessment Assessment: Decreased Activ Tolerance, Decreased UE Strength, Impaired Bed Mobility, Impaired Coordination, Impaired Funct Balance, Impaired Self-Care Skills Discharge Recommendations Plan/Recommendations: Continue POC Treatment Plan/Plan of Care Patient would benefit from OT for education, treatment and training to promote independence in ADL's, mobility, safety and/or upper extremity function for ADL's. Plan of Care: ADL Retraining, Functional Mobility, Group Exercise/Act as Ind, UE Funct Exercise/Act Treatment Duration: Mar 08, 2019 Frequency: At least 5 of 7 days/Wk (IRF) Estimated Hrs Per Day: 1.5 hours per day Rehab Potential: Fair Time/GCodes Start Time: 09:00 Stop Time: 10:00 Total Time Billed (hr/min): 60 Billed Treatment Time 1 visit-ADL 4 (60 min) NIKKY WEN Feb 19, 2019 13:55 POS
--- NOTE | 2019-02-19 13:59 | Occupational Ther Daily Note ---
OT Current Status-Daily Note Subjective Pt sleeping in bed, took a few times of saying pt's name to wake. Pt stated that she was tired from this morning and just wanted to sleep. Pt also stated that she is going to [place] on Tuesday to an appointment then will go to [place]. ADL-Treatment Therapy Code Descriptions/Definitions Functional [place] Measure: 0=Not Assessed/NA 4=Minimal Assistance 1=Total Assistance 5=Supervision or Setup 2=Maximal Assistance 6=Modified [place] 3=Moderate Assistance 7=Complete IndependenceSCALE: Activities may be completed with or without assistive devices. 3-Pqqfixsivp-irvaaxg completes the activity by him/herself with no assistance from a helper. 5-Set-up or Clean-up Assistance-helper sets up or cleans up; patient completes activity. [place] assists only prior to or following the activity. 4-Supervision or Touching Assistance-helper provides verbal cues and/or touching/steadying and/or contact guard assistance as patient completes activity. Assistance may be provided throughout the activity or intermittently. 3-Partial/Moderate Assistance-helper does LESS THAN HALF the effort. [place] lifts, holds or supports trunk or limbs, but provides less than half the effort. 2-Substantial/Maximal Assistance-helper does MORE THAN HALF the effort. [place] lifts or holds trunk or limbs and provides more than half the effort. 6-Fhzgfwnwn-jdalcf does ALL the effort. Patient does none of the effort to complete the activity. Or, the assistance of 2 or more helpers is required for the patient to complete the activity. If activity was not attempted, code reason: 7-Patient Refused. 9-Not Applicable-not attempted and the patient did not perform the activity before the current illness, exacerbation or injury. 10-Not Attempted due to Environmental Limitations-(lack of equipment, weather restraints, etc.). 88-Not Attempted due to Medical Conditions or Safety Concerns. Other Treatment Pt declined OOB activities. Discussed lower body dressing AE. Pt stated that she has a back perinatal educator that she uses for picking up things, donning/doffing shoes and socks. Pt had difficulty keeping eyes open with discussions. Discussed the need for pt to work on dressing skills to be able to go home and be independent. Pt stated that she knew that but that she was to tired today. After therapy, pt lying in bed with call light/phone in reach. All needs met in room. OT Short Term Goals Short Term Goals Time Frame: Feb 22, 2019 Toileting hygiene: 3 Shower/bathe self: 3 Upper body dressin Lower body dressin OT Sleeve Setter Safety Stitch Goals Intermediate Goals Time Frame: Mar 08, 2019 Eating (QC): 6 Oral Hygiene (QC): 6 Toileting Hygiene (QC): 6 Shower/Bathe Self (QC): 5 Upper Body Dressing (QC): 5 Lower Body Dressing (QC): 5 On/Off Footwear (QC): 5 Additional Goals: 1-Demonstrate ADL Tasks, 2-Verbalize Understanding, 3- ImproveStrength/Fidel 1=Demonstrate adherence to instructed precautions during ADL tasks. 2=Patient will verbalize/demonstrate understanding of assistive devices/modifications for ADL. 3=Patient will improve strength/tolerance for activity to enable patient to perform ADL's. OT Education/Plan Problem List/Assessment Assessment: Decreased Activ Tolerance, Decreased UE Strength, Impaired Coordination, Impaired Funct Balance, Impaired Self-Care Skills Discharge Recommendations Plan/Recommendations: Continue POC Treatment Plan/Plan of Care Patient would benefit from OT for education, treatment and training to promote independence in ADL's, mobility, safety and/or upper extremity function for ADL's. Plan of Care: ADL Retraining, Functional Mobility, Group Exercise/Act as Ind, UE Funct Exercise/Act Treatment Duration: Mar 08, 2019 Frequency: At least 5 of 7 days/Wk (IRF) Estimated Hrs Per Day: 1.5 hours per day Rehab Potential: Fair Time/GCodes Start Time: 13:30 Stop Time: 14:00 Total Time Billed (hr/min): 30 Billed Treatment Time 1 visit-FA 2 (30 min) NIKKY WEN Feb 19, 2019 13:59 POS
--- NOTE | 2019-02-19 14:39 | Physical Therapy Daily Note ---
PT Daily Note-Current Subjective Pt agreeable to PT session although stating she has been sick today with a lot of acid reflux. Pain Numeric Pain Scale: 0-No Pain Comment: no pain while lying still, increases with any activity Appearance Upon arrival, pt R sidelying in bed, awake and alert. At end of session, pt in bed with call light, phone and bedside table within reach Mental Status Patient Orientation: Person, Place, Time, Eyes Open, Situation Attachments: Oxygen Transfers SCALE: Activities may be completed with or without assistive devices. 1-Kqxiqkwueq-gptuhbw completes the activity by him/herself with no assistance from a helper. 5-Set-up or Clean-up Assistance-helper sets up or cleans up; patient completes activity. [place] assists only prior to or following the activity. 4-Supervision or Touching Assistance-helper provides verbal cues and/or touching/steadying and/or contact guard assistance as patient completes activity. Assistance may be provided throughout the activity or intermittently. 3-Partial/Moderate Assistance-helper does LESS THAN HALF the effort. [place] lifts, holds or supports trunk or limbs, but provides less than half the effort. 2-Substantial/Maximal Assistance-helper does MORE THAN HALF the effort. [place] lifts or holds trunk or limbs and provides more than half the effort. 9-Uktnxxrva-ceqacs does ALL the effort. Patient does none of the effort to complete the activity. Or, the assistance of 2 or more helpers is required for the patient to complete the activity. If activity was not attempted, code reason: 7-Patient Refused. 9-Not Applicable-not attempted and the patient did not perform the activity before the current illness, exacerbation or injury. 10-Not Attempted due to Environmental Limitations-(lack of equipment, weather restraints, etc.). 88-Not Attempted due to Medical Conditions or Safety Concerns. Roll Left & Right (QC): 3 Weight Bearing TLSO when out of bed. Exercises Supine Ex: Ankle pumps (50), Rolling (5 x2), Heel Slides (15, 5 x2), Short Arc Quads (15 x2), Scooting (5 x2), Straight leg raise (15 x2, occasional AAROM with LLE due to fatigue), Hip abd/add (15) Treatments education, safety, strengthening, bed mobility Assessment fatigues with exercises requiring rest breaks, slow at performing functional activities PT Short Term Goals Short Term Goals Time Frame: Feb 22, 2019 Roll Left & Right: 3 Sit to lyin Lying to sitting on side of be: 3 Sit to stand: 3 Chair/svj-cn-ugxkj transfer: 3 Toilet transfer: 3 Car transfer: 3 Walk 10 feet: 3 Walk 50 feet with two turns: 3 PT Longitudinal Float Operator Goals Longitudinal Float Operator Goals PT Fci Goals Time Frame: Mar 08, 2019 Roll Left & Right (QC): 6 Sit to Lying (QC): 6 Lying-Sitting on Side/Bed(QC): 6 Sit to Stand (QC): 6 Chair/Wec-ur-Vivnn Xfer(QC): 6 Toilet Transfer (QC): 6 Car Transfer (QC): 5 Does the Patient Walk: No and Walking Goal IS indicated Walk 10 feet (QC): 6 Walk 50ft with 2 Turns (QC): 6 Walk 150 ft (QC): 6 Walking 10ft on Uneven Surface: 4 1 Step (curb) (QC): 4 4 Steps (QC): 4 12 Steps (QC): 9 Picking up an Object (QC): 9 Does the Pt use WC or Scooter?: Yes Wheel 50 feet with 2 turns (QC: 5 Type: Manual Wheel 150 feet: 5 Type: Manual PT Plan Treatment/Plan Treatment Plan: Continue Plan of Care Treatment Plan: Bed Mobility, Education, Functional Activity Fidel, Functional Strength, Group Therapy, Gait, Safety, Therapeutic Exercise, Transfers Treatment Duration: Mar 08, 2019 Frequency: At least 5 of 7 days/Wk (IRF) Estimated Hrs Per Day: 1.5 hours per day Patient and/or Family Agrees t: Yes Safety Risks/Education Patient Education: Safety Issues Teaching Methods: Discussion Response to Teaching: Verbalize Understanding Time/GCodes Time In: 1430 Time Out: 1500 Total Billed Treatment Time: 30 Total Billed Treatment 1 visit, EX x30 min LISBET BARCENAS WIRE SPIRAL BINDER Feb 19, 2019 14:39 POS
--- NOTE | 2019-02-19 14:45 | NUR ---
REMINDER and continued discharge planning. Patient has followup appointment with neurosurgeon: 02/23/19, 1115 Dr. Camara, Neurosurgeon [facility] Patient progress and target discharge date to be reviewed in weekly team conference Tuesday, will discuss patient mode of transportation at that time. Family to transport if patient cleared for private vehicle, alternate medical transport and family to meet patient at physician clinic if necessary. SUMMARY: Visited with patient and then with daughter Gosia Chin by phone re followup appointment as noted above as well as exploration of discharge options. Patient reports that she does not believe she can get well until someone is able to figure out why her leg(s) give out on her intermittently; she stated it was like they are working and then like they suddenly "shut off" and she can't support herself. We did discuss whether she could be cared for at home or whether a alf facility might be a next step for continued opportunity to improve. Call from Gosia who reported patient told her she would be discharged Tuesday, go to Dr. blas and then to a senior living in [place]. While this may evolve, there was no plan as such. Gosia shared that she believes patient wants her to quit her job and take care of her mom in the home. Gosia is not in favor of this for several logical reasons and her dad supports her in not doing this. Gosia has been reiterating with her mother it is important she use this time to become as independent as possible. Gosia stated she needs to perform her own personal care because her spouse, son, and Gosia are not able/available to do it. Explored SNFs in service area, Gosia said [facility] or [facility], both in [place], would be their preferred if needed. Review Tuesday in weekly conference, narrow options and target a discharge window.
[2019-02-19 16:00] VITALS: BP 124/72
[2019-02-19] MEDS: RIVAROXABAN 15 MG TABLET (XARELTO) PO SCH (17:15)
[2019-02-19] MEDS: IRON SUCROSE 200 MG/10 ML (VENOFER) VIAL IV SCH (17:15)
--- NOTE | 2019-02-19 19:11 | NUR ---
bedside report received from CHONG DEMPSEY, assume care of pt
--- NOTE | 2019-02-19 21:38 | NUR ---
took meds but refused miralax & Colace, v/s [id number]%-[id number]/71, c/o nausea Zofran 4mg iv, states did not take pain med today due to nausea advised pt will give pain med after nausea med takes effect
[2019-02-19 21:40] VITALS: BP 136/71
[2019-02-19] MEDS: doxAzosin 2 MG (CARDURA) TAB PO SCH (21:42)
[2019-02-19] MEDS: DONEPEZIL 5 MG (ARICEPT) TAB PO SCH (21:42)
[2019-02-19] MEDS: VITAMIN D3 1,000 UNITS (CHOLECALCIFEROL) TABLET PO SCH (21:42)
[2019-02-19] MEDS: PANTOPRAZOLE 40 MG (PROTONIX) TAB PO SCH (21:49)
--- NOTE | 2019-02-19 22:29 | NUR ---
pt feels like could take pain med now, oxyir 15mg given for back pain level 10/10 on numeric scale
--- NOTE | 2019-02-19 23:12 | NUR ---
resting quietly in bed, pain level 0/10 on flacc scale
[2019-02-20 06:00] VITALS: BP 132/63
[2019-02-20] MEDS: CATHETER FLUSH 10 ML SYR IV SCH ×3 (06:10→22:38)
[2019-02-20] MEDS: ONDANSETRON 4 MG/2 ML (SDV) Z0FRAN IV PRN (06:10)
--- NOTE | 2019-02-20 06:10 | NUR ---
Zofran 4mg iv given for nausea
[2019-02-20] MEDS: LEVOTHYROXINE 112 MCG (LEVOTHROID) TAB PO SCH (06:47)
--- NOTE | 2019-02-20 07:20 | NUR ---
bedside report given to KAYLIE DEMPSEY
--- NOTE | 2019-02-20 08:00 | NUR ---
Patient reports nausea is much better this AM.
[2019-02-20] MEDS: POLYETHYLENE GLYCOL 17 GM (MIRALAX) PACK PO SCH ×4 (08:22→21:09)
[2019-02-20] MEDS: MULTIVIT W/MINERALS TAB (THERAGRAN M) PO SCH (08:24)
[2019-02-20] MEDS: DOCUSATE SODIUM 100 MG (COLACE) CAP PO SCH ×2 (08:25→21:10)
[2019-02-20] MEDS: PANTOPRAZOLE 40 MG (PROTONIX) TAB PO SCH (08:29)
[2019-02-20] MEDS: amLODIPine 10 MG (NORVASC) TAB PO SCH (08:29)
[2019-02-20 08:31] VITALS: BP 128/70
[2019-02-20] MEDS: meTOprolol TARTRATE 50 MG (LOPRESSOR) TAB PO SCH ×2 (08:59→21:08)
[2019-02-20] MEDS: GLIMEPIRIDE 2 MG (AMARYL) TAB PO SCH (08:59)
--- NOTE | 2019-02-20 09:00 | NUR ---
Dr. Mayen to floor with orders to DC Amaryl and start accuchecks AC&HS with [facility].
--- NOTE | 2019-02-20 09:45 | Physical Therapy Daily Note ---
PT Daily Note-Current Subjective Patient on commode pre tx, agrees to PT, has 8/10 pain in back, nurse notified of pain, will be co-treating with OT due to poor patient mobility, strength, endurance, the inability to ambulate, the need to coordinate UE and LE during activity. Appearance Patient in bed post tx with nurse call, OT staying to finish up. Mental Status Patient Orientation: Normal For Age TLSO Transfers SCALE: Activities may be completed with or without assistive devices. 2-Ousfaqrojd-vdhuewo completes the activity by him/herself with no assistance from a helper. 5-Set-up or Clean-up Assistance-helper sets up or cleans up; patient completes activity. [place] assists only prior to or following the activity. 4-Supervision or Touching Assistance-helper provides verbal cues and/or touching/steadying and/or contact guard assistance as patient completes activity. Assistance may be provided throughout the activity or intermittently. 3-Partial/Moderate Assistance-helper does LESS THAN HALF the effort. [place] lifts, holds or supports trunk or limbs, but provides less than half the effort. 2-Substantial/Maximal Assistance-helper does MORE THAN HALF the effort. [place] lifts or holds trunk or limbs and provides more than half the effort. 6-Gmauxfuyw-upnrok does ALL the effort. Patient does none of the effort to complete the activity. Or, the assistance of 2 or more helpers is required for the patient to complete the activity. If activity was not attempted, code reason: 7-Patient Refused. 9-Not Applicable-not attempted and the patient did not perform the activity before the current illness, exacerbation or injury. 10-Not Attempted due to Environmental Limitations-(lack of equipment, weather restraints, etc.). 88-Not Attempted due to Medical Conditions or Safety Concerns. Roll Left & Right (QC): 3 Sit to Lying (QC): 3 Sit to Stand (QC): 3 Chair/Ldr-ij-Lcril Xfer(QC): 3 Min assist for stand pivot and sit to stand. Cues for hand placement, patient tends to pull up from walker when standing and not reach for chair when sitting. Weight Bearing TLSO when out of bed. Gait Training Distance: 5'x2 Gait Persons Needed: 1 Gait Assistive Device: Parallel Bars Patient ambulated in parallel bars with min assist for balance, better at advancing her right leg, uncoordinated stepping. Wheelchair Training Does the Pt Use a Wheelchair?: Yes Wheel 50 ft with 2 turns (QC): 4 Type of Wheelchair: Manual 100'x2 SBA, patient needs several rest breaks due to fatigue Exercises Seated Therapy Exercises: Ankle pumps, Hip flexion Seated Reps: 15 Standing in parallel bars x2 for OT activity with UE Treatments bed mobility and transfers, ambulation, WC mobility, strengthening, standing, balance training Assessment Current Status: Fair Progress Patient still self-limiting but despite that she has improved with ambulation and stepping with her right leg. PT Short Term Goals Short Term Goals Time Frame: Feb 22, 2019 Roll Left & Right: 3 Sit to lyin Lying to sitting on side of be: 3 Sit to stand: 3 Chair/uwz-ae-akfgu transfer: 3 Toilet transfer: 3 Car transfer: 3 Walk 10 feet: 3 Walk 50 feet with two turns: 3 PT Usp Goals Mica Patcher Goals PT Usp Goals Time Frame: Mar 08, 2019 Roll Left & Right (QC): 6 Sit to Lying (QC): 6 Lying-Sitting on Side/Bed(QC): 6 Sit to Stand (QC): 6 Chair/Eht-td-Iljuv Xfer(QC): 6 Toilet Transfer (QC): 6 Car Transfer (QC): 5 Does the Patient Walk: No and Walking Goal IS indicated Walk 10 feet (QC): 6 Walk 50ft with 2 Turns (QC): 6 Walk 150 ft (QC): 6 Walking 10ft on Uneven Surface: 4 1 Step (curb) (QC): 4 4 Steps (QC): 4 12 Steps (QC): 9 Picking up an Object (QC): 9 Does the Pt use WC or Scooter?: Yes Wheel 50 feet with 2 turns (QC: 5 Type: Manual Wheel 150 feet: 5 Type: Manual PT Plan Problem List Problem List: Activity Tolerance, Functional Strength, Safety, Balance, Gait, Transfer, Bed Mobility, ROM Treatment/Plan Treatment Plan: Continue Plan of Care Treatment Plan: Bed Mobility, Education, Functional Activity Fidel, Functional Strength, Group Therapy, Gait, Safety, Therapeutic Exercise, Transfers Treatment Duration: Mar 08, 2019 Frequency: At least 5 of 7 days/Wk (IRF) Estimated Hrs Per Day: 1.5 hours per day Patient and/or Family Agrees t: Yes Safety Risks/Education Patient Education: Gait Training, Transfer Techniques, Correct Positioning, W/C Management, Reviewed Don/Doff Brace, Safety Issues Teaching Recipient: Patient Teaching Methods: Demonstration, Discussion Response to Teaching: Reinforcement Needed Time/GCodes Time In: 844 Time Out: 944 Total Billed Treatment Time: 60 Total Billed Treatment [address] [facility] 10' EX 15' FA 35' Co-treated with OT for 60 min. PT worked on transfers, bed mobility, LE exercise, ambulation, standing, WC mobility, OT worked on toileting, dressing, UE activity, assist with transfers and ambulation with UE positioning. NOY ANTONIO PT Feb 20, 2019 09:45 POS
--- NOTE | 2019-02-20 09:59 | PM&R Progress Note ---
Subjective HPI/CC On Admission Date Seen by Provider: Feb 20, 2019 Time Seen by Provider: 08:30 Subjective/Events-last exam We will discontinue the oral hyperglycemic agent due to chronic renal failure and continued hyperglycemia. Feels a lot better today. Sugar is much improved today at 141, better than yesterday at 58. On bowel regimen and maintaining that for narcotic bowel. Iron infusions tolerated, she has had them before along with Procrit Conferred with RN Reviewed therapy notes Checked meds and labs Review of Systems General: Fatigue Musculoskeletal: back pain Objective Exam Vital Signs Vital Signs Date Time Temp Pulse Resp B/P (MAP) Pulse Ox O2 Delivery O2 Flow Rate FiO2 02/20/19 15:52 37.0 70 14 104/63 (77) 93 Nasal Cannula 3.00 Capillary Refill : Less Than 3 Seconds General Appearance: No Apparent Distress, WD/WN, Chronically ill, Obese HEENT: PERRL/EOMI, Normal ENT Inspection, Pharynx Normal Neck: Full Range of Motion, Normal Inspection, Non Tender, Supple, Carotid Br uit Respiratory: Chest Non Tender, Lungs Clear, Normal Breath Sounds, No Accessory Muscle Use, No Respiratory Distress Cardiovascular: No Edema, No Gallop, No JVD, No Murmur, Normal Peripheral Pulses, Irregularly Irregular Gastrointestinal: Normal Bowel Sounds, No Organomegaly, No Pulsatile Mass, Non Tender, Soft Back: Decreased Range of Motion, Muscle Spasm, Vertebral Tenderness, Other (wound VAC in place) Extremity: Normal Capillary Refill, Normal Inspection, Normal Range of Motion, Non Tender, No Calf Tenderness, No Pedal Edema Neurologic/Psychiatric: Alert, Oriented x3, No Motor/Sensory Deficits, health and wellness director II- XII Norm as Tested, Depressed Affect Skin: Normal Color, Warm/Dry Lymphatic: No Adenopathy Results/Procedures Lab Patient resulted labs reviewed. FIM Transfers Therapy Code Descriptions/Definitions Functional [place] Measure: 0=Not Assessed/NA 4=Minimal Assistance 1=Total Assistance 5=Supervision or Setup 2=Maximal Assistance 6=Modified [place] 3=Moderate Assistance 7=Complete IndependenceSCALE: Activities may be completed with or without assistive devices. 7-Pqcscoggxl-wewjsfh completes the activity by him/herself with no assistance from a helper. 5-Set-up or Clean-up Assistance-helper sets up or cleans up; patient completes activity. [place] assists only prior to or following the activity. 4-Supervision or Touching Assistance-helper provides verbal cues and/or touching/steadying and/or contact guard assistance as patient completes activity. Assistance may be provided throughout the activity or intermittently. 3-Partial/Moderate Assistance-helper does LESS THAN HALF the effort. [place] lifts, holds or supports trunk or limbs, but provides less than half the effort. 2-Substantial/Maximal Assistance-helper does MORE THAN HALF the effort. [place] lifts or holds trunk or limbs and provides more than half the effort. 4-Driwsoesr-zakqgc does ALL the effort. Patient does none of the effort to complete the activity. Or, the assistance of 2 or more helpers is required for the patient to complete the activity. If activity was not attempted, code reason: 7-Patient Refused. 9-Not Applicable-not attempted and the patient did not perform the activity before the current illness, exacerbation or injury. 10-Not Attempted due to Environmental Limitations-(lack of equipment, weather restraints, etc.). 88-Not Attempted due to Medical Conditions or Safety Concerns. Roll Left to Right (QC): 3 Sit to Lying (QC): 3 Sit to Stand (QC): 3 Chair/Azg-gn-Xuntf Xfer(QC): 3 Car Transfer (QC): 88 Gait Training Does the Patient Walk?: No and Walking Goal IS indicated Distance: 5'x2 Walk 10 feet (QC): 88 Walk 50 ft with 2 Turns(QC): 88 Walk 150 ft (QC): 88 Walking 10ft/uneven surface-QC: 88 Gait Persons Needed: 1 Gait Assistive Device: Parallel Bars Wheelchair Training Does the Pt Use a Wheelchair?: Yes Wheel 50 ft with 2 turns (QC): 4 Wheel 150 ft (QC): 1 Type of Wheelchair: Manual Stair Training 1 Step (curb) (QC): 88 4 Steps (QC): 88 12 Steps (QC): 88 Balance Picking up an Object (QC): 88 ADL-Treatment Eating (QC): 6 Oral Hygiene (QC): 6 Bathing Location: L Arm, R Arm, L Upper Leg, R Upper Leg, Chest Shower/Bathe Self (QC): 2 Upper Body Dressing (QC): 3 (Pt required assist to pull shirt up in back to doff. Donned by self. Assist to don/doff back brace.) Lower Body Dressing (QC): 1 On/Off Footwear (QC): 1 (Pt will require instruction in use of AE for socks secondary to back precautions.) Toileting Hygiene (QC): 1 Toilet Transfer (QC): 1 Assessment/Plan Assessment and Plan Assess & Plan/Chief Complaint Assessment: Thoracic vertebral fracture s/p repair s/p Multilobar pneumonia placed on Vanc and Cefepime per Dr Garcia now completed treatment and lungs are clear Severe COPD O2 dependence Recent intubation after thoracic vertebral fracture surgery Right pleural effusion CRI Chronic on acute debility HTN Chronic AF OAC Anemia with iron def Plan: Abx Monitor closely due to resp status O2 Nebs IRF protocol DC wound vac and incision looks good Confusion? Needs NH at DC? Patient requires aggressive medical treatment due to severity of her lung disease Elaine to neurosurgery at [facility] regarding right leg numbness (1) Fracture of lamina of thoracic vertebra (2) Multifocal pneumonia (3) Hypothyroidism (4) Diabetes mellitus (5) Chronic renal insufficiency, stage III (moderate) (6) Anemia of renal disease (7) Chronic constipation (8) Back pain (9) Dependence on supplemental oxygen (10) COPD (chronic obstructive pulmonary disease) (11) Hypertension (12) Hyperlipidemia (13) Wheezing (14) Depression (15) Angina at rest (16) Atrial fibrillation (17) On continuous oral anticoagulation (18) History of respiratory failure (19) Cough MAUDE HINOJOSA DO Feb 20, 2019 09:59 POS
--- NOTE | 2019-02-20 10:36 | Occupational Ther Daily Note ---
OT Current Status-Daily Note Subjective Pt alert, lying in bed. During therapy pt c/o pain, 9/10, nrsg gave pain meds. Pt agrees to therapy. Mental Status/Objective Patient Orientation: Person, Place, Time, Situation Attachments: Oxygen ADL-Treatment Pt transferred to [facility] with mod A. Assist for clothing manipulation and hygiene. Assist to don pants over feet and hike up pants. Therapy Code Descriptions/Definitions Functional [place] Measure: 0=Not Assessed/NA 4=Minimal Assistance 1=Total Assistance 5=Supervision or Setup 2=Maximal Assistance 6=Modified [place] 3=Moderate Assistance 7=Complete IndependenceSCALE: Activities may be completed with or without assistive devices. 5-Ouqvyquvfx-okeigag completes the activity by him/herself with no assistance from a helper. 5-Set-up or Clean-up Assistance-helper sets up or cleans up; patient completes activity. [place] assists only prior to or following the activity. 4-Supervision or Touching Assistance-helper provides verbal cues and/or touching/steadying and/or contact guard assistance as patient completes activity. Assistance may be provided throughout the activity or intermittently. 3-Partial/Moderate Assistance-helper does LESS THAN HALF the effort. [place] lifts, holds or supports trunk or limbs, but provides less than half the effort. 2-Substantial/Maximal Assistance-helper does MORE THAN HALF the effort. [place] lifts or holds trunk or limbs and provides more than half the effort. 6-Angozsfvh-fihicn does ALL the effort. Patient does none of the effort to complete the activity. Or, the assistance of 2 or more helpers is required for the patient to complete the activity. If activity was not attempted, code reason: 7-Patient Refused. 9-Not Applicable-not attempted and the patient did not perform the activity before the current illness, exacerbation or injury. 10-Not Attempted due to Environmental Limitations-(lack of equipment, weather restraints, etc.). 88-Not Attempted due to Medical Conditions or Safety Concerns. Lower Body Dressing (QC): 2 (Footwear (QC) 5) Toileting Hygiene (QC): 2 Toilet Transfer (QC): 3 Other Treatment PT/ OT co-treat for 60 minutes to complete high-demand standing exercise with the use of two skilled therapists, OT focused on ADLs and UE strength while PT focused on LB strength and balance. Pt completed wt shift and placing items in basket to work on ability to hike pants over hips. See PT notes for standing and ambulating in parallel bars. Pt was able to lift one hand off of parallel bar to drop item in basket 10x's each hand. Pt takes increased time to complete all tasks due to decreased activity tolerance and increased pain. Pt propelled w/c to and from room/gym by self with multiple breaks. SPT from w/c to bed and sat EOB. Pt demonstrated ability to doff/don socks with AE by self. Then pt able to lie down in bed by self using bed rails. Discussed with pt about using tub transfer bench to get into tub at home and use BSC at home for safety. After therapy, pt lying in bed with call light/phone in reach. All needs met in room. OT Short Term Goals Short Term Goals Time Frame: Feb 22, 2019 Toileting hygiene: 3 Shower/bathe self: 3 Upper body dressin Lower body dressin OT Wire Rope Sling Maker Goals Wire Rope Sling Maker Goals Time Frame: Mar 08, 2019 Eating (QC): 6 Oral Hygiene (QC): 6 Toileting Hygiene (QC): 6 Shower/Bathe Self (QC): 5 Upper Body Dressing (QC): 5 Lower Body Dressing (QC): 5 On/Off Footwear (QC): 5 Additional Goals: 1-Demonstrate ADL Tasks, 2-Verbalize Understanding, 3- ImproveStrength/Fidel 1=Demonstrate adherence to instructed precautions during ADL tasks. 2=Patient will verbalize/demonstrate understanding of assistive devices/modifications for ADL. 3=Patient will improve strength/tolerance for activity to enable patient to perform ADL's. OT Education/Plan Problem List/Assessment Assessment: Decreased Activ Tolerance, Decreased UE Strength, Impaired Coordination, Impaired Funct Balance, Impaired Self-Care Skills Discharge Recommendations Plan/Recommendations: Continue POC Treatment Plan/Plan of Care Patient would benefit from OT for education, treatment and training to promote independence in ADL's, mobility, safety and/or upper extremity function for ADL's. Plan of Care: ADL Retraining, Functional Mobility, Group Exercise/Act as Ind, UE Funct Exercise/Act Treatment Duration: Mar 08, 2019 Frequency: At least 5 of 7 days/Wk (IRF) Estimated Hrs Per Day: 1.5 hours per day Rehab Potential: Fair Time/GCodes Start Time: 08:45 Stop Time: 10:15 Total Time Billed (hr/min): 90 Billed Treatment Time 1 visit-ADL 2 (30 min) FA 4 (60 min) Co-treat with PT [id number] individual [phone] NIKKY WEN Feb 20, 2019 10:36 POS
--- NOTE | 2019-02-20 11:05 | Progress Note ---
BANG KUO,MED STUDENT 02/20/19 1105: Progress Note Patient is feeling better today. Her nausea has improved and she is sipping on Sprite and clear Ensure. Denies any vomiting today. Blood glucose this morning was 141. Her glimepiride will be discontinued and we will initiate sliding scale insulin with blood glucose checks AC and HS. She will continue with iron infusions for the anemia. Her goal is to be discharged by 02/23 for her appointment with the neurosurgeon in [place] - Dr. Camara for the weakness in her legs. PIA HINOJOSA DO 02/20/194: Supervisory-Addendum Brief Verification & Attestation Participated in pt care: history, MDM, physical Personally performed: exam, history, MDM, supervision of care Care discussed with: Medical Student Procedures: n/a Results interpretation: Verified all documentation Verification and Attestation of Medical Student E/M Service A medical student performed and documented this service in my presence. I reviewed and verified all information documented by the medical student and made modifications to such information, when appropriate. I personally performed the physical exam and medical decision making. Pia Hinojosa, Feb 20, 2019,21:14 BANG KUO,MED STUDENT Feb 20, 2019 11:05 PIA CLARKE DO Feb 20, 2019 21:14 POS
[2019-02-20] MEDS: RT-ADVAIR HFA 115/21 MCG PER PUFF IH SCH ×2 (11:12→18:53)
[2019-02-20] MEDS: RT-ALBUTEROL/IPRATROPIUM 3 ML (DUONEB) VIAL INH SCH ×3 (11:12→18:53)
--- NOTE | 2019-02-20 11:31 | Progress Note - Cardiology ---
Cardiology SOAP Progress Note Objective: I&O/Vital Signs 02/20/19 02/20/19 02/20/19 02/20/19 06:00 08:31 09:40 11:12 Temp 37.0 Pulse 73 76 Resp 16 B/P (MAP) 132/63 (86) 128/70 (89) Pulse Ox 93 90 O2 Delivery Nasal Cannula Nasal Cannula Nasal Cannula O2 Flow Rate 3.00 3.00 3.00 02/20/19 00:00 Intake Total 720 ml Balance 720 ml Constitutional: AAO x 3, well-developed, well-nourished, other Respiratory: No accessory muscle use; other (fair to good bilat air entry; diminished at the bases) Cardiovascular: regular rate-rhythm, S1 and S2, systolic murmur (1-2/6 KRISTAN at card base) Gastrointestional: No tender; soft; No guarding, No rebound; audible bowel sounds Extremities: No clubbing, No cyanosis, No significant edema Neurologic/Psychiatric: oriented x 3, other (seems to move all limbs equally) Skin: No rash on exposed areas, No ulcerations on exposed areas Results/Procedures: Labs Laboratory Tests 02/19/19 15:30: Glucometer 99 02/19/19 21:54: Glucometer 93 02/20/19 05:31: Glucometer 141H 02/20/19 10:56: Glucometer 228H Microbiology 02/08/19 Blood Culture - Final, Complete No growth 02/08/19 Gram Stain - Final, Complete 02/08/19 Sputum Culture - Final, Complete Usual oral alvino Escherichia coli 02/08/19 Urine Culture - Final, Complete NO GROWTH A/P: Assessment: PAF Echo of 02/10/19: LVEF 50-55%, mild to mod MAC, grade 2 diastolic dysfunction, mod to sev TR, RVSP 55 mmHg Recent ROSE (while at [facility] prior to this transfer) Chronic, bilateral leg weakness, managed by Dr Mayen Severe anemia of undetermined etiology, managed by Dr Mayen DM II Htn HL Dementia Plan: * Continue current medication regimen * Monitor labs from time to time KIM CEDILLO Feb 20, 2019 11:31 POS
[2019-02-20] MEDS: inSUlin ASPART (NovoLOG) 1 UNIT/0.01 ML (CHARGE PER UNIT) SC SCH ×3 (11:38→21:00)
--- NOTE | 2019-02-20 11:42 | Progress Note - Cardiology ---
Cardiology SOAP Progress Note Subjective: No cp or palp or syncope or shortness of breath at rest Has gen weakness, more in legs, slowly improving Objective: I&O/Vital Signs 02/20/19 02/20/19 02/20/19 02/20/19 06:00 08:31 09:40 11:12 Temp 37.0 Pulse 73 76 Resp 16 B/P (MAP) 132/63 (86) 128/70 (89) Pulse Ox 93 90 O2 Delivery Nasal Cannula Nasal Cannula Nasal Cannula O2 Flow Rate 3.00 3.00 3.00 02/20/19 00:00 Intake Total 720 ml Balance 720 ml Constitutional: AAO x 3, well-developed, well-nourished, other Respiratory: No accessory muscle use; other (fair to good bilat air entry; diminished at the bases) Cardiovascular: regular rate-rhythm, S1 and S2, systolic murmur (1-2/6 KRISTAN at card base) Gastrointestional: No tender; soft; No guarding, No rebound; audible bowel sounds Extremities: No clubbing, No cyanosis, No significant edema Neurologic/Psychiatric: oriented x 3, other (seems to move all limbs equally) Skin: No rash on exposed areas, No ulcerations on exposed areas Results/Procedures: Labs Laboratory Tests 02/19/19 15:30: Glucometer 99 02/19/19 21:54: Glucometer 93 02/20/19 05:31: Glucometer 141H 02/20/19 10:56: Glucometer 228H Microbiology 02/08/19 Blood Culture - Final, Complete No growth 02/08/19 Gram Stain - Final, Complete 02/08/19 Sputum Culture - Final, Complete Usual oral alvino Escherichia coli 02/08/19 Urine Culture - Final, Complete NO GROWTH Laboratory Tests 02/19/19 05:30 A/P: Assessment: PAF Echo of 02/10/19: LVEF 50-55%, mild to mod MAC, grade 2 diastolic dysfunction, mod to sev TR, RVSP 55 mmHg Recent ROSE (while at [facility] prior to this transfer) Chronic, bilateral leg weakness, managed by Dr Mayen Severe anemia of undetermined etiology, managed by Dr Mayen DM II Htn HL Dementia Plan: * Hypertension much improved. Continue current medication regimen * Monitor labs from time to time LEIGH SANTOS MD FACP FAC CCDS Feb 20, 2019 11:42 POS
--- NOTE | 2019-02-20 14:26 | Physical Therapy Daily Note ---
PT Daily Note-Current Subjective Patient in bed pre tx, agrees to PT, has no complaints of pain at rest. Appearance Patient in WC at bedside post tx with nurse call, phone, tray, all needs met. Encouraged patient to sit as long as she can. Mental Status Patient Orientation: Normal For Age Attachments: Oxygen TLSO Transfers SCALE: Activities may be completed with or without assistive devices. 9-Kcxyigttfa-bmfdjit completes the activity by him/herself with no assistance from a helper. 5-Set-up or Clean-up Assistance-helper sets up or cleans up; patient completes activity. [place] assists only prior to or following the activity. 4-Supervision or Touching Assistance-helper provides verbal cues and/or touching/steadying and/or contact guard assistance as patient completes activity. Assistance may be provided throughout the activity or intermittently. 3-Partial/Moderate Assistance-helper does LESS THAN HALF the effort. [place] lifts, holds or supports trunk or limbs, but provides less than half the effort. 2-Substantial/Maximal Assistance-helper does MORE THAN HALF the effort. [place] lifts or holds trunk or limbs and provides more than half the effort. 5-Yfnrwfrve-oxoccy does ALL the effort. Patient does none of the effort to complete the activity. Or, the assistance of 2 or more helpers is required for the patient to complete the activity. If activity was not attempted, code reason: 7-Patient Refused. 9-Not Applicable-not attempted and the patient did not perform the activity before the current illness, exacerbation or injury. 10-Not Attempted due to Environmental Limitations-(lack of equipment, weather restraints, etc.). 88-Not Attempted due to Medical Conditions or Safety Concerns. Roll Left & Right (QC): 4 Lying to Sitting/Side of Bed(Q: 4 Chair/Xxl-td-Pokrd Xfer(QC): 4 (CGA) Weight Bearing TLSO when out of bed. Wheelchair Training Does the Pt Use a Wheelchair?: Yes Wheel 50 ft with 2 turns (QC): 4 Type of Wheelchair: Manual 120'x2, slow, needs several rest breaks Exercises Seated Therapy Exercises: Ankle pumps, Long arc quads (with 2# ankle weight BLE), Hip flexion, Hip abd/add (with RTB and ball) Seated Reps: 20 Treatments bed mobility and transfers, WC mobility, LE exercise Assessment Current Status: Poor Progress slowly improving stand pivot transfer PT Short Term Goals Short Term Goals Time Frame: Feb 22, 2019 Roll Left & Right: 3 Sit to lyin Lying to sitting on side of be: 3 Sit to stand: 3 Chair/xvv-ve-ryzix transfer: 3 Toilet transfer: 3 Car transfer: 3 Walk 10 feet: 3 Walk 50 feet with two turns: 3 PT Retail Banking Manager Goals Retail Banking Manager Goals PT Halfway Goals Time Frame: Mar 08, 2019 Roll Left & Right (QC): 6 Sit to Lying (QC): 6 Lying-Sitting on Side/Bed(QC): 6 Sit to Stand (QC): 6 Chair/Pvs-eb-Pjtfb Xfer(QC): 6 Toilet Transfer (QC): 6 Car Transfer (QC): 5 Does the Patient Walk: No and Walking Goal IS indicated Walk 10 feet (QC): 6 Walk 50ft with 2 Turns (QC): 6 Walk 150 ft (QC): 6 Walking 10ft on Uneven Surface: 4 1 Step (curb) (QC): 4 4 Steps (QC): 4 12 Steps (QC): 9 Picking up an Object (QC): 9 Does the Pt use WC or Scooter?: Yes Wheel 50 feet with 2 turns (QC: 5 Type: Manual Wheel 150 feet: 5 Type: Manual PT Plan Problem List Problem List: Activity Tolerance, Functional Strength, Safety, Balance, Gait, Transfer, Bed Mobility, ROM Treatment/Plan Treatment Plan: Continue Plan of Care Treatment Plan: Bed Mobility, Education, Functional Activity Fidel, Functional Strength, Group Therapy, Gait, Safety, Therapeutic Exercise, Transfers Treatment Duration: Mar 08, 2019 Frequency: At least 5 of 7 days/Wk (IRF) Estimated Hrs Per Day: 1.5 hours per day Patient and/or Family Agrees t: Yes Safety Risks/Education Patient Education: Transfer Techniques, Correct Positioning, W/C Management, Reviewed Don/Doff Brace, Safety Issues Teaching Recipient: Patient Teaching Methods: Demonstration, Discussion Response to Teaching: Reinforcement Needed Time/GCodes Time In: 1400 Time Out: 1430 Total Billed Treatment Time: 30 Total Billed Treatment 1 visit [facility] 15' EX 15' NOY ANTONIO PT Feb 20, 2019 14:26 POS
[2019-02-20] MEDS ORDERED: inSUlin ASPART (NovoLOG) 1 UNIT/0.01 ML (CHARGE PER UNIT) SC SCH (14:30)
[2019-02-20 15:52] VITALS: BP 104/63
[2019-02-20] MEDS: RIVAROXABAN 15 MG TABLET (XARELTO) PO SCH (16:33)
--- NOTE | 2019-02-20 19:11 | NUR ---
bedside report received from Alyson DEMPSEY, assume care of pt
[2019-02-20 20:58] VITALS: BP 127/68
--- NOTE | 2019-02-20 21:06 | NUR ---
pt refused Anabel, & Topher, fsbs 123, c/o back pain level 8/10 on numeric scale, oxyir 15mg given, pt sat up in chair for 30min then back to bed
[2019-02-20] MEDS: doxAzosin 2 MG (CARDURA) TAB PO SCH (21:07)
[2019-02-20] MEDS: VITAMIN D3 1,000 UNITS (CHOLECALCIFEROL) TABLET PO SCH (21:07)
[2019-02-20] MEDS: DONEPEZIL 5 MG (ARICEPT) TAB PO SCH (21:15)
--- NOTE | 2019-02-20 21:50 | NUR ---
resting quietly in bed, pain level 0/10 on flacc scale
--- NOTE | 2019-02-21 01:37 | NUR ---
c/o back pain, pain level 8/10 on numeric scale, oxyir 15mg given
--- NOTE | 2019-02-21 02:15 | NUR ---
resting quietly in bed, pain level 0/10 on flacc scale
[2019-02-21 05:16] VITALS: BP 125/71
[2019-02-21] MEDS: inSUlin ASPART (NovoLOG) 1 UNIT/0.01 ML (CHARGE PER UNIT) SC SCH ×4 (06:00→20:43)
[2019-02-21] MEDS: LEVOTHYROXINE 112 MCG (LEVOTHROID) TAB PO SCH (06:51)
--- NOTE | 2019-02-21 06:51 | NUR ---
c/o back pain level 8/10 on numeric scale, oxyir 15mg given
[2019-02-21] MEDS: CATHETER FLUSH 10 ML SYR IV SCH ×3 (06:52→20:42)
--- NOTE | 2019-02-21 07:15 | NUR ---
bedside report given to LAVELLE RN, pain level 4/10 on numeric scale
[2019-02-21] MEDS: PANTOPRAZOLE 40 MG (PROTONIX) TAB PO SCH (08:46)
[2019-02-21] MEDS: MULTIVIT W/MINERALS TAB (THERAGRAN M) PO SCH (08:46)
[2019-02-21] MEDS: DOCUSATE SODIUM 100 MG (COLACE) CAP PO SCH ×2 (08:46→20:40)
[2019-02-21] MEDS: amLODIPine 10 MG (NORVASC) TAB PO SCH (08:47)
[2019-02-21] MEDS: meTOprolol TARTRATE 50 MG (LOPRESSOR) TAB PO SCH ×2 (08:47→20:40)
[2019-02-21] MEDS: RT-ALBUTEROL/IPRATROPIUM 3 ML (DUONEB) VIAL INH SCH ×4 (08:55→22:31)
[2019-02-21] MEDS: RT-ADVAIR HFA 115/21 MCG PER PUFF IH SCH ×2 (09:06→22:32)
--- NOTE | 2019-02-21 09:14 | Occupational Ther Daily Note ---
OT Current Status-Daily Note Subjective Pt alert, sitting EOB. Pt agrees to therapy. No c/o pain at this time. Mental Status/Objective Patient Orientation: Person, Place, Time, Situation Attachments: IV ADL-Treatment PT/ OT co-treat for 60 minutes to complete high-demand standing exercise and decreased mobility with the use of two skilled therapists, OT focused on ADLs and UE strength while PT focused on LB strength and balance. Pt is progressing with dynamic standing, completing most of ADLs and ambulation. See PT note for transfers and standing. Therapy Code Descriptions/Definitions Functional [place] Measure: 0=Not Assessed/NA 4=Minimal Assistance 1=Total Assistance 5=Supervision or Setup 2=Maximal Assistance 6=Modified [place] 3=Moderate Assistance 7=Complete IndependenceSCALE: Activities may be completed with or without assistive devices. 0-Afcfygmlfc-oltuezo completes the activity by him/herself with no assistance from a helper. 5-Set-up or Clean-up Assistance-helper sets up or cleans up; patient completes activity. [place] assists only prior to or following the activity. 4-Supervision or Touching Assistance-helper provides verbal cues and/or touching/steadying and/or contact guard assistance as patient completes activity. Assistance may be provided throughout the activity or intermittently. 3-Partial/Moderate Assistance-helper does LESS THAN HALF the effort. [place] lifts, holds or supports trunk or limbs, but provides less than half the effort. 2-Substantial/Maximal Assistance-helper does MORE THAN HALF the effort. [place] lifts or holds trunk or limbs and provides more than half the effort. 6-Eqkzqaxcu-elhuvf does ALL the effort. Patient does none of the effort to complete the activity. Or, the assistance of 2 or more helpers is required for the patient to complete the activity. If activity was not attempted, code reason: 7-Patient Refused. 9-Not Applicable-not attempted and the patient did not perform the activity before the current illness, exacerbation or injury. 10-Not Attempted due to Environmental Limitations-(lack of equipment, weather restraints, etc.). 88-Not Attempted due to Medical Conditions or Safety Concerns. Bathing Location: L Arm, R Arm, L Upper Leg, R Upper Leg, L Lower Leg (including foot), R Lower Leg (including foot), Chest, Abdomen Shower/Bathe Self (QC): 3 (Using long handle sponge, grabbars, hand held shower pt able to complete most areas sitting on shower bench. Assist to stand using grabbars and assist to cleanse/rinse/dry buttocks and marie area. ) Upper Body Dressing (QC): 3 (Set up to complete upper body dressing. Assist to don/doff brace.) Lower Body Dressing (QC): 1 (Assist x2 to hike pants over hips. Pt did attempt to hike pants over hips with assist x2. Assist to don/doff clothing over feet.) Footwear (QC) 2 Other Treatment Pt propelled w/c to therapy gym, assist with O2. Assist x2 for safety with ambulating between parallel bars, 1x. Pt completed UE exercises to strengthen for daily functional tasks. Pt became nauseous and vomited. Pt taken back to room and transferred back to bed after session. Call light/phone in reach. All needs met in room. OT Short Term Goals Short Term Goals Time Frame: Feb 22, 2019 Toileting hygiene: 3 Shower/bathe self: 3 Upper body dressin Lower body dressin OT Fpc Goals Tmd Teacher Assistant Goals Time Frame: Mar 08, 2019 Eating (QC): 6 Oral Hygiene (QC): 6 Toileting Hygiene (QC): 6 Shower/Bathe Self (QC): 5 Upper Body Dressing (QC): 5 Lower Body Dressing (QC): 5 On/Off Footwear (QC): 5 Additional Goals: 1-Demonstrate ADL Tasks, 2-Verbalize Understanding, 3- ImproveStrength/Fidel 1=Demonstrate adherence to instructed precautions during ADL tasks. 2=Patient will verbalize/demonstrate understanding of assistive devices/modific ations for ADL. 3=Patient will improve strength/tolerance for activity to enable patient to perform ADL's. OT Education/Plan Problem List/Assessment Assessment: Decreased Activ Tolerance, Decreased UE Strength, Impaired Bed Mobility, Impaired Coordination, Impaired Funct Balance, Impaired Self-Care Skills Discharge Recommendations Plan/Recommendations: Continue POC Treatment Plan/Plan of Care Patient would benefit from OT for education, treatment and training to promote independence in ADL's, mobility, safety and/or upper extremity function for ADL's. Plan of Care: ADL Retraining, Functional Mobility, Group Exercise/Act as Ind, UE Funct Exercise/Act Treatment Duration: Mar 08, 2019 Frequency: At least 5 of 7 days/Wk (IRF) Estimated Hrs Per Day: 1.5 hours per day Rehab Potential: Fair Time/GCodes Start Time: 07:30 Stop Time: 09:00 Total Time Billed (hr/min): 90 Billed Treatment Time 1 visit-ADL 4 (60 min) FA 2 (30 min) co-treat with PT [id number] individual [id number] NIKKY WEN Feb 21, 2019 09:14 POS
--- NOTE | 2019-02-21 09:16 | Physical Therapy Daily Note ---
PT Daily Note-Current Subjective Pt. in shower with OT on arrival. States shower felt really good. Pt. states her goals are to walk again without her legs getting weak and falling. Pt. during Rx near end had N&V. Pain Location: No Pain Reported Mental Status Patient Orientation: Listless Attachments: Oxygen (3L), Other-See Comments (TLSO mod to max assist to [place]) Transfers SCALE: Activities may be completed with or without assistive devices. 5-Sxnbcwcoil-vhpsdaj completes the activity by him/herself with no assistance from a helper. 5-Set-up or Clean-up Assistance-helper sets up or cleans up; patient completes activity. [place] assists only prior to or following the activity. 4-Supervision or Touching Assistance-helper provides verbal cues and/or touching/steadying and/or contact guard assistance as patient completes activity. Assistance may be provided throughout the activity or intermittently. 3-Partial/Moderate Assistance-helper does LESS THAN HALF the effort. [place] lifts, holds or supports trunk or limbs, but provides less than half the effort. 2-Substantial/Maximal Assistance-helper does MORE THAN HALF the effort. [place] lifts or holds trunk or limbs and provides more than half the effort. 5-Kbnkxnhad-fhnwpa does ALL the effort. Patient does none of the effort to complete the activity. Or, the assistance of 2 or more helpers is required for the patient to complete the activity. If activity was not attempted, code reason: 7-Patient Refused. 9-Not Applicable-not attempted and the patient did not perform the activity before the current illness, exacerbation or injury. 10-Not Attempted due to Environmental Limitations-(lack of equipment, weather restraints, etc.). 88-Not Attempted due to Medical Conditions or Safety Concerns. Roll Left & Right (QC): 4 Sit to Lying (QC): 4 Sit to Stand (QC): 4 Chair/Hju-ji-Yrhsh Xfer(QC): 4 sit to stand from w/c multiple trials with instruction to use UEs from arms of chair rather than reaching for rails to pull up or from FWW being held down by assist Weight Bearing TLSO when out of bed. Gait Training Does the Patient Walk?: Yes Gait Assistive Device: Parallel Bars 6ftx1 with CGA and w/c to follow. Pt. comments that her knees are getting weak Wheelchair Training Does the Pt Use a Wheelchair?: Yes Wheel 50 ft with 2 turns (QC): 5 Type of Wheelchair: Manual pt. fatigues and needed rest after before starting another task Exercises Seated Therapy Exercises: Ankle pumps, Sit to stand, Long arc quads, Hip flexion, Hip abd/add Seated Reps: 15 Treatments co Rx with OT for Rx secondary to pts low level of function and needed assist of 2 for safe TRF and skilled assist for UE and LE coordination for function Assessment Current Status: Good Progress pt. continues dependent for function. O2 at 92% and above during Rx. TRFs improved since las t seen by this therapist. TLSO odd fitting secondary to abdomen and pt. struggles with it jesus in sitting PT Short Term Goals Short Term Goals Time Frame: Feb 22, 2019 Roll Left & Right: 3 Sit to lyin Lying to sitting on side of be: 3 Sit to stand: 3 Chair/coy-ew-zkzkr transfer: 3 Toilet transfer: 3 Car transfer: 3 Walk 10 feet: 3 Walk 50 feet with two turns: 3 PT Remote Sensing Engineer Goals Usp Goals PT Usp Goals Time Frame: Mar 08, 2019 Roll Left & Right (QC): 6 Sit to Lying (QC): 6 Lying-Sitting on Side/Bed(QC): 6 Sit to Stand (QC): 6 Chair/Nmb-uv-Stdcr Xfer(QC): 6 Toilet Transfer (QC): 6 Car Transfer (QC): 5 Does the Patient Walk: No and Walking Goal IS indicated Walk 10 feet (QC): 6 Walk 50ft with 2 Turns (QC): 6 Walk 150 ft (QC): 6 Walking 10ft on Uneven Surface: 4 1 Step (curb) (QC): 4 4 Steps (QC): 4 12 Steps (QC): 9 Picking up an Object (QC): 9 Does the Pt use WC or Scooter?: Yes Wheel 50 feet with 2 turns (QC: 5 Type: Manual Wheel 150 feet: 5 Type: Manual PT Plan Treatment/Plan Treatment Plan: Continue Plan of Care Treatment Plan: Bed Mobility, Education, Functional Activity Fidel, Functional Strength, Group Therapy, Gait, Safety, Therapeutic Exercise, Transfers Treatment Duration: Mar 08, 2019 Frequency: At least 5 of 7 days/Wk (IRF) Estimated Hrs Per Day: 1.5 hours per day Patient and/or Family Agrees t: Yes Safety Risks/Education Patient Education: Gait Training, Transfer Techniques, Correct Positioning, W/C Management, Reviewed Don/Doff Brace, Disease Process, Safety Issues Teaching Recipient: Patient Teaching Methods: Demonstration, Discussion Response to Teaching: Verbalize Understanding, Return Demonstration, Reinforcement Needed Time/GCodes Time In: 800 Time Out: 900 Total Billed Treatment Time: 60 Total Billed Treatment 1,EX15m,WC 15m,GT10m,FA 20m JENNIFER BALDERAS BRANDS EDITOR Feb 21, 2019 09:16 POS
--- NOTE | 2019-02-21 09:57 | PM&R Progress Note ---
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 Venofer iron infusion #3 will be performed today Decrease in the use of pain medication Will need a residential placement at [facility] and that will be set for 02/27/19 She has a doctors appointment on Tuesday Conferred with RN Reviewed therapy notes Checked meds and labs Objective Exam Vital Signs Vital Signs Date Time Temp Pulse Resp B/P (MAP) Pulse Ox O2 Delivery O2 Flow Rate FiO2 02/21/19 20:46 72 18 130/69 (89) 92 Nasal Cannula 3.00 02/21/19 17:49 36.6 Capillary Refill : Less Than 3 Seconds General Appearance: No Apparent Distress, WD/WN, Chronically ill, Obese HEENT: PERRL/EOMI, Normal ENT Inspection, Pharynx Normal Neck: Full Range of Motion, Normal Inspection, Non Tender, Supple, Carotid Bruit Respiratory: Chest Non Tender, Lungs Clear, Normal Breath Sounds, No Accessory Muscle Use, No Respiratory Distress Cardiovascular: No Edema, No Gallop, No JVD, No Murmur, Normal Peripheral Pulses, Irregularly Irregular Gastrointestinal: Normal Bowel Sounds, No Organomegaly, No Pulsatile Mass, Non Tender, Soft Back: Decreased Range of Motion, Muscle Spasm, Vertebral Tenderness, Other (wou nd VAC in place) Extremity: Normal Capillary Refill, Normal Inspection, Normal Range of Motion, Non Tender, No Calf Tenderness, No Pedal Edema Neurologic/Psychiatric: Alert, Oriented x3, No Motor/Sensory Deficits, synoptic meteorologist II- XII Norm as Tested, Depressed Affect Skin: Normal Color, Warm/Dry Lymphatic: No Adenopathy Results/Procedures Lab Laboratory Tests 02/21/19 10:25 Patient resulted labs reviewed. FIM Transfers Therapy Code Descriptions/Definitions Functional [place] Measure: 0=Not Assessed/NA 4=Minimal Assistance 1=Total Assistance 5=Supervision or Setup 2=Maximal Assistance 6=Modified [place] 3=Moderate Assistance 7=Complete IndependenceSCALE: Activities may be completed with or without assistive devices. 7-Obueoxhigv-getbkbh completes the activity by him/herself with no assistance from a helper. 5-Set-up or Clean-up Assistance-helper sets up or cleans up; patient completes activity. [place] assists only prior to or following the activity. 4-Supervision or Touching Assistance-helper provides verbal cues and/or touching/steadying and/or contact guard assistance as patient completes activity. Assistance may be provided throughout the activity or intermittently. 3-Partial/Moderate Assistance-helper does LESS THAN HALF the effort. [place] lifts, holds or supports trunk or limbs, but provides less than half the effort. 2-Substantial/Maximal Assistance-helper does MORE THAN HALF the effort. [place] lifts or holds trunk or limbs and provides more than half the effort. 1-Dduqoqpdb-mpsqwd does ALL the effort. Patient does none of the effort to complete the activity. Or, the assistance of 2 or more helpers is required for the patient to complete the activity. If activity was not attempted, code reason: 7-Patient Refused. 9-Not Applicable-not attempted and the patient did not perform the activity before the current illness, exacerbation or injury. 10-Not Attempted due to Environmental Limitations-(lack of equipment, weather restraints, etc.). 88-Not Attempted due to Medical Conditions or Safety Concerns. Roll Left to Right (QC): 4 Sit to Lying (QC): 4 Sit to Stand (QC): 4 Chair/Wbo-dm-Nxsbv Xfer(QC): 4 Car Transfer (QC): 88 Gait Training Does the Patient Walk?: No and Walking Goal IS indicated Walk 10 feet (QC): 88 Walk 50 ft with 2 Turns(QC): 88 Walk 150 ft (QC): 88 Walking 10ft/uneven surface-QC: 88 Gait Persons Needed: 1 Gait Assistive Device: Parallel Bars Wheelchair Training Does the Pt Use a Wheelchair?: Yes Wheel 50 ft with 2 turns (QC): 5 Wheel 150 ft (QC): 1 Type of Wheelchair: Manual Stair Training 1 Step (curb) (QC): 88 4 Steps (QC): 88 12 Steps (QC): 88 Balance Picking up an Object (QC): 88 ADL-Treatment Eating (QC): 6 Oral Hygiene (QC): 6 Bathing Location: L Arm, R Arm, L Upper Leg, R Upper Leg, L Lower Leg (including foot), R Lower Leg (including foot), Chest, Abdomen Shower/Bathe Self (QC): 3 (Using long handle sponge, grabbars, hand held shower pt able to complete most areas sitting on shower bench. Assist to stand using grabbars and assist to cleanse/rinse/dry buttocks and marie area. ) Upper Body Dressing (QC): 3 (Set up to complete upper body dressing. Assist to don/doff brace.) Lower Body Dressing (QC): 1 (Assist x2 to hike pants over hips. Pt did attempt to hike pants over hips with assist x2. Assist to don/doff clothing over feet.) On/Off Footwear (QC): 1 (Pt will require instruction in use of AE for socks secondary to back precautions.) Toileting Hygiene (QC): 2 Toilet Transfer (QC): 3 Assessment/Plan Assessment and Plan Assess & Plan/Chief Complaint Assessment: Thoracic vertebral fracture s/p repair s/p Multilobar pneumonia placed on Vanc and Cefepime per Dr Garcia now completed treatment and lungs are clear Severe COPD O2 dependence Recent intubation after thoracic vertebral fracture surgery Right pleural effusion CRI now with creat 2.57 will check tomorrow Chronic on acute debility HTN Chronic AF OAC Anemia with iron def Plan: Abx Monitor closely due to resp status O2 Nebs IRF protocol [facility] wound vac and incision looks good Confusion? Needs NH at [facility] Patient requires aggressive medical treatment due to severity of her lung disease Elaine to neurosurgery at [facility] regarding right leg numbness (1) Fracture of lamina of thoracic vertebra (2) Multifocal pneumonia (3) Hypothyroidism (4) Diabetes mellitus (5) Chronic renal insufficiency, stage III (moderate) (6) Anemia of renal disease (7) Chronic constipation (8) Back pain (9) Dependence on supplemental oxygen (10) COPD (chronic obstructive pulmonary disease) (11) Hypertension (12) Hyperlipidemia (13) Wheezing (14) Depression (15) Angina at rest (16) Atrial fibrillation (17) On continuous oral anticoagulation (18) History of respiratory failure (19) Cough MAUDE HINOJOSA DO Feb 21, 2019 09:56 POS
[2019-02-21 10:36] LABS: BASOPHILS % (AUTO) 0 % (0-10); EOSINOPHILS # (AUTO) 0.2 10^3/uL (0.0-0.3); EOSINOPHILS % (AUTO) 1 % (0-10); HEMATOCRIT 26 % (35-52); HEMOGLOBIN 8.1 G/DL (11.5-16.0); LYMPHOCYTES # (AUTO) 0.6 X 10^3 (1.0-4.0); LYMPHOCYTES % (AUTO) 5 % (12-44); MEAN CORPUSCULAR HEMOGLOBIN 29 PG (25-34); MEAN CORPUSCULAR HGB CONC 32 G/DL (32-36); MEAN CORPUSCULAR VOLUME 92 FL (80-99); MEAN PLATELET VOLUME 8.4 FL (7.4-10.4); MONOCYTES % (AUTO) 8 % (0-12); NEUTROPHILS # (AUTO) 9.8 X 10^3 (1.8-7.8); NEUTROPHILS % (AUTO) 85 % (42-75); PLATELET COUNT 316 10^3/uL (130-400); RED CELL DISTRIBUTION WIDTH 15.7 % (10.0-14.5); WHITE BLOOD COUNT 11.5 10^3/uL (4.3-11.0)
[2019-02-21 10:58] LABS: BILIRUBIN,TOTAL 0.3 MG/DL (0.1-1.0); CALCIUM 9.2 MG/DL (8.5-10.1); CREATININE SERUM 2.57 MG/DL (0.60-1.30); POTASSIUM 3.9 MMOL/L (3.6-5.0); TOTAL PROTEIN 5.3 GM/DL (6.4-8.2)
[2019-02-21] MEDS: POLYETHYLENE GLYCOL 17 GM (MIRALAX) PACK PO SCH ×4 (11:36→20:41)
--- NOTE | 2019-02-21 14:25 | Progress Note ---
BANG KUO,MED STUDENT 02/21/19 1425: Progress Note Patient had an episode of emesis this morning following physical therapy. She continues to be anemic but has done well with the Venofer infusions, and will have her third infusion this afternoon. PT reports that she is dependent for transfers and requires minimal to moderate assist from bed to standing. OT and speech report that she often needs a lot of encouragement to get through her ADLs. Patient's goal of independent ambulation without lower extremity weakness may be unrealistic and she may end up just using her wheelchair. She has an appointment with a neurosurgeon in [place] on 02/23/19 and the plan is to utilize [facility] for assistance. Patient reports that family will help her at home but this is also likely to be unrealistic. Will likely require discharge to [facility] facility. Goal discharge date: 02/27/19 PIA HINOJOSA DO 02/21/196: Supervisory-Addendum Brief Verification & Attestation Participated in pt care: history, MDM, physical Personally performed: exam, history, MDM, supervision of care Care discussed with: Medical Student Procedures: n/a Results interpretation: Verified all documentation Verification and Attestation of Medical Student E/M Service A medical student performed and documented this service in my presence. I reviewed and verified all information documented by the medical student and made modifications to such information, when appropriate. I personally performed the physical exam and medical decision making. Pia Hinojosa, Feb 21, 2019,21:16 BANG KUO,MED STUDENT Feb 21, 2019 14:25 PIA CLARKE DO Feb 21, 2019 21:16 POS
--- NOTE | 2019-02-21 15:13 | Therapy Group Daily Note ---
Therapy Daily Group Note Patient Education Topic Other List Below (Transfers) Exercises LE Seated Exercise, UE Exercise Session Ratio (pt:therapist): 4:1 Goal of Session: UE/LE Strengthing, Safety with Transfers Goal Met for this Session: Yes Pt Benefit of Group: Contributions to Others, F/U Use of Strategies @Home, Increased Functional Safety, Increased Functional Strength, Improved Cognition, Recognition of Peers, Socialization Other/Notes Pt maneuvered w/c to <--> from [facility] for OT/PT group. Group consisted of introductions (name, place living, [place] memory), socialization, pt led UE/LE seated exercises and education for safe transfers. Pt introduced self appropriately and actively listened to peers. Pt able to read exercise card and lead peers in one exercise then was able to complete other exercises. Pt acknowledged understanding of safe transfers utilizing AE for bathroom, automobile and chairs by contributing ideas and own experiences. After therapy, pt lying in bed with call light/phone in reach. All needs met in room. Start Time: 13:00 Stop Time: 14:15 Total Billed Treatment Time: 75 Total Billed Treatment 1, GRP (75m) BANG COOPER LINOLEUM TILE FLOOR LAYER Feb 21, 2019 15:12 POS
[2019-02-21] MEDS: IRON SUCROSE 200 MG/10 ML (VENOFER) VIAL IV SCH (16:50)
[2019-02-21] MEDS: RIVAROXABAN 15 MG TABLET (XARELTO) PO SCH (16:50)
[2019-02-21 17:49] VITALS: BP 102/53
[2019-02-21] MEDS: doxAzosin 2 MG (CARDURA) TAB PO SCH (20:40)
[2019-02-21] MEDS: DONEPEZIL 5 MG (ARICEPT) TAB PO SCH (20:41)
[2019-02-21] MEDS: VITAMIN D3 1,000 UNITS (CHOLECALCIFEROL) TABLET PO SCH (20:41)
[2019-02-21 20:46] VITALS: BP 130/69
[2019-02-22] MEDS: inSUlin ASPART (NovoLOG) 1 UNIT/0.01 ML (CHARGE PER UNIT) SC SCH ×4 (05:42→20:45)
[2019-02-22] MEDS: LEVOTHYROXINE 112 MCG (LEVOTHROID) TAB PO SCH (05:52)
[2019-02-22] MEDS: CATHETER FLUSH 10 ML SYR IV SCH ×3 (05:52→20:24)
[2019-02-22 06:16] VITALS: BP 116/59
[2019-02-22 06:24] LABS: CALCIUM 9.1 MG/DL (8.5-10.1); CREATININE SERUM 2.73 MG/DL (0.60-1.30); POTASSIUM 3.8 MMOL/L (3.6-5.0)
--- NOTE | 2019-02-22 07:46 | Occupational Ther Daily Note ---
OT Current Status-Daily Note Subjective Pt sleeping in bed, woke to touch. Pt agrees to therapy. No c/o initially but during middle of treatment pt became nauseous, reported to nrsg. Mental Status/Objective Patient Orientation: Person, Place, Time, Situation ADL-Treatment Therapy Code Descriptions/Definitions Functional [place] Measure: 0=Not Assessed/NA 4=Minimal Assistance 1=Total Assistance 5=Supervision or Setup 2=Maximal Assistance 6=Modified [place] 3=Moderate Assistance 7=Complete IndependenceSCALE: Activities may be completed with or without assistive devices. 1-Zxxawrpbgb-ljsrjrq completes the activity by him/herself with no assistance from a helper. 5-Set-up or Clean-up Assistance-helper sets up or cleans up; patient completes activity. [place] assists only prior to or following the activity. 4-Supervision or Touching Assistance-helper provides verbal cues and/or touching/steadying and/or contact guard assistance as patient completes activity. Assistance may be provided throughout the activity or intermittently. 3-Partial/Moderate Assistance-helper does LESS THAN HALF the effort. [place] lifts, holds or supports trunk or limbs, but provides less than half the effort. 2-Substantial/Maximal Assistance-helper does MORE THAN HALF the effort. [place] lifts or holds trunk or limbs and provides more than half the effort. 9-Vqgtfjvmh-lgclhm does ALL the effort. Patient does none of the effort to complete the activity. Or, the assistance of 2 or more helpers is required for the patient to complete the activity. If activity was not attempted, code reason: 7-Patient Refused. 9-Not Applicable-not attempted and the patient did not perform the activity before the current illness, exacerbation or injury. 10-Not Attempted due to Environmental Limitations-(lack of equipment, weather restraints, etc.). 88-Not Attempted due to Medical Conditions or Safety Concerns. Eating (QC): 6 (Pt able to set own meal up and use regular utensils to eat.) Upper Body Dressing (QC): 5 (After setup, pt able to don upper body clothing and back brace, cues needed to pull brace tighter.) Lower Body Dressing (QC): 3 (Pt able to get shoes on feet then assist to pull up heel of shoe.) Toileting Hygiene (QC): 2 (Assist to manipulate clothing and cleanse.) Toilet Transfer (QC): 3 (Min A transfer from EOB to BSC.) Other Treatment PT/ OT co-treat for 60 minutes to complete high-demand standing exercise and decreased mobility with the use of two skilled therapists, OT focused on ADLs and UE strength while PT focused on LB strength and balance. Pt is progressing with dynamic standing, working on using one hand to complete tasks while other is stabilizing. See PT note for transfers and standing. After therapy, pt lying in bed with call light/phone in reach. All needs met in room. OT Short Term Goals Short Term Goals Time Frame: Feb 22, 2019 Toileting hygiene: 3 Shower/bathe self: 3 Upper body dressin Lower body dressin OT Fpc Goals Fpc Goals Time Frame: Mar 08, 2019 Eating (QC): 6 Oral Hygiene (QC): 6 Toileting Hygiene (QC): 6 Shower/Bathe Self (QC): 5 Upper Body Dressing (QC): 5 Lower Body Dressing (QC): 5 On/Off Footwear (QC): 5 Additional Goals: 1-Demonstrate ADL Tasks, 2-Verbalize Understanding, 3- ImproveStrength/Fidel 1=Demonstrate adherence to instructed precautions during ADL tasks. 2=Patient will verbalize/demonstrate understanding of assistive de vices/modifications for ADL. 3=Patient will improve strength/tolerance for activity to enable patient to perform ADL's. OT Education/Plan Problem List/Assessment Assessment: Decreased Activ Tolerance, Decreased UE Strength, Impaired Coordination, Impaired Funct Balance, Impaired Self-Care Skills Discharge Recommendations Plan/Recommendations: Continue POC Treatment Plan/Plan of Care Patient would benefit from OT for education, treatment and training to promote independence in ADL's, mobility, safety and/or upper extremity function for ADL's. Plan of Care: ADL Retraining, Functional Mobility, Group Exercise/Act as Ind, UE Funct Exercise/Act Treatment Duration: Mar 08, 2019 Frequency: At least 5 of 7 days/Wk (IRF) Estimated Hrs Per Day: 1.5 hours per day Rehab Potential: Fair Time/GCodes Start Time: 07:30 Stop Time: 09:00 Total Time Billed (hr/min): 90 Billed Treatment Time 1 visit-ADL 2 (30 min) FA 4 (60 min) NIKKY WEN Feb 22, 2019 07:46 POS
[2019-02-22] MEDS: RT-ADVAIR HFA 115/21 MCG PER PUFF IH SCH ×2 (08:24→22:57)
[2019-02-22] MEDS: RT-ALBUTEROL/IPRATROPIUM 3 ML (DUONEB) VIAL INH SCH ×4 (08:24→22:56)
--- NOTE | 2019-02-22 08:59 | Physical Therapy Daily Note ---
PT Daily Note-Current Subjective Patient in wheelchair pre tx, agrees to PT, has 8/10 pain in back. Will be co- treating with OT due to poor patient mobility, strength, pain, the need to coordinate UE and LE during activity. Appearance Patient BTB post tx with nurse call, phone, tray, all needs met. Mental Status Patient Orientation: Normal For Age Attachments: Oxygen TLSO Transfers SCALE: Activities may be completed with or without assistive devices. 2-Tybhqxluxt-mvaioiy completes the activity by him/herself with no assistance from a helper. 5-Set-up or Clean-up Assistance-helper sets up or cleans up; patient completes activity. [place] assists only prior to or following the activity. 4-Supervision or Touching Assistance-helper provides verbal cues and/or touching/steadying and/or contact guard assistance as patient completes activity. Assistance may be provided throughout the activity or intermittently. 3-Partial/Moderate Assistance-helper does LESS THAN HALF the effort. [place] lifts, holds or supports trunk or limbs, but provides less than half the effort. 2-Substantial/Maximal Assistance-helper does MORE THAN HALF the effort. [place] lifts or holds trunk or limbs and provides more than half the effort. 3-Qygufhqcz-uqksbu does ALL the effort. Patient does none of the effort to complete the activity. Or, the assistance of 2 or more helpers is required for the patient to complete the activity. If activity was not attempted, code reason: 7-Patient Refused. 9-Not Applicable-not attempted and the patient did not perform the activity before the current illness, exacerbation or injury. 10-Not Attempted due to Environmental Limitations-(lack of equipment, weather restraints, etc.). 88-Not Attempted due to Medical Conditions or Safety Concerns. Roll Left & Right (QC): 3 Sit to Lying (QC): 3 Sit to Stand (QC): 3 Chair/Jtd-nm-Pbrqv Xfer(QC): 3 Min assist, cues for hand placement and positioning. Painful sit to stand. Weight Bearing TLSO when out of bed. Gait Training Does the Patient Walk?: Yes Distance: 8'x3 Gait Persons Needed: 1 Gait Assistive Device: Parallel Bars Patient ambulated 8' forward in the parallel bars x3, slow antalgic ambulation, uncoordinated steps with right leg but better advancement. Wheelchair Training Does the Pt Use a Wheelchair?: Yes Wheel 50 ft with 2 turns (QC): 4 Type of Wheelchair: Manual 100'x2, SBA, several rest breaks due to arm fatigue Exercises standing from the wheelchair using the outside of the parallel bars x2 to perform an OT exercise with one arm (holding onto the parallel bar with the other) x2, patient stood for about 1 min each time Treatments bed mobility and transfers, ambulation, standing, WC mobility Assessment Current Status: Fair Progress improving ambulation, needs to try rolling walker tomorrow, continues to struggle with nausea and it does interfere with therapy, had to stop several times due to nausea PT Short Term Goals Short Term Goals Time Frame: Feb 22, 2019 Roll Left & Right: 3 Sit to lyin Lying to sitting on side of be: 3 Sit to stand: 3 Chair/roz-vu-jwrgy transfer: 3 Toilet transfer: 3 Car transfer: 3 Walk 10 feet: 3 Walk 50 feet with two turns: 3 PT Criminalist Technician Goals Criminalist Technician Goals PT Mcc Goals Time Frame: Mar 08, 2019 Roll Left & Right (QC): 6 Sit to Lying (QC): 6 Lying-Sitting on Side/Bed(QC): 6 Sit to Stand (QC): 6 Chair/Occ-sj-Aunvu Xfer(QC): 6 Toilet Transfer (QC): 6 Car Transfer (QC): 5 Does the Patient Walk: No and Walking Goal IS indicated Walk 10 feet (QC): 6 Walk 50ft with 2 Turns (QC): 6 Walk 150 ft (QC): 6 Walking 10ft on Uneven Surface: 4 1 Step (curb) (QC): 4 4 Steps (QC): 4 12 Steps (QC): 9 Picking up an Object (QC): 9 Does the Pt use WC or Scooter?: Yes Wheel 50 feet with 2 turns (QC: 5 Type: Manual Wheel 150 feet: 5 Type: Manual PT Plan Problem List Problem List: Activity Tolerance, Functional Strength, Safety, Balance, Gait, Transfer, Bed Mobility, ROM Treatment/Plan Treatment Plan: Continue Plan of Care Treatment Plan: Bed Mobility, Education, Functional Activity Fidel, Functional Strength, Group Therapy, Gait, Safety, Therapeutic Exercise, Transfers Treatment Duration: Mar 08, 2019 Frequency: At least 5 of 7 days/Wk (IRF) Estimated Hrs Per Day: 1.5 hours per day Patient and/or Family Agrees t: Yes Safety Risks/Education Patient Education: Gait Training, Transfer Techniques, Correct Positioning, W/C Management, Reviewed Don/Doff Brace, Safety Issues Teaching Recipient: Patient Teaching Methods: Demonstration, Discussion Response to Teaching: Reinforcement Needed Time/GCodes Time In: 0800 Time Out: 0900 Total Billed Treatment Time: 60 Total Billed Treatment 1 visit GT 20' WCH 15' FA 25' Co-treated with OT for 60 min. PT worked on bed mobility and transfers, amb ulation, WC mobility, standing, OT worked on UE positioning and strength, assist with transfers and ambulation NOY ANTONIO PT Feb 22, 2019 08:59 POS
[2019-02-22] MEDS: ONDANSETRON 4 MG/2 ML (SDV) Z0FRAN IV PRN (09:04)
--- NOTE | 2019-02-22 09:38 | PM&R Progress Note ---
Subjective HPI/CC On Admission Date Seen by Provider: Feb 22, 2019 Time Seen by Provider: 08:30 Subjective/Events-last exam Pt has nausea and vomiting every morning. Has a Tuesday appointment tomorrow at [facility]. MRI will be done today. [place] will be removed since they were placed January. Suppository and anemia will be initiated since her last BM was two days ago and she has narcotic bowel. Conferred with RN Reviewed therapy notes Checked meds and labs Review of Systems General: Fatigue Musculoskeletal: back pain Neurological: Weakness, Numbness, Incoordination Objective Exam Vital Signs Vital Signs Date Time Temp Pulse Resp B/P (MAP) Pulse Ox O2 Delivery O2 Flow Rate FiO2 02/23/19 15:00 36.7 69 18 126/70 94 Nasal Cannula 3.00 Capillary Refill : Less Than 3 Seconds General Appearance: No Apparent Distress, WD/WN, Chronically ill, Obese HEENT: PERRL/EOMI, Normal ENT Inspection, Pharynx Normal Neck: Full Range of Motion, Normal Inspection, Non Tender, Supple, Carotid Bruit Respiratory: Chest Non Tender, Lungs Clear, Normal Breath Sounds, No Accessory Muscle Use, No Respiratory Distress Cardiovascular: No Edema, No Gallop, No JVD, No Murmur, Normal Peripheral P ulses, Irregularly Irregular Gastrointestinal: Normal Bowel Sounds, No Organomegaly, No Pulsatile Mass, Non Tender, Soft Back: Decreased Range of Motion, Muscle Spasm, Vertebral Tenderness, Other (wound VAC in place) Extremity: Normal Capillary Refill, Normal Inspection, Normal Range of Motion, Non Tender, No Calf Tenderness, No Pedal Edema Neurologic/Psychiatric: Alert, Oriented x3, No Motor/Sensory Deficits, financial writer II-XII Norm as Tested, Depressed Affect Skin: Normal Color, Warm/Dry Lymphatic: No Adenopathy Results/Procedures Lab Patient resulted labs reviewed. FIM Transfers Therapy Code Descriptions/Definitions Functional [place] Measure: 0=Not Assessed/NA 4=Minimal Assistance 1=Total Assistance 5=Supervision or Setup 2=Maximal Assistance 6=Modified [place] 3=Moderate Assistance 7=Complete IndependenceSCALE: Activities may be completed with or without assistive devices. 9-Nllmwkffvh-yptzgdo completes the activity by him/herself with no assistance from a helper. 5-Set-up or Clean-up Assistance-helper sets up or cleans up; patient completes activity. [place] assists only prior to or following the activity. 4-Supervision or Touching Assistance-helper provides verbal cues and/or touching/steadying and/or contact guard assistance as patient completes activity. Assistance may be provided throughout the activity or intermittently. 3-Partial/Moderate Assistance-helper does LESS THAN HALF the effort. [place] lifts, holds or supports trunk or limbs, but provides less than half the effort. 2-Substantial/Maximal Assistance-helper does MORE THAN HALF the effort. [place] lifts or holds trunk or limbs and provides more than half the effort. 0-Mvgphajit-nyirso does ALL the effort. Patient does none of the effort to complete the activity. Or, the assistance of 2 or more helpers is required for the patient to complete the activity. If activity was not attempted, code reason: 7-Patient Refused. 9-Not Applicable-not attempted and the patient did not perform the activity be fore the current illness, exacerbation or injury. 10-Not Attempted due to Environmental Limitations-(lack of equipment, weather restraints, etc.). 88-Not Attempted due to Medical Conditions or Safety Concerns. Roll Left to Right (QC): 3 Sit to Lying (QC): 3 Sit to Stand (QC): 3 Chair/Twi-rh-Gsegu Xfer(QC): 3 Car Transfer (QC): 88 Gait Training Does the Patient Walk?: Yes Distance: 8'x3 Walk 10 feet (QC): 88 Walk 50 ft with 2 Turns(QC): 88 Walk 150 ft (QC): 88 Walking 10ft/uneven surface-QC: 88 Gait Persons Needed: 1 Gait Assistive Device: Parallel Bars Wheelchair Training Does the Pt Use a Wheelchair?: Yes Wheel 50 ft with 2 turns (QC): 5 Wheel 150 ft (QC): 1 Type of Wheelchair: Manual Stair Training 1 Step (curb) (QC): 88 4 Steps (QC): 88 12 Steps (QC): 88 Balance Picking up an Object (QC): 88 ADL-Treatment Eating (QC): 6 (Pt able to set own meal up and use regular utensils to eat.) Oral Hygiene (QC): 6 Bathing Location: L Arm, R Arm, L Upper Leg, R Upper Leg, L Lower Leg (including foot), R Lower Leg (including foot), Chest, Abdomen Shower/Bathe Self (QC): 3 (Using long handle sponge, grabbars, hand held shower pt able to complete most areas sitting on shower bench. Assist to stand using grabbars and assist to cleanse/rinse/dry buttocks and marie area. ) Upper Body Dressing (QC): 5 (After setup, pt able to don upper body clothing and back brace, cues needed to pull brace tighter.) Lower Body Dressing (QC): 3 (Pt able to get shoes on feet then assist to pull up heel of shoe.) On/Off Footwear (QC): 1 (Pt will require instruction in use of AE for socks secondary to back precautions.) Toileting Hygiene (QC): 2 (Assist to manipulate clothing and cleanse.) Toilet Transfer (QC): 3 (Min A transfer from [facility] to [facility] Assessment/Plan Assessment and Plan Assess & Plan/Chief Complaint Assessment: Thoracic vertebral fracture s/p repair s/p Multilobar pneumonia placed on Vanc and Cefepime per Dr Garcia now completed treatment and lungs are clear Severe COPD O2 dependence Recent intubation after thoracic vertebral fracture surgery Right pleural effusion CRI now with creat 2.57 will check tomorrow Chronic on acute debility HTN Chronic AF OAC Anemia with iron def Plan: NSG appt tomorrow Monitor elevated creatinine Maintain IVF (1) Fracture of lamina of thoracic vertebra (2) Multifocal pneumonia (3) Hypothyroidism (4) Diabetes mellitus (5) Chronic renal insufficiency, stage III (moderate) (6) Anemia of renal disease (7) Chronic constipation (8) Back pain (9) Dependence on supplemental oxygen (10) COPD (chronic obstructive pulmonary disease) (11) Hypertension (12) Hyperlipidemia (13) Wheezing (14) Depression (15) Angina at rest (16) Atrial fibrillation (17) On continuous oral anticoagulation (18) History of respiratory failure (19) Cough MAUDE HINOJOSA DO Feb 22, 2019 09:38 POS
[2019-02-22] MEDS: MULTIVIT W/MINERALS TAB (THERAGRAN M) PO SCH ×2 (10:30→10:38)
[2019-02-22] MEDS: POLYETHYLENE GLYCOL 17 GM (MIRALAX) PACK PO SCH ×4 (10:30→20:16)
[2019-02-22] MEDS: amLODIPine 10 MG (NORVASC) TAB PO SCH (10:30)
[2019-02-22] MEDS: meTOprolol TARTRATE 50 MG (LOPRESSOR) TAB PO SCH ×2 (10:30→20:15)
[2019-02-22] MEDS: DOCUSATE SODIUM 100 MG (COLACE) CAP PO SCH ×2 (10:30→20:15)
[2019-02-22] MEDS: PANTOPRAZOLE 40 MG (PROTONIX) TAB PO SCH (10:30)
--- NOTE | 2019-02-22 13:22 | Physical Therapy Daily Note ---
PT Daily Note-Current Subjective Patient in bed pre tx, has 8/10 pain and has emesis basin due to nausea. She agrees to bed exercises. Appearance Patient in bed post tx with nurse call, phone, tray, all needs met. Mental Status Patient Orientation: Person, Place, Situation Transfers SCALE: Activities may be completed with or without assistive devices. 1-Qlzgihjksp-iovizwm completes the activity by him/herself with no assistance from a helper. 5-Set-up or Clean-up Assistance-helper sets up or cleans up; patient completes activity. [place] assists only prior to or following the activity. 4-Supervision or Touching Assistance-helper provides verbal cues and/or touching/steadying and/or contact guard assistance as patient completes activity. Assistance may be provided throughout the activity or intermittently. 3-Partial/Moderate Assistance-helper does LESS THAN HALF the effort. [place] lifts, holds or supports trunk or limbs, but provides less than half the effort. 2-Substantial/Maximal Assistance-helper does MORE THAN HALF the effort. [place] lifts or holds trunk or limbs and provides more than half the effort. 2-Qpbxqnzix-ybdsah does ALL the effort. Patient does none of the effort to complete the activity. Or, the assistance of 2 or more helpers is required for the patient to complete the activity. If activity was not attempted, code reason: 7-Patient Refused. 9-Not Applicable-not attempted and the patient did not perform the activity before the current illness, exacerbation or injury. 10-Not Attempted due to Environmental Limitations-(lack of equipment, weather restraints, etc.). 88-Not Attempted due to Medical Conditions or Safety Concerns. Weight Bearing TLSO when out of bed. Exercises Supine Ex: Ankle pumps, Quad Set, Glut sets, Heel Slides, Short Arc Quads, Straight leg raise, Hip abd/add Supine Reps: 20 Treatments LE exercise Assessment Current Status: Poor Progress Continued pain and nausea. Patient needed many rest breaks due to fatigue and pain. PT Short Term Goals Short Term Goals Time Frame: Feb 22, 2019 Roll Left & Right: 3 Sit to lyin Lying to sitting on side of be: 3 Sit to stand: 3 Chair/zzk-oc-wmxap transfer: 3 Toilet transfer: 3 Car transfer: 3 Walk 10 feet: 3 Walk 50 feet with two turns: 3 PT Mcc Goals Scraper Burrer Goals PT Scraper Burrer Goals Time Frame: Mar 08, 2019 Roll Left & Right (QC): 6 Sit to Lying (QC): 6 Lying-Sitting on Side/Bed(QC): 6 Sit to Stand (QC): 6 Chair/Bau-cq-Gfgci Xfer(QC): 6 Toilet Transfer (QC): 6 Car Transfer (QC): 5 Does the Patient Walk: No and Walking Goal IS indicated Walk 10 feet (QC): 6 Walk 50ft with 2 Turns (QC): 6 Walk 150 ft (QC): 6 Walking 10ft on Uneven Surface: 4 1 Step (curb) (QC): 4 4 Steps (QC): 4 12 Steps (QC): 9 Picking up an Object (QC): 9 Does the Pt use WC or Scooter?: Yes Wheel 50 feet with 2 turns (QC: 5 Type: Manual Wheel 150 feet: 5 Type: Manual PT Plan Problem List Problem List: Activity Tolerance, Functional Strength, Safety, Balance, Gait, Transfer, Bed Mobility, ROM Treatment/Plan Treatment Plan: Continue Plan of Care Treatment Plan: Bed Mobility, Education, Functional Activity Fidel, Functional Strength, Group Therapy, Gait, Safety, Therapeutic Exercise, Transfers Treatment Duration: Mar 08, 2019 Frequency: At least 5 of 7 days/Wk (IRF) Estimated Hrs Per Day: 1.5 hours per day Patient and/or Family Agrees t: Yes Safety Risks/Education Patient Education: Correct Positioning, Safety Issues Teaching Recipient: Patient Teaching Methods: Demonstration, Discussion Response to Teaching: Reinforcement Needed Time/GCodes Time In: 1300 Time Out: 1330 Total Billed Treatment Time: 30 Total Billed Treatment 1 visit EX 30' NOY ANTONIO PT Feb 22, 2019 13:22 POS
[2019-02-22] MEDS ORDERED: DIAZEPAM 5 MG (VALIUM) TABLET PO NR (13:45)
--- NOTE | 2019-02-22 15:23 | NUR ---
Weekly Team Conference Reviewed summary with patient last p.m. and updated daughter Gosia by phone. They understand the plan is for likely discharge to SNF in their area target date 02/27/19. Patient does have a followup with her neurosurgeon Dr. Camara at [facility] tomorrow. Global Program Manager has coordinated [facility] [employer] services for timely trip and return after appointment. [facility] understands to bring wheelchair and O2 for transport. Gosia will meet patient there from her home in [facility] and she is to update ad writer about prognosis and status of physician findings. Gosia has requested [facility] or [facility] as two possible facilities, will explore.
[2019-02-22 16:00] VITALS: BP 127/65
[2019-02-22] MEDS: RIVAROXABAN 15 MG TABLET (XARELTO) PO SCH (16:51)
[2019-02-22] MEDS: BISACODYL 10 MG SUPP (DULCOLAX) PR PRN (16:52)
[2019-02-22] MEDS: NS IV 1000 ML 1,000 ML IV SCH (18:17)
[2019-02-22] MEDS: doxAzosin 2 MG (CARDURA) TAB PO SCH (20:15)
[2019-02-22] MEDS: VITAMIN D3 1,000 UNITS (CHOLECALCIFEROL) TABLET PO SCH (20:15)
[2019-02-22] MEDS: DONEPEZIL 5 MG (ARICEPT) TAB PO SCH (20:15)
[2019-02-22 20:19] VITALS: BP 142/76
[2019-02-23] MEDS: CATHETER FLUSH 10 ML SYR IV SCH ×2 (05:45→15:02)
[2019-02-23] MEDS: LEVOTHYROXINE 112 MCG (LEVOTHROID) TAB PO SCH (05:45)
[2019-02-23] MEDS: NS IV 1000 ML 1,000 ML IV SCH (05:46)
[2019-02-23 06:15] LABS: CALCIUM 8.7 MG/DL (8.5-10.1); CREATININE SERUM 2.78 MG/DL (0.60-1.30); POTASSIUM 3.7 MMOL/L (3.6-5.0)
[2019-02-23] MEDS: inSUlin ASPART (NovoLOG) 1 UNIT/0.01 ML (CHARGE PER UNIT) SC SCH ×2 (06:15→11:25)
[2019-02-23 06:24] VITALS: BP 126/70
[2019-02-23] MEDS: RT-ALBUTEROL/IPRATROPIUM 3 ML (DUONEB) VIAL INH SCH ×3 (06:50→17:00)
[2019-02-23] MEDS: RT-ADVAIR HFA 115/21 MCG PER PUFF IH SCH (06:51)
--- NOTE | 2019-02-23 08:12 | Physical Therapy Daily Note ---
PT Daily Note-Current Subjective Pt agreeable to therapy session. States she is feeling a little better with her mobility but wishes she could just be able to do it on her own. Nursing states pt going to [facility] today. Pain Numeric Pain Scale: 8 Comment: "over my kidneys" Appearance Upon arrival, pt sitting up in w/c finishing shower with OT. Co TX with OT. At end of session, pt sitting up in w/c per pt request, call light, phone and bedside table within reach. Mental Status Patient Orientation: Person, Place, Time, Eyes Open, Situation Attachments: Oxygen (3L ), IV Transfers SCALE: Activities may be completed with or without assistive devices. 4-Mmphuzqyoc-sepsedy completes the activity by him/herself with no assistance from a helper. 5-Set-up or Clean-up Assistance-helper sets up or cleans up; patient completes activity. [place] assists only prior to or following the activity. 4-Supervision or Touching Assistance-helper provides verbal cues and/or touching/steadying and/or contact guard assistance as patient completes activity. Assistance may be provided throughout the activity or intermittently. 3-Partial/Moderate Assistance-helper does LESS THAN HALF the effort. [place] lifts, holds or supports trunk or limbs, but provides less than half the effort. 2-Substantial/Maximal Assistance-helper does MORE THAN HALF the effort. [place] lifts or holds trunk or limbs and provides more than half the effort. 6-Iuvirqfgc-ctmmmy does ALL the effort. Patient does none of the effort to complete the activity. Or, the assistance of 2 or more helpers is required for the patient to complete the activity. If activity was not attempted, code reason: 7-Patient Refused. 9-Not Applicable-not attempted and the patient did not perform the activity before the current illness, exacerbation or injury. 10-Not Attempted due to Environmental Limitations-(lack of equipment, weather restraints, etc.). 88-Not Attempted due to Medical Conditions or Safety Concerns. Roll Left & Right (QC): 3 Sit to Lying (QC): 3 Lying to Sitting/Side of Bed(Q: 3 Sit to Stand (QC): 3 Chair/Wre-pu-Eqbmn Xfer(QC): 3 Toilet Transfer (QC): 3 Car Transfer (QC): 88 Min-CGA, cues for hand placement and positioning. Painful sit to stand. Weight Bearing TLSO when out of bed. Gait Training Walk 10 feet (QC): 88 Walk 50 ft with 2 Turns(QC): 88 Walk 150 ft (QC): 88 Walking 10ft/uneven surface-QC: 88 Wheelchair Training Does the Pt Use a Wheelchair?: Yes Wheel 50 ft with 2 turns (QC): 4 Wheel 150 ft (QC): 4 Type of Wheelchair: Manual 400 ft, use of BUE's and BLE's, several rest breaks required, report of in creased pain and nausea Stair Training 1 Step (curb) (QC): 88 4 Steps (QC): 88 12 Steps (QC): 88 Balance Picking up an Object (QC): 88 Exercises Seated Therapy Exercises: Ankle pumps, Long arc quads, Hip flexion, Hip abd/add ((+) IR/ER) Seated Reps: 20 Treatments PT/ OT co-treat for 60 minutes to complete high-demand standing exercise and decreased mobility with the use of two skilled therapists, OT focused on ADLs and UE strength while PT focused on LB and LE strength and balance. Pt is progressing with dynamic standing, working on using one hand to complete tasks while other is stabilizing. Assist to manipulate clothing and cleanse self. Assist to stand using grab bars in shower, improving sit to stand transfers w/c to walker with decreased assist required. Assist to don/doff brace and readjust several times throughout tx session. Assist x2 to hike pants over hips. Pt did attempt to hike pants over hips with assist x2. Assist to don/doff clothing over feet. After therapy, pt sitting in w/c waiting to go to appointment. Call light/phone in reach. All needs met in room. Assessment Current Status: Good Progress PT Short Term Goals Short Term Goals Time Frame: Feb 22, 2019 Roll Left & Right: 3 Sit to lyin Lying to sitting on side of be: 3 Sit to stand: 3 Chair/bzn-vh-sulqm transfer: 3 Toilet transfer: 3 Car transfer: 3 Walk 10 feet: 3 Walk 50 feet with two turns: 3 PT Insurance Appraiser Goals Insurance Appraiser Goals PT Insurance Appraiser Goals Time Frame: Mar 08, 2019 Roll Left & Right (QC): 6 Sit to Lying (QC): 6 Lying-Sitting on Side/Bed(QC): 6 Sit to Stand (QC): 6 Chair/Mys-hu-Ryyug Xfer(QC): 6 Toilet Transfer (QC): 6 Car Transfer (QC): 5 Does the Patient Walk: No and Walking Goal IS indicated Walk 10 feet (QC): 6 Walk 50ft with 2 Turns (QC): 6 Walk 150 ft (QC): 6 Walking 10ft on Uneven Surface: 4 1 Step (curb) (QC): 4 4 Steps (QC): 4 12 Steps (QC): 9 Picking up an Object (QC): 9 Does the Pt use WC or Scooter?: Yes Wheel 50 feet with 2 turns (QC: 5 Type: Manual Wheel 150 feet: 5 Type: Manual PT Plan Treatment/Plan Treatment Plan: Continue Plan of Care Treatment Plan: Bed Mobility, Education, Functional Activity Fidel, Functional Strength, Group Therapy, Gait, Safety, Therapeutic Exercise, Transfers Treatment Duration: Mar 08, 2019 Frequency: At least 5 of 7 days/Wk (IRF) Estimated Hrs Per Day: 1.5 hours per day Patient and/or Family Agrees t: Yes Safety Risks/Education Patient Education: Transfer Techniques, Reviewed Precautions, W/C Management, Reviewed Don/Doff Brace, Safety Issues Teaching Recipient: Patient Teaching Methods: Demonstration, Discussion Response to Teaching: Verbalize Understanding, Return Demonstration Time/GCodes Time In: 800 Time Out: 900 Total Billed Treatment Time: 60 Total Billed Treatment 1 visit, FA x45 min, EX x15 min LISBET BARCENAS SCRUB WOMAN Feb 23, 2019 08:11 POS
[2019-02-23] MEDS: POLYETHYLENE GLYCOL 17 GM (MIRALAX) PACK PO SCH ×2 (08:22→08:55)
[2019-02-23] MEDS: DOCUSATE SODIUM 100 MG (COLACE) CAP PO SCH (08:22)
[2019-02-23] MEDS: PANTOPRAZOLE 40 MG (PROTONIX) TAB PO SCH (08:22)
[2019-02-23] MEDS: meTOprolol TARTRATE 50 MG (LOPRESSOR) TAB PO SCH (08:23)
[2019-02-23] MEDS: amLODIPine 10 MG (NORVASC) TAB PO SCH (08:23)
[2019-02-23] MEDS: ONDANSETRON 4 MG/2 ML (SDV) Z0FRAN IV PRN (08:46)
--- NOTE | 2019-02-23 09:06 | Occupational Ther Daily Note ---
OT Current Status-Daily Note Subjective Pt alert, lying in bed. Pt agrees to therapy. Pt c/o pain, rated 8/10, nrsg gave pain meds. Mental Status/Objective Patient Orientation: Person, Place, Time, Situation Attachments: IV, Oxygen ADL-Treatment PT/ OT co-treat for 60 minutes to complete high-demand standing exercise and decreased mobility with the use of two skilled therapists, OT focused on ADLs and UE strength while PT focused on LB strength and balance. Pt is progressing with dynamic standing, working on using one hand to complete tasks while other is stabilizing. See PT note for transfers and standing. Assist to manipulate clothing and cleanse self. Using long handle sponge, grabbars, hand held shower pt able to complete most areas sitting on shower bench. Assist to stand using grabbars and assist to cleanse/rinse/dry buttocks and marie area. Set up to complete upper body dressing. Assist to don/doff brace. Assist x2 to hike pants over hips. Pt did attempt to hike pants over hips with assist x2. Assist to don/doff clothing over feet. Footwear max A. After therapy, pt sitting in w/c waiting to go to appointment. Call light/phone in reach. All needs met in room. Therapy Code Descriptions/Definitions Functional [place] Measure: 0=Not Assessed/NA 4=Minimal Assistance 1=Total Assistance 5=Supervision or Setup 2=Maximal Assistance 6=Modified [place] 3=Moderate Assistance 7=Complete IndependenceSCALE: Activities may be completed with or without assistive devices. 7-Jiwaxskmxf-wtuqvra completes the activity by him/herself with no assistance from a helper. 5-Set-up or Clean-up Assistance-helper sets up or cleans up; patient completes activity. [place] assists only prior to or following the activity. 4-Supervision or Touching Assistance-helper provides verbal cues and/or touching/steadying and/or contact guard assistance as patient completes activity. Assistance may be provided throughout the activity or intermittently. 3-Partial/Moderate Assistance-helper does LESS THAN HALF the effort. [place] lifts, holds or supports trunk or limbs, but provides less than half the effort. 2-Substantial/Maximal Assistance-helper does MORE THAN HALF the effort. [place] lifts or holds trunk or limbs and provides more than half the effort. 0-Ftpktuepf-hbcvgs does ALL the effort. Patient does none of the effort to complete the activity. Or, the assistance of 2 or more helpers is required for the patient to complete the activity. If activity was not attempted, code reason: 7-Patient Refused. 9-Not Applicable-not attempted and the patient did not perform the activity before the current illness, exacerbation or injury. 10-Not Attempted due to Environmental Limitations-(lack of equipment, weather restraints, etc.). 88-Not Attempted due to Medical Conditions or Safety Concerns. Eating (QC): 6 (Pt able to set up own meal and use regular utensils to eat.) Oral Hygiene (QC): 6 (Sitting at sink to complete by self.) Shower/Bathe Self (QC): 3 Upper Body Dressing (QC): 5 Lower Body Dressing (QC): 1 (FOOTWEAR (QC) 2) Toileting Hygiene (QC): 2 Toilet Transfer (QC): 2 OT Short Term Goals Short Term Goals Time Frame: Feb 22, 2019 Toileting hygiene: 3 Shower/bathe self: 3 Upper body dressin Lower body dressin OT Livestock Nutrition Territory Manager Goals Livestock Nutrition Territory Manager Goals Time Frame: Mar 08, 2019 Eating (QC): 6 Oral Hygiene (QC): 6 Toileting Hygiene (QC): 6 Shower/Bathe Self (QC): 5 Upper Body Dressing (QC): 5 Lower Body Dressing (QC): 5 On/Off Footwear (QC): 5 Additional Goals: 1-Demonstrate ADL Tasks, 2-Verbalize Understanding, 3- ImproveStrength/Fidel 1=Demonstrate adherence to instructed precautions during ADL tasks. 2=Patient will verbalize/demonstrate understanding of assistive devices/modifications for ADL. 3=Patient will improve strength/tolerance for activity to enable patient to perform ADL's. OT Education/Plan Problem List/Assessment Assessment: Decreased Activ Tolerance, Decreased UE Strength, Impaired Coord ination, Impaired Funct Balance, Impaired Self-Care Skills Discharge Recommendations Plan/Recommendations: Continue POC Treatment Plan/Plan of Care Patient would benefit from OT for education, treatment and training to promote independence in ADL's, mobility, safety and/or upper extremity function for ADL's. Plan of Care: ADL Retraining, Functional Mobility, Group Exercise/Act as Ind, UE Funct Exercise/Act Treatment Duration: Mar 08, 2019 Frequency: At least 5 of 7 days/Wk (IRF) Estimated Hrs Per Day: 1.5 hours per day Rehab Potential: Fair Time/GCodes Start Time: 07:15 Stop Time: 09:15 Total Time Billed (hr/min): 120 Billed Treatment Time 1 visit-ADL 4 (60 min) FA 4 (60 min) co-treat PT [id number] individual [id number] NIKKY WEN Feb 23, 2019 09:06 POS
--- NOTE | 2019-02-23 10:02 | Discharge Summary ---
Diagnosis/Chief Complaint Date of Admission Feb 07, 2019 at 17:30 Date of Discharge Discharge Date: Feb 23, 2019 Discharge Diagnosis Assessment: Thoracic vertebral fracture s/p repair s/p Multilobar pneumonia placed on Vanc and Cefepime per Dr Garcia now completed treatment and lungs are clear Severe COPD O2 dependence Recent intubation after thoracic vertebral fracture surgery Right pleural effusion CRI now with creat 2.57 will check tomorrow Chronic on acute debility HTN Chronic AF OAC Anemia with iron def Plan: Abx Monitor closely due to resp status O2 Nebs IRF protocol DC wound vac and incision looks good Confusion? Needs NH at [place] Patient requires aggressive medical treatment due to severity of her lung disease Elaine to neurosurgery at [facility] regarding right leg numbness (1) Fracture of lamina of thoracic vertebra (2) Multifocal pneumonia (3) Hypothyroidism (4) Diabetes mellitus (5) Chronic renal insufficiency, stage III (moderate) (6) Anemia of renal disease (7) Chronic constipation (8) Back pain (9) Dependence on supplemental oxygen (10) COPD (chronic obstructive pulmonary disease) (11) Hypertension (12) Hyperlipidemia (13) Wheezing (14) Depression (15) Angina at rest (16) Atrial fibrillation (17) On continuous oral anticoagulation (18) History of respiratory failure (19) Cough Discharge Summary Discharge Physical Examination Allergies: Coded Allergies: Penicillins (Verified Allergy, Unknown, 02/07/19) adhesive (Verified Allergy, Unknown, 02/07/19) codeine (Verified Allergy, Unknown, 02/07/19) morphine (Verified Allergy, Unknown, 02/07/19) oxybutynin (Verified Allergy, Unknown, 02/07/19) pentazocine (Verified Allergy, Unknown, 02/07/19) Vitals & I&Os Vital Signs Date Time Temp Pulse Resp B/P (MAP) Pulse Ox O2 Delivery O2 Flow Rate FiO2 02/23/19 15:00 36.7 69 18 126/70 94 Nasal Cannula 3.00 General Appearance: Alert, Oriented X3, Cooperative Respiratory: Clear to Auscultation Cardiovascular: Other (irr irr) Psych/Mental Status: Other (flat affect no changes) Hospital Course Was the Problem List Reviewed?: Yes Hospital course per Tori Hathaway MSIII: Patient was admitted to the inpatient rehab unit from [facility] on 02/07/19 post-op for fracture of thoracic vertebra and laminectomy done on 02/03/19. A CXR was performed at the time of admission which revealed multi-lobar infiltrates. Pulmo nology was consulted and Dr. Garcia started her on cefepime and vancomycin in addition to Duonebs with resolution of the pneumonia following antibiotic therapy. Cardiology was consulted for history of PAF and HTN. 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 She did make some improvement with intensive PT and OT, but 3-4 days ago began experiencing increased nausea and vomiting which slowed her progress. The nausea and vomiting paralleled an increase in creatinine which is 2.78 today. Due to complexity of multiple comorbidities and worsening renal function, she has agreed to a transfer to [facility] in [place] where she can be followed by nephrology. Dr. Rose is the hospitalist at [facility] who will accept the patient in transfer. Her appointment with the [facility] neurosurgeon for ongoing leg weakness was cancelled today due to worsening clinical condition, and patient's hope is that the neurosurgeon will see her while she is inpatient. Verification and Attestation of Medical Student E/M Service A medical student performed and documented this service in my presence. I reviewed and verified all information documented by the medical student and made modifications to such information, when appropriate. I personally performed the physical exam and medical decision making. Pia Hinojosa, Feb 24, 2019,07:51 Labs (last 24 hrs) Laboratory Tests 02/07/19 17:30: Lab Scanned Report Referred Lab Report 02/07/19 18:29: Glucometer 86 02/07/19 21:33: Glucometer 85 02/08/19 05:43: Glucometer 101 02/08/19 05:45: White Blood Count 12.2H, Red Blood Count 3.43L, Hemoglobin 10.0L, Hematocrit 31L , Mean Corpuscular Volume 91, Mean Corpuscular Hemoglobin 29, Mean Corpuscular Hemoglobin Concent 32, Red Cell Distribution Width 15.8H, Platelet Count 334, Mean Platelet Volume 8.0, Neutrophils (%) (Auto) 84H, Lymphocytes (%) (Auto) 6L, Monocytes (%) (Auto) 9, Eosinophils (%) (Auto) 2, Basophils (%) (Auto) 0, Neutrophils # (Auto) 10.2H, Lymphocytes # (Auto) 0.7L, Monocytes # (Auto) 1.1H, Eosinophils # (Auto) 0.2, Basophils # (Auto) 0.0, Sodium Level 141, Potassium Level 4.0, Chloride Level 105, Carbon Dioxide Level 27, Anion Gap 9, Blood Urea Nitrogen 31H, Creatinine 1.73H, Estimat Glomerular Filtration Rate 28, BUN/Creatinine Ratio 18, Glucose Level 105, Calcium Level 12.2H, Corrected Calcium 12.9H, Phosphorus Level 2.7, Magnesium Level 2.4, Iron Level 27L, Total Bilirubin 0.4, Aspartate Amino Transf (AST/SGOT) 23, Alanine Aminotransferase (ALT/SGPT) 26, Alkaline Phosphatase 101, B-Type Natriuretic Peptide 325.8H, Total Protein 5.7L, Albumin 3.1L 02/08/19 11:31: Glucometer 119H 02/08/19 14:00: Urine Color YELLOW, Urine Clarity CLEAR, Urine pH 6.0, Urine Specific [place] 1.025H, Urine Protein 2+H, Urine Glucose (UA) NEGATIVE, Urine Ketones NEGATIVE, Urine Nitrite NEGATIVE, Urine Bilirubin NEGATIVE, Urine Urobilinogen 0.2, Urine Leukocyte Esterase NEGATIVE, Urine RBC (Auto) NEGATIVE, Urine RBC 0-2, Urine WBC 0-2, Urine Squamous Epithelial Cells 10-25H, Urine Crystals NONE, Urine Bacteria TRACE, Urine Casts NONE, Urine Mucus NEGATIVE, Urine Culture Indicated CULTURE PENDING, Urine Legionella pneumophilia Ag Negative, Streptococcus pneumoniae Antigen Negative 02/08/19 16:41: Glucometer 146H 02/08/19 20:10: Glucometer 206H 02/09/19 05:34: Glucometer 66L 02/09/19 06:04: Glucometer 90 02/09/19 07:05: White Blood Count 11.6H, Red Blood Count 3.36L, Hemoglobin 9.7L, Hematocrit 31L, Mean Corpuscular Volume 92, Mean Corpuscular Hemoglobin 29, Mean Corpuscular Hemoglobin Concent 31L, Red Cell Distribution Width 15.5H, Platelet Count 356, Mean Platelet Volume 7.9, Neutrophils (%) (Auto) 78H, Lymphocytes (%) (Auto) 10L , Monocytes (%) (Auto) 10, Eosinophils (%) (Auto) 2, Basophils (%) (Auto) 0, Neutrophils # (Auto) 9.1H, Lymphocytes # (Auto) 1.1, Monocytes # (Auto) 1.1H, Eosinophils # (Auto) 0.3, Basophils # (Auto) 0.0, Sodium Level 140, Potassium Level 3.8, Chloride Level 103, Carbon Dioxide Level 28, Anion Gap 9, Blood Urea Nitrogen 32H, Creatinine 1.78H, Estimat Glomerular Filtration Rate 28, BUN/Creatinine Ratio 18, Glucose Level 92, Lactic Acid Level 0.63, Calcium Level 11.5H, Corrected Calcium 12.3H, Phosphorus Level 2.6, Magnesium Level 2.2, Total Bilirubin 0.3, Aspartate Amino Transf (AST/SGOT) 22, Alanine Aminotransferase (ALT/SGPT) 23, Alkaline Phosphatase 103, Total Protein 5.7L, Albumin 3.0L 02/09/19 11:35: Glucometer 78 02/09/19 15:24: Glucometer 54*L 02/09/19 15:53: Glucometer 83 02/09/19 20:46: Glucometer 163H 02/10/19 05:10: White Blood Count 12.8H, Red Blood Count 3.01L, Hemoglobin 8.7L, Hematocrit 27L, Mean Corpuscular Volume 91, Mean Corpuscular Hemoglobin 29, Mean Corpuscular Hemoglobin Concent 32, Red Cell Distribution Width 15.5H, Platelet Count 358, Mean Platelet Volume 7.9, Neutrophils (%) (Auto) 82H, Lymphocytes (%) (Auto) 7L, Monocytes (%) (Auto) 10, Eosinophils (%) (Auto) 1, Basophils (%) (Auto) 0, Neutrophils # (Auto) 10.5H, Lymphocytes # (Auto) 0.9L, Monocytes # (Auto) 1.3H, Eosinophils # (Auto) 0.2, Basophils # (Auto) 0.0, Sodium Level 140, Potassium Level 4.0, Chloride Level 105, Carbon Dioxide Level 27, Anion Gap 8, Blood Urea Nitrogen 30H, Creatinine 1.63H, Estimat Glomerular Filtration Rate 31, BUN/Creatinine Ratio 18, Glucose Level 74, Calcium Level 11.3H, Phosphorus Level 2.5, Magnesium Level 2.1 02/10/19 10:45: Glucometer 192H 02/10/19 11:45: Vancomycin Level Trough 19.0 02/10/19 15:44: Glucometer 165H 02/10/19 20:37: Glucometer 109 02/11/19 05:22: Glucometer 57*L 02/11/19 05:25: White Blood Count 14.3H, Red Blood Count 2.95L, Hemoglobin 8.7L, Hematocrit 27L, Mean Corpuscular Volume 92, Mean Corpuscular Hemoglobin 30, Mean Corpuscular Hemoglobin Concent 32, Red Cell Distribution Width 15.3H, Platelet Count 364, Mean Platelet Volume 8.1, Neutrophils (%) (Auto) 81H, Lymphocytes (%) (Auto) 8L, Monocytes (%) (Auto) 9, Eosinophils (%) (Auto) 2, Basophils (%) (Auto) 0, Neutrophils # (Auto) 11.6H, Lymphocytes # (Auto) 1.1, Monocytes # (Auto) 1.3H, Eosinophils # (Auto) 0.2, Basophils # (Auto) 0.0, Sodium Level 139, Potassium Level 4.3, Chloride Level 103, Carbon Dioxide Level 27, Anion Gap 9, Blood Urea Nitrogen 27H, Creatinine 1.58H, Estimat Glomerular Filtration Rate 32, BUN/Creatinine Ratio 17, Glucose Level 54*L, Calcium Level 10.9H, Phosphorus Level 3.0, Magnesium Level 2.2, Thyroid Stimulating Hormone (TSH) 6.59H 02/11/19 06:09: Glucometer 83 02/11/19 10:38: Glucometer 150H 02/11/19 15:37: Glucometer 267H 02/11/19 20:16: Glucometer 289H 02/12/19 04:40: White Blood Count 21.2H, Red Blood Count 3.01L, Hemoglobin 8.7L, Hematocrit 27L, Mean Corpuscular Volume 90, Mean Corpuscular Hemoglobin 29, Mean Corpuscular Hemoglobin Concent 32, Red Cell Distribution Width 15.4H, Platelet Count 424H, Mean Platelet Volume 7.9, Neutrophils (%) (Auto) 92H, Lymphocytes (%) (Auto) 3L, Monocytes (%) (Auto) 5, Eosinophils (%) (Auto) 0, Basophils (%) (Auto) 0, Neutrophils # (Auto) 19.5H, Lymphocytes # (Auto) 0.6L, Monocytes # (Auto) 1.0, Eosinophils # (Auto) 0.0, Basophils # (Auto) 0.0, Neutrophils % (Manual) 89, Lymphocytes % (Manual) 3, Monocytes % (Manual) 3, Band Neutrophils 5, Blood Morphology Comment NORMAL, Sodium Level 136, Potassium Level 4.8, Chloride Level 100, Carbon Dioxide Level 27, Anion Gap 9, Blood Urea Nitrogen 29H, Creatinine 1.78H, Estimat Glomerular Filtration Rate 28, BUN/Creatinine Ratio 16, Glucose Level 202H, Calcium Level 11.1H, Phosphorus Level 2.7, Magnesium Level 2.3 02/12/19 11:28: Glucometer 251H 02/12/19 15:47: Glucometer 334H 02/12/19 20:43: Glucometer 226H 02/13/19 05:27: Glucometer 85 02/13/19 06:00: White Blood Count 20.5H, Red Blood Count 3.04L, Hemoglobin 8.9L, Hematocrit 28L, Mean Corpuscular Volume 92, Mean Corpuscular Hemoglobin 29, Mean Corpuscular Hemoglobin Concent 32, Red Cell Distribution Width 15.5H, Platelet Count 452H, Mean Platelet Volume 8.2, Neutrophils (%) (Auto) 87H, Lymphocytes (%) (Auto) 5L, Monocytes (%) (Auto) 8, Eosinophils (%) (Auto) 0, Basophils (%) (Auto) 0, Neutrophils # (Auto) 17.9H, Lymphocytes # (Auto) 1.0, Monocytes # (Auto) 1.6H, Eosinophils # (Auto) 0.0, Basophils # (Auto) 0.0, Sodium Level 139, Potassium Level 4.3, Chloride Level 100, Carbon Dioxide Level 29, Anion Gap 10, Blood Urea Nitrogen 33H, Creatinine 1.65H, Estimat Glomerular Filtration Rate 30, BUN/Creatinine Ratio 20, Glucose Level 76, Calcium Level 11.6H, Phosphorus Level 2.8, Magnesium Level 2.4 02/13/19 10:55: Glucometer 119H 02/13/19 15:49: Glucometer 137H 02/13/19 20:42: Glucometer 133H 02/14/19 06:27: Glucometer 82 02/14/19 06:30: White Blood Count 11.9H, Red Blood Count 2.71L, Hemoglobin 8.1L, Hematocrit 25L, Mean Corpuscular Volume 93, Mean Corpuscular Hemoglobin 30, Mean Corpuscular Hemoglobin Concent 32, Red Cell Distribution Width 15.4H, Platelet Count 357, Mean Platelet Volume 8.1, Neutrophils (%) (Auto) 82H, Lymphocytes (%) (Auto) 9L, Monocytes (%) (Auto) 8, Eosinophils (%) (Auto) 1, Basophils (%) (Auto) 0, Neutrophils # (Auto) 9.7H, Lymphocytes # (Auto) 1.1, Monocytes # (Auto) 1.0, Eosinophils # (Auto) 0.1, Basophils # (Auto) 0.0, Sodium Level 137, Potassium Level 4.3, Chloride Level 101, Carbon Dioxide Level 28, Anion Gap 8, Blood Urea Nitrogen 34H, Creatinine 1.65H, Estimat Glomerular Filtration Rate 30, BUN/Creatinine Ratio 21, Glucose Level 78, Calcium Level 10.7H, Phosphorus Level 3.1, Magnesium Level 2.4 02/14/19 10:36: Glucometer 161H 02/14/19 15:33: Glucometer 151H 02/14/19 20:34: Glucometer 130H 02/15/19 05:37: Glucometer 105 02/15/19 05:40: White Blood Count 12.0H, Red Blood Count 2.79L, Hemoglobin 8.2L, Hematocrit 26L, Mean Corpuscular Volume 92, Mean Corpuscular Hemoglobin 29, Mean Corpuscular Hemoglobin Concent 32, Red Cell Distribution Width 15.0H, Platelet Count 344, Mean Platelet Volume 8.1, Neutrophils (%) (Auto) 85H, Lymphocytes (%) (Auto) 7L, Monocytes (%) (Auto) 7, Eosinophils (%) (Auto) 1, Basophils (%) (Auto) 0, Neutrophils # (Auto) 10.2H, Lymphocytes # (Auto) 0.9L, Monocytes # (Auto) 0.9, Eosinophils # (Auto) 0.1, Basophils # (Auto) 0.0, Sodium Level 135, Potassium Level 4.6, Chloride Level 100, Carbon Dioxide Level 27, Anion Gap 8, Blood Urea Nitrogen 31H, Creatinine 1.66H, Estimat Glomerular Filtration Rate 30, BUN/Creatinine Ratio 19, Glucose Level 97, Calcium Level 10.2H, Phosphorus Level 3.0, Magnesium Level 2.3 02/15/19 10:55: Glucometer 136H 02/15/19 15:53: Glucometer 159H 02/15/19 20:59: Glucometer 181H 02/16/19 05:39: Glucometer 88 02/16/19 06:30: White Blood Count 12.1H, Red Blood Count 2.76L, Hemoglobin 8.3L, Hematocrit 25L, Mean Corpuscular Volume 92, Mean Corpuscular Hemoglobin 30, Mean Corpuscular Hemoglobin Concent 33, Red Cell Distribution Width 15.0H, Platelet Count 344, Mean Platelet Volume 8.3, Neutrophils (%) (Auto) 84H, Lymphocytes (%) (Auto) 8L, Monocytes (%) (Auto) 7, Eosinophils (%) (Auto) 1, Basophils (%) (Auto) 0, Neutrophils # (Auto) 10.2H, Lymphocytes # (Auto) 0.9L, Monocytes # (Auto) 0.9, Eosinophils # (Auto) 0.1, Basophils # (Auto) 0.0, Sodium Level 135, Potassium Level 4.3, Chloride Level 101, Carbon Dioxide Level 27, Anion Gap 7, Blood Urea Nitrogen 29H, Creatinine 1.65H, Estimat Glomerular Filtration Rate 30, BUN/Creatinine Ratio 18, Glucose Level 77, Calcium Level 9.9, Phosphorus Level 3.1, Magnesium Level 2.4 02/16/19 11:03: Glucometer 132H 02/16/19 15:39: Glucometer 155H 02/16/19 20:32: Glucometer 163H 02/17/19 05:50: Glucometer 123H, White Blood Count 12.3H, Red Blood Count 2.60L, Hemoglobin 7.5L , Hematocrit 24L, Mean Corpuscular Volume 91, Mean Corpuscular Hemoglobin 29, Mean Corpuscular Hemoglobin Concent 32, Red Cell Distribution Width 15.2H, Platelet Count 333, Mean Platelet Volume 8.3, Neutrophils (%) (Auto) 87H, Lymph ocytes (%) (Auto) 6L, Monocytes (%) (Auto) 6, Eosinophils (%) (Auto) 1, Basophils (%) (Auto) 0, Neutrophils # (Auto) 10.7H, Lymphocytes # (Auto) 0.8L, Monocytes # (Auto) 0.8, Eosinophils # (Auto) 0.1, Basophils # (Auto) 0.0, Sodium Level 135, Potassium Level 4.4, Chloride Level 100, Carbon Dioxide Level 29, Anion Gap 6, Blood Urea Nitrogen 28H, Creatinine 1.69H, Estimat Glomerular Filtration Rate 29, BUN/Creatinine Ratio 17, Glucose Level 113H, Calcium Level 9.6, Phosphorus Level 3.3, Magnesium Level 2.4 02/17/19 10:44: Glucometer 136H 02/17/19 15:59: Glucometer 171H 02/17/19 20:27: Glucometer 136H 02/18/19 05:10: White Blood Count 13.6H, Red Blood Count 2.71L, Hemoglobin 7.9L, Hematocrit 25L, Mean Corpuscular Volume 91, Mean Corpuscular Hemoglobin 29, Mean Corpuscular Hemoglobin Concent 32, Red Cell Distribution Width 15.4H, Platelet Count 351, Mean Platelet Volume 8.2, Neutrophils (%) (Auto) 88H, Lymphocytes (%) (Auto) 4L, Monocytes (%) (Auto) 7, Eosinophils (%) (Auto) 1, Basophils (%) (Auto) 0, Neutrophils # (Auto) 11.9H, Lymphocytes # (Auto) 0.6L, Monocytes # (Auto) 1.0, Eosinophils # (Auto) 0.1, Basophils # (Auto) 0.0, Sodium Level 136, Potassium Level 4.4, Chloride Level 100, Carbon Dioxide Level 26, Anion Gap 10, Blood Urea Nitrogen 24H, Creatinine 1.68H, Estimat Glomerular Filtration Rate 29, BUN/Creatinine Ratio 14, Glucose Level 94, Calcium Level 9.5, Phosphorus Level 3.2, Magnesium Level 2.5H 02/18/19 05:12: Glucometer 106 02/18/19 11:02: Glucometer 99 02/19/19 05:30: White Blood Count 14.3H, Red Blood Count 2.88L, Hemoglobin 8.5L, Hematocrit 27L, Mean Corpuscular Volume 92, Mean Corpuscular Hemoglobin 30, Mean Corpuscular Hemoglobin Concent 32, Red Cell Distribution Width 15.6H, Platelet Count 387, Mean Platelet Volume 8.9, Neutrophils (%) (Auto) 89H, Lymphocytes (%) (Auto) 5L, Monocytes (%) (Auto) 6, Eosinophils (%) (Auto) 0, Basophils (%) (Auto) 0, Neutrophils # (Auto) 12.7H, Lymphocytes # (Auto) 0.7L, Monocytes # (Auto) 0.8, Eosinophils # (Auto) 0.1, Basophils # (Auto) 0.0, Neutrophils % (Manual) 89, Lymphocytes % (Manual) 6, Monocytes % (Manual) 4, Eosinophils % (Manual) 1, Basophils % (Manual) 0, Toxic Granulation 1+, Poikilocytosis SLIGHT, Anisocytosis SLIGHT, Elliptocytes SLIGHT, Sodium Level 137, Potassium Level 4.5, Chloride Level 101, Carbon Dioxide Level 26, Anion Gap 10, Blood Urea Nitrogen 23H, Creatinine 1.84H, Estimat Glomerular Filtration Rate 27, BUN/Creatinine Ratio 13, Glucose Level 58*L, Calcium Level 9.8, Phosphorus Level 3.1, Magnesium Level 2.5H 02/19/19 08:25: Glucometer 85 02/19/19 15:30: Glucometer 99 02/19/19 21:54: Glucometer 93 02/20/19 05:31: Glucometer 141H 02/20/19 10:56: Glucometer 228H 02/20/19 15:21: Glucometer 211H 02/20/19 20:08: Glucometer 123H 02/21/19 06:00: Glucometer 111H 02/21/19 10:25: White Blood Count 11.5H, Red Blood Count 2.76L, Hemoglobin 8.1L, Hematocrit 26L, Mean Corpuscular Volume 92, Mean Corpuscular Hemoglobin 29, Mean Corpuscular Hemoglobin Concent 32, Red Cell Distribution Width 15.7H, Platelet Count 316, Mean Platelet Volume 8.4, Neutrophils (%) (Auto) 85H, Lymphocytes (%) (Auto) 5L, Monocytes (%) (Auto) 8, Eosinophils (%) (Auto) 1, Basophils (%) (Auto) 0, Neutrophils # (Auto) 9.8H, Lymphocytes # (Auto) 0.6L, Monocytes # (Auto) 1.0, Eosinophils # (Auto) 0.2, Basophils # (Auto) 0.0, Sodium Level 135, Potassium L evel 3.9, Chloride Level 100, Carbon Dioxide Level 25, Anion Gap 10, Blood Urea Nitrogen 25H, Creatinine 2.57#H, Estimat Glomerular Filtration Rate 18, BUN/Creatinine Ratio 10, Glucose Level 127H, Calcium Level 9.2, Corrected Calcium 10.0, Total Bilirubin 0.3, Aspartate Amino Transf (AST/SGOT) 16, Alanine Aminotransferase (ALT/SGPT) 15, Alkaline Phosphatase 133, Total Protein 5.3L, Albumin 3.0L 02/21/19 10:45: Glucometer 137H 02/21/19 15:43: Glucometer 178H 02/21/19 20:31: Glucometer 179H 02/22/19 05:30: Glucometer 121H 02/22/19 05:50: Sodium Level 135, Potassium Level 3.8, Chloride Level 99, Carbon Dioxide Level 26, Anion Gap 10, Blood Urea Nitrogen 26H, Creatinine 2.73H, Estimat Glomerular Filtration Rate 17, BUN/Creatinine Ratio 10, Glucose Level 111H, Calcium Level 9.1 02/22/19 10:54: Glucometer 189H 02/22/19 16:17: Glucometer 152H 02/22/19 20:36: Glucometer 148H 02/23/19 05:40: Sodium Level 134L, Potassium Level 3.7, Chloride Level 100, Carbon Dioxide Level 25, Anion Gap 9, Blood Urea Nitrogen 27H, Creatinine 2.78H, Estimat Glomerular Filtration Rate 16, BUN/Creatinine Ratio 10, Glucose Level 117H, Calcium Level 8.7 02/23/19 05:48: Glucometer 134H 02/23/19 10:50: Glucometer 192H Microbiology 02/08/19 Blood Culture - Final, Complete No growth 02/08/19 Gram Stain - Final, Complete 02/08/19 Sputum Culture - Final, Complete Usual oral alvino Escherichia coli 02/08/19 Urine Culture - Final, Complete NO GROWTH Pending Labs Microbiology Date/Time Source Procedure Growth Status 02/08/19 15:08 Peripheral Rt Ac Blood Culture - Final No growth Complete 02/08/19 12:30 Peripheral Rt Ac Blood Culture - Final No growth Complete 02/08/19 12:25 Peripheral Rt Ac Blood Culture - Final No growth Complete 02/08/19 20:00 Sputum Expectorated Gram Stain - Final Complete 02/08/19 20:00 Sputum Culture - Final Usual oral alvino Escherichia coli Complete 02/08/19 14:00 Urine Voided Urine Urine Culture - Final NO GROWTH Complete Laboratory Tests 02/07/19 17:30: Lab Scanned Report Referred Lab Report 02/07/19 18:29: Glucometer 86 02/07/19 21:33: Glucometer 85 02/08/19 05:43: Glucometer 101 02/08/19 05:45: White Blood Count 12.2, Red Blood Count 3.43, Hemoglobin 10.0, Hematocrit 31, Mean Corpuscular Volume 91, Mean Corpuscular Hemoglobin 29, Mean Corpuscular Hemoglobin Concent 32, Red Cell Distribution Width 15.8, Platelet Count 334, Mean Platelet Volume 8.0, Neutrophils (%) (Auto) 84, Lymphocytes (%) (Auto) 6, Monocytes (%) (Auto) 9, Eosinophils (%) (Auto) 2, Basophils (%) (Auto) 0, Neutrophils # (Auto) 10.2, Lymphocytes # (Auto) 0.7, Monocytes # (Auto) 1.1, Eosinophils # (Auto) 0.2, Basophils # (Auto) 0.0, Sodium Level 141, Potassium Level 4.0, Chloride Level 105, Carbon Dioxide Level 27, Anion Gap 9, Blood Urea Nitrogen 31, Creatinine 1.73, Estimat Glomerular Filtration Rate 28, BUN/Creatinine Ratio 18, Glucose Level 105, Calcium Level 12.2, Corrected Calcium 12.9, Phosphorus Level 2.7, Magnesium Level 2.4, Iron Level 27, Total Bilirubin 0.4, Aspartate Amino Transf (AST/SGOT) 23, Alanine Aminotransferase (ALT/SGPT) 26, Alkaline Phosphatase 101, B-Type Natriuretic Peptide 325.8, Total Protein 5.7, Albumin 3.1 02/08/19 11:31: Glucometer 119 02/08/19 14:00: Urine Color YELLOW, Urine Clarity CLEAR, Urine pH 6.0, Urine Specific [place] 1.025, Urine Protein 2+, Urine Glucose (UA) NEGATIVE, Urine Ketones NEGATIVE, Urine Nitrite NEGATIVE, Urine Bilirubin NEGATIVE, Urine Urobilinogen 0.2, Urine Leukocyte Esterase NEGATIVE, Urine RBC (Auto) NEGATIVE, Urine RBC 0-2, Urine WBC 0-2, Urine Squamous Epithelial Cells 10-25, Urine Crystals NONE, Urine Bacteria TRACE, Urine Casts NONE, Urine Mucus NEGATIVE, Urine Culture Indicated CULTURE PENDING, Urine Legionella pneumophilia Ag Negative, Streptococcus pneumoniae Antigen Negative 02/08/19 16:41: Glucometer 146 02/08/19 20:10: Glucometer 206 02/09/19 05:34: Glucometer 66 02/09/19 06:04: Glucometer 90 02/09/19 07:05: White Blood Count 11.6, Red Blood Count 3.36, Hemoglobin 9.7, Hematocrit 31, Mean Corpuscular Volume 92, Mean Corpuscular Hemoglobin 29, Mean Corpuscular Hemoglobin Concent 31, Red Cell Distribution Width 15.5, Platelet Count 356, Mean Platelet Volume 7.9, Neutrophils (%) (Auto) 78, Lymphocytes (%) (Auto) 10, Monocytes (%) (Auto) 10, Eosinophils (%) (Auto) 2, Basophils (%) (Auto) 0, Neutrophils # (Auto) 9.1, Lymphocytes # (Auto) 1.1, Monocytes # (Auto) 1.1, Eosinophils # (Auto) 0.3, Basophils # (Auto) 0.0, Sodium Level 140, Potassium Level 3.8, Chloride Level 103, Carbon Dioxide Level 28, Anion Gap 9, Blood Urea Nitrogen 32, Creatinine 1.78, Estimat Glomerular Filtration Rate 28, BUN/Creatinine Ratio 18, Glucose Level 92, Lactic Acid Level 0.63, Calcium Level 11.5, Corrected Calcium 12.3, Phosphorus Level 2.6, Magnesium Level 2.2, Total Bilirubin 0.3, Aspartate Amino Transf (AST/SGOT) 22, Alanine Aminotransferase (ALT/SGPT) 23, Alkaline Phosphatase 103, Total Protein 5.7, Albumin 3.0 02/09/19 11:35: Glucometer 78 02/09/19 15:24: Glucometer 54 02/09/19 15:53: Glucometer 83 02/09/19 20:46: Glucometer 163 02/10/19 05:10: White Blood Count 12.8, Red Blood Count 3.01, Hemoglobin 8.7, Hematocrit 27, Mean Corpuscular Volume 91, Mean Corpuscular Hemoglobin 29, Mean Corpuscular Hemoglobin Concent 32, Red Cell Distribution Width 15.5, Platelet Count 358, Mean Platelet Volume 7.9, Neutrophils (%) (Auto) 82, Lymphocytes (%) (Auto) 7, Monocytes (%) (Auto) 10, Eosinophils (%) (Auto) 1, Basophils (%) (Auto) 0, Neutrophils # (Auto) 10.5, Lymphocytes # (Auto) 0.9, Monocytes # (Auto) 1.3, Eosinophils # (Auto) 0.2, Basophils # (Auto) 0.0, Sodium Level 140, Potassium Level 4.0, Chloride Level 105, Carbon Dioxide Level 27, Anion Gap 8, Blood Urea Nitrogen 30, Creatinine 1.63, Estimat Glomerular Filtration Rate 31, BUN/Creatinine Ratio 18, Glucose Level 74, Calcium Level 11.3, Phosphorus Level 2.5, Magnesium Level 2.1 02/10/19 10:45: Glucometer 192 02/10/19 11:45: Vancomycin Level Trough 19.0 02/10/19 15:44: Glucometer 165 02/10/19 20:37: Glucometer 109 02/11/19 05:22: Glucometer 57 02/11/19 05:25: White Blood Count 14.3, Red Blood Count 2.95, Hemoglobin 8.7, Hematocrit 27, Mean Corpuscular Volume 92, Mean Corpuscular Hemoglobin 30, Mean Corpuscular Hemoglobin Concent 32, Red Cell Distribution Width 15.3, Platelet Count 364, Mean Platelet Volume 8.1, Neutrophils (%) (Auto) 81, Lymphocytes (%) (Auto) 8, Monocytes (%) (Auto) 9, Eosinophils (%) (Auto) 2, Basophils (%) (Auto) 0, Neutrophils # (Auto) 11.6, Lymphocytes # (Auto) 1.1, Monocytes # (Auto) 1.3, Eosinophils # (Auto) 0.2, Basophils # (Auto) 0.0, Sodium Level 139, Potassium Level 4.3, Chloride Level 103, Carbon Dioxide Level 27, Anion Gap 9, Blood Urea Nitrogen 27, Creatinine 1.58, Estimat Glomerular Filtration Rate 32, BUN/Creatinine Ratio 17, Glucose Level 54, Calcium Level 10.9, Phosphorus Level 3.0, Magnesium Level 2.2, Thyroid Stimulating Hormone (TSH) 6.59 02/11/19 06:09: Glucometer 83 02/11/19 10:38: Glucometer 150 02/11/19 15:37: Glucometer 267 02/11/19 20:16: Glucometer 289 02/12/19 04:40: White Blood Count 21.2, Red Blood Count 3.01, Hemoglobin 8.7, Hematocrit 27, Mean Corpuscular Volume 90, Mean Corpuscular Hemoglobin 29, Mean Corpuscular Hemoglobin Concent 32, Red Cell Distribution Width 15.4, Platelet Count 424, Mean Platelet Volume 7.9, Neutrophils (%) (Auto) 92, Lymphocytes (%) (Auto) 3, Monocytes (%) (Auto) 5, Eosinophils (%) (Auto) 0, Basophils (%) (Auto) 0, Neutrophils # (Auto) 19.5, Lymphocytes # (Auto) 0.6, Monocytes # (Auto) 1.0, Eosinophils # (Auto) 0.0, Basophils # (Auto) 0.0, Neutrophils % (Manual) 89, Lymphocytes % (Manual) 3, Monocytes % (Manual) 3, Band Neutrophils 5, Blood Morphology Comment NORMAL, Sodium Level 136, Potassium Level 4.8, Chloride Level 100, Carbon Dioxide Level 27, Anion Gap 9, Blood Urea Nitrogen 29, Creatinine 1.78, Estimat Glomerular Filtration Rate 28, BUN/Creatinine Ratio 16, Glucose Level 202, Calcium Level 11.1, Phosphorus Level 2.7, Magnesium Level 2.3 02/12/19 11:28: Glucometer 251 02/12/19 15:47: Glucometer 334 02/12/19 20:43: Glucometer 226 02/13/19 05:27: Glucometer 85 02/13/19 06:00: White Blood Count 20.5, Red Blood Count 3.04, Hemoglobin 8.9, Hematocrit 28, Mean Corpuscular Volume 92, Mean Corpuscular Hemoglobin 29, Mean Corpuscular Hemoglobin Concent 32, Red Cell Distribution Width 15.5, Platelet Count 452, Mean Platelet Volume 8.2, Neutrophils (%) (Auto) 87, Lymphocytes (%) (Auto) 5, Monocytes (%) (Auto) 8, Eosinophils (%) (Auto) 0, Basophils (%) (Auto) 0, Neutrophils # (Auto) 17.9, Lymphocytes # (Auto) 1.0, Monocytes # (Auto) 1.6, Eosinophils # (Auto) 0.0, Basophils # (Auto) 0.0, Sodium Level 139, Potassium Level 4.3, Chloride Level 100, Carbon Dioxide Level 29, Anion Gap 10, Blood Urea Nitrogen 33, Creatinine 1.65, Estimat Glomerular Filtration Rate 30, BUN/Creatinine Ratio 20, Glucose Level 76, Calcium Level 11.6, Phosphorus Level 2.8, Magnesium Level 2.4 02/13/19 10:55: Glucometer 119 02/13/19 15:49: Glucometer 137 02/13/19 20:42: Glucometer 133 02/14/19 06:27: Glucometer 82 02/14/19 06:30: White Blood Count 11.9, Red Blood Count 2.71, Hemoglobin 8.1, Hematocrit 25, Mean Corpuscular Volume 93, Mean Corpuscular Hemoglobin 30, Mean Corpuscular Hemoglobin Concent 32, Red Cell Distribution Width 15.4, Platelet Count 357, Mean Platelet Volume 8.1, Neutrophils (%) (Auto) 82, Lymphocytes (%) (Auto) 9, Monocytes (%) (Auto) 8, Eosinophils (%) (Auto) 1, Basophils (%) (Auto) 0, Neutrophils # (Auto) 9.7, Lymphocytes # (Auto) 1.1, Monocytes # (Auto) 1.0, Eosinophils # (Auto) 0.1, Basophils # (Auto) 0.0, Sodium Level 137, Potassium Level 4.3, Chloride Level 101, Carbon Dioxide Level 28, Anion Gap 8, Blood Urea Nitrogen 34, Creatinine 1.65, Estimat Glomerular Filtration Rate 30, BUN/Cre atinine Ratio 21, Glucose Level 78, Calcium Level 10.7, Phosphorus Level 3.1, Magnesium Level 2.4 02/14/19 10:36: Glucometer 161 02/14/19 15:33: Glucometer 151 02/14/19 20:34: Glucometer 130 02/15/19 05:37: Glucometer 105 02/15/19 05:40: White Blood Count 12.0, Red Blood Count 2.79, Hemoglobin 8.2, Hematocrit 26, Mean Corpuscular Volume 92, Mean Corpuscular Hemoglobin 29, Mean Corpuscular Hemoglobin Concent 32, Red Cell Distribution Width 15.0, Platelet Count 344, Mean Platelet Volume 8.1, Neutrophils (%) (Auto) 85, Lymphocytes (%) (Auto) 7, Monocytes (%) (Auto) 7, Eosinophils (%) (Auto) 1, Basophils (%) (Auto) 0, Neutrophils # (Auto) 10.2, Lymphocytes # (Auto) 0.9, Monocytes # (Auto) 0.9, Eosinophils # (Auto) 0.1, Basophils # (Auto) 0.0, Sodium Level 135, Potassium Level 4.6, Chloride Level 100, Carbon Dioxide Level 27, Anion Gap 8, Blood Urea Nitrogen 31, Creatinine 1.66, Estimat Glomerular Filtration Rate 30, BUN/Creatinine Ratio 19, Glucose Level 97, Calcium Level 10.2, Phosphorus Level 3.0, Magnesium Level 2.3 02/15/19 10:55: Glucometer 136 02/15/19 15:53: Glucometer 159 02/15/19 20:59: Glucometer 181 02/16/19 05:39: Glucometer 88 02/16/19 06:30: White Blood Count 12.1, Red Blood Count 2.76, Hemoglobin 8.3, Hematocrit 25, Mean Corpuscular Volume 92, Mean Corpuscular Hemoglobin 30, Mean Corpuscular Hemoglobin Concent 33, Red Cell Distribution Width 15.0, Platelet Count 344, Mean Platelet Volume 8.3, Neutrophils (%) (Auto) 84, Lymphocytes (%) (Auto) 8, Monocytes (%) (Auto) 7, Eosinophils (%) (Auto) 1, Basophils (%) (Auto) 0, Neutrophils # (Auto) 10.2, Lymphocytes # (Auto) 0.9, Monocytes # (Auto) 0.9, Eosinophils # (Auto) 0.1, Basophils # (Auto) 0.0, Sodium Level 135, Potassium Level 4.3, Chloride Level 101, Carbon Dioxide Level 27, Anion Gap 7, Blood Urea Nitrogen 29, Creatinine 1.65, Estimat Glomerular Filtration Rate 30, BUN/Creatinine Ratio 18, Glucose Level 77, Calcium Level 9.9, Phosphorus Level 3.1, Magnesium Level 2.4 02/16/19 11:03: Glucometer 132 02/16/19 15:39: Glucometer 155 02/16/19 20:32: Glucometer 163 02/17/19 05:50: Glucometer 123, White Blood Count 12.3, Red Blood Count 2.60, Hemoglobin 7.5, Hematocrit 24, Mean Corpuscular Volume 91, Mean Corpuscular Hemoglobin 29, Mean Corpuscular Hemoglobin Concent 32, Red Cell Distribution Width 15.2, Platelet Count 333, Mean Platelet Volume 8.3, Neutrophils (%) (Auto) 87, Lymphocytes (%) (Auto) 6, Monocytes (%) (Auto) 6, Eosinophils (%) (Auto) 1, Basophils (%) (Auto) 0, Neutrophils # (Auto) 10.7, Lymphocytes # (Auto) 0.8, Monocytes # (Auto) 0.8, Eosinophils # (Auto) 0.1, Basophils # (Auto) 0.0, Sodium Level 135, Potassium Level 4.4, Chloride Level 100, Carbon Dioxide Level 29, Anion Gap 6, Blood Urea Nitrogen 28, Creatinine 1.69, Estimat Glomerular Filtration Rate 29, BUN/Creatinine Ratio 17, Glucose Level 113, Calcium Level 9.6, Phosphorus Level 3.3, Magnesium Level 2.4 02/17/19 10:44: Glucometer 136 02/17/19 15:59: Glucometer 171 02/17/19 20:27: Glucometer 136 02/18/19 05:10: White Blood Count 13.6, Red Blood Count 2.71, Hemoglobin 7.9, Hematocrit 25, Mean Corpuscular Volume 91, Mean Corpuscular Hemoglobin 29, Mean Corpuscular Hemoglobin Concent 32, Red Cell Distribution Width 15.4, Platelet Count 351, Mean Platelet Volume 8.2, Neutrophils (%) (Auto) 88, Lymphocytes (%) (Auto) 4, Monocytes (%) (Auto) 7, Eosinophils (%) (Auto) 1, Basophils (%) (Auto) 0, Neutrophils # (Auto) 11.9, Lymphocytes # (Auto) 0.6, Monocytes # (Auto) 1.0, Eosinophils # (Auto) 0.1, Basophils # (Auto) 0.0, Sodium Level 136, Potassium Level 4.4, Chloride Level 100, Carbon Dioxide Level 26, Anion Gap 10, Blood Urea Nitrogen 24, Creatinine 1.68, Estimat Glomerular Filtration Rate 29, BUN/Creatinine Ratio 14, Glucose Level 94, Calcium Level 9.5, Phosphorus Level 3.2, Magnesium Level 2.5 02/18/19 05:12: Glucometer 106 02/18/19 11:02: Glucometer 99 02/19/19 05:30: White Blood Count 14.3, Red Blood Count 2.88, Hemoglobin 8.5, Hematocrit 27, Mean Corpuscular Volume 92, Mean Corpuscular Hemoglobin 30, Mean Corpuscular Hemoglobin Concent 32, Red Cell Distribution Width 15.6, Platelet Count 387, Mean Platelet Volume 8.9, Neutrophils (%) (Auto) 89, Lymphocytes (%) (Auto) 5, Monocytes (%) (Auto) 6, Eosinophils (%) (Auto) 0, Basophils (%) (Auto) 0, Neutrophils # (Auto) 12.7, Lymphocytes # (Auto) 0.7, Monocytes # (Auto) 0.8, Eosinophils # (Auto) 0.1, Basophils # (Auto) 0.0, Neutrophils % (Manual) 89, Lymphocytes % (Manual) 6, Monocytes % (Manual) 4, Eosinophils % (Manual) 1, Basophils % (Manual) 0, Toxic Granulation 1+, Poikilocytosis SLIGHT, Anisocytosis SLIGHT, Elliptocytes SLIGHT, Sodium Level 137, Potassium Level 4.5, Chloride Level 101, Carbon Dioxide Level 26, Anion Gap 10, Blood Urea Nitrogen 23, Creatinine 1.84, Estimat Glomerular Filtration Rate 27, BUN/Creatinine Ratio 13, Glucose Level 58, Calcium Level 9.8, Phosphorus Level 3.1, Magnesium Level 2.5 02/19/19 08:25: Glucometer 85 02/19/19 15:30: Glucometer 99 02/19/19 21:54: Glucometer 93 02/20/19 05:31: Glucometer 141 02/20/19 10:56: Glucometer 228 02/20/19 15:21: Glucometer 211 02/20/19 20:08: Glucometer 123 02/21/19 06:00: Glucometer 111 02/21/19 10:25: White Blood Count 11.5, Red Blood Count 2.76, Hemoglobin 8.1, Hematocrit 26, Mean Corpuscular Volume 92, Mean Corpuscular Hemoglobin 29, Mean Corpuscular Hemoglobin Concent 32, Red Cell Distribution Width 15.7, Platelet Count 316, Mean Platelet Volume 8.4, Neutrophils (%) (Auto) 85, Lymphocytes (%) (Auto) 5, Monocytes (%) (Auto) 8, Eosinophils (%) (Auto) 1, Basophils (%) (Auto) 0, Neutrophils # (Auto) 9.8, Lymphocytes # (Auto) 0.6, Monocytes # (Auto) 1.0, Eosinophils # (Auto) 0.2, Basophils # (Auto) 0.0, Sodium Level 135, Potassium Level 3.9, Chloride Level 100, Carbon Dioxide Level 25, Anion Gap 10, Blood Urea Nitrogen 25, Creatinine 2.57, Estimat Glomerular Filtration Rate 18, BUN/Creatinine Ratio 10, Glucose Level 127, Calcium Level 9.2, Corrected Calcium 10.0, Total Bilirubin 0.3, Aspartate Amino Transf (AST/SGOT) 16, Alanine Aminotransferase (ALT/SGPT) 15, Alkaline Phosphatase 133, Total Protein 5.3, Albumin 3.0 02/21/19 10:45: Glucometer 137 02/21/19 15:43: Glucometer 178 02/21/19 20:31: Glucometer 179 02/22/19 05:30: Glucometer 121 02/22/19 05:50: Sodium Level 135, Potassium Level 3.8, Chloride Level 99, Carbon Dioxide Level 26, Anion Gap 10, Blood Urea Nitrogen 26, Creatinine 2.73, Estimat Glomerular Filtration Rate 17, BUN/Creatinine Ratio 10, Glucose Level 111, Calcium Level 9.1 02/22/19 10:54: Glucometer 189 02/22/19 16:17: Glucometer 152 02/22/19 20:36: Glucometer 148 02/23/19 05:40: Sodium Level 134, Potassium Level 3.7, Chloride Level 100, Carbon Dioxide Level 25, Anion Gap 9, Blood Urea Nitrogen 27, Creatinine 2.78, Estimat Glomerular Filtration Rate 16, BUN/Creatinine Ratio 10, Glucose Level 117, Calcium Level 8.7 02/23/19 05:48: Glucometer 134 02/23/19 10:50: Glucometer 192 Discharge Home Medications: Active Scripts Active Reported Glimepiride 2 Mg Tablet 2 Mg PO BID Amitriptyline HCl 100 Mg Tablet 100 Mg PO HS Levothyroxine Sodium 100 Mcg Tablet 100 Mcg PO DAILY Metoprolol Tartrate 25 Mg Tablet 25 Mg PO BID Probiotic (Lactobacillus Acidophilus) 1 Each Capsule 1 Cap PO DAILY Zolpidem Tartrate 10 Mg Tablet 10 Mg PO HS Furosemide 40 Mg Tablet 40 Mg PO DAILY Donepezil HCl 10 Mg Tablet 10 Mg PO HS Amlodipine Besylate 5 Mg Tablet 5 Mg PO DAILY Xarelto (Rivaroxaban) 15 Mg Tablet 15 Mg PO DAILY Nitroglycerin 0.4 Mg Tab.subl 0.4 Mg SL UD PRN TAKE 1 TABLET EVERY 5 MINUTES NEEDED FOR CHEST PAIN Atorvastatin Calcium 10 Mg Tablet 10 Mg PO HS Tylenol (Acetaminophen) 325 Mg Tablet 650 Mg PO Q6H PRN TAKES 2 (325MG) TABLETS Vitamin D3 (Cholecalciferol (Vitamin D3)) 1,000 Unit Capsule 1,000 Unit PO HS Instructions to patient/family Please see electronic discharge instructions given to patient. Diagnosis/Problems Diagnosis/Problems (1) Fracture of lamina of thoracic vertebra (2) Multifocal pneumonia (3) Hypothyroidism (4) Diabetes mellitus (5) Chronic renal insufficiency, stage III (moderate) (6) Anemia of renal disease (7) Chronic constipation (8) Back pain (9) Dependence on supplemental oxygen (10) COPD (chronic obstructive pulmonary disease) (11) Hypertension (12) Hyperlipidemia (13) Wheezing (14) Depression (15) Angina at rest (16) Atrial fibrillation (17) On continuous oral anticoagulation (18) History of respiratory failure (19) Cough Clinical Quality Measures DVT/VTE Risk/Contraindication: Risk Factor Score Per Nursin RFS Level Per Nursing on Admit: 4+=Very High PIA HINOJOSA DO Feb 23, 2019 10:02 POS
[2019-02-23] MEDS: MULTIVIT W/MINERALS TAB (THERAGRAN M) PO SCH (10:06)
--- NOTE | 2019-02-23 10:40 | NUR ---
Discharge Physician coordinated transfer to [facility] inpatient under Hospitalist Dr. Boyd due to change in condition requiring tertiary specialties. [employer] [employer] contacted [employer] to cancel scheduled transport for a followup with [facility] Neurosurgeon Dr. Camara this date. [employer] [employer] then contacted daughter Gosia Chin who was also enroute to [place] from [facility] to meet her mother there. Gosia understands the new plan, designer writer will update her when EMS picks up patient so that she can travel to [facility] to be present for admission process. Physician has updated patient, unit RN aware. [facility] has provided a continuum of care packet for [facility] and a separate packet for EMS. RN to complete Transfer Form. Therapy team updated of patient new plan of discharge for today. Addendum: 02/23/19 at 1510 by ALONDRA TOBAR SS Updated daughter that EMS is here picking up patient for transport. Gosia is already in [place] and will meet her mom at [facility].
--- NOTE | 2019-02-23 11:35 | Progress Note ---
BANG KUO,MED STUDENT 02/23/19 1135: Progress Note Hospital course: Patient was admitted to the inpatient rehab unit from [facility] on 02/07/19 post-op for fracture of thoracic vertebra and laminectomy done on 02/03/19. A CXR was performed at the time of admission which revealed multi-lobar infiltrates. Pulmonology was consulted and Dr. Garcia started her on cefepime and vancomycin in addition to Duonebs with resolution of the pneumonia following antibiotic therapy. Cardiology was consulted for history of PAF and HTN. 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 She did make some improvement with intensive PT and OT, but 3-4 days ago began experiencing increased nausea and vomiting which slowed her progress. The nausea and vomiting paralleled an increase in creatinine which is 2.78 today. Due to complexity of multiple comorbidities and worsening renal function, she has agreed to a transfer to [facility] in [place] where she can be followed by nephrology. Dr. Rose is the hospitalist at [facility] who will accept the patient in transfer. Her appointment with the [facility] neurosurgeon for ongoing leg weakness was cancelled today due to worsening clinical condition, and patient's hope is that the neurosurgeon will see her while she is inpatient. PIA HINOJOSA DO 02/24/19 0803: Supervisory-Addendum Brief Verification & Attestation Participated in pt care: history, MDM, physical Personally performed: exam, history, MDM, supervision of care Care discussed with: Medical Student Procedures: n/a Results interpretation: Verified all documentation Verification and Attestation of Medical Student E/M Service A medical student performed and documented this service in my presence. I reviewed and verified all information documented by the medical student and made modifications to such information, when appropriate. I personally performed the physical exam and medical decision making. Pia Hinojosa, Feb 24, 2019,08:03 BANG KUO,MED STUDENT Feb 23, 2019 11:35 PIA CLARKE DO Feb 24, 2019 08:03 POS
--- NOTE | 2019-02-23 14:30 | NUR ---
Report called to Lydia at [facility] ti [facility] to go to room 7008 and transport by [facility].
[2019-02-23 15:00] VITALS: BP 126/70
--- NOTE | 2019-02-27 12:02 | Therapy Team Discharge Summary ---
Therapy Discharge Summary Discharge Recommendations Date of Discharge Feb 23, 2019 at 15:00 Occupational Therapy Pt admitted to ARU following acute hospitalization for spinal surgery. On adm ission pt was dependent for toileting, bathing, and LE dressing and max assist with UE dressing. Skilled OT intervention focused on ADL training, transfers, strengthening, and safety. Pt made some progress with therapy and by discharge is completing eating and oral hygiene independently. Pt is set up for UE dressing, min assist with bathing, max assist with toileting and footwear; and is dependent for LE dressing. Pt met goals for eating, oral hygiene, and UE dressing, but did not meet other goals. Pt discharged to outside hospital for continued care. D/C ARU OT at this time. Decreased Activ Tolerance, Decreased UE Strength, Impaired Coordination, Impaired Funct Balance, Impaired Self-Care Skills PT Mcc Goals Firearms Expert Goals PT Mcc Goals Time Frame: Mar 08, 2019 Roll Left to Right (QC): 6 Sit to Lying (QC): 6 Lying-Sitting on Side/Bed(QC): 6 Sit to Stand (QC): 6 Chair/[id number] Xfer(QC): 6 Car Transfer (QC): 5 Does the Patient Walk: No and Walking Goal IS indicated Walk 10 feet (QC): 6 Walk 10ft-Uneven Surface(QC): 4 Walk 50ft with 2 Turns (QC): 6 Walk 150 ft (QC): 6 Does the Pt use WC or Scooter?: Yes Wheel 50 feet with 2 turns (QC: 5 1 Step (curb) (QC): 4 4 Steps (QC): 4 12 Steps (QC): 9 Picking up an Object (QC): 9 OT Mcc Goals Firearms Expert Goals Time Frame: Mar 08, 2019 Eating (QC): 6 Oral Hygiene (QC): 6 Shower/Bathe Self (QC): 5 Upper Body Dressing (QC): 5 Lower Body Dressing (QC): 5 On/Off Footwear (QC): 5 Toileting Hygiene (QC): 6 Toilet/Commode Transfer (QC): 6 Additional Goals: 1-Demonstrate ADL Tasks, 2-Verbalize Understanding, 3- ImproveStrength/Fidel 1=Demonstrate adherence to instructed precautions during ADL tasks. 2=Patient will verbalize/demonstrate understanding of assistive devices/modifications for ADL. 3=Patient will improve strength/tolerance for activity to enable patient to perform ADL's. ORACIO MUHAMMAD OT Feb 27, 2019 12:01 POS
== END 2019-02-23 15:00 | disposition short-term general hospital (02) | DRG 559 ==
PROVIDERS: ADMIT Internal Medicine; ATTEND Internal Medicine
DX: S22.089D Unspecified fracture of T11-T12 vertebra, subsequent encounter for fracture with routine healing (principal); J15.5 Pneumonia due to Escherichia coli; J90 Pleural effusion, not elsewhere classified; R29.898 Other symptoms and signs involving the musculoskeletal system; F03.90 Unspecified dementia, unspecified severity, without behavioral disturbance, psychotic disturbance, mood disturbance, and anxiety; E11.40 Type 2 diabetes mellitus with diabetic neuropathy, unspecified; I12.9 Hypertensive chronic kidney disease with stage 1 through stage 4 chronic kidney disease, or unspecified chronic kidney disease; N18.3 Chronic kidney disease, stage 3 (moderate); I48.0 Paroxysmal atrial fibrillation; D63.1 Anemia in chronic kidney disease; K59.03 Drug induced constipation; E78.5 Hyperlipidemia, unspecified; J44.9 Chronic obstructive pulmonary disease, unspecified; K21.9 Gastro-esophageal reflux disease without esophagitis; E03.9 Hypothyroidism, unspecified; F32.9 Major depressive disorder, single episode, unspecified; I20.9 Angina pectoris, unspecified; I07.1 Rheumatic tricuspid insufficiency; Z79.01 Long term (current) use of anticoagulants; Z87.09 Personal history of other diseases of the respiratory system; Z99.81 Dependence on supplemental oxygen; W19.XXXD Unspecified fall, subsequent encounter; Y92.009 Unspecified place in unspecified non-institutional (private) residence as the place of occurrence of the external cause
CPT/HCPCS: 36415; 36569; 71045; 76937; 80048; 80053; 80202; 81000; 82962; 83540; 83605; 83735; 83880; 84100; 84443; 85007; 85025; 85027; 87040; 87070; 87077; 87088; 87186; 87205; 87449; 87899; 93306; 94640; 94664; 94760